=== PATIENT | female | born 1950 | race Caucasian/White ===

== ENCOUNTER 2017-09-08 07:07 | Inpatient (IN) | payer OTHER ==
[2017-08-10 15:20] VITALS: BMI 44.0
--- NOTE | 2017-08-10 15:43 | PAT Medication Instructions ---
Service Date Aug 10, 2017. Current Home Medication List Albuterol Hfa (Ventolin Hfa), 2 PUFFS INH Q6H PRN for PRN Aspirin (Aspirin Ec), 81 MG PO QPM Carboxymethylcellulose-Glyceri (Refresh Optive Ren-3 0.5-1-0.5 %), 1 DROP OP PRN Chlorthalidone (Hygroton), 25 MG PO QAM Cholecalciferol (Vitamin D3), 5,000 TAB PO QAM Clindamycin Hcl (Cleocin), 600 MG PO UD PRN for RN Dexlansoprazole (Dexilant), 60 MG PO QAM Duloxetine Hcl (Cymbalta), 60 MG PO QPM Ferrous Sulfate (Fe Tabs), 325 MG PO QAM Fish Oil (Pray-3), 1-2 TAB PO QAM Garlic (Garlique), 1,000 MG PO QPM Hydrocortisone 2.5% (Rectal) (Anusol-Hc 2.5%), 1 APPLN TOP BID PRN for PRN Latanoprost (Xalatan 0.005% Oph Myra), 1 DROPS OP HS Lisinopril (Zestril), 5 MG PO BID Loperamide Hcl (Imodium), 2 MG PO QID PRN for RN Magnesium Oxide (Mag-Ox), 400 MG PO BID Morphine Sulfate Ir (Morphine Sulfate Ir), 15 MG PO Q12H PRN for Pain Niacin (Niacin), 1,000 MG PO HS Ondansetron Hcl (Zofran), 4 MG PO Q8H PRN for N Oxycodone/Acetaminophen 10MG/325MG (Percocet 10MG/325MG), 1 TAB PO Q4H PRN for N Polyethylene Glycol 3350 (Miralax), 17 GM PO PRN Polyethylene Glycol-Propylene (Systane Ultra), 1 DROPS OP PRN Ranitidine (Zantac), 150 MG PO QPM Tizanidine (Zanaflex ), 4 MG PO Q8H PRN for PRN Topiramate (Topamax), 175 MG PO BID [Mirapex], 1.5 MG PO HS [Mirapex], 0.5 TAB PO NOON Medication Instructions For Your Scheduled Surgery - Hold the following medications 2 weeks prior to surgery: Fish Oil (Pray-3), 1-2 TAB PO QAM Garlic (Garlique), 1,000 MG PO QPM - Hold the following medications 24 hours prior to surgery: Lisinopril (Zestril), 5 MG PO BID [Mirapex], 1.5 MG PO HS [Mirapex], 0.5 TAB PO NOON Niacin (Niacin), 1,000 MG PO HS Hydrocortisone 2.5% (Rectal) (Anusol-Hc 2.5%), 1 APPLN TOP BID PRN for PRN - Hold the following medications the morning of surgery: Clindamycin Hcl (Cleocin), 600 MG PO UD PRN for RN Cholecalciferol (Vitamin D3), 5,000 TAB PO QAM Clindamycin Hcl (Cleocin), 600 MG PO UD PRN for RN Ferrous Sulfate (Fe Tabs), 325 MG PO QAM Loperamide Hcl (Imodium), 2 MG PO QID PRN for RN Magnesium Oxide (Mag-Ox), 400 MG PO BID Polyethylene Glycol 3350 (Miralax), 17 GM PO PRN Tizanidine (Zanaflex ), 4 MG PO Q8H PRN for PRN - Take the following medications the morning of surgery with a sip of water: Topiramate (Topamax), 175 MG PO BID Polyethylene Glycol-Propylene (Systane Ultra), 1 DROPS OP PRN (if needed) Oxycodone/Acetaminophen 10MG/325MG (Percocet 10MG/325MG), 1 TAB PO Q4H PRN for N (okay to take up to 4 hours prior to surgery if needed) Morphine Sulfate Ir (Morphine Sulfate Ir), 15 MG PO Q12H PRN for Pain (okay to take up to 4 hours prior to surgery if needed) Ondansetron Hcl (Zofran), 4 MG PO Q8H PRN for N (if needed) Dexlansoprazole (Dexilant), 60 MG PO QAM Carboxymethylcellulose-Glyceri (Refresh Optive Rne-3 0.5-1-0.5 %), 1 DROP OP PRN (if needed) Albuterol Hfa (Ventolin Hfa), 2 PUFFS INH Q6H PRN for PRN (if needed) - Take the following medications as scheduled the night before surgery: Topiramate (Topamax), 175 MG PO BID Tizanidine (Zanaflex ), 4 MG PO Q8H PRN for PRN (if needed) Ranitidine (Zantac), 150 MG PO QPM Polyethylene Glycol-Propylene (Systane Ultra), 1 DROPS OP PRN (if needed) Polyethylene Glycol 3350 (Miralax), 17 GM PO PRN (if needed) Oxycodone/Acetaminophen 10MG/325MG (Percocet 10MG/325MG), 1 TAB PO Q4H PRN for N (if needed) Morphine Sulfate Ir (Morphine Sulfate Ir), 15 MG PO Q12H PRN for Pain (if needed ) Ondansetron Hcl (Zofran), 4 MG PO Q8H PRN for N (if needed) Magnesium Oxide (Mag-Ox), 400 MG PO BID Loperamide Hcl (Imodium), 2 MG PO QID PRN for RN (if needed) Latanoprost (Xalatan 0.005% Oph Myra), 1 DROPS OP HS Duloxetine Hcl (Cymbalta), 60 MG PO QPM Clindamycin Hcl (Cleocin), 600 MG PO UD PRN for RN (if needed) Carboxymethylcellulose-Glyceri (Refresh Optive Ren-3 0.5-1-0.5 %), 1 DROP OP PRN (if needed) Aspirin (Aspirin Ec), 81 MG PO QPM Albuterol Hfa (Ventolin Hfa), 2 PUFFS INH Q6H PRN for PRN (if needed) If you have any questions please call us at [phone] or [phone] or [phone]
[2017-08-10 16:30] LABS: BASO % 0.7 %; BASO ABS # 0.04 K/uL (0-0.2); EOS % 5.9 %; EOS ABS # 0.33 K/uL (0-0.5); HEMATOCRIT 33.4 % (37-47); HEMOGLOBIN 11.2 g/dL (12.0-16.0); IG# 0.02 K/uL (0.00-0.02); LYMPH % 24.7 %; LYMPH ABS # 1.39 K/uL (1.2-3.4); MEAN CELL VOLUME 93.8 fL (80-100); MEAN CORPUSCULAR HEMOGLOBIN 31.5 pg (25-34); MEAN CORPUSCULAR HGB CONC 33.5 g/dl (32-36); MEAN PLATELET VOLUME 9.9 fL (7.4-10.4); MONO % 8.2 %; MONO ABS # 0.46 K/uL (0.11-0.59); NEUT % 60.1 %; NEUT ABS # 3.39 K/uL (1.4-6.5); PLATELET COUNT 217 K/uL (130-400); RED CELL DISTRIBUTION WIDTH CV 13.8 % (11.5-14.5); RED CELL DISTRIBUTION WIDTH SD 47.5 fL (36.4-46.3); WHITE BLOOD COUNT 5.63 K/uL (4.8-10.8)
[2017-08-10 16:44] LABS: PTT PATIENT 25.7 SECONDS (21.0-31.0)
--- NOTE | 2017-08-10 17:00 | DIAGNOSTIC IMAGING REPORT ---
CHEST 2 VIEWS ROUTINE CLINICAL HISTORY: 67 years-old Female presenting with PAT. TECHNIQUE: Portable upright AP view of the chest was obtained. COMPARISON: 11/12/2011. FINDINGS: Atherosclerosis of the aortic arch. Cardiac silhouette normal in size. Elevation of the right hemidiaphragm. Lungs and pleural spaces clear. Scoliotic curvature of the spine may in part be positional. Upper abdomen normal. IMPRESSION: 1. No acute cardiopulmonary disease. Electronically signed by: David Rivera M.D. 08/10/2017 4:59 PM Dictated Date/Time: 08/10/2017 4:58 PM
[2017-08-11 06:14] LABS: HEMOGLOBIN A1C 5.4 % (4.5-5.6)
--- NOTE | 2017-09-07 17:21 | HISTORY & PHYSICAL EXAMINATION ---
DATE OF ADMISSION: 09/08/2017 CHIEF COMPLAINT: Chronic right knee pain. HISTORY OF PRESENT ILLNESS: This is a 67-year-old female patient of Dr. Arroyo, complaining of chronic right knee pain, longstanding, now progressively getting worse. The patient has failed conservative treatment including intraarticular injections and anti-inflammatories. The patient has increased pain with weightbearing activities and her pain does interfere with her activities of daily living. PAST MEDICAL HISTORY: Hypertension, hypercholesterolemia, sleep apnea with the use of CPAP, history of a TIA, fibromyalgia, peripheral neuropathy, anemia, sickle cell disease, osteoarthritis, spine problems, neck problems, upper back problems, sciatica, scoliosis, acid reflux, hiatal hernia, obesity, dental issues, stage III kidney failure, and a history of breast cancer. SOCIAL HISTORY: Nonsmoker and nondrinker. FAMILY HISTORY: Noncontributory. REVIEW OF SYSTEMS: Chronic right knee pain. Otherwise, denies any shortness of breath, chest pain, nausea, vomiting or any other joint complaints. PAST SURGICAL HISTORY: , bilateral hypogastric artery ligation, polyp removal, D&C, hernia repair, uterine polyp removal, hysterectomy, left knee arthroscopy, removal of sebaceous cyst chest, left total knee replacement, right cataract, left cataract, and partial mastectomy. MEDICATIONS: 1. Zanaflex 4 mg 1 by mouth every 8 hours as needed for muscle spasm. 2. Percocet every 4 hours as needed. 3. Morphine 15 mg b.i.d. 4. Imodium 1 tablet 4 times daily as needed. 5. Zofran 4 mg as needed. 6. Topamax 100 mg 2 tablets b.i.d. 7. Cymbalta 60 mg daily. 8. Lisinopril 5 mg b.i.d. 9. Ferrous sulfate 325 mg with breakfast. 10. Xalatan 0.005% ophthalmic solution 1 drop in each eye daily. 11. [place] 3 fish oil daily. 12. Anusol 2.5% rectal cream b.i.d. 13. Ventolin HFA 108 mcg 2 puffs every 4-6 hours p.r.n. 14. Mag-Ox 400 mg b.i.d. 15. Niacin 500 mg 2 tablets at night. 16. Systane Ultra 0.4-0.3% ophthalmic solution 1 drop in both eyes daily. 17. Mirapex 1.5 mg 1-2 hours before bedtime. 18. Chlorthalidone 25 mg daily. 19. MiraLax 255 grams powder 17 grams by mouth as needed. 20. Aspirin 81 mg daily. 21. Vitamin D3 daily. 22. Zantac 150 mg daily as needed. 23. Dexilant 60 mg daily. 24. Refresh Optive 0.5-0.9% solution 1 drop into eye every 6 hours as needed for dry eyes. 25. Topiramate 50 mg 1-1/2 tablets twice daily. 26. Garlic 1000 mg daily. ALLERGIES: PENICILLIN, SULFA, CEPHALOSPORINS, REQUIP AND TRILEPTAL. PHYSICAL EXAMINATION: GENERAL: Well-developed and well-nourished 67-year-old female in no acute distress. She is alert and oriented x3 and pleasant. HEENT: Normocephalic and atraumatic. Extraocular motions are intact. Pupils are equal and reactive to light. HEART: Regular rate and rhythm. No murmurs are appreciated. LUNGS: Clear. ABDOMEN: Soft and nontender. Bowel sounds are present. EXTREMITIES: Right knee reveals obesity. She has a neutral alignment with 0-95 degrees of motion. She has crepitation with passive range of motion and mild effusion. She has 4/5 strength. NEUROLOGIC: Neurovascularly, she is intact in her right lower extremity. DIAGNOSES: Right knee end-stage osteoarthritis, hypertension, hypercholesterolemia, sleep apnea with the use of CPAP, carpal tunnel, fibromyalgia, peripheral neuropathy, anemia, sickle cell disease, osteoarthritis, spine problems, neck problems, back problems, sciatica, scoliosis with bulging disk, acid reflux, hiatal hernia, obesity, dental issues, stage III kidney disease, and a history of breast cancer. PLAN: The patient was advised of her diagnoses. Indications, risks, benefits, and postop course have all been reviewed. The patient wishes to proceed with a right total knee arthroplasty. Necessary consent forms, preoperative testing and clearances will be obtained. BECKY
[~2017-09-08] VITALS: Ht 149.9 cm; Wt 99.9 kg
[2017-09-08] VITALS (7 sets, daily range): BP systolic 105–124; BP diastolic 63–70; PULSE 65–80; TEMP 36.3–36.8; O2SAT 95–99; Ht 149.9 cm; Wt 99.9 kg
[~2017-09-08 07:07] MED LIST: ACETAMINOPHEN 500 MG TAB PO SCH; ASPI81TA28 PO; BUPIVACAINE 0.5 % 5 MG/1 ML PF 10ML VIAL ONE; CARB1SOL15 OP; CHOL20007 PO; CLIN300C2 PO; CLINDAMYCIN 600 MG/54 ML D5W 54 ML IV SCH; DEXAMETHASONE 4 MG TAB PO SCH; DEXL60CA4 PO; DULO60CA44 PO; FAMOTIDINE 20 MG TAB PO SCH; FENTANYL CITRATE INJ 50 MCG/1 ML 2 ML VIAL ONE; FERR-24 PO; GABAPENTIN 300 MG CAP PO SCH; GARL400T5 PO; HYDR2.5C37 TOP; HYG/25 PO; IMD/2 PO; LACTATED RINGER'S 1000ML 1,000 ML IV SCH; LACTATED RINGER'S 1000ML 500 ML IV SCH; LACTATED RINGER'S 1000ML IV SCH; LATA0.009 OP; LIDOCAINE HCL 2% 2 ML VIAL (20MG/ML) ONE; LISI-729 PO; MAGN400T6 PO; METOCLOPRAMIDE HCL 10 MG TAB PO SCH; MIDAZOLAM HCL 1 MG/ML 2ML VIAL ONE; MIRAPEX PO; MORP15TA PO; NIAC500T11 PO; OMEG10007 PO; ONDA4TAB46 PO; OXYC-106 PO; POLY1SOL6 OP; POLY335019 PO; PROPOFOL IV EMULSION 10 MG/ML 20 ML VIAL IV ONE; ROPIVACAINE 5MG/ML 30 ML 150 MG, BUPIVACAINE 0.5% MPF INJ 30 ML, EpINEphrine HCL INJ 0.... INFIL SCH; TOPI100T34 PO; VNTHFA/IN INH; ZNF4 PO; ZNTT/150 PO
[2017-09-08] MEDS ORDERED: EpHEDrine SULFATE INJ 50 MG/ML AMP IV PRN (07:45)
[2017-09-08] MEDS ORDERED: ATROPINE SULFATE 0.1 MG/ML 5ML SYR IV PRN (07:45)
[2017-09-08] MEDS ORDERED: FENTANYL CITRATE INJ 50 MCG/1 ML 2 ML VIAL IV PRN (07:45)
[2017-09-08] MEDS ORDERED: ONDANSETRON INJ 2 MG/ML 2 ML VIAL IV PRN ×2 (07:45→12:30)
[2017-09-08] MEDS ORDERED: POVIDONE-IODINE OP SOLN 30 ML BTL ONE (08:29)
[2017-09-08] MEDS ORDERED: BACITRACIN 50000 UNIT VIAL ONE (08:29)
[2017-09-08] MEDS ORDERED: ORTHO JOINT ANESTHETIC ONE (08:29)
--- NOTE | 2017-09-08 09:16 | History & Physical Bridge Note ---
H&P Re-Evaluation Bridge Note: I have examined the patient, reviewed the History & Physical and in the interval since the performance of the History & Physical I have noted the following changes of clinical significance: No changes noted
[2017-09-08] MEDS ORDERED: MIDAZOLAM HCL 1 MG/ML 2ML VIAL ONE (09:38)
[2017-09-08] MEDS ORDERED: PROPOFOL IV EMULSION 10 MG/ML 20 ML VIAL IV ONE (11:50)
--- NOTE | 2017-09-08 11:54 | [facility] Post Operative Brief Note ---
Immediate Operative Summary Operative Date Sep 08, 2017. Pre-Operative Diagnosis Right Knee End Stage Osteoarthritis,morbid obesity bmi 44.5, lymphedema Post-Operative Diagnosis same Procedure(s) Performed Right Total Knee Arthroplasty,superficial wound vac ,increased level difficulty morbid obesity Surgeon Dr. Abimael Arroyo Drapery Operator Surgeon(s) Carlos Mcknight PA-C Estimated Blood Loss 5cc Findings Consistent with Post-Op Diagnosis Specimens A. Right Knee Bone and Tissue Drains 2 hemovac Anesthesia Type MAC Spinal Regional Complication(s) none
[2017-09-08] MEDS ORDERED: MoRPHine SULFATE IR 15 MG TAB (IMMEDIATE RELEASE) PO PRN (12:30)
[2017-09-08] MEDS ORDERED: ARTIFICIAL TEARS OP SOLN OP PRN (12:30)
[2017-09-08] MEDS ORDERED: HYDROmorphone INJ 0.5 MG/0.5 ML SYR IV PRN (12:30)
[2017-09-08] MEDS ORDERED: ALUMINUM/MAGNESIUM/SIMETH (MAALOX MAX) 30 ML UDC PO PRN (12:30)
[2017-09-08] MEDS ORDERED: ALBUTEROL HFA 8 GM INHALER INH PRN (12:30)
[2017-09-08] MEDS ORDERED: LOPERAMIDE HCL 2 MG CAP PO PRN (12:30)
--- NOTE | 2017-09-08 12:40 | Anesthesiology Progress Note ---
Anesthesia Post Op Note Date & Time Sep 08, 2017 at 12:40 Vital Signs Pain Intensity: 0 Vital Signs Past 12 Hours Date Time Temp Pulse Resp B/P (MAP) Pulse Ox O2 Delivery O2 Flow Rate FiO2 09/08/17 12:30 74 18 101/51 97 Oxymask 10 09/08/17 12:21 37.1 80 18 99/48 99 Oxymask 10 Notes Mental Status: alert / awake / arousable, participated in evaluation Pt Amnestic to Procedure: Yes Nausea / Vomiting: adequately controlled Pain: adequately controlled Airway Patency, RR, SpO2: stable & adequate BP & HR: stable & adequate Hydration State: stable & adequate Neuraxial Anesthesia: was administered, sensory block is resolving Anesthetic Complications: no major complications apparent
--- NOTE | 2017-09-08 12:54 | DIAGNOSTIC IMAGING REPORT ---
R KNEE 1 OR 2 VIEWS ROUTINE CLINICAL HISTORY: Right knee degenerative joint disease. Arthroplasty. COMPARISON: None FINDINGS: Alignment of the total right knee arthroplasty is anatomic. There is no fracture or unexpected radiopaque foreign body. Drains and skin kerrie are present. IMPRESSION: Expected findings following total right knee arthroplasty. Electronically signed by: Sergio Sanchez M.D. 09/08/2017 12:52 PM Dictated Date/Time: 09/08/2017 12:52 PM
[2017-09-08] MEDS: D5W AND 1/2NSS + 20MEQ KCL 1,000 ML IV SCH ×2 (14:00→23:00)
[2017-09-08] MEDS: ACETAMINOPHEN 500 MG TAB PO SCH ×2 (14:05→21:58)
[2017-09-08] MEDS ORDERED: LISI10TA PO (15:20)
[2017-09-08] MEDS ORDERED: MORP1TAB11 PO (15:20)
--- NOTE | 2017-09-08 15:22 | Medical Consult ---
Consultation Date of Consultation: Sep 08, 2017. Attending Physician: Abimael Arroyo M.D. Reason for Consultation: Post-op medical mgmt History of Present Illness This is a 67yo F with a PMH of HTN, GAUTAM (on cpap), h/o TIA, depression, fibromyalgia, OA, GERD, CKD III and other problems listed below who is POD #0 s/ p R TKA by Dr. Arroyo. Patient with longstanding OA. Previously had L TKA performed and tolerated it well. Currently ambulates with a cane but is having increasing difficulty due to R knee pain. Is doing well post-operatively. Denies any pain, fever, chills, lightheadedness, headache, CP, SOB, abd pain, nausea, vomiting, diarrhea, constipation, LE swelling. Remote history of cancer of R breast. Has chronic back pain and OA, for which she is prescribed morphine ER, percocet and Zanaflex. Past Medical/Surgical History Medical Problems: (1) Chronic back pain Status: Chronic (2) CKD (chronic kidney disease), stage III Status: Chronic (3) Fibromyalgia Status: Chronic (4) GERD (gastroesophageal reflux disease) Status: Chronic (5) H/O malignant neoplasm of breast Status: Chronic (6) H/O recurrent transient ischemic attacks Status: Chronic (7) HLD (hyperlipidemia) Status: Chronic (8) HTN (hypertension) Status: Chronic (9) Obesity Status: Chronic (10) GAUTAM on CPAP Status: Chronic (11) Right knee DJD Status: Chronic (12) Sickle cell disease Status: Chronic Surgical Problems: (1) Status post total knee replacement, left Status: Chronic Family History Hypertension Kidney disease Social History Smoking Status: Never Smoker Alcohol Use: none Marital Status: Housing Status: lives with significant other Allergies Coded Allergies: Adhesives (Verified Allergy, Intermediate, RASH, 09/08/17) Penicillins (Verified Allergy, Intermediate, TEMP ELEV (DRUG FEVER),RASH HIVES, 09/08/17) Sulfa Drugs (Verified Allergy, Intermediate, RASH, 09/08/17) Cephalosporins (Verified Allergy, Unknown, KEFLEX ALLERGY, NO RXN PROVIDED WHEN HX TAKEN, 09/08/17) HMG-CoA-R Inhibitors (Verified Allergy, Unknown, "STATIN" ALLERGY-MUSCLE PAINS, 09/08/17) NSAIDs (Verified Allergy, Unknown, AVOID DUE TO KIDNEY FUNCTION, 09/08/17) Oxcarbazepine (Verified Allergy, Unknown, BURNING AND PAIN FEET, 08/10/17) Ropinirole (Verified Allergy, Unknown, RASH, 08/10/17) Home Medications Reported Home Medications Medications Dose Route/Sig Max Daily Dose Days Date Category Dose Instructions Morphine Sulfate Er (Morphine Sulfate) 15 Mg Tab 1 Tab PO BID PRN 30 09/08/17 Reported Prinivil (Lisinopril) 10 Mg Tab 10 Mg PO DAILY 09/08/17 Reported Garlique (Garlic) 400 Mg Tab 1,000 Mg PO QPM 08/10/17 Reported Refresh Optive Ren-3 0.5-1-0.5 % (Carboxymethylcellulose-Glyceri) 1 Myra Myra 1 Drop OP PRN 08/10/17 Reported Dexilant (Dexlansoprazole) 60 Mg Cap 60 Mg PO QAM 08/10/17 Reported Zantac (Ranitidine HCl) 150 Mg Tab 150 Mg PO QPM 08/10/17 Reported Vitamin D3 (Cholecalciferol) 2,000 Unit Tab 5,000 Tab PO QAM 90 08/10/17 Reported Cleocin (Clindamycin Hcl) 300 Mg Cap 600 Mg PO UD PRN 10 08/10/17 Reported PREMED FOR DENTAL Aspirin Ec (Aspirin) 81 Mg Tab 81 Mg PO QPM 08/10/17 Reported Miralax (Polyethylene Glycol 3350) 1 Pow Pow 17 Gm PO PRN 08/10/17 Reported [place] (Chlorthalidone) 25 Mg Tab 25 Mg PO QAM 08/10/17 Reported [Mirapex] 0.5 Tab PO NOON 08/10/17 Reported TAB = 1.5 MG [Mirapex] 1.5 Mg PO HS 08/10/17 Reported Systane Ultra (Polyethylene Glycol-Propylene) 1 Myra Myra 1 Drops OP PRN 08/10/17 Reported Mag-Ox (Magnesium Oxide) 400 Mg Tab 400 Mg PO BID 08/10/17 Reported Ventolin Hfa (Albuterol) 200 Puffs/62626 Mcg Aers 2 Puffs INH Q6H PRN 08/10/17 Reported Anusol-Hc 2.5% (Hydrocortisone 2.5% (Rectal)) 2.5 % Cre 1 Appln TOP BID PRN 7 08/10/17 Reported [place]-3 (Fish Oil) 1 Ea Cap 1-2 Tab PO QAM 08/10/17 Reported Xalatan 0.005% Oph Myra (Latanoprost) 0.005 % Myra 1 Drops OP HS 90 08/10/17 Reported Cymbalta (Duloxetine Hcl) 60 Mg Cap 60 Mg PO QPM 08/10/17 Reported Percocet 10MG/325MG (Oxycodone/Acetaminophen) Tab 1 Tab PO Q4H PRN 08/10/17 Reported Fe Tabs (Ferrous Sulfate) 325 Mg Tab 325 Mg PO QAM 11/12/11 Reported Topamax (Topiramate) 100 Mg Tab 175 Mg PO BID 11/12/11 Reported Niacin 500 Mg Tab 1,000 Mg PO HS 07/25/07 Reported Zanaflex (Tizanidine HCl) 4 Mg Tab 4 Mg PO Q8H PRN 07/25/07 Reported Current Inpatient Medications Current Inpatient Medications Medications (Trade) Dose Ordered Sig/Miladis Route Start Time Stop Time Status Last Admin Dose Admin Lactated Ringer's 1,000 ml @ 15 mls/hr Q24H IV 09/08/17 06:00 09/09/17 05:59 Lactated Ringer's 1,000 ml @ 60 mls/hr [id number] IV 09/08/17 06:00 09/08/17 22:39 09/08/17 08:13 60 MLS/HR Clindamycin Phosphate 54 ml @ 100 mls/hr PREOP IV 09/08/17 06:00 09/08/17 18:00 09/08/17 10:04 100 MLS/HR Acetaminophen (Tylenol Tab) 1,000 mg PREOP PO 09/08/17 06:00 09/08/17 18:00 09/08/17 08:08 1,000 MG Dexamethasone (Decadron Tab) 8 mg PREOP PO 09/08/17 06:00 09/08/17 18:00 09/08/17 08:10 8 MG Famotidine (Pepcid Tab) 20 mg PREOP PO 09/08/17 06:00 09/08/17 18:00 09/08/17 08:09 20 MG Gabapentin (Neurontin Cap) 300 mg PREOP PO 09/08/17 06:00 09/08/17 18:00 09/08/17 08:08 300 MG Metoclopramide HCl (Reglan Tab) 10 mg PREOP PO 09/08/17 06:00 09/08/17 18:00 09/08/17 08:09 10 MG Albuterol (Ventolin Hfa Inhaler) 2 puffs Q6H PRN INH 09/08/17 12:30 10/08/17 12:29 Chlorthalidone (Hygroton Tab) 25 mg QAM PO 09/09/17 09:00 10/09/17 08:59 Duloxetine HCl (Cymbalta Cap) 60 mg QPM PO 09/08/17 21:00 10/08/17 20:59 Latanoprost (Xalatan Oph Soln) 1 drops HS OP 09/08/17 21:00 10/08/17 20:59 Lisinopril (Zestril Tab) 5 mg BID PO 09/08/17 21:00 10/08/17 20:59 Loperamide HCl (Imodium Cap) 2 mg QID PRN PO 09/08/17 12:30 10/08/17 12:29 Magnesium Oxide (Mag-Ox Tab) 400 mg BID PO 09/08/17 21:00 10/08/17 20:59 Niacin (Niacin Tab) 1,000 mg HS PO 09/08/17 21:00 10/08/17 20:59 Ranitidine HCl (zANTac TAB) 150 mg QPM PO 09/08/17 21:00 10/08/17 20:59 Tizanidine HCl (Zanaflex Tab) 4 mg Q8H PRN PO 09/08/17 12:30 10/08/17 12:29 Topiramate (Topamax Tab) 175 mg BID PO 09/08/17 21:00 10/08/17 20:59 Artificial Tears (Artificial Tears) 1 drops DAILY PRN OP 09/08/17 12:30 10/08/17 12:29 Pantoprazole Sodium (Protonix Tab) 40 mg QAM PO 09/09/17 09:00 10/09/17 08:59 Oxycodone HCl (Roxicodone Immediate Rel Tab) `10-15MG for pain 10MG ... Q4HWA PRN PO 09/08/17 12:30 09/22/17 12:29 Potassium Chloride/Dextrose/ Sod Cl 1,000 ml @ 100 mls/hr Q10H IV 09/08/17 14:00 09/09/17 13:59 Clindamycin Phosphate 600 mg/ Dextrose 54 ml @ 100 mls/hr Q8H IV 09/08/17 18:00 09/09/17 02:33 Acetaminophen (Tylenol Tab) 1,000 mg Q8 PO 09/08/17 14:00 10/08/17 13:59 09/08/17 14:05 1,000 MG Magnesium Hydroxide (Milk Of Magnesia Susp) 30 ml Q6H PRN PO 09/08/17 12:30 10/08/17 12:29 Senna (Senokot Tab) 17.2 mg HS PO 09/08/17 21:00 10/08/17 20:59 Docusate Sodium (coLACE CAP) 100 mg BID PO 09/08/17 21:00 10/08/17 20:59 Al Hydrox/Mg Hydrox/Simethicone (Maalox Max Susp) 15 ml Q4H PRN PO 09/08/17 12:30 10/08/17 12:29 Multivitamins (Multivitamin Tab) 1 tab QAM PO 09/09/17 09:00 10/09/17 08:59 Ondansetron HCl (Zofran Inj) 4 mg Q6H PRN IV 09/08/17 12:30 10/08/17 12:29 Ferrous Gluconate (Ferrous Gluconate Tab) 324 mg TIDM PO 09/08/17 17:45 10/08/17 17:59 Aspirin (Ecotrin Tab) 81 mg BID PO 09/08/17 21:00 10/08/17 20:59 Hydromorphone HCl (Dilaudid Inj) 0.5 mg Q4HWA PRN IV 09/08/17 12:30 09/22/17 12:29 Review of Systems Ten systems reviewed and negative except as noted in the HPI. Physical Exam Date Time Temp Pulse Resp B/P (MAP) Pulse Ox O2 Delivery O2 Flow Rate FiO2 09/08/17 15:13 Nasal Cannula 2.0 09/08/17 14:05 80 16 124/70 (88) 97 Nasal Cannula 2.0 09/08/17 13:38 36.7 67 16 108/65 (79) 95 Nasal Cannula 2.0 1/24/18 13:05 36.7 76 16 108/63 (78) 95 Nasal Cannula 2.0 09/08/17 13:05 Nasal Cannula 2.0 09/08/17 13:05 Nasal Cannula 2.0 09/08/17 12:50 37 73 18 93/41 96 Nasal Cannula 2 09/08/17 12:40 37 72 18 103/45 97 Nasal Cannula 2 09/08/17 12:30 74 18 101/51 97 Oxymask 10 09/08/17 12:21 37.1 80 18 99/48 99 Oxymask 10 General Appearance: WD/WN, no apparent distress, + obese Head: normocephalic, atraumatic Eyes: normal inspection, PERRL, sclerae normal ENT: normal ENT inspection, hearing grossly normal, pharynx normal (moist mucous membranes) Neck: supple, thyroid normal, trachea midline Respiratory/Chest: chest non-tender, lungs clear, normal breath sounds, no respiratory distress, no accessory muscle use Cardiovascular: regular rate, rhythm, normal peripheral pulses Abdomen/GI: normal bowel sounds, non tender, soft, no organomegaly Back: normal inspection Extremities/Musculoskelatal: normal inspection, + pertinent finding (R knee dressing intact. Drain with sanguineous output) Neurologic/Psych: no motor/sensory deficits, alert, normal mood/affect, oriented x 3 Skin: normal color, warm/dry Assessment & Plan This is a 67yo F with a PMH of HTN, GAUTAM (on cpap), h/o TIA, depression, fibromyalgia, OA, GERD, CKD III and other problems listed below who is POD #0 s/ p R TKA by Dr. Arroyo. R knee OA s/p R TKA: -POD#0. Surgery performed by Dr. Arroyo. -Pt is doing well post-operatively -Per ortho for pain control, wound care, anticoagulation and activities -Monitor H&H, continue incentive spirometry, PT/OT when appropriate HTN: -Normotensive -Cont home dose lisinopril, chlorthalidone GAUTAM: -May use own cpap Fibromyalgia, OA, chronic back pain: -Cont home dose morphine ER, percocet and Zanaflex Idiopathic peripheral neuropathy: -Cont home dose topamax GERD: -Cont PPI Depression: -Cont cymbalta DVT Ppx: Per ortho PCP: Mike Dispo: Per ortho Patient seen in collaboration with Dr. Garcia. Please see addendum. Dr. Alonso to see the patient tomorrow and continue following. ATTENDING ADDENDUM : pt seen and examined , care co ordinated with Kia Gómez PA-C 67 yo F with multiple co morbidities as outlined above , s/p rt TKA today recovering well post op P/E: gen ; pleasant , no sign of distress HT: regular s1/s2 lungs: CTA Ext : s/p rt TKA , drain present , normal sensation on lower ext, normal pulse and capillary refill A/P : OA of knee /s/p R TKA -recovering well post op cont management as per Ortho HTN: BP lower side -due to post op status /anesthesia effect -H&H and BMP ordered for tomorrow to assess blood loss anemia /renal insufficiency due to post op vol loss -antihypertensives /diuretics can be resumed tomorrow if BP stable and labs at baseline Please refer to documentation by Kia Gómez PA-C or further discussion of other issues Thank you for allowing to participate in care of the patient , will cont to follow her during her Hospital course Herminia Garcia MD
[2017-09-08] MEDS: CLINDAMYCIN IV 600 MG in DEXTROSE 5% 50ML 50 ML IV SCH (17:42)
[2017-09-08] MEDS: FERROUS GLUCONATE 324 MG TAB PO SCH (17:42)
[2017-09-08] MEDS: RANITIDINE HCL 150 MG TAB PO SCH (20:36)
[2017-09-08] MEDS: DOCUSATE SODIUM 100 MG CAP PO SCH (20:36)
[2017-09-08] MEDS: LISINOPRIL 5 MG TAB PO SCH (20:36)
[2017-09-08] MEDS: LATANOPROST 0.005% OP SOLN 2.5 ML BTL OP SCH (20:36)
[2017-09-08] MEDS: NIACIN 500 MG TAB IMMEDIATE RELEASE PO SCH (20:37)
[2017-09-08] MEDS: ASPIRIN 81 MG ECTAB PO SCH (20:37)
[2017-09-08] MEDS: MAGNESIUM OXIDE 400 MG TAB PO SCH (20:37)
[2017-09-08] MEDS: SENNA 8.6 MG TAB PO SCH (20:37)
[2017-09-08] MEDS: TOPIRAMATE 50 MG TAB PO SCH (20:37)
[2017-09-08] MEDS: DULOXETINE HCL 60 MG CAP PO SCH (20:37)
--- NOTE | 2017-09-09 00:55 | OPERATIVE REPORT ---
DATE OF OPERATION: 09/08/2017 INDICATION FOR PROCEDURE: The patient is a 67-year-old female who presents with chronic progressive osteoarthritis of her right knee. She has had successful left knee replacement in the past, doing well with that. Her right knee has developed progressive osteoarthritis. She has [id number] in the medial compartment. She has subluxation of the femur medially on the tibia with severe endstage osteoarthritis of the knee. Her range of motion was very limited. He does have morbid obesity. She has failed all conservative management. She does have history of some lymphedema of leg as well. PREOPERATIVE DIAGNOSES: 1. End-stage osteoarthritis, right knee. 2. Morbid obesity, BMI of 44.5. 3. Lymphedema, right lower extremity. POSTOPERATIVE DIAGNOSIS: Same. PROCEDURE: Right total knee arthroplasty and application of a superficial wound VAC and increased difficulty due to BMI of 44.5. SURGEON: Abimael Arroyo MD. TUBE COREMAKER: PROSPER Keller. ANESTHESIA: Spinal adductor nerve block and Orthomix. OPERATIVE PROCEDURE: The patient was taken to the operating room, after spinal anesthetic was placed and adductor nerve block was placed by anesthesia. She was placed supine on the operating room table. Pneumatic tourniquet was placed about her obese right upper thigh. Leg exam demonstrates she had an obese leg and lymphedema in the leg, no evidence of any infection. She did have some generalized edema in the lower area of our incision around the pretibial area. The knee exam demonstrated that she had a flexion contracture of about 5 degrees and had flexion only to 85 degrees. Her right lower extremity was then prepped and draped with ChloraPrep in usual sterile fashion. Left leg was elevated, exsanguinated with Esmarch bandage. Pneumatic tourniquet was raised to 350 mmHg because of her obesity. Incision was made longitudinally along the right knee. Skin was incised sharply. Subcutaneous flaps were elevated. When we did cutting, some of the subcutaneous tissues did have some edema noted. The incision was made through the medial retinaculum and extended up in the mid third of the quadriceps tendon and extended down to the medial tibial tubercle. Intraarticular findings demonstrated she had tricompartmental DJD, [id number] in the medial compartment. She had only remnants of the ACL remaining. I used the [employer] 2.0, total knee arthroplasty system using [id number] MRI templating. She was templated for a 5 femur and 4 tibia. The knee was exposed by excising the scarred patellar fat pad. The knee was fairly balanced so we did have to do some releases around the medial tibia medially and posteromedially. The fat pad over the anterior femur for placement of the component just proximal to the articular surface was resected. The synovial bands were released. The cruciate ligament remnants were resected. The menisci were resected. We had to address the patella first because the knee was stiff for appropriate exposure the femur, so we did a subperiosteal peel lateral release around the patella, measured the patella width. The patella was reproduced using a freehand cut technique and a 32 mm patellar component. We used the domed component. The drill holes for the patella were made and the excess lateral facet was beveled off to prevent any impingement. We placed retractors to expose the femur. The custom femoral cutting block was placed and then it was pinned in position. Distal femoral cut was made. Then the 5-in-1 cutting block for the size 5 femur was placed. The anterior, posterior and chamfer cuts were made. Then the tibia was subluxed and the custom tibial cutting block was pinned in position and the proximal tibial cut was made. Then we used a laminar esthetics instructor to assess ligamentous balance. We did have to pie crust the MCL to get balanced extension and flexion gaps. Then the tibia exposed. We placed a 4 tibial trial on the tibia externally rotated in line with the tibial tubercle, pinned it in position. The punch for the stem was used. Then, the 5 femoral trial was inserted and centered and the notch cutting devices were used. A collet was placed and a 12 insert gave balanced ligaments through full range of motion and patella tracked centrally. The trials were removed. The Orthomix anesthetic cocktail was injected per protocol. The knee was copiously irrigated with pulsatile lavage antibiotic solution with bacitracin. Bony surfaces were dried appropriately. The final components were then cemented with Simplex G cement. Final components were the 5 Oxinium [employer] Journey 2.0 right femoral component and the 4 tibial baseplate. The 12 mm high flex posterior stabilized poly insert was placed and a 32 mm dome patella. All cement cured and Betadine soap was used per protocol. Then when the cement cured, the knee was copiously irrigated with pulsatile lavage and antibiotic solution and bacitracin. Two drains were brought out laterally. Then the quadriceps tendon and medial retinaculum were closed with interrupted [id number] #1 Vicryl sutures. The knee was taken through full range of motion and repair was secure. The range of motion was 0 through about 100 degrees and that was pretty much where her calf met her thigh and limited further flexion. The repair was secured through full range. Then the subcutaneous tissues were closed with interrupted 2-0 Vicryl sutures. Skin was closed with skin kerrie and Prevena superficial wound VAC was applied. The tourniquet was let down. The patient tolerated the procedure well. PROSPER Keller was my photography assistant. He functioned as photography assistant for the entire procedure. He assisted in patient positioning, prepping, draping, leg positioning, soft tissue retraction, instrument management and performed the fascial, subcutaneous and skin closure, application of wound VAC and will participate in the postoperative care of the patient. I attest to the content of the Intraoperative Record and any orders documented therein. Any exception s are noted below.
[2017-09-09] MEDS: CLINDAMYCIN IV 600 MG in DEXTROSE 5% 50ML 50 ML IV SCH (01:37)
[2017-09-09 02:55] VITALS: BP 127/68; PULSE 58; TEMP 36.7; O2SAT 99
[2017-09-09] MEDS: OXYCODONE HCL IR 5 MG TAB (IMMEDIATE RELEASE) PO PRN ×4 (04:46→20:36)
[2017-09-09] MEDS: ACETAMINOPHEN 500 MG TAB PO SCH ×3 (05:30→22:19)
--- NOTE | 2017-09-09 05:42 | Orthopedic Progress Note ---
Orthopedic Progress Note Date of Service Sep 09, 2017. Subjective Post OP Day: 1 Reports: feeling well, pain controlled w PO medications, Denies: complaints, chest pain, SOB, nausea / vomiting, light headedness, calf pain Additional Notes: AM labs pending. Objective calves soft nontender, N/V intact, capillary refill less than 2 sec., dressing C /D/I, A&O x3, toes mobile Date Time Temp Pulse Resp B/P (MAP) Pulse Ox O2 Delivery O2 Flow Rate FiO2 09/09/17 02:55 36.7 58 16 127/68 (87) 99 Room Air 09/08/17 23:30 36.8 65 18 118/66 (83) 99 Room Air 09/08/17 22:07 Room Air 09/08/17 20:20 67 121/67 (85) 09/08/17 16:05 36.3 67 18 105/63 (77) 99 Nasal Cannula 2.0 09/08/17 15:13 Nasal Cannula 2.0 09/08/17 15:05 36.4 74 18 114/64 (81) 99 Nasal Cannula 2.0 09/08/17 14:05 80 16 124/70 (88) 97 Nasal Cannula 2.0 09/08/17 13:38 36.7 67 16 108/65 (79) 95 Nasal Cannula 2.0 09/08/17 13:05 36.7 76 16 108/63 (78) 95 Nasal Cannula 2.0 09/08/17 13:05 Nasal Cannula 2.0 09/08/17 13:05 Nasal Cannula 2.0 09/08/17 12:50 37 73 18 93/41 96 Nasal Cannula 2 09/08/17 12:40 37 72 18 103/45 97 Nasal Cannula 2 09/08/17 12:30 74 18 101/51 97 Oxymask 10 09/08/17 12:21 37.1 80 18 99/48 99 Oxymask 10 Laboratory Results 24 Hours: Test 09/09/17 05:29 Assessment & Plan Assessment: POD #1, Right TKA Plan: PT/ OT DVT proph- [facility] per medicine. Inhouse Planning Pain Management: Ultram, Dilaudid, PO Tylenol, Oxy IR DVT Prophylaxis: TEDs, SCDs, ASA Discharge Planning [facility] Pain Management: PO Tylenol, Oxy IR DVT Prophylaxis: TEDs, ASA Therapy: Physical Therapy, Occupational Therapy
--- NOTE | 2017-09-09 05:44 | Discharge Instructions ---
Discharge Instructions Date of Service Sep 09, 2017. Admission Reason for Admission: Right Knee Degenerative Joint Disease Discharge Discharge Diagnosis / Problem: Right TKA Discharge Goals Goal(s): Improve function Activity Recommendations Activity Level: Assistance Required . Additional Information Patient informed of condition: Yes Advance Directives: Yes DNR: No Level of Care: Skilled Communicable Disease: No Prognosis: Stable Hamilton Catheter: No Instructions / Follow-Up Instructions / Follow-Up ACTIVITY RECOMMENDATIONS: SELF CARE INSTRUCTIONS AFTER TOTAL KNEE REPLACEMENT A. You may need to continue a physical therapy program after discharge from the hospital. There are several options available to you. Your doctor will assist you in selecting the best one for you. 1. An out-patient facility 2 to 3 times a week for therapy or home therapy. 2. Continue working on all exercises taught to you in the hospital. Your goals should be to increase bending of your knee to 90 degrees and beyond and to fully straighten your knee. B. You may progress at your own pace from walking with a walker or crutches to a cane; then to no assistive devices. C. Make walking a part of your daily routine. Be up as much as comfortable with rest periods throughout the day. Rest with leg elevation is very important. Use the ice wrap frequently for the first 3-4 weeks. D. There are no restrictions on activities. You may ride in a car, shop, participate in wood web weaving machine operator and all social activities. E. Wear the long elastic stockings (EMILIE hose) 20 hours a day for 2 weeks after surgery. They can be removed several times a day for laundering and for a bath. F. You may shower, no tub baths until cleared by your doctor. SPECIAL CARE INSTRUCTIONS: VERY IMPORTANT TO READ AND REVIEW A. There are a few signs you need to watch for after you are home. Call [facility] if you notice any of the followin. Increased severe knee pain. Some pain is expected especially when you exercise. 2. Increased swelling in your leg or knee; pain or swelling of the calf muscle in either lower leg. 3. Any fluid drainage from the incision. 4. Shortness of breath or chest pain. B. Please call [facility] at if you have any concerns or questions about your operation or recovery. The doctor or his nurse will return your call promptly. C. You must take antibiotics before dental work, bladder, bowel or other surgery. Your doctor will provide you with a permanent care to carry describing this precaution. IMPORTANT: * REMEMBER TO TAKE ASPIRIN, 81 MG, TWICE DAILY FOR 4 WEEKS UNLESS OTHERWISE DIRECTED. THIS IS YOUR BLOOD THINNER. * HIGH RISK PATIENTS MAY BE PRESCRIBED A STRONGER BLOOD THINNER. THIS WILL BE PROVIDED AT DISCHARGE. * CALL IF INCREASED PAIN, REDNESS, DRAINAGE OR FEVER GREATER THAT 101. * WEAR EMILIE HOSE 20 HOURS PER DAY FOR 2 WEEKS. * YOU MAY HAVE A LARGE BAND-AID LIKE DRESSING (SILVERON). THIS WILL REMAIN ON YOUR INCISION FOR 7 DAYS, THEN CAN BE REMOVED. IF INCISION IS LEAKING THROUGH DRESSING, CALL THE OFFICE . FOLLOW UP VISIT: If appointment is not already scheduled: Please call [facility] to make a follow-up appointment for 2 weeks after your surgery at . Current Hospital Diet Patient's current hospital diet: Regular Diet Discharge Diet Recommended Diet: Regular Diet Procedures Procedures Performed: Right Total Knee Arthroplasty,superficial wound vac ,increased level difficulty morbid obesity Pending Studies Studies pending at discharge: no Laboratory Results Hemoglobin A1c Test 08/10/17 16:07 Range/Units Estimated Average Glucose 108 mg/dl Hemoglobin A1c 5.4 4.5-5.6 % Medical Emergencies . Who to Call and When: Medical Emergencies: If at any time you feel your situation is an emergency, please call 911 immediately. . Non-Emergent Contact Non-Emergency issues call your: Primary Care Provider . . "Provider Documentation" section prepared by Jaison Frost. . Core Measure Problem Core Measures: VTE VTE Core Measures Date of VTE Diagnosis: Sep 09, 2017 Time of VTE Diagnosis: 05:43 Reason no anticoag overlap I/P: Treatment provided - N/A Reason no anticoag overlap @DC: Treatment provided - N/A [place] Drug Monitoring Program Search Results: patient reviewed within database, no issues identified
[2017-09-09 05:57] LABS: HEMATOCRIT 26.1 % (37-47); HEMOGLOBIN 8.6 g/dL (12.0-16.0); MEAN CELL VOLUME 93.9 fL (80-100); MEAN CORPUSCULAR HEMOGLOBIN 30.9 pg (25-34); MEAN PLATELET VOLUME 10.2 fL (7.4-10.4); PLATELET COUNT 160 K/uL (130-400); RED CELL DISTRIBUTION WIDTH CV 13.8 % (11.5-14.5); RED CELL DISTRIBUTION WIDTH SD 47.4 fL (36.4-46.3); WHITE BLOOD COUNT 7.62 K/uL (4.8-10.8)
[2017-09-09 06:37] LABS: CREATININE 1.52 mg/dl (0.60-1.20); POTASSIUM 3.4 mmol/L (3.5-5.1)
[2017-09-09 07:09] VITALS: BP 129/70; PULSE 64; TEMP 36.8; O2SAT 100
[2017-09-09] MEDS: MULTIVITAMIN TAB PO SCH (09:11)
[2017-09-09] MEDS: FERROUS GLUCONATE 324 MG TAB PO SCH ×3 (09:11→18:16)
[2017-09-09] MEDS: TOPIRAMATE 50 MG TAB PO SCH ×2 (09:12→20:38)
[2017-09-09] MEDS: MAGNESIUM OXIDE 400 MG TAB PO SCH ×2 (09:13→20:37)
[2017-09-09] MEDS: DOCUSATE SODIUM 100 MG CAP PO SCH ×2 (09:14→20:37)
[2017-09-09] MEDS: ASPIRIN 81 MG ECTAB PO SCH ×2 (09:14→20:37)
[2017-09-09] MEDS: LISINOPRIL 5 MG TAB PO SCH ×2 (09:14→20:39)
[2017-09-09] MEDS: PANTOprazole SOD 40 MG TAB PO SCH (09:15)
[2017-09-09] MEDS: CHLORTHALIDONE 25 MG TAB PO SCH (09:15)
[2017-09-09] MEDS: D5W AND 1/2NSS + 20MEQ KCL 1,000 ML IV SCH (09:16)
[2017-09-09 10:45] VITALS: BP 119/70; PULSE 69; O2SAT 99
--- NOTE | 2017-09-09 12:34 | Clinical Documentation Query ---
CLINICAL DOCUMENTATION QUERY A 67 yo female s/p total right knee arthroplasty and history of CKD stage 3. In your clinical opinion is this patient being managed for: ( ) Acute kidney failure ( ) Not Agree (x ) Other explanation of clinical findings (Please Explain)-This patient is Dr/ Edwin Alonso's. Please send request to him. Thank you ( ) Unable to determine (Please Define) ( ) Need to Discuss The medical record reflects the following clinical findings, treatment, and risk factors. Clinical Indicators: Creatinine 1.52 trending up from 1.0 on 08/26/2017 Treatment: IV hydration, serial PRPs Risk Factors: CKD, s/p surgical event Please clarify and document your clinical opinion in the progress notes and discharge summary. Terms such as "probable", "suspected", "likely", "questionable", "possible", or "still to be ruled out" are acceptable. IF IN AGREEMENT, YOU MUST DOCUMENT ABOVE DIAGNOSTIC STATEMENT IN DAILY PROGRESS NOTES AND DISCHARGE SUMMARY. This document is not part of the patient's record. Thank You, Loyda Holland RN [phone]
[2017-09-09] MEDS: MAGNESIUM HYDROXIDE SUSP 30 ML UDC PO PRN (13:24)
--- NOTE | 2017-09-09 13:45 | Anesthesiology Progress Note ---
Anesthesia Post Op Note Date & Time Sep 09, 2017 at 13:45 Vital Signs Vital Signs Past 12 Hours Date Time Temp Pulse Resp B/P (MAP) Pulse Ox O2 Delivery O2 Flow Rate FiO2 09/09/17 07:30 Room Air 09/09/17 07:09 36.8 64 18 129/70 (89) 100 Room Air 09/09/17 02:55 36.7 58 16 127/68 (87) 99 Room Air Notes Mental Status: alert / awake / arousable, participated in evaluation Pt Amnestic to Procedure: Yes Nausea / Vomiting: adequately controlled Pain: adequately controlled Airway Patency, RR, SpO2: stable & adequate BP & HR: stable & adequate Hydration State: stable & adequate Neuraxial Anesthesia: was administered, sensory block resolved Anesthetic Complications: no major complications apparent
[2017-09-09 14:25] VITALS: BP 120/70; PULSE 72; TEMP 36.5; O2SAT 98
[2017-09-09 15:00] VITALS: BP 120/70; PULSE 70; TEMP 36.6; O2SAT 98
--- NOTE | 2017-09-09 19:09 | Progress Note ---
Internal Med Progress Note Date of Service: Sep 09, 2017. Provider Documentation: SUBJECTIVE: Patient seen and examined at bedside. No acute complaints. OBJECTIVE: Exam: General- no acute distress Eyes-EOMI Neck- trachea midline Lungs- Lungs CTABL, no wheezing Heart- regular rate Abdomen- soft, nontender, + bowel sounds Extremities- wound vac of right knee, legs in SCDs Neuro- awake and alert, oatient able to wiggle toes bilaterally. No focal upper extremity deficits ASSESSMENT & PLAN: s/p Right Total Knee Arthroplasty with superficial wound vac Anemia Hgb 11.2 on 09/08/17 and Hgb 8.6 on 09/09/17 wound vac of right kneed with red serosanguineous fluid continue to trend CBC Electrolytes Serum potassium 3.4, mild hypokalemia, 40 meq potassium oral ordered HTN: -Normotensive , continue home dose lisinopril, chlorthalidone Obesity with GAUTAM: -May use own cpap Fibromyalgia, OA, chronic back pain: -Cont pain medications Idiopathic peripheral neuropathy: -Cont home dose topamax GERD: -Cont PPI Depression: -Cont cymbalta DVT Ppx: SCDs Vital Signs: Date Time Temp Pulse Resp B/P (MAP) Pulse Ox O2 Delivery O2 Flow Rate FiO2 09/09/17 15:00 36.6 70 18 120/70 (87) 98 Room Air 09/09/17 14:25 36.5 72 17 120/70 (87) 98 Room Air 09/09/17 10:45 69 99 09/09/17 07:30 Room Air 09/09/17 07:09 36.8 64 18 129/70 (89) 100 Room Air 09/09/17 02:55 36.7 58 16 127/68 (87) 99 Room Air 09/08/17 23:30 36.8 65 18 118/66 (83) 99 Room Air 09/08/17 22:07 Room Air 09/08/17 20:20 67 121/67 (85) Lab Results: Results Past 24 Hours Test 09/09/17 05:29 Range/Units White Blood Count 7.62 4.8-10.8 K/uL Red Blood Count 2.78 4.2-5.4 M/uL Hemoglobin 8.6 12.0-16.0 g/dL Hematocrit 26.1 37-47 % Mean Corpuscular Volume 93.9 80-100 fL Mean Corpuscular Hemoglobin 30.9 25-34 pg Mean Corpuscular Hemoglobin Concent 33.0 32-36 g/dl RDW Standard Deviation 47.4 36.4-46.3 fL RDW Coefficient of Variation 13.8 11.5-14.5 % Platelet Count 160 130-400 K/uL Mean Platelet Volume 10.2 7.4-10.4 fL Sodium Level 139 136-145 mmol/L Potassium Level 3.4 3.5-5.1 mmol/L Chloride Level 106 98-107 mmol/L Carbon Dioxide Level 27 21-32 mmol/L Anion Gap 6.0 3-11 mmol/L Blood Urea Nitrogen 36 7-18 mg/dl Creatinine 1.52 0.60-1.20 mg/dl Est Creatinine Clear Calc Drug Dose 37.4 ml/min Estimated GFR () 40.7 Estimated GFR (Non- 35.1 BUN/Creatinine Ratio 23.6 10-20 Random Glucose 119 70-99 mg/dl Calcium Level 8.0 8.5-10.1 mg/dl
[2017-09-09] MEDS ORDERED: POTASSIUM CHLORIDE 20 MEQ TABCR PO ONE (19:30)
[2017-09-09] MEDS: SENNA 8.6 MG TAB PO SCH (20:37)
[2017-09-09] MEDS: LATANOPROST 0.005% OP SOLN 2.5 ML BTL OP SCH (20:37)
[2017-09-09] MEDS: RANITIDINE HCL 150 MG TAB PO SCH (20:37)
[2017-09-09] MEDS: DULOXETINE HCL 60 MG CAP PO SCH (20:37)
[2017-09-09] MEDS: NIACIN 500 MG TAB IMMEDIATE RELEASE PO SCH (20:39)
[2017-09-09 23:29] VITALS: BP 131/76; PULSE 69; TEMP 36.4; O2SAT 96
[2017-09-10] MEDS: OXYCODONE HCL IR 5 MG TAB (IMMEDIATE RELEASE) PO PRN ×5 (00:48→19:31)
[2017-09-10] MEDS: ACETAMINOPHEN 500 MG TAB PO SCH ×3 (05:45→23:00)
--- NOTE | 2017-09-10 06:00 | Clinical Documentation Query ---
CLINICAL DOCUMENTATION QUERY A 67 yo female s/p total right knee arthroplasty and history of CKD stage 3. In your clinical opinion is this patient being managed for: ( ) Acute kidney failure ( x ) Not Agree ( ) Other explanation of clinical findings (Please Explain) ( ) Unable to determine (Please Define) ( ) Need to Discuss Acute kidney injury is resolving with hydration The medical record reflects the following clinical findings, treatment, and risk factors. Clinical Indicators: Creatinine 1.52 trending up from 1.0 on 08/26/2017 Treatment: IV hydration, serial PRPs Risk Factors: CKD, s/p surgical event Please clarify and document your clinical opinion in the progress notes and discharge summary. Terms such as "probable", "suspected", "likely", "questionable", "possible", or "still to be ruled out" are acceptable. IF IN AGREEMENT, YOU MUST DOCUMENT ABOVE DIAGNOSTIC STATEMENT IN DAILY PROGRESS NOTES AND DISCHARGE SUMMARY. This document is not part of the patient's record. Thank You, Loyda Holland RN [phone]
[2017-09-10 07:18] LABS: HEMOGLOBIN 8.7 g/dL (12.0-16.0); MEAN CELL VOLUME 94.2 fL (80-100); MEAN CORPUSCULAR HEMOGLOBIN 31.5 pg (25-34); MEAN CORPUSCULAR HGB CONC 33.5 g/dl (32-36); MEAN PLATELET VOLUME 9.4 fL (7.4-10.4); PLATELET COUNT 143 K/uL (130-400); RED CELL DISTRIBUTION WIDTH CV 14.3 % (11.5-14.5); RED CELL DISTRIBUTION WIDTH SD 48.7 fL (36.4-46.3); WHITE BLOOD COUNT 5.66 K/uL (4.8-10.8)
[2017-09-10] MEDS ORDERED: MoRPHine SULFATE CR 15 MG TAB (MS CONTIN) PO PRN (07:30)
[2017-09-10 07:42] VITALS: BP 124/64; PULSE 69; TEMP 36.7; O2SAT 95
[2017-09-10 07:45] LABS: CALCIUM 8.4 mg/dl (8.5-10.1); CREATININE 1.25 mg/dl (0.60-1.20); POTASSIUM 3.6 mmol/L (3.5-5.1)
--- NOTE | 2017-09-10 07:48 | Orthopedic Progress Note ---
Orthopedic Progress Note Date of Service Sep 10, 2017. Subjective Post OP Day: 2 Reports: feeling well, Denies: chest pain, SOB, nausea / vomiting, light headedness, calf pain Additional Notes: Having some pain in the knee but tolerating. States she has some mild numbness in the lateral aspect of the lower leg near the incision. No other complaints. Objective calves soft nontender Date Time Temp Pulse Resp B/P (MAP) Pulse Ox O2 Delivery O2 Flow Rate FiO2 09/10/17 07:42 36.7 69 17 124/64 (84) 95 Room Air 09/10/17 00:15 CPAP 09/09/17 23:29 36.4 69 18 131/76 (94) 96 CPAP 09/09/17 16:30 Room Air 09/09/17 15:00 36.6 70 18 120/70 (87) 98 Room Air 09/09/17 14:25 36.5 72 17 120/70 (87) 98 Room Air 09/09/17 10:45 69 99 Laboratory Results 24 Hours: Test 09/10/17 07:07 Hematocrit 26.0 % Hemoglobin 8.7 g/dL Assessment & Plan Assessment: POD #2, Right TKA Plan: PT/ OT DVT proph- [facility] As per medicine. Inhouse Planning Pain Management: Ultram, Dilaudid, Morphine, PO Tylenol, Oxy IR DVT Prophylaxis: TEDs, SCDs, ASA Discharge Planning Discharge Planning: custodial facility Pain Management: Morphine, PO Tylenol, Oxy IR DVT Prophylaxis: TEDs, ASA Therapy: Physical Therapy, Occupational Therapy
[2017-09-10] MEDS: FERROUS GLUCONATE 324 MG TAB PO SCH ×3 (08:24→18:13)
[2017-09-10] MEDS: MULTIVITAMIN TAB PO SCH (08:24)
[2017-09-10] MEDS: ASPIRIN 81 MG ECTAB PO SCH ×2 (08:24→20:57)
[2017-09-10] MEDS: DOCUSATE SODIUM 100 MG CAP PO SCH ×2 (08:24→20:57)
[2017-09-10] MEDS: TOPIRAMATE 50 MG TAB PO SCH ×2 (08:25→21:00)
[2017-09-10] MEDS: CHLORTHALIDONE 25 MG TAB PO SCH (08:26)
[2017-09-10] MEDS: MAGNESIUM OXIDE 400 MG TAB PO SCH ×2 (08:26→20:59)
[2017-09-10] MEDS: PANTOprazole SOD 40 MG TAB PO SCH (08:27)
[2017-09-10] MEDS: LISINOPRIL 10 MG TAB PO SCH (08:29)
--- NOTE | 2017-09-10 12:23 | Progress Note ---
Internal Med Progress Note Date of Service: Sep 10, 2017. Provider Documentation: SUBJECTIVE: Patient seen and examined at bedside. No acute complaints. OBJECTIVE: Exam: General- no acute distress Eyes-EOMI Neck- trachea midline Lungs- Lungs CTABL, no wheezing Heart- regular rate Abdomen- soft, nontender, + bowel sounds Extremities- wound vac of right knee, legs in SCDs Neuro- awake and alert, oatient able to wiggle toes bilaterally. No focal upper extremity deficits ASSESSMENT & PLAN: s/p Right Total Knee Arthroplasty with superficial wound vac Anemia: Hgb 11.2 on 09/08/17 and Hgb 8.6 on 09/09/17 and stable Hgb 8.7 on 09/10/17 Thrombocytopenia: Platelet 217 to 160 to 143 wound vac of right knee - numbers of Hgb and platelets may improve after sufficient wound healing, please monitor CBC Electrolytes Serum potassium increased from 3.4 to 3.6 after patient took 40 meq potassium oral for mild hypokalemia Renal: acute kidney injury resolving, continue to encourage oral hydration HTN: Normotensive , continue home dose lisinopril, chlorthalidone Obesity with GAUTAM: May use own cpap Fibromyalgia, OA, chronic back pain: continue pain medications Idiopathic peripheral neuropathy: continue home dose topamax GERD: continue PPI Depression: continue cymbalta DVT Ppx: SCDs Vital Signs: Date Time Temp Pulse Resp B/P (MAP) Pulse Ox O2 Delivery O2 Flow Rate FiO2 09/10/17 07:45 Room Air 09/10/17 07:42 36.7 69 17 124/64 (84) 95 Room Air 09/10/17 00:15 CPAP 09/09/17 23:29 36.4 69 18 131/76 (94) 96 CPAP 09/09/17 16:30 Room Air 09/09/17 15:00 36.6 70 18 120/70 (87) 98 Room Air 09/09/17 14:25 36.5 72 17 120/70 (87) 98 Room Air Lab Results: Results Past 24 Hours Test 09/10/17 07:07 Range/Units White Blood Count 5.66 4.8-10.8 K/uL Red Blood Count 2.76 4.2-5.4 M/uL Hemoglobin 8.7 12.0-16.0 g/dL Hematocrit 26.0 37-47 % Mean Corpuscular Volume 94.2 80-100 fL Mean Corpuscular Hemoglobin 31.5 25-34 pg Mean Corpuscular Hemoglobin Concent 33.5 32-36 g/dl RDW Standard Deviation 48.7 36.4-46.3 fL RDW Coefficient of Variation 14.3 11.5-14.5 % Platelet Count 143 130-400 K/uL Mean Platelet Volume 9.4 7.4-10.4 fL Sodium Level 142 136-145 mmol/L Potassium Level 3.6 3.5-5.1 mmol/L Chloride Level 111 98-107 mmol/L Carbon Dioxide Level 26 21-32 mmol/L Anion Gap 5.0 3-11 mmol/L Blood Urea Nitrogen 28 7-18 mg/dl Creatinine 1.25 0.60-1.20 mg/dl Est Creatinine Clear Calc Drug Dose 45.4 ml/min Estimated GFR () 51.5 Estimated GFR (Non- 44.5 BUN/Creatinine Ratio 22.7 10-20 Random Glucose 105 70-99 mg/dl Calcium Level 8.4 8.5-10.1 mg/dl
[2017-09-10 15:40] VITALS: BP 128/67; PULSE 74; TEMP 36.8; O2SAT 96
[2017-09-10] MEDS: RANITIDINE HCL 150 MG TAB PO SCH (20:56)
[2017-09-10] MEDS: SENNA 8.6 MG TAB PO SCH (20:56)
[2017-09-10] MEDS: LATANOPROST 0.005% OP SOLN 2.5 ML BTL OP SCH (20:56)
[2017-09-10] MEDS: DULOXETINE HCL 60 MG CAP PO SCH (20:57)
[2017-09-10 20:58] VITALS: BP 156/78; PULSE 71
[2017-09-10] MEDS: NIACIN 500 MG TAB IMMEDIATE RELEASE PO SCH (20:59)
[2017-09-10] MEDS: MAGNESIUM HYDROXIDE SUSP 30 ML UDC PO PRN (21:07)
[2017-09-10 23:18] VITALS: BP 157/70; PULSE 73; TEMP 36.8; O2SAT 96
[2017-09-11] MEDS: OXYCODONE HCL IR 5 MG TAB (IMMEDIATE RELEASE) PO PRN ×2 (02:32→11:02)
[2017-09-11] MEDS: ACETAMINOPHEN 500 MG TAB PO SCH ×2 (05:40→13:18)
[2017-09-11 07:57] VITALS: BP 131/72; PULSE 80; TEMP 36.8; O2SAT 97
[2017-09-11] MEDS: FERROUS GLUCONATE 324 MG TAB PO SCH ×2 (09:12→12:37)
[2017-09-11] MEDS: MULTIVITAMIN TAB PO SCH (09:13)
[2017-09-11] MEDS: ASPIRIN 81 MG ECTAB PO SCH (09:13)
[2017-09-11] MEDS: MAGNESIUM OXIDE 400 MG TAB PO SCH (09:13)
[2017-09-11] MEDS: DOCUSATE SODIUM 100 MG CAP PO SCH (09:13)
[2017-09-11] MEDS: PANTOprazole SOD 40 MG TAB PO SCH (09:13)
[2017-09-11 09:14] VITALS: BP 150/72; PULSE 89
[2017-09-11] MEDS: CHLORTHALIDONE 25 MG TAB PO SCH (09:15)
[2017-09-11] MEDS: LISINOPRIL 10 MG TAB PO SCH (09:16)
[2017-09-11] MEDS: TOPIRAMATE 50 MG TAB PO SCH (09:16)
--- NOTE | 2017-09-11 09:19 | Orthopedic Progress Note ---
Orthopedic Progress Note Date of Service Sep 11, 2017. Subjective Post OP Day: 3 Reports: feeling well, pain controlled w PO medications, Denies: chest pain, SOB , nausea / vomiting, light headedness Objective calves soft nontender (right LE swelling), N/V intact, capillary refill less than 2 sec., dressing C/D/I (prevena), A&O x3, toes mobile Date Time Temp Pulse Resp B/P (MAP) Pulse Ox O2 Delivery O2 Flow Rate FiO2 09/11/17 09:14 89 150/72 (98) 09/11/17 07:57 36.8 80 17 131/72 (91) 97 Room Air 09/11/17 07:15 Room Air 09/10/17 23:55 Room Air CPAP 09/10/17 23:18 36.8 73 18 157/70 (99) 96 Room Air 09/10/17 20:58 71 156/78 (104) 09/10/17 15:56 Room Air 09/10/17 15:40 36.8 74 18 128/67 (87) 96 Room Air Assessment & Plan Assessment: POD #3, Right TKA Plan: PT/ OT DVT proph- [facility] venous do[facility] negative due to right LE swelling As per medicine. Inhouse Planning Pain Management: Ultram, PO Tylenol, Oxy IR DVT Prophylaxis: TEDs, SCDs, ASA Discharge Planning Discharge Planning: [facility]-way facility Pain Management: PO Tylenol, Oxy IR DVT Prophylaxis: TEDs, ASA Therapy: Physical Therapy, Occupational Therapy
[2017-09-11] MEDS ORDERED: ONDA8TAB6 PO (09:25)
[2017-09-11] MEDS ORDERED: ASPI81TA28 PO (09:25)
[2017-09-11] MEDS ORDERED: ACET-24 PO (09:25)
[2017-09-11] MEDS ORDERED: RXC5 PO (09:26)
[2017-09-11] MEDS ORDERED: MORP1TAB11 PO (10:59)
--- NOTE | 2017-09-11 11:39 | DIAGNOSTIC IMAGING REPORT ---
RIGHT LOWER EXTREMITY VENOUS DOPPLER CLINICAL HISTORY: Right lower extremity swelling. COMPARISON STUDY: No previous studies for comparison. TECHNIQUE: Sonography of the deep venous system of the right lower extremity was performed. Compression and augmentation were evaluated. FINDINGS: The right common femoral, superficial femoral and popliteal veins were compressible. Augmentation was normal. Flow was shown within the deep calf vessels. IMPRESSION: No evidence of deep venous thrombus within the right lower extremity. Electronically signed by: Sergio Sanchez M.D. 09/11/2017 11:38 AM Dictated Date/Time: 09/11/2017 11:37 AM
[2017-09-11 11:45] VITALS: BP 150/72; PULSE 89; TEMP 36.8; O2SAT 97
--- NOTE | 2017-09-14 18:36 | DISCHARGE SUMMARY ---
DISCHARGE DIAGNOSIS: Degenerative joint disease, right knee. SECONDARY DIAGNOSES: Hypertension, hypercholesterolemia, sleep apnea with use of CPAP, history of transient ischemic attack, fibromyalgia, peripheral neuropathy, anemia, sickle cell disease, osteoarthritis of spine, history of degenerative spine problems, sciatica, scoliosis, gastroesophageal reflux disease, hiatal hernia, obesity, stage III kidney disease, and history of breast carcinoma. CONSULTS: Gordon Gómez PA-C/Herminia Garcia M.D. COMPLICATIONS: None. PROCEDURES: Right total knee arthroplasty performed by Dr. Arroyo on 09/08/2017. BRIEF HISTORY: As dictated in history and physical. HOSPITAL SUMMARY: The patient was admitted on the above date and had the above known surgery performed which she tolerated well. On first postoperative day, patient was feeling well and pain was controlled. Calves were soft, nontender, neurovascularly intact. Capillary refill was less than 2 seconds. Dressings clean, dry and intact. Toes were mobile. Vital signs were stable. She was afebrile. She was started on physical therapy protocol and continued on DVT prophylaxis and pain management. Hemoglobin was 8.6. By her second postoperative day, she was feeling well and was having some pain in the knee but tolerating it well. She states she has some mild numbness in the lateral aspect of her lower leg near the incision. She had no other complaints. Calves were soft and nontender and she was otherwise doing remaining stable. Vital signs are stable and she was afebrile. Repeat hemoglobin was 8.7 and remaining stable. Plans were for her to go to [facility] and needs a 3-day stay. She was continued on her PT protocol and by 09/11/2017 she was feeling well. Pain was controlled. Calves were soft and nontender. Dressings clean, dry and intact. Toes were mobile. She had some lower extremity swelling which an ultrasound was ordered and showed no DVT within the right lower extremity and was remaining medically stable and it was felt that she could be discharged to [facility] for further physical therapy and care. For further review, please see chart. LABORATORY AND X-RAY DATA: As per chart. DISCHARGE INSTRUCTIONS: The patient was transferred to [facility] on 09/11/2017. DIET: Regular. ACTIVITY: The patient to have PT and OT protocols. Follow TK instruction sheets and special care instructions. FOLLOWUP: Follow up with Dr. Arroyo in 2 weeks. The patient to call for appointment if one has not been made for you. DISCHARGE MEDICATIONS: Acetaminophen 1000 mg p.o. q. 8 hours, Zofran 8 mg p.o. q. 8 hours p.r.n. nausea, oxycodone 5 mg p.o. q. 4 hours p.r.n.; resume home meds as listed - aspirin 81 mg p.o. b.i.d. for 30 days, after 30 days, resume once daily dosing. Stop taking clindamycin and Percocet.
== END 2017-09-11 14:41 | DRG 470 ==
LOC: C.ACU 07:07 → C.3E 09:10 → ENRESERV 12:48
PROVIDERS: ADMIT Orthopaedic Surgery Sports Medicine; ATTEND Orthopaedic Surgery Sports Medicine
PROC: 0SRC0J9 Replacement of Right Knee Joint with Synthetic Substitute, Cemented, Open Approach (ICD-10-PCS; principal; 2017-09-08 09:15)
DX: M17.11 Unilateral primary osteoarthritis, right knee (principal); Z68.41 Body mass index [BMI] 40.0-44.9, adult; N17.9 Acute kidney failure, unspecified; I89.0 Lymphedema, not elsewhere classified; E87.6 Hypokalemia; D69.6 Thrombocytopenia, unspecified; I12.9 Hypertensive chronic kidney disease with stage 1 through stage 4 chronic kidney disease, or unspecified chronic kidney disease; N18.3 Chronic kidney disease, stage 3 (moderate); E78.00 Pure hypercholesterolemia, unspecified; G89.29 Other chronic pain; M54.9 Dorsalgia, unspecified; M79.7 Fibromyalgia; D57.1 Sickle-cell disease without crisis; G60.9 Hereditary and idiopathic neuropathy, unspecified; K21.9 Gastro-esophageal reflux disease without esophagitis; G47.33 Obstructive sleep apnea (adult) (pediatric); F32.9 Major depressive disorder, single episode, unspecified; E66.01 Morbid (severe) obesity due to excess calories; Z79.899 Other long term (current) drug therapy; Z79.891 Long term (current) use of opiate analgesic; Z79.82 Long term (current) use of aspirin; Z96.652 Presence of left artificial knee joint; Z85.3 Personal history of malignant neoplasm of breast; Z86.73 Personal history of transient ischemic attack (TIA), and cerebral infarction without residual deficits; Z82.49 Family history of ischemic heart disease and other diseases of the circulatory system; Z84.1 Family history of disorders of kidney and ureter

== ENCOUNTER 2019-07-07 05:43 | Inpatient (IN) ==
--- NOTE | 2019-06-16 16:02 | PAT Medication Instructions ---
Medication Instructions Date of Service June 16, 2019 Home Medications albuterol sulfate 2 puff INHALATION UD PRN aspirin [Aspir-81] 81 mg PO QPM chlorthalidone 25 mg PO QAM cholecalciferol (vitamin D3) [Vitamin D3] 5,000 unit PO DAILY clindamycin HCl 600 mg PO UD PRN dexlansoprazole [Dexilant] 60 mg PO QAM duloxetine 60 mg PO QDD famotidine [Pepcid] 20 mg PO QPM ferrous sulfate 325 mg PO QAM latanoprost 1 drp OPHTHALMIC (EYE) HS magnesium oxide 400 mg PO DAILY morphine 15 mg PO Q12H multivitamin [Multiple Vitamins] 1 tab PO DAILY omega-3 fatty acids-fish oil [Fish Oil Extra Strength] 1 cap PO QDD ondansetron HCl [Zofran] 8 mg PO UD PRN oxycodone-acetaminophen 1 tab PO Q8H PRN peg 400-propylene glycol (PF) [Systane (PF)] 1 drp OPHTHALMIC (EYE) UD PRN polyethylene glycol 3350 [Miralax] 17 g PO DAILY PRN pramipexole [Mirapex] 1.5 mg PO HS spironolactone 25 mg PO QAM timolol 1 drp OPHTHALMIC (EYE) DAILY tizanidine 4 mg PO Q6H PRN topiramate 100 mg PO QAM topiramate 150 mg PO HS Continue as directed clindamycin HCl 600 mg PO UD PRN (prior to dental procedures) ASK your prescriber and surgeon aspirin [Aspir-81] 81 mg PO QPM STOP taking 2 weeks before surgery (or as soon as possible if surgery is within 2 weeks) omega-3 fatty acids-fish oil [Fish Oil Extra Strength] 1 cap PO QDD STOP taking 24 hours before surgery pramipexole [Mirapex] 1.5 mg PO HS DO NOT take the morning of surgery chlorthalidone 25 mg PO QAM cholecalciferol (vitamin D3) [Vitamin D3] 5,000 unit PO DAILY ferrous sulfate 325 mg PO QAM magnesium oxide 400 mg PO DAILY multivitamin [Multiple Vitamins] 1 tab PO DAILY polyethylene glycol 3350 [Miralax] 17 g PO DAILY PRN spironolactone 25 mg PO QAM tizanidine 4 mg PO Q6H PRN Take morning of surgery With a small sip of water, OTHERWISE NOTHING TO EAT OR DRINK AFTER MIDNIGHT: albuterol sulfate 2 puff INHALATION UD PRN (use if needed; please bring with you to hospital day of surgery if possible) dexlansoprazole [Dexilant] 60 mg PO QAM morphine 15 mg PO Q12H (okay to take up to 4 hours prior to surgery if needed) ondansetron HCl [Zofran] 8 mg PO UD PRN (if needed) oxycodone-acetaminophen 1 tab PO Q8H PRN (okay to take up to 4 hours prior to surgery if needed) timolol 1 drp OPHTHALMIC (EYE) DAILY topiramate 100 mg PO QAM Take evening before surgery albuterol sulfate 2 puff INHALATION UD PRN (if needed) duloxetine 60 mg PO QDD famotidine [Pepcid] 20 mg PO QPM latanoprost 1 drp OPHTHALMIC (EYE) HS morphine 15 mg PO Q12H ondansetron HCl [Zofran] 8 mg PO UD PRN (if needed) oxycodone-acetaminophen 1 tab PO Q8H PRN (if needed) peg 400-propylene glycol (PF) [Systane (PF)] 1 drp OPHTHALMIC (EYE) UD PRN (if needed) polyethylene glycol 3350 [Miralax] 17 g PO DAILY PRN (if needed) tizanidine 4 mg PO Q6H PRN (if needed) topiramate 150 mg PO HS Other Notes If you have any questions please call us at [phone] or [phone] or [phone] or [phone]
--- NOTE | 2019-06-19 11:51 | Anesthesiology Consultation ---
Date of Service June 19, 2019 Assessment & Plan (1) Encounter for pre-operative examination: Chart Review Chart Review: Pending: Refer to Additional Notes / Consult section (pending preop testing (labs, EKG, CXR)) and Patient seen in Pre Admission Testing Teaching & Discussion Pre-Anesthesia Teaching/Discussion Notes: Instructed NPO after midnight before surgery,except medications with 15 cc of water. Medication instructions provid ed according to the PAT guidelines. History Surgery Operation Date: 07/07/19 08:15 Proposed Procedures p Right Foot Triple Arthrodesis, - Duke Carney DO s Right Ankle Percutaneous Tendon Achilles Lengthening, - Duke Carney DO s Right Non Union Medial Malleolus Fracture Open Reduction Internal Fixation - Duke Carney DO Height/Weight Height: 5 ft 4 in Weight: 99.4 kg Allergies Allergy/AdvReac Type Severity Reaction Status Date / Time Penicillins Allergy Severe elevated Verified 06/19/19 11:50 temperature, fever, hives (see comments) adhesive Allergy Unknown rash Verified 06/19/19 11:50 Cephalosporins Allergy Unknown rash Verified 06/19/19 11:50 hepatitis B virus vaccine Allergy Unknown "reacted Verified 06/19/19 11:[address]" lisinopril Allergy Unknown rash, hives Verified 06/19/19 11:50 oxcarbazepine Allergy Unknown burning, Verified 06/19/19 11:50 feet pain ropinirole Allergy Unknown RASH Verified 06/13/19 08:38 Sulfa (Sulfonamide Allergy Unknown RASH Verified 06/13/19 08:38 Antibiotics) NSAIDS (Non-Steroidal AdvReac Unknown avoids due Verified 06/19/19 11:50 Anti-Inflamma to kidney dysfunction Curanyt-Ktf-Gdg Reductase AdvReac Unknown joint Verified 06/19/19 11:50 Inhibitor pain, myalgias Medications Home Medications Medication Instructions Recorded Confirmed Last Taken albuterol sulfate 2 puff INHALATION UD PRN 06/13/19 06/13/19 Unknown aspirin [Aspir-81] 81 mg PO QPM 06/13/19 06/13/19 Unknown chlorthalidone 25 mg PO QAM 06/13/19 06/13/19 Unknown cholecalciferol (vitamin D3) 5,000 unit PO DAILY 06/13/19 06/13/19 Unknown [Vitamin D3] clindamycin HCl 600 mg PO UD PRN 06/13/19 06/13/19 Unknown dexlansoprazole [Dexilant] 60 mg PO QAM 06/13/19 06/13/19 Unknown duloxetine 60 mg PO QDD 06/13/19 06/13/19 Unknown famotidine [Pepcid] 20 mg PO QPM 06/13/19 06/13/19 Unknown ferrous sulfate 325 mg PO QAM 06/13/19 06/13/19 Unknown latanoprost 1 drp OPHTHALMIC (EYE) HS 06/13/19 06/13/19 Unknown magnesium oxide 400 mg PO DAILY 06/13/19 06/13/19 Unknown morphine 15 mg PO Q12H 06/13/19 06/13/19 Unknown multivitamin [Multiple Vitamins] 1 tab PO DAILY 06/13/19 06/13/19 Unknown omega-3 fatty acids-fish oil [Fish 1 cap PO QDD 06/13/19 06/13/19 Unknown Oil Extra Strength] ondansetron HCl [Zofran] 8 mg PO UD PRN 06/13/19 06/13/19 Unknown oxycodone-acetaminophen 1 tab PO Q8H PRN 06/13/19 06/13/19 Unknown peg 400-propylene glycol (PF) 1 drp OPHTHALMIC (EYE) UD PRN 06/13/19 06/13/19 Unknown [Systane (PF)] polyethylene glycol 3350 [Miralax] 17 g PO DAILY PRN 06/13/19 06/13/19 Unknown pramipexole [Mirapex] 1.5 mg PO HS 06/13/19 06/13/19 Unknown spironolactone 25 mg PO QAM 06/13/19 06/13/19 Unknown timolol 1 drp OPHTHALMIC (EYE) DAILY 06/13/19 06/13/19 Unknown tizanidine 4 mg PO Q6H PRN 06/13/19 06/13/19 Unknown topiramate 100 mg PO QAM 06/13/19 06/13/19 Unknown topiramate 150 mg PO HS 06/13/19 06/13/19 Unknown Past Medical History Medical History H/O recurrent transient ischemic attacks per records- patient denies CKD (chronic kidney disease), stage III Back pain Depression Fibromyalgia Glaucoma right eye Hiatal hernia High blood pressure High cholesterol History of DVT (deep vein thrombosis) ? remote hx per patient/no recent issues History of blood transfusion 1997 s/p childbirth History of breast cancer right (ductal) s/p right breast lumpectomy Neck problem neck "stiffness"- scheduled for injection 06/20 (Dr. Arndt) Osteoarthritis Scoliosis Sleep apnea CPAP Spinal stenosis Stress incontinence urinary Exercise / Class Metabolic Activity III < 4 Walking/Shop/Light housework (uses walker prn) Past Family History Family History Aunt History of colon cancer History of breast cancer Aunt History of breast cancer Aunt History of breast cancer Aunt History of breast cancer Aunt History of breast cancer Other History of prediabetes Past Surgical History Surgical History History of cardiac cath MANY YRS AGO= NO STENTS History of section History of colonoscopy History of endoscopy History of hernia surgery multiple (one with mesh) History of hysterectomy History of hysteroscopy History of lumpectomy RIGHT History of total left knee replacement History of total right knee replacement History of vascular surgery LEFT LEG "VENOUS ABLATION" History of vascular surgery hypogastric artery ligation (2/2 childbirth complications) Past Anesthesia History No Hx of Anesthesia Complications (except PONV) and No Family Hx of Anesthesia Complications (except mother (post-op nausea)) History of PONV No Hx of Motion Sickness and History of PONV Social History Smoking Status: Never smoker Do You Dip or Chew Tobacco: No Hx Alcohol Use: Yes Alcohol type: wine alcohol intake frequency: holidays/special occasions only Hx Substance Use: No Review of Systems Patient denies chest pain, shortness of breath, cough, wheezing, palpitations. Physical Exam Vital Signs VITALS BP 144/76 P 67 TEMP 98.2 SP02 96%RA RESP 16 PHYSICAL Full neck and c-spine range of motion. Full TMJ range of motion. TMD 3.5 finger breaths Mallampati Score 2 Dentition: missing sides/molars, cap on side Lungs: clear throughout to auscultation Cardiac: regular rate and rhythm, no murmurs noted Spine: normal Carotid arteries: negative bruit Extremities: no edema Testing Echocardiogram Date: 04/16/15 EF 60-65%. No RWMA. Sclerotic MV. Mild Mitral annular calcification. Mild MR.
--- NOTE | 2019-06-19 13:09 | XRay Report ---
XR chest Pre-admission PA/Lat CLINICAL HISTORY: Preoperative chest COMPARISON STUDY: 11/12/2011 FINDINGS: There is elevation/eventration of the anterior aspect of the right hemidiaphragm. The heart is normal in size. There is a thoracic scoliosis. There is a retrocardiac opacity consistent with a hiatal hernia. There is no failure. There is no lobar consolidation. There is scattered areas of subs egmental atelectatic change.[ IMPRESSION: 1. Hiatal hernia 2. Elevation/eventration right hemidiaphragm 2. No evidence of focal pulmonary consolidation Electronically signed by: Bhupendra Ellsworth M.D. 06/19/2019 1:08 PM
[2019-06-19 13:40] LABS: Basophils # (auto) 0.06 K/uL (0-0.2); Basophils % (auto) 1.2 %; Eosinophils % (auto) 5.8 %; Hematocrit (blood only) 34.9 % (37-47); Hemoglobin 11.6 g/dL (12.0-16.0); Immature Granulocytes # (auto) 0.02 K/uL (0.00-0.02); Immature Granulocytes % (auto) 0.4 %; Lymphocytes # (auto) 0.95 K/uL (1.2-3.4); Lymphocytes % (auto) 18.5 %; Mean Corpuscular Hemoglobin 30.9 pg (25-34); Mean Corpuscular Hgb Conc 33.2 g/dL (32-36); Mean Corpuscular Volume 93.1 fL (80-100); Mean Platelet Volume 10.5 fL (7.4-10.4); Monocytes # (auto) 0.47 K/uL (0.11-0.59); Monocytes % (auto) 9.1 %; Neutrophils # (auto) 3.34 K/uL (1.4-6.5); Platelet Count 212 K/uL (130-400); RDW Coefficient of Variation 13.7 % (11.5-14.5); RDW Standard Deviation 46.9 fL (36.4-46.3); Red Blood Count 3.75 M/uL (4.2-5.4); White Blood Count 5.14 K/uL (4.8-10.8)
[2019-06-19 13:53] LABS: Partial Thromboplastin Ratio 0.9; Partial Thromboplastin Time 25.4 Seconds (21.0-31.0); Prothrombin Time 10.3 Seconds (9.0-12.0)
[2019-06-19 14:04] LABS: BUN Creatinine Ratio 29.6 (10-20); Creatinine Clr Calc Pharmacy 49.5 ml/min; Est GFR (African American) 51.8; Est GFR (Non-African American) 44.7; Potassium 3.1 mmol/L (3.5-5.1)
[2019-06-19 14:21] LABS: Appearance Urine Clear (Clear); Bacteria Urine Automated Negative (Negative); Bilirubin Urine Negative (Negative); Blood Urine Trace (Negative); Cast Urine Automated 0 /lpf (0-5); Color Urine Yellow; Glucose Urine UA Negative (Negative); Ketones Urine Negative (Negative); Leukocyte Esterase Urine Negative (Negative); Nitrite Urine Negative (Negative); Protein Urine 2+ (Negative); Specific Gravity Urine 1.014 (1.000-1.030); Urobilinogen Urine Negative (Negative); WBC Urine Automated 0 /hpf (0-5)
--- NOTE | 2019-07-06 21:40 | History & Physical Report ---
Date of Service July 06, 2019 Assessment & Plan (1) Osteoarthritis of right hindfoot: Schedule a right triple arthrodesis, perc. BERTHA, ORIF right medial malleolus nonunion for 07.07.19. All potential risks, benefits, complications, alternatives, and rehab have been discussed with the patient and she wishes to proceed. Plan for d/c on ASA 81 mg daily vs. Lovenox x 6 wks for DVT prophylaxis. 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 She had been treated conservatively with bracing, steroid injections, activity modification. However, she had persistent edema and pain in the ankle. 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 She is being set up for surgical management. Allergies Allergy/AdvReac Type Severity Reaction Status Date / Time Penicillins Allergy Severe elevated Verified 06/19/19 11:50 temperature, fever, hives (see comments) adhesive Allergy Unknown rash Verified 06/19/19 11:50 Cephalosporins Allergy Unknown rash Verified 06/19/19 11:50 hepatitis B virus vaccine Allergy Unknown "reacted Verified 06/19/19 11:[address]" lisinopril Allergy Unknown rash, hives Verified 06/19/19 11:50 oxcarbazepine Allergy Unknown burning, Verified 06/19/19 11:50 feet pain ropinirole Allergy Unknown RASH Verified 06/13/19 08:38 Sulfa (Sulfonamide Allergy Unknown RASH Verified 06/13/19 08:38 Antibiotics) NSAIDS (Non-Steroidal AdvReac Unknown avoids due Verified 06/19/19 11:50 Anti-Inflamma to kidney dysfunction Kjlflrd-Jab-Doo Reductase AdvReac Unknown joint Verified 06/19/19 11:50 Inhibitor pain, myalgias Home Medications Home Medications Medication Instructions Recorded Confirmed Type albuterol sulfate 2 puff INHALATION UD PRN 06/13/19 06/13/19 History aspirin [Aspir-81] 81 mg PO QPM 06/13/19 06/13/19 History chlorthalidone 25 mg PO QAM 06/13/19 06/13/19 History cholecalciferol (vitamin D3) 5,000 unit PO DAILY 06/13/19 06/13/19 History [Vitamin D3] clindamycin HCl 600 mg PO UD PRN 06/13/19 06/13/19 History dexlansoprazole [Dexilant] 60 mg PO QAM 06/13/19 06/13/19 History duloxetine 60 mg PO QDD 06/13/19 06/13/19 History famotidine [Pepcid] 20 mg PO QPM 06/13/19 06/13/19 History ferrous sulfate 325 mg PO QAM 06/13/19 06/13/19 History latanoprost 1 drp OPHTHALMIC (EYE) HS 06/13/19 06/13/19 History magnesium oxide 400 mg PO DAILY 06/13/19 06/13/19 History morphine 15 mg PO Q12H 06/13/19 06/13/19 History multivitamin [Multiple Vitamins] 1 tab PO DAILY 06/13/19 06/13/19 History omega-3 fatty acids-fish oil [Fish 1 cap PO QDD 06/13/19 06/13/19 History Oil Extra Strength] ondansetron HCl [Zofran] 8 mg PO UD PRN 06/13/19 06/13/19 History oxycodone-acetaminophen 1 tab PO Q8H PRN 06/13/19 06/13/19 History peg 400-propylene glycol (PF) 1 drp OPHTHALMIC (EYE) UD PRN 06/13/19 06/13/19 History [Systane (PF)] polyethylene glycol 3350 [Miralax] 17 g PO DAILY PRN 06/13/19 06/13/19 History pramipexole [Mirapex] 1.5 mg PO HS 06/13/19 06/13/19 History spironolactone 25 mg PO QAM 06/13/19 06/13/19 History timolol 1 drp OPHTHALMIC (EYE) DAILY 06/13/19 06/13/19 History tizanidine 4 mg PO Q6H PRN 06/13/19 06/13/19 History topiramate 100 mg PO QAM 06/13/19 06/13/19 History topiramate 150 mg PO HS 06/13/19 06/13/19 History Past Med/Surg History Medical History H/O recurrent transient ischemic attacks per records- patient denies CKD (chronic kidney disease), stage III Back pain Depression Fibromyalgia Glaucoma right eye Hiatal hernia High blood pressure High cholesterol History of DVT (deep vein thrombosis) ? remote hx per patient/no recent issues History of blood transfusion 1997 s/p childbirth History of breast cancer right (ductal) s/p right breast lumpectomy Neck problem neck "stiffness"- scheduled for injection 06/20 (Dr. Arndt) Osteoarthritis Scoliosis Sleep apnea CPAP Spinal stenosis Stress incontinence urinary Surgical History History of cardiac cath MANY YRS AGO= NO STENTS History of section History of colonoscopy History of endoscopy History of hernia surgery multiple (one with mesh) History of hysterectomy History of hysteroscopy History of lumpectomy RIGHT History of total left knee replacement History of total right knee replacement History of vascular surgery LEFT LEG "VENOUS ABLATION" History of vascular surgery hypogastric artery ligation (2/2 childbirth complications) Family History Aunt History of colon cancer History of breast cancer Aunt History of breast cancer Aunt History of breast cancer Aunt History of breast cancer Aunt History of breast cancer Other History of prediabetes Social History Preferred Language: Lithuanian Communication Ability: Effective Educational Aid Required: No Beliefs That Will Affect Care: None Current Living Situation: Spouse Other Information That Helps Us Care for You: Yes (HAS HARD TIME MOVING AROUND,LIMITED MOBILITY - AREA OF AGING HELPING) Feels Safe at Home: Yes Smoking Status: Never smoker Do You Dip or Chew Tobacco: No ; Hx Alcohol Use: Yes Alcohol type: wine Hx Substance Use: No Physical Exam Constitutional: well developed; no acute distress ENMT: external ear and nose normal, oropharynx normal Neck: trachea midline, no thyromegaly Respiratory: normal respiratory effort, lungs clear to auscultation Cardiovascular: Rate/Rhythm: regular rate and regular rhythm Gastrointestinal (Abdomen): normal bowel sounds, soft, nontender, no hepatosplenomegaly Musculoskeletal: Gait: + limp (right) Right ankle/foot: Moderate edema of the RLE. No ecchymosis or erythema. Tender at the sinus tarsi and talonavicular joints. Tender at the medial malleolus. Crepitation with ROM of the ankle and hindfoot. Decreased ROM, particularly with dorsiflexion. Skin: no rashes, warm and dry Neurologic: normal touch/pain/proprioception Psychiatric: A+Ox3, euthymic affect Lymphatic: no cervical or axillary lymphadenopathy
[2019-07-07] MEDS ORDERED: LR 15ML/HR IV SCH (06:00)
[2019-07-07] MEDS ORDERED: ROPIVACAINE 0.5% 5 MG/ML 30 ML VIAL ONE (06:17)
[2019-07-07] MEDS ORDERED: EPINEPHrine INJ 1 MG/ML AMP ONE (06:17)
[2019-07-07] MEDS ORDERED: BUPIVACAINE 0.5 % 5 MG/1 ML PF 10ML VIAL ONE (06:17)
[2019-07-07 06:47] LABS: BUN Creatinine Ratio 25.8 (10-20); Calcium 9.7 mg/dl (8.5-10.1); Creatinine Clr Calc Pharmacy 42.5 ml/min; Est GFR (African American) 48.9; Est GFR (Non-African American) 42.2
[2019-07-07] MEDS ORDERED: fentaNYL citrate 100 MCG/2 ML VIAL IV PRN (07:03)
[2019-07-07] MEDS ORDERED: ONDANSETRON INJ 2 MG/ML 2 ML VIAL IV PRN ×2 (07:03→11:22)
[2019-07-07] MEDS ORDERED: HYDROmorphone INJ 1 MG/ML SYRINGE IV PRN (07:03)
[2019-07-07] MEDS ORDERED: ATROPINE SULFATE 0.1 MG/ML 10ML SYR IV PRN (07:03)
[2019-07-07] MEDS ORDERED: ePHEDrine sulfate 50 MG/ML AMP IV PRN (07:03)
[2019-07-07] MEDS ORDERED: fentaNYL citrate 100 MCG/2 ML VIAL ONE ×2 (07:07→08:10)
[2019-07-07] MEDS ORDERED: ONDANSETRON INJ 2 MG/ML 2 ML VIAL ONE ×2 (07:07→08:19)
[2019-07-07] MEDS ORDERED: PROPOFOL IV EMULSION 10 MG/ML 20 ML VIAL IV ONE ×2 (07:07→10:15)
[2019-07-07] MEDS ORDERED: DEXAMETHASONE SOD INJ 4 MG/ML VIAL ONE (07:07)
[2019-07-07] MEDS ORDERED: LIDOCAINE HCL 2% 2 ML VIAL/AMP(20MG/ML) INFIL ONE (07:07)
[2019-07-07] MEDS ORDERED: MIDAZOLAM HCL 1 MG/ML 2ML VIAL ONE ×2 (07:07→07:08)
[2019-07-07] MEDS ORDERED: BACITRACIN INJ 50,000 UNIT VIAL ONE (07:13)
[2019-07-07] MEDS ORDERED: CLINDAMYCIN 900 MG in DEXTROSE 5% 50 ML IV ONE (07:36)
--- NOTE | 2019-07-07 07:36 | History & Physical Bridge Note ---
Date of Service July 07, 2019 History & Physical Bridge Note I have examined the patient, reviewed the History & Physical and in the interval since the performance of the History & Physical I have noted the following changes of clinical significance: no changes noted
[2019-07-07] MEDS ORDERED: ePHEDrine sulfate 50 MG/ML SYR ONE (08:19)
[2019-07-07] MEDS ORDERED: PHENYLEPHRINE 100MCG/ML 5ML SYR ONE (08:19)
[2019-07-07] MEDS ORDERED: PHENYLEPHRINE HCL 10 MG/ML VIAL ONE (08:58)
[2019-07-07] MEDS ORDERED: HYDROmorphone INJ 2 MG/ML SYR/VIAL ONE (09:36)
[2019-07-07] MEDS ORDERED: LABETALOL HCL IV 5 MG/ML 20ML IV ONE (10:00)
--- NOTE | 2019-07-07 10:52 | Post Operative Brief Note ---
Immediate Post Op Note v1 Date of Surgery July 07, 2019 Pre & Post Diagnosis Operation Date: 07/07/19 07:15 Pre-Op Diagnosis: Posterior tibial tendon dysfunction grade 3 right, sinus Tarsi syndrome, Achilles tendon contracture, nonunion medial malleolus fracture, subfibular impingement right, osteoarthritis, Right Ankle and Foot Post-Op Diagnosis: Posterior tibial tendon dysfunction grade 3 right, sinus Tarsi syndrome, Achilles tendon contracture, nonunion medial malleolus fracture, subfibular impingement right, osteoarthritis, Right Ankle and Foot I identified the patient and participated in the time-out.: Yes Procedure Operation Date: 07/07/19 07:15 Actual Procedures p Right Foot Triple Arthrodesis with application allograft bone,(Right) - Duke Carney DO s Right Ankle Percutaneous Tendon Achilles Lengthening,(Right) - DO nava Plummer Right Non Union Medial Malleolus Fracture Open Reduction Internal Fixation(Right) - Duke Carney DO Surgeon Duke Carney DO Rebrander Immanuel Holliday PA-C Estimated Blood Loss 10 Findings Consistent with Post-Op Diagnosis Specimens None Drains Hemovac Drain Anesthesia Type General Regional Complications none Disposition Accompanied Patient To Recovery: No Disposition: Recovery Room Overlapping Procedure I was present for: the critical portions of procedure. I was immediately available: during the entire case.
--- NOTE | 2019-07-07 11:09 | Fluoroscopy Report ---
FL foot RT 3V CLINICAL HISTORY: 69 years-old Female presenting with RT FOOT. TECHNIQUE: 3 fluoroscopic image(s) recorded as part of an intraoperative procedure. COMPARISON: CT from 04/25/2019. FINDINGS/IMPRESSION: 3 cannulated screw fixation in the midfoot-hindfoot across the posterior subtalar, calcaneocuboid, an d talonavicular articulations. 2 additional cannulated screw fixation of the medial malleolus. Skin s taples in place. Soft tissue emphysema is postsurgical. No malalignment. Please see surgical report for further details. Fluoroscopy dosage (mGy): 0.89. Fluoroscopy time: 29.1 seconds. Number or time of high level fluoroscopy (HLF), digital spot, or digital subtraction images: 0. Electronically signed by: David Rivera M.D. 07/07/2019 11:07 AM
[2019-07-07] MEDS ORDERED: HYDROmorphone INJ 0.5 MG/0.5 ML SYR IV PRN (11:22)
[2019-07-07] MEDS ORDERED: METOCLOPRAMIDE HCL INJ 5 MG/ML 2 ML VIAL IV PRN (11:22)
[2019-07-07] MEDS ORDERED: MAGNESIUM HYDROXIDE SUSP 30 ML UDC PO PRN (11:22)
[2019-07-07] MEDS ORDERED: BISACODYL 10 MG SUPP PR PRN (11:22)
[2019-07-07] MEDS ORDERED: NALOXONE HCL 0.4 MG/1 ML VIAL/CARP IV PRN (11:22)
[2019-07-07] MEDS ORDERED: NO NSAIDS SCH (11:30)
--- NOTE | 2019-07-07 11:44 | Anesthesiology Progress Note ---
Date of Service July 07, 2019 Anesthesia Post Procedure Vital Signs Vital Signs: Temp Pulse Pulse Resp BP Pulse Ox 07/07/19 11:35 73 18 149/64 H 97 07/07/19 11:25 73 15 152/70 H 99 07/07/19 11:15 68 13 133/54 L 98 07/07/19 11:09 36.1 C L 69 19 124/55 L 98 07/07/19 06:31 36.9 C 72 20 193/77 H 98 Pain Intensity Right Foot: Pain Intensity: 4 Right Elbow: Pain Intensity: 4 Lower Back: Pain Intensity: 4 Transfer of Care Handoff Completed per policy Notes Mental Status: alert / awake / arousable and participated in evaluation Patient Amnestic to Procedure: Yes Nausea / Vomiting: adequately controlled Pain: adequately controlled Airway Patency, RR, SpO2: stable & adequate BP & HR: stable & adequate Hydration State: stable & adequate Anesthetic Complications: no major complications apparent and Pt Satisfied with anesthetic care
[2019-07-07] MEDS ORDERED: ONDANSETRON 8 MG TABLET PO PRN (12:27)
[2019-07-07] MEDS ORDERED: TIZANIDINE HCL 4 MG TABLET PO PRN (12:27)
[2019-07-07] MEDS ORDERED: POLYETHYLENE (MIRALAX) 17 GM PACK PO PRN (12:27)
[2019-07-07] MEDS ORDERED: ALBUTEROL HFA 8 GM INHALER INH PRN (12:27)
--- NOTE | 2019-07-07 12:27 | XRay Report ---
XR ankle RT min 3V routine CLINICAL HISTORY: 69 years-old Female presenting with post op right ankle. TECHNIQUE: Frontal, mortise, and lateral views of the right ankle were obtained. COMPARISON: Fluoroscopic images from earlier today. FINDINGS: Cannulated screw fixation of the posterior subtalar, talonavicular, and calcaneocuboid articulations. 2 cannula screw fixation of the medial malleolus. Diffuse soft tissue swelling. The ankle mortise is congruent. Suspected underlying osteopenia. Prominent enthesophyte at the origin of the plantar fasc ia. Advanced degenerative changes at the subtalar joints and at the talonavicular articulation. Overl jenni plaster splint mildly degrades evaluation of underlying osseous detail. IMPRESSION: Postsurgical changes of arthrodesis of the hindfoot and hindfoot-midfoot. Electronically signed by: David Rivera M.D. 07/07/2019 12:25 PM
--- NOTE | 2019-07-07 12:28 | XRay Report ---
XR foot RT min 3V routine CLINICAL HISTORY: post op right foot COMPARISON: None. DISCUSSION: Operative changes consistent with screw fixation of the medial malleolus as well as tarsa l bone region. Alignment appears to be grossly anatomic. Surgical drains are in position. Patient in casting material. There is no evidence for soft tissue sw elling. IMPRESSION: Anatomic alignment post ankle fusion type procedure. The above report was generated using voice recognition software. It may contain grammatical, syntax or spelling errors. Electronically signed by: Jaison Galdamez M.D. 07/07/2019 12:27 PM
[2019-07-07] MEDS ORDERED: POTASSIUM CHLORIDE 20 MEQ/15 ML UDC PO STA (12:46)
--- NOTE | 2019-07-07 12:49 | Consultation ---
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: (3) Osteoarthritis of right hindfoot: Actual Procedures: POD # 0 S/P Right Foot Triple Arthrodesis with application allograft bone,(Right) - Duke Carney, DO Right Ankle Percutaneous Tendon Achilles Lengthening,(Right) - Duke Carney, DO Right Non Union Medial Malleolus Fracture Open Reduction Internal Fixation(R ight) - Duke Carney, DO tolerated procedure well EBL 10ml pain/wound management per ortho activity and therapy as directed by ortho encourage incentive spirometry and wean off O2 as able bowel regimen per ortho monitor H/H (4) HTN (hypertension): Blood pressure 152/74 Hold chlorthalidone for now continue aldactone (5) Hypokalemia: K 3.0 this a.m. and now 3.3 will give 40meq KCL x 1 now repeat bmp in a.m. (6) GAUTAM on CPAP: CPAP at HS (7) CKD (chronic kidney disease), stage III: BUN/creatinine 33 and 1.29 Avoid nephrotoxic agents Follow BMP (8) GERD (gastroesophageal reflux disease): Continue Pepcid and dexilant asymptomatic (9) Chronic back pain: Continue morphine ER, oxycodone pt with chronic substance agreement (10) DVT prophylaxis: ASA BID per ortho SCD/TEDS Disposition: per primary Follow up: PCP Dr. Zheng upon discharge Pt was seen and examined in collaboration with Dr. Vogt, please see addendum Starting 07/08/19 pt will be followed by Dr. Hernandez Thank you for this consultation. We will follow the patient with you during their hospital stay. You can reach a member of the [facility] Hospitalist Team 08/03 via pager @ [phone]. 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 Carney Reason for Consultation: Postop medical management Attending Physician: Duke Carney DO History of Present Illness This is a 69-year-old female with significant past medical history of HTN, HLD, GAUTAM on CPAP, CKD stage III, chronic pain syndrome, fibromyalgia, peripheral neuropathy, history of right breast cancer, history of TIA, history of DVT, GERD who presents to [facility] for elective right foot/ankle surgery by Dr. Carney. Postoperatively patient is very drowsy, pleasant. Currently denies any pain. Denies any chest pain or shortness of breath, fever, chills, sweats, lightheadedness, dizziness, nausea, vomiting, abdominal pain. She has not had anything to eat or drink postoperatively yet. is at bedside and offers no acute concerns or complaints. Prior to procedure he denies any difficulty with bowel or bladder incontinence. She lives at home with her but requires assist device for ambulation. Allergies Allergy/AdvReac Type Severity Reaction Status Date / Time Penicillins Allergy Severe elevated Verified 07/07/19 06:19 temperature, fever, hives (see comments) hepatitis B virus vaccine Allergy Intermediate "reacted Verified 07/07/19 06:[address] oxcarbazepine Allergy Intermediate burning, Verified 07/07/19 06:19 feet pain adhesive Allergy Mild rash Verified 07/07/19 06:19 Cephalosporins Allergy Mild rash Verified 07/07/19 06:19 doxycycline Allergy Mild Rash Verified 07/07/19 11:55 lisinopril Allergy Mild rash, hives Verified 07/07/19 06:19 ropinirole Allergy Mild RASH Verified 07/07/19 06:19 Sulfa (Sulfonamide Allergy Mild RASH Verified 07/07/19 06:19 Antibiotics) Cjhmqqy-Rhb-Jta Reductase AdvReac Intermediate joint Verified 07/07/19 06:19 Inhibitor pain, myalgias NSAIDS (Non-Steroidal AdvReac Mild avoids due Verified 07/07/19 06:19 Anti-Inflamma to kidney dysfunction Home Medications Home Medications Medication Instructions Recorded Confirmed Type albuterol sulfate 2 puff INHALATION UD PRN 06/13/19 07/07/19 History aspirin [Aspir-81] 81 mg PO QPM 10/29/19 11/22/19 History chlorthalidone 25 mg PO QAM 06/13/19 07/07/19 History cholecalciferol (vitamin D3) 5,000 unit PO DAILY 06/13/19 07/07/19 History [Vitamin D3] clindamycin HCl 600 mg PO UD PRN 06/13/19 07/07/19 History dexlansoprazole [Dexilant] 60 mg PO QAM 06/13/19 07/07/19 History duloxetine 60 mg PO QPM 06/13/19 07/07/19 History famotidine [Pepcid] 20 mg PO QPM 06/13/19 07/07/19 History ferrous sulfate 325 mg PO QAM 06/13/19 07/07/19 History latanoprost 1 drp OPHTHALMIC (EYE) HS 06/13/19 07/07/19 History magnesium oxide 400 mg PO DAILY 06/13/19 07/07/19 History morphine 15 mg PO Q12H 06/13/19 07/07/19 History multivitamin [Multiple Vitamins] 1 tab PO DAILY 06/13/19 07/07/19 History omega-3 fatty acids-fish oil [Fish 1 cap PO QAM 06/13/19 07/07/19 History Oil Extra Strength] ondansetron HCl [Zofran] 8 mg PO UD PRN 06/13/19 07/07/19 History oxycodone-acetaminophen 1 tab PO Q8H PRN 06/13/19 07/07/19 History peg 400-propylene glycol (PF) 1 drp OPHTHALMIC (EYE) UD PRN 06/13/19 07/07/19 History [Systane (PF)] polyethylene glycol 3350 [Miralax] 17 g PO DAILY PRN 06/13/19 07/07/19 History pramipexole [Mirapex] 1.5 mg PO HS 06/13/19 07/07/19 History spironolactone 25 mg PO QAM 06/13/19 07/07/19 History timolol 1 drp OPHTHALMIC (EYE) DAILY 06/13/19 07/07/19 History tizanidine 4 mg PO Q6H PRN 06/13/19 07/07/19 History topiramate 100 mg PO QAM 06/13/19 07/07/19 History topiramate 150 mg PO HS 06/13/19 07/07/19 History Patient History Medical History Back pain CKD (chronic kidney disease), stage III Depression Fibromyalgia Glaucoma right eye H/O recurrent transient ischemic attacks per records- patient denies Hiatal hernia High blood pressure High cholesterol History of blood transfusion 1997 s/p childbirth History of breast cancer right (ductal) s/p right breast lumpectomy History of DVT (deep vein thrombosis) ? remote hx per patient/no recent issues Neck problem neck "stiffness"- scheduled for injection 06/20 (Dr. Arndt) Osteoarthritis Scoliosis Sleep apnea CPAP Spinal stenosis Stress incontinence urinary Surgical History History of cardiac cath MANY YRS AGO= NO STENTS History of section History of colonoscopy History of endoscopy History of hernia surgery multiple (one with mesh) History of hysterectomy History of hysteroscopy History of lumpectomy RIGHT History of total left knee replacement History of total right knee replacement History of vascular surgery LEFT LEG "VENOUS ABLATION" History of vascular surgery hypogastric artery ligation (2/2 childbirth complications) Family History Aunt History of colon cancer History of breast cancer Aunt History of breast cancer Aunt History of breast cancer Aunt History of breast cancer Aunt History of breast cancer Other History of prediabetes Social History Preferred Language: Palestinian Communication Ability: Effective 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 Beliefs That Will Affect Care: None marital status: Current Living Situation: Spouse Other Information That Helps Us Care for You: Yes (HAS HARD TIME MOVING AROUND,LIMITED MOBILITY - AREA OF AGING HELPING) Feels Safe at Home: Yes Smoking Status: Never smoker Do You Dip or Chew Tobacco: No ; Hx Alcohol Use: Yes Alcohol type: wine Hx Substance Use: No Review of Systems Review of Systems: All systems reviewed & are unremarkable except as noted in HPI & below Physical Exam Physical Exam: Constitutional: WD/WN, female, drowsy, appears older than stated age, vitals as above, NAD, sitting up in bed, pleasant, conversing easily but falls back asleep Head: Normocephalic, Atraumatic Eyes: PERRL, conjunctivae normal, anicteric sclerae ENMT: external ear and nose normal, oropharynx normal Neck: trachea midline, no thyromegaly normal visual inspection Respiratory: normal respiratory effort, lungs clear to auscultation, no wheeze, rales, rhonchi. Normal insp/exp effort, no accessory muscle use O2 via NC Cardiovascular: RRR, no murmur, b/l lower ext edema trace Vessels: no JVD or carotid bruit Chest: normal inspection of chest Abdomen: obese abdomen, normal bowel sounds, soft, nontender, no hepatosplenomegaly Musculoskeletal: no cyanosis or clubbing, RLE dressing/cast CDI, NVI distally, extremities motor strength 5/5 b/l upper ext and LLE. RLE not tested Skin: no rashes, warm and dry normal turgor Neurologic: PERRL, EOMI, accommodation nl, no face palsy, no dysarthria CN's II-XI intact bilaterally and moves all extremities Psychiatric: A+Ox3, euthymic affect Lymphatic: no cervical or axillary lymphadenopathy : deferred Results & Data Vital Signs (Past 12 Hours) Vital Signs Temp Pulse Pulse Resp BP Pulse Ox 07/07/19 12:44 36.6 C 67 16 152/74 H 98 07/07/19 12:15 36.8 C 71 14 165/76 H 98 07/07/19 12:10 72 16 157/68 H 97 07/07/19 11:55 73 20 150/72 H 96 07/07/19 11:45 36.6 C 75 18 148/69 H 98 07/07/19 11:35 73 18 149/64 H 97 07/07/19 11:25 73 15 152/70 H 99 07/07/19 11:15 68 13 133/54 L 98 07/07/19 11:09 36.1 C L 69 19 124/55 L 98 07/07/19 06:31 36.9 C 72 20 193/77 H 98 Laboratory Results [facility] 07/07/19 07/07/19 06:17 11:51 Sodium 140 Potassium 3.0 L 3.3 L Chloride 106 Carbon Dioxide 27 BUN 33 H Creatinine 1.29 H Glucose 109 H Calcium 9.7 Diagnostic Findings Pre operative CXR: IMPRESSION: 1. Hiatal hernia 2. Elevation/eventration right hemidiaphragm 2. No evidence of focal pulmonary consolidation Ankle Xray: IMPRESSION: Postsurgical changes of arthrodesis of the hindfoot and hindfoot-midfoot. Foot Xray: FINDINGS/IMPRESSION: 3 cannulated screw fixation in the midfoot-hindfoot across the posterior subtalar, calcaneocuboid, and talonavicular articulations. 2 additional cannulated screw fixation of the medial malleolus. Skin kerrie in place. Soft tissue emphysema is postsurgical. No malalignment. Medications Administered Discontinued Medications Bacitracin (Bacitracin) Confirm Administered Dose 50,000 units .ROUTE .STK-MED ONE Stop: 07/07/19 07:14 Last Admin: 07/07/19 10:47 Dose: 50,000 units Documented by: [id number] Lactated Ringer's (Lr) 1,000 mls @ 15 mls/hr IV .Q24H LALIT Stop: 07/08/19 05:59 Last Infusion: 07/07/19 11:08 Dose: 0 mls/hr Documented by: [id number] Admin: 07/07/19 06:56 Dose: 15 mls/hr Documented by: [id number] Clindamycin Phosphate 900 mg/ (Dextrose) 56 mls @ 112 mls/hr IV ONE ONE; Protocol Stop: 07/07/19 08:05 Last Admin: 07/07/19 07:54 Dose: 112 mls/hr Documented by: [id number] ECG Rate (beats per minute): 70 Rhythm: normal sinus
[2019-07-07] MEDS: SODIUM CHLORIDE 0.9% 1000ML 1,000 ML IV SCH (13:35)
[2019-07-07] MEDS ORDERED: ARTIFICIAL TEARS OP PRN (13:47)
[2019-07-07] MEDS: MoRPHine SULFATE CR 15 MG TABCR PO SCH (14:11)
[2019-07-07] MEDS: ACETAMINOPHEN 500 MG TAB PO SCH ×2 (14:12→22:23)
--- NOTE | 2019-07-07 14:50 | Operative Report ---
DATE OF OPERATION: 07/07/2019 PREOPERATIVE DIAGNOSES: 1. Right foot posterior tibial tendon dysfunction grade 3. 2. Achilles tendon contracture. 3. Subfibular impingement. 4. Nonunion of medial malleolus. 5. Right foot pain. POSTOPERATIVE DIAGNOSES: 1. Right foot posterior tibial tendon dysfunction grade 3. 2. Achilles tendon contracture. 3. Subfibular impingement. 4. Nonunion of medial malleolus. 5. Right foot pain. PROCEDURES: 1. Right foot triple arthrodesis. 2. Open reduction and internal fixation of medial malleolar fracture. 3. Percutaneous tendo Achilles lengthening. 4. Application of allograft. SURGEON: Duke Carney DO. SEWER PIPE OFFBEARER: Immanuel Holliday PA-C who was present for patient positioning, sterile prep and drape, management of retractors and instruments. He was present through the critical portions of the case including wound closure, application of sterile dressing and transport of the patient to recovery. ANESTHESIA: General, regional. SPECIMENS: None. DRAINS: Hemovac x1. COMPLICATIONS: None. BLOOD LOSS: 10 mL. PERTINENT HISTORY: This is a 69-year-old female who had had progressive chronic and worsening right foot pain and deformity for the last 2-3 years. She had attempted and failed conservative management including shoewear modification, activity modification, use of a brace, use of an assistive device, anti-inflammatories, rest, physician-directed home exercises and physical therapy. Radiographs and MRI demonstrate severe posterior tibial tendon dysfunction grade 3 with subfibular impingement, degenerative arthritis of the talonavicular, subtalar and calcaneocuboid joints and a nonunion medial malleolus fracture. The patient was then scheduled for surgery as indicated. All potential risks, benefits, complications, alternatives, rehab potential for incomplete relief of symptoms, need for further surgery, DVT, PE, , persistent pain, swelling, scarring, weakness, neurovascular injury, wound complications, hardware failure, nonunion, malunion were discussed with the patient. The patient decided to proceed with the procedure as indicated. DESCRIPTION OF PROCEDURE: The patient was taken to the Operating Suite, placed supine on the Operating Room table, after consent and identification of the proper operative site, the patient was anesthetized. LMA was placed. Tourniquet was placed high on the left lower extremity. Right lower extremity was then sterilely prepped and draped in the usual fashion. Exsanguinated with an Esmarch bandage and tourniquet inflated to 350 mmHg. Next, the foot was held in dorsiflexion and a three-part percutaneous incision was made with an 11-blade scalpel to lengthen the Achilles tendon using standard technique. Next, the stab incisions were then closed using interrupted skin kerrie. Next, the 15-blade scalpel was used to make an incision from the distal aspect of the fibula to the base of the fourth metatarsal. The incision was deepened through subcutaneous tissue and meticulous hemostasis was obtained with electrocautery. Subcutaneous nerves were identified, retracted and protected. The extensor digitorum brevis was identified and was sharply elevated from the anterior process of the calcaneus revealing the sinus tarsi. Next, the sinus tarsi was debrided carefully with a rongeur and 15-blade scalpel. A cervical [employer] speech language pathologist was placed in the sinus tarsi opening the subtalar joint. Subtalar joint was then prepared with the use of a curette and rongeur to resect the articular surfaces down to subchondral bleeding bone. Irrigation was performed with sterile normal saline and then 2-mm drill bit was used to further prepare the joint surface with multiple drill holes in both surfaces of the subtalar joint and a small osteotome and mallet were used to fish scale the joint surfaces to increase surface area and bleeding. Next, the calcaneocuboid joint was then entered with the 15-blade scalpel, debrided of soft tissue and then a [employer] speech language pathologist was placed in the joint opening it for preparation with a curette and rongeur to remove any articular surface down to subchondral bleeding bone. Next, the 2-mm drill bit was used to further prepare the joint with multiple drill holes into the joint and then a small osteotome and mallet were used to fish scale the joint. Next, the 15-blade was used to make an incision from the distal aspect of the tibia to the base of the naviculocuneiform joint. The incision was deepened through subcutaneous tissue. Meticulous hemostasis obtained with electrocautery. A Weitlaner retractor was placed in the wound. The greater saphenous vein was identified, retracted and protected. The capsule of the talonavicular joint was then entered sharply with a 15-blade scalpel and elevated both superior and inferiorly. A small Cherise was placed on the neck of the talus and further soft tissue elevation was performed with the 15-blade scalpel until the talonavicular joint was clearly visualized. The articular surface was then debrided with curette and rongeur and a cervical [employer] speech language pathologist was placed in the joint. Next, it was irrigated with sterile normal saline and a 2-mm drill bit was used to make multiple holes in the joint surfaces and fish scaling was performed with a small osteotome and mallet. Next, the medial and lateral incisions were irrigated with sterile normal saline and the joint surfaces were then aligned appropriately based on alignment of the lower extremity and the kneecap. Subtalar joint was aligned and then a 7.3-mm cannulated guidepin was driven from the superior aspect of the talus across the subtalar joint into the calcaneus under fluoroscopic control. Next, an appropriate length 7.3-mm short-thread screw was placed under fluoroscopic control and countersunk slightly. Next, the guidepin was removed. Next, a 2.25 mm guidepin was used to stabilize the talonavicular joint in appropriate alignment and then the calcaneocuboid joint was then stabilized with appropriate alignment under fluoroscopic control. Next, appropriate length of 7.3 mm short-thread cannulated screw was placed across the talonavicular and calcaneocuboid joints respectively under fluoroscopic control. All guidepins were removed. Wounds were irrigated with sterile normal saline and bone graft was then packed in and around the subtalar, talonavicular and calcaneocuboid joints which was comprised of 15 cc of cancellous bone chips. Next to 4.0 mm cannulated screws were placed into the medial malleolus under live fluoroscopic assistance compressing and stabilizing the medial malleolar fracture in anatomic position and alignment. A 10-[place] single lumen Hemovac drain was then placed in the lateral aspect of the wound exiting dorsolaterally and the extensor digitorum brevis then closed back to its origin with interrupted 2-0 Vicryl sutures. The talonavicular joint capsule was closed using 2-0 Vicryl sutures. The dermis was closed using buried interrupted 3-0 Vicryl sutures medially and laterally and then skin incisions were closed using 4-0 Nylon sutures. A sterile compressive dressing and bulky Jony-Portillo plaster splint was applied, overwrapped with an Niko wrap. The tourniquet was released. DISPOSITION: Patient awakened and taken to Recovery in stable condition. I attest to the content of the Intraoperative Record and any orders documented therein. Any exceptions are noted below. MTDD
[2019-07-07] MEDS ORDERED: INFLUENZA ADMINISTRATION CHARGE ONE (15:30)
[2019-07-07] MEDS ORDERED: INFLUENZA VACCINE HIGH DOSE 65+ 0.5 ML SYR IM ONE (15:30)
[2019-07-07] MEDS: CLINDAMYCIN 900 MG in DEXTROSE 5% 50 ML IV SCH (16:08)
[2019-07-07] MEDS: OXYCODONE HCL IR 5 MG TAB (IMMEDIATE RELEASE) PO PRN (18:39)
[2019-07-07] MEDS: ASPIRIN 81 MG ECTAB PO SCH (22:22)
[2019-07-07] MEDS: DULOXETINE HCL 60 MG CAP PO SCH (22:22)
[2019-07-07] MEDS: TOPIRAMATE 50 MG TAB PO SCH (22:22)
[2019-07-07] MEDS: FAMOTIDINE 20 MG TAB PO SCH (22:22)
[2019-07-07] MEDS: PRAMIPEXOLE DIHYDROCHLO 0.5 MG TAB PO SCH (22:22)
[2019-07-07] MEDS: DOCUSATE SODIUM 100 MG CAP PO SCH (22:23)
[2019-07-07] MEDS: SENNA 8.6 MG TAB PO SCH (22:23)
[2019-07-07] MEDS: LATANOPROST 0.005% OP SOLN 2.5 ML BTL OPB SCH (22:27)
[2019-07-08] MEDS: CLINDAMYCIN 900 MG in DEXTROSE 5% 50 ML IV SCH (00:07)
[2019-07-08] MEDS: SODIUM CHLORIDE 0.9% 1000ML 1,000 ML IV SCH (00:15)
[2019-07-08] MEDS: MoRPHine SULFATE CR 15 MG TABCR PO SCH ×2 (00:28→13:48)
[2019-07-08] MEDS: OXYCODONE HCL IR 5 MG TAB (IMMEDIATE RELEASE) PO PRN ×4 (01:44→23:46)
[2019-07-08] MEDS: ACETAMINOPHEN 500 MG TAB PO SCH ×3 (05:46→22:18)
[2019-07-08 06:16] LABS: Hematocrit (blood only) 30.8 % (37-47); Hemoglobin 10.3 g/dL (12.0-16.0); Mean Corpuscular Hemoglobin 31.3 pg (25-34); Mean Corpuscular Hgb Conc 33.4 g/dL (32-36); Mean Corpuscular Volume 93.6 fL (80-100); Mean Platelet Volume 10.1 fL (7.4-10.4); Platelet Count 186 K/uL (130-400); RDW Coefficient of Variation 14.1 % (11.5-14.5); RDW Standard Deviation 48.4 fL (36.4-46.3); Red Blood Count 3.29 M/uL (4.2-5.4); White Blood Count 8.79 K/uL (4.8-10.8)
[2019-07-08 06:47] LABS: BUN Creatinine Ratio 20.1 (10-20); Calcium 8.3 mg/dl (8.5-10.1); Creatinine Clr Calc Pharmacy 40.6 ml/min; Est GFR (African American) 46.3; Potassium 3.1 mmol/L (3.5-5.1)
[2019-07-08] MEDS ORDERED: MULTIVITAMIN TAB PO SCH (09:00)
[2019-07-08] MEDS: FERROUS SULFATE 325 MG TAB PO SCH (09:08)
[2019-07-08] MEDS: ASPIRIN 81 MG ECTAB PO SCH ×2 (09:08→22:17)
[2019-07-08] MEDS: SPIRONOLACTONE 25 MG TAB PO SCH (09:08)
[2019-07-08] MEDS: DOCUSATE SODIUM 100 MG CAP PO SCH ×2 (09:08→22:17)
[2019-07-08] MEDS: TOPIRAMATE 100 MG TAB PO SCH (09:09)
[2019-07-08] MEDS: MULTIVITAMIN TAB PO SCH (09:09)
[2019-07-08] MEDS: PANTOprazole 40 MG TAB PO SCH (09:09)
[2019-07-08] MEDS: MAGNESIUM OXIDE 400 MG TAB PO SCH (09:09)
[2019-07-08] MEDS: OMEGA-3 (PURIFIED FISH OIL) 1 GM CAP PO SCH (09:10)
[2019-07-08] MEDS: TIMOLOL MALEATE 0.5% OP SOLN 5 ML BTL OPR SCH (09:11)
--- NOTE | 2019-07-08 10:28 | Orthopedic Progress Note ---
Date of Service July 08, 2019 Assessment & Plan (1) Osteoarthritis of right hindfoot: POD#1 s/p Right Foot Triple Arthrodesis DVT prophylaxis : JOANs/Ger brooks NWB right LE DC planning for [facility] when approved. Subjective patient resting comfortably in bed today. Some mild pain. No CP, SOB or dizziness. Pain well controlled Physical Exam Physical Exam: Toes mobile, NVI. Calves soft, non tender. Splint/ Dressing in place. Drain intact Results & Data Vital Signs (Past 12 Hours) Vital Signs Temp Pulse Resp BP Pulse Ox 07/08/19 08:16 36.8 C 70 18 138/77 97 07/08/19 03:41 36.8 C 69 16 146/71 H 95 07/07/19 23:25 36.6 C 68 16 121/68 100
[2019-07-08] MEDS ORDERED: HYDROmorphone INJ 0.5 MG/0.5 ML SYR IV STA (11:08)
[2019-07-08] MEDS: POTASSIUM CHLORIDE 20 MEQ TABCR PO SCH ×2 (12:53→17:52)
[2019-07-08] MEDS: CHOLECALCIFEROL 1,000 UNITS TAB PO SCH (12:53)
--- NOTE | 2019-07-08 14:41 | Anesthesiology Progress Note ---
Date of Service July 08, 2019 Anesthesia Post Procedure Vital Signs Vital Signs: Temp Pulse Resp BP Pulse Ox 07/08/19 12:03 36.7 C 71 18 136/75 96 07/08/19 08:16 36.8 C 70 18 138/77 97 07/08/19 03:41 36.8 C 69 16 146/71 H 95 07/07/19 23:25 36.6 C 68 16 121/68 100 07/07/19 20:38 18 100 07/07/19 19:23 36.7 C 69 16 129/70 100 07/07/19 15:13 36.4 C L 67 16 132/76 97 Pain Intensity Right Foot: Pain Intensity: 5 Right Elbow: Pain Intensity: 7 Lower Back: Pain Intensity: 4 Notes Mental Status: alert / awake / arousable Patient Amnestic to Procedure: Yes Nausea / Vomiting: adequately controlled Pain: adequately controlled Airway Patency, RR, SpO2: stable & adequate BP & HR: stable & adequate Hydration State: stable & adequate Anesthetic Complications: no major complications apparent and Pt Satisfied with anesthetic care
--- NOTE | 2019-07-08 18:32 | Hospitalist Progress Note ---
Date of Service July 08, 2019 Assessment & Plan (1) Postoperative state: Status post right foot triple arthrodesis with application of allograft bone, right ankle percutaneous tendon Achilles lengthening, right nonunion medial malleolus fracture open reduction internal fixation all by Dr. Carney. Continue pain and wound management per orthopedics. Continue nonweightbearing on the right per orthopedic direction. Encourage incentive spirometry every hour while awake. Bowel regimen per Ortho. Continue aggressive pain control which was not effective overnight. Plan for rehab at discharge. (2) HTN (hypertension): Consider restarting chlorthalidone in a.m. Continue Aldactone. Monitor potassium closely. (3) Hypokalemia: Possibly secondary to diuretics and chlorthalidone has been held for now. Replace and repeat in a.m. (4) GAUTAM on CPAP: CPAP at (5) CKD (chronic kidney disease), stage III: Chronic/stable. Avoid nephrotoxic agents and renally dose meds as appropriate. (6) GERD (gastroesophageal reflux disease): Continue Pepcid and dexlansoprazole per home regimen. (7) Chronic back pain: Continue morphine ER, oxycodone (8) DVT prophylaxis: ASA BID, SCD/TEDS Full Code Dispo-per primary team, likely to rehab for several weeks. Thank you for this consultation. We will follow the patient with you during their hospital stay. You can reach a member of the [facility]ist Team 08/03 via pager @ [phone]. Mari Hernandez, DO [facility] Subjective Status post ankle surgery with significant pain postoperatively. She is on chronic long-acting morphine and expresses that she does not want to ask for additional narcotics as she does not want to appear to be narcotic seeking. However in this situation we discussed this is appropriate and that her tolerance level is different. She reports having some relief with Dilaudid the previous night but has had a difficult night and minimal sleep secondary to pain. Additional Dilaudid given now. Otherwise denies nausea, tolerating p.o. Unable to weight-bear at this point per surgical recommendations. No other issues. Review of Systems Review of Systems: All systems reviewed & are unremarkable except as noted in HPI & below Physical Exam Physical Exam: CONSTITUTIONAL: WNWD, vitals as above, appears in slight distress 2/2 pain. EYES: normal conjunctivae, no scleral icterus ENT: MMM RESPIRATORY: clear to auscultation bilaterally, no crackles, rales or wheezes, normal respiratory effort CARDIOVASCULAR: regular rate and rhythm, S1 and 2 heard without murmurs, gallops or rubs, no peripheral edema GASTROINTESTINAL: soft, nontender, nondistended MUSCULOSKELETAL: Moves all extremities with ease aside from right lower extremity secondary to heavy cast and postop state SKIN: warm and dry, surgical incision not evaluated under cast. NEUROLOGIC: CN 2-12 grossly intact, no sensory deficit, normal cognition, no gross focal deficits. Bilateral lower extremities NVI PSYCHIATRIC: alert cooperative and oriented to person, place and time. Results & Data Vital Signs (Past 12 Hours) Vital Signs Temp Pulse Resp BP Pulse Ox 07/08/19 15:25 36.7 C 70 17 132/75 95 07/08/19 12:03 36.7 C 71 18 136/75 96 07/08/19 08:16 36.8 C 70 18 138/77 97 Laboratory Results Short CBC 07/08/19 Range/Units 05:56 WBC 8.79 (4.8-10.8) K/uL Hgb 10.3 L (12.0-16.0) g/dL Hct 30.8 L (37-47) % Plt Count 186 (130-400) K/uL BMP 07/08/19 05:56 Sodium 140 Potassium 3.1 L Chloride 108 H Carbon Dioxide 27 BUN 27 H Creatinine 1.35 H Glucose 103 H Calcium 8.3 L Medications Administered Current Inpatient Medications Acetaminophen (Tylenol) 1,000 mg PO Q8 [facility] Stop: 08/06/19 13:59 Last Admin: 07/08/19 13:48 Dose: 1,000 mg Documented by: Albuterol (Ventolin Hfa) 2 puffs INH Q6H PRN PRN Reason: Cough Stop: 08/06/19 12:26 Artificial Tears (Artificial Tears) 1 drops OP PRN PRN PRN Reason: DRY EYES Stop: 08/06/19 13:46 Aspirin (Ecotrin Ectab) 81 mg PO BID [facility] Stop: 08/06/19 20:59 Last Admin: 07/08/19 09:08 Dose: 81 mg Documented by: Bisacodyl (Dulcolax) 10 mg [place] DAILY PRN PRN Reason: Constipation Stop: 08/06/19 11:21 Chlorthalidone (Hygroton) 25 mg PO QAM [facility] Stop: 08/07/19 08:59 Diphenhydramine HCl (Benadryl Capsule) 25 mg PO Q8H PRN PRN Reason: Itching Stop: 08/06/19 11:21 Docusate Sodium (Colace) 100 mg PO BID [facility] Stop: 08/06/19 20:59 Last Admin: 07/08/19 09:08 Dose: 100 mg Documented by: Duloxetine HCl (Cymbalta) 60 mg PO QPM [facility] Stop: 08/06/19 20:59 Last Admin: 07/07/19 22:22 Dose: 60 mg Documented by: Famotidine (Pepcid) 20 mg PO QPM [facility] Stop: 08/06/19 20:59 Last Admin: 07/07/19 22:22 Dose: 20 mg Documented by: Ferrous Sulfate (Feosol) 325 mg PO QAM [facility] Stop: 08/07/19 08:59 Last Admin: 07/08/19 09:08 Dose: 325 mg Documented by: Fish Oil ([place]-3 (Purified Fish Oil)) 1 gm PO QAM [facility] Stop: 08/07/19 08:59 Last Admin: 07/08/19 09:10 Dose: 1 gm Documented by: Hydromorphone HCl (Dilaudid) 0.5 mg IV Q2H PRN PRN Reason: Pain Stop: 07/21/19 11:21 Last Admin: 07/07/19 20:20 Dose: 0.5 mg Documented by: Latanoprost (Xalatan Oph) 1 drops OPB HS [facility] Stop: 08/06/19 20:59 Last Admin: 07/07/19 22:27 Dose: 1 drops Documented by: Magnesium Hydroxide (Milk Of Magnesia) 30 ml PO Q6H PRN PRN Reason: Constipation Stop: 08/06/19 11:21 Magnesium Oxide (Mag-Ox) 400 mg PO DAILY [facility] Stop: 08/07/19 08:59 Last Admin: 07/08/19 09:09 Dose: 400 mg Documented by: Metoclopramide HCl (Reglan) 10 mg IV Q6H PRN PRN Reason: Nausea And Vomiting Stop: 08/06/19 11:21 Miscellaneous Medication (No Nsaids) 1 ea N/A UD [facility] Stop: 08/06/19 11:29 Morphine Sulfate (Ms Contin) 15 mg PO Q12H [facility] Stop: 07/21/19 13:44 Last Admin: 07/08/19 13:48 Dose: 15 mg Documented by: Multivitamins (Multivitamin Tab) 1 tab PO [facility] Stop: 08/07/19 08:59 Last Admin: 07/08/19 09:09 Dose: 1 tab Documented by: Naloxone HCl (Narcan) 0.1 mg IV Q5M PRN PRN Reason: Oversedation/Resp Depression Stop: 08/06/19 11:21 Ondansetron HCl (Zofran) 4 mg IV Q6H PRN PRN Reason: Nausea And Vomiting Stop: 08/06/19 11:21 Oxycodone HCl (Roxicodone Immediate Rel) 10 - 15 mg PO Q4H PRN PRN Reason: Pain Stop: 07/21/19 11:21 Last Admin: 07/08/19 13:47 Dose: 15 mg Documented by: Pantoprazole Sodium (Protonix) 40 mg PO [facility] Stop: 08/07/19 08:59 Last Admin: 07/08/19 09:09 Dose: 40 mg Documented by: Polyethylene Glycol (Miralax Powder Packet) 17 gm PO DAILY PRN PRN Reason: Constipation Stop: 08/06/19 12:26 Pramipexole Dihydrochloride (Mirapex) 1.5 mg PO [facility] Stop: 08/06/19 20:59 Last Admin: 07/07/19 22:22 Dose: 1.5 mg Documented by: Sennosides (Senokot) 17.2 mg PO [facility] Stop: 08/06/19 20:59 Last Admin: 07/07/19 22:23 Dose: 17.2 mg Documented by: Sp[facility]olactone (Aldactone) [facility] [place]: 08/07/19 08:59 Last Admin: 07/08/19 09:08 Dose: 25 mg Documented by: Timolol Maleate (Timoptic 0.5% Oph) 1 drops OPR DAILY [facility] Stop: 08/07/19 08:59 Last Admin: 07/08/19 09:11 Dose: 1 drops Documented by: Tizanidine HCl (Zanaflex) 4 mg PO Q6H PRN PRN Reason: MUSCLE SPASMS Stop: 08/06/19 12:26 Last Admin: 07/08/19 17:52 Dose: 4 mg Documented by: Topiramate (Topamax) 150 mg PO HS [facility] Stop: 08/06/19 20:59 Last Admin: 07/07/19 22:22 Dose: 150 mg Documented by: Topiramate (Topamax) 100 mg PO QAM [facility] Stop: 08/07/19 08:59 Last Admin: 07/08/19 09:09 Dose: 100 mg Documented by: Vitamin D (Vitamin D3) 5,000 units PO DAILY [facility] Stop: 08/07/19 08:59 Last Admin: 07/08/19 12:53 Dose: 5,000 units Documented by:
[2019-07-08] MEDS: SENNA 8.6 MG TAB PO SCH (22:13)
[2019-07-08] MEDS: FAMOTIDINE 20 MG TAB PO SCH (22:13)
[2019-07-08] MEDS: DULOXETINE HCL 60 MG CAP PO SCH (22:13)
[2019-07-08] MEDS: PRAMIPEXOLE DIHYDROCHLO 0.5 MG TAB PO SCH (22:17)
[2019-07-08] MEDS: LATANOPROST 0.005% OP SOLN 2.5 ML BTL OPB SCH (22:18)
[2019-07-08] MEDS: TOPIRAMATE 50 MG TAB PO SCH (22:18)
[2019-07-09] MEDS: MoRPHine SULFATE CR 15 MG TABCR PO SCH ×2 (01:12→13:00)
[2019-07-09] MEDS: ACETAMINOPHEN 500 MG TAB PO SCH ×3 (05:48→22:10)
[2019-07-09] MEDS: TIMOLOL MALEATE 0.5% OP SOLN 5 ML BTL OPR SCH (08:40)
[2019-07-09] MEDS: OMEGA-3 (PURIFIED FISH OIL) 1 GM CAP PO SCH (08:40)
[2019-07-09] MEDS: TOPIRAMATE 100 MG TAB PO SCH (08:40)
[2019-07-09] MEDS: SPIRONOLACTONE 25 MG TAB PO SCH (08:40)
[2019-07-09] MEDS: ASPIRIN 81 MG ECTAB PO SCH ×2 (08:41→20:59)
[2019-07-09] MEDS: DOCUSATE SODIUM 100 MG CAP PO SCH ×2 (08:41→20:59)
[2019-07-09] MEDS: FERROUS SULFATE 325 MG TAB PO SCH (08:41)
[2019-07-09] MEDS: PANTOprazole 40 MG TAB PO SCH (08:41)
[2019-07-09] MEDS: MULTIVITAMIN TAB PO SCH (08:42)
[2019-07-09] MEDS: CHOLECALCIFEROL 1,000 UNITS TAB PO SCH (08:42)
[2019-07-09] MEDS: MAGNESIUM OXIDE 400 MG TAB PO SCH (08:42)
[2019-07-09] MEDS: OXYCODONE HCL IR 5 MG TAB (IMMEDIATE RELEASE) PO PRN ×3 (08:44→20:53)
[2019-07-09 09:20] LABS: Hematocrit (blood only) 31.5 % (37-47); Hemoglobin 10.4 g/dL (12.0-16.0); Mean Corpuscular Volume 93.8 fL (80-100); Mean Platelet Volume 9.8 fL (7.4-10.4); Platelet Count 183 K/uL (130-400); RDW Coefficient of Variation 14.3 % (11.5-14.5); RDW Standard Deviation 48.8 fL (36.4-46.3); Red Blood Count 3.36 M/uL (4.2-5.4); White Blood Count 7.12 K/uL (4.8-10.8)
[2019-07-09 09:49] LABS: BUN Creatinine Ratio 20.9 (10-20); Calcium 8.8 mg/dl (8.5-10.1); Creatinine Clr Calc Pharmacy 42.5 ml/min; Est GFR (African American) 48.9; Est GFR (Non-African American) 42.2; Potassium 3.5 mmol/L (3.5-5.1)
--- NOTE | 2019-07-09 10:01 | Orthopedic Progress Note ---
Date of Service July 09, 2019 Assessment & Plan (1) Osteoarthritis of right hindfoot: POD#2 s/p Right Foot Triple Arthrodesis DVT prophylaxis : SCDs/Ger brooks, ASA NWB right LE DC planning for [facility] when approved, hopefully on wednesday. Subjective Patient sitting in chair. Looks better overall and she states " i feel much better and more like myself" Pain better controlled last night. Denies CP, dizziness. She does have some slight SOB but this is normal for her Physical Exam Physical Exam: Toes mobile, NVI. Splint in place. No calf pain Results & Data Vital Signs (Past 12 Hours) Vital Signs Temp Pulse Resp BP Pulse Ox 07/09/19 08:04 36.9 C 74 18 156/76 H 95 07/08/19 23:11 36.9 C 68 16 137/72 100
[2019-07-09] MEDS: CHLORTHALIDONE 25 MG TAB PO SCH (11:33)
--- NOTE | 2019-07-09 15:18 | Hospitalist Progress Note ---
Date of Service July 09, 2019 Assessment & Plan (1) Postoperative state: Status post right foot triple arthrodesis with application of allograft bone, right ankle percutaneous tendon Achilles lengthening, right nonunion medial malleolus fracture open reduction internal fixation all by Dr. Carney. Continue pain and wound management per orthopedics. Continue nonweightbearing on the right per orthopedic direction. Encourage incentive spirometry every hour while awake. Bowel regimen per Ortho. Pain control efforts more successful overnightl. Plan for rehab at discharge. (2) HTN (hypertension): Chlorthalidone restarted. Continue Aldactone. Monitor potassium closely. (3) Hypokalemia: Possibly secondary to diuretics and chlorthalidone has been held for now. Repleted potassium on today's check. Repeat in am. (4) GAUTAM on CPAP: CPAP at HS (5) CKD (chronic kidney disease), stage III: Chronic/stable. Avoid nephrotoxic agents and renally dose meds as appropriate. (6) GERD (gastroesophageal reflux disease): Continue Pepcid and dexlansoprazole per home regimen. (7) Chronic back pain: Continue morphine ER, oxycodone (8) DVT prophylaxis: ASA BID, SCD/TEDS Full Code Dispo-per primary team, likely to rehab for several weeks. Thank you for this consultation. We will follow the patient with you during their hospital stay. You can reach a member of the [facility] Hospitalist Team 08/03 via pager @ [phone]. Mari Hernandez, DO [facility] Hospitalist Subjective Pain is much improved today and she is controlled. She was able to get sleep and feels better. Tolerating p.o. is at bedside. Review of systems is otherwise negative today. Review of Systems Review of Systems: All systems reviewed & are unremarkable except as noted in HPI & below Physical Exam Physical Exam: CONSTITUTIONAL: WNWD, vitals as above, no acute distress EYES: normal conjunctivae, no scleral icterus ENT: MMM RESPIRATORY: clear to auscultation bilaterally, no crackles, rales or wheezes, normal respiratory effort CARDIOVASCULAR: regular rate and rhythm, S1 and 2 heard without murmurs, gallops or rubs, no peripheral edema GASTROINTESTINAL: soft, nontender, nondistended MUSCULOSKELETAL: Moves all extremities with ease aside from right lower extremity secondary to heavy cast and postop state, no drain in place SKIN: warm and dry, surgical incision not evaluated under cast. NEUROLOGIC: CN 2-12 grossly intact, no sensory deficit, normal cognition, no gross focal deficits. Bilateral lower extremities NVI PSYCHIATRIC: alert cooperative and oriented to person, place and time. Results & Data Vital Signs (Past 12 Hours) Vital Signs Temp Pulse Resp BP Pulse Ox 07/09/19 08:04 36.9 C 74 18 156/76 H 95 Laboratory Results Short CBC 07/09/19 Range/Units 09:00 WBC 7.12 (4.8-10.8) K/uL Hgb 10.4 L (12.0-16.0) g/dL Hct 31.5 L (37-47) % Plt Count 183 (130-400) K/uL BMP 07/09/19 09:00 Sodium 140 Potassium 3.5 Chloride 109 H Carbon Dioxide 26 BUN 27 H Creatinine 1.29 H Glucose 146 H Calcium 8.8 Medications Administered Current Inpatient Medications Acetaminophen (Tylenol) 1,000 mg PO Q8 [facility] Stop: 08/06/19 13:59 Last Admin: 07/09/19 13:00 Dose: 1,000 mg Documented by: Albuterol (Ventolin Hfa) 2 puffs INH Q6H PRN PRN Reason: Cough Stop: 08/06/19 12:26 Artificial Tears (Artificial Tears) 1 drops OP PRN PRN PRN Reason: DRY EYES Stop: 08/06/19 13:46 Aspirin (Ecotrin Ectab) 81 mg PO BID [facility] Stop: 08/06/19 20:59 Last Admin: 07/09/19 08:41 Dose: 81 mg Documented by: Bisacodyl (Dulcolax) 10 mg [place] DAILY PRN PRN Reason: Constipation Stop: 08/06/19 11:21 Chlorthalidone (Hygroton) 25 mg PO QAM [facility] Stop: 08/07/19 08:59 Last Admin: 07/09/19 11:33 Dose: 25 mg Documented by: Diphenhydramine HCl (Benadryl Capsule) 25 mg PO Q8H PRN PRN Reason: Itching Stop: 08/06/19 11:21 Docusate Sodium (Colace) 100 mg PO BID [facility] Stop: 08/06/19 20:59 Last Admin: 07/09/19 08:41 Dose: 100 mg Documented by: Duloxetine HCl (Cymbalta) 60 mg PO QPM [facility] Stop: 08/06/19 20:59 Last Admin: 07/08/19 22:13 Dose: 60 mg Documented by: Famotidine (Pepcid) 20 mg PO QPM [facility] Stop: 08/06/19 20:59 Last Admin: 07/08/19 22:13 Dose: 20 mg Documented by: Ferrous Sulfate (Feosol) 325 mg PO QAM [facility] Stop: 08/07/19 08:59 Last Admin: 07/09/19 08:41 Dose: 325 mg Documented by: Fish Oil ([place]-3 (Purified Fish Oil)) 1 gm PO QAM [facility] Stop: 08/07/19 08:59 Last Admin: 07/09/19 08:40 Dose: 1 gm Documented by: Hydromorphone HCl (Dilaudid) 0.5 mg IV Q2H PRN PRN Reason: Pain Stop: 07/21/19 11:21 Last Admin: 07/07/19 20:20 Dose: 0.5 mg Documented by: Latanoprost (Xalatan Oph) 1 drops OPB HS [facility] Stop: 08/06/19 20:59 Last Admin: 07/08/19 22:18 Dose: 1 drops Documented by: Magnesium Hydroxide (Milk Of Magnesia) 30 ml PO Q6H PRN PRN Reason: Constipation Stop: 08/06/19 11:21 Magnesium Oxide (Mag-Ox) 400 mg PO DAILY [facility] Stop: 08/07/19 08:59 Last Admin: 07/09/19 08:42 Dose: 400 mg Documented by: Metoclopramide HCl (Reglan) 10 mg IV Q6H PRN PRN Reason: Nausea And Vomiting Stop: 08/06/19 11:21 Miscellaneous Medication (No Nsaids) 1 ea N/A UD [facility] Stop: 08/06/19 11:29 Morphine Sulfate (Ms Contin) 15 mg PO Q12H [facility] Stop: 07/21/19 13:44 Last Admin: 07/09/19 13:00 Dose: 15 mg Documented by: Multivitamins (Multivitamin Tab) 1 tab PO QAM [facility] Stop: 08/07/19 08:59 Last Admin: 07/09/19 08:42 Dose: 1 tab Documented by: Naloxone HCl (Narcan) 0.1 mg IV Q5M PRN PRN Reason: Oversedation/Resp Depression Stop: 08/06/19 11:21 Ondansetron HCl (Zofran) 4 mg IV Q6H PRN PRN Reason: Nausea And Vomiting Stop: 08/06/19 11:21 Oxycodone HCl (Roxicodone Immediate Rel) 10 - 15 mg PO Q4H PRN PRN Reason: Pain Stop: 07/21/19 11:21 Last Admin: 07/09/19 08:44 Dose: 15 mg Documented by: Pantoprazole [facility] ([facility]) [facility] Stop: 08/07/19 08:59 Last Admin: 07/09/19 08:41 Dose: 40 mg Documented by: Polyethylene Glycol (Miralax Powder Packet) 17 gm PO DAILY PRN PRN Reason: Constipation Stop: 08/06/19 12:26 Last Admin: 07/09/19 13:00 Dose: 17 gm Documented by: Pramipexole Dihydrochloride (Mirapex) 1.5 mg PO [facility] Stop: 08/06/19 20:59 Last Admin: 07/08/19 22:17 Dose: 1.5 mg Documented by: Sennosides (Senokot) 17.2 mg PO [facility] Stop: 08/06/19 20:59 Last Admin: 07/08/19 22:13 Dose: 17.2 mg Documented by: Spironolactone (Aldactone) [facility] [place] Stop: 08/07/19 08:59 Last Admin: 07/09/19 08:40 Dose: 25 mg Documented by: Timolol Maleate (Timoptic 0.5% Oph) 1 drops OPR DAILY [facility] Stop: 08/07/19 08:59 Last Admin: 07/09/19 08:40 Dose: 1 drops Documented by: Tizanidine HCl (Zanaflex) 4 mg PO Q6H PRN PRN Reason: MUSCLE SPASMS Stop: 08/06/19 12:26 Last Admin: 07/08/19 17:52 Dose: 4 mg Documented by: Topiramate (Topamax) 150 mg PO [facility] Stop: 08/06/19 20:59 Last Admin: 07/08/19 22:18 Dose: 150 mg Documented by: Topiramate (Topamax) [facility] [place] Stop: 08/07/19 08:59 Last Admin: 07/09/19 08:40 Dose: 100 mg Documented by: Vitamin D (Vitamin D3) 5,000 units PO DAILY [facility] Stop: 08/07/19 08:59 Last Admin: 07/09/19 08:42 Dose: 5,000 units Documented by:
[2019-07-09] MEDS: DULOXETINE HCL 60 MG CAP PO SCH (20:55)
[2019-07-09] MEDS: FAMOTIDINE 20 MG TAB PO SCH (20:56)
[2019-07-09] MEDS: PRAMIPEXOLE DIHYDROCHLO 0.5 MG TAB PO SCH (20:57)
[2019-07-09] MEDS: SENNA 8.6 MG TAB PO SCH (20:58)
[2019-07-09] MEDS: TOPIRAMATE 50 MG TAB PO SCH (21:00)
[2019-07-09] MEDS: LATANOPROST 0.005% OP SOLN 2.5 ML BTL OPB SCH (21:01)
[2019-07-10] MEDS: MoRPHine SULFATE CR 15 MG TABCR PO SCH ×2 (01:46→13:36)
[2019-07-10] MEDS: ACETAMINOPHEN 500 MG TAB PO SCH ×2 (05:45→13:36)
[2019-07-10 06:18] LABS: BUN Creatinine Ratio 21.2 (10-20); Calcium 8.8 mg/dl (8.5-10.1); Creatinine Clr Calc Pharmacy 42.8 ml/min; Est GFR (African American) 49.4; Est GFR (Non-African American) 42.6; Potassium 3.5 mmol/L (3.5-5.1)
[2019-07-10 07:37] VITALS: TEMP 98.1; O2SAT 96
[2019-07-10] MEDS: SPIRONOLACTONE 25 MG TAB PO SCH (08:25)
[2019-07-10] MEDS: CHOLECALCIFEROL 1,000 UNITS TAB PO SCH (08:25)
[2019-07-10] MEDS: CHLORTHALIDONE 25 MG TAB PO SCH (08:25)
[2019-07-10] MEDS: MAGNESIUM OXIDE 400 MG TAB PO SCH (08:25)
[2019-07-10] MEDS: MULTIVITAMIN TAB PO SCH (08:26)
[2019-07-10] MEDS: PANTOprazole 40 MG TAB PO SCH (08:26)
[2019-07-10] MEDS: DOCUSATE SODIUM 100 MG CAP PO SCH (08:26)
[2019-07-10] MEDS: ASPIRIN 81 MG ECTAB PO SCH (08:26)
[2019-07-10] MEDS: TOPIRAMATE 100 MG TAB PO SCH (08:26)
[2019-07-10] MEDS: FERROUS SULFATE 325 MG TAB PO SCH (08:26)
[2019-07-10] MEDS: OMEGA-3 (PURIFIED FISH OIL) 1 GM CAP PO SCH (08:27)
[2019-07-10] MEDS: TIMOLOL MALEATE 0.5% OP SOLN 5 ML BTL OPR SCH (08:27)
--- NOTE | 2019-07-10 14:26 | Hospitalist Progress Note ---
Date of Service July 10, 2019 Assessment & Plan (1) Postoperative state: Status post right foot triple arthrodesis with application of allograft bone, right ankle percutaneous tendon Achilles lengthening, right nonunion medial malleolus fracture open reduction internal fixation all by Dr. Carney. Continue pain and wound management per orthopedics. Continue nonweightbearing on the right per orthopedic direction. Encourage incentive spirometry every hour while awake. Bowel regimen per Ortho. Pain is well managed. Plan for rehab at discharge. (2) HTN (hypertension): Chlorthalidone restarted. Continue Aldactone. Potassium within normal limits on labwork this am. (3) Hypokalemia: resolved. (4) GAUTAM on CPAP: CPAP at HS (5) CKD (chronic kidney disease), stage III: Chronic/stable. Avoid nephrotoxic agents and renally dose meds as appropriate. (6) GERD (gastroesophageal reflux disease): Continue Pepcid and dexlansoprazole per home regimen. (7) Chronic back pain: Continue morphine ER, oxycodone (8) DVT prophylaxis: ASA BID, SCD/TEDS Full Code Dispo-per primary team, likely to rehab for several weeks. Thank you for this consultation. We will follow the patient with you during their hospital stay. You [facility] a [facility] via pager @ [phone]. Mari Hernandez DO [facility] Subjective Patient feeling well today. Pain is controlled. Tolerating p.o. Review of systems otherwise negative. Review of Systems Review of Systems: All systems reviewed & are unremarkable except as noted in HPI & below Physical Exam Physical Exam: CONSTITUTIONAL: WNWD, vitals as above, no acute distress EYES: normal conjunctivae, no scleral icterus ENT: MMM RESPIRATORY: clear to auscultation bilaterally, no crackles, rales or wheezes, normal respiratory effort CARDIOVASCULAR: regular rate and rhythm, S1 and 2 heard without murmurs, gallops or rubs, no peripheral edema GASTROINTESTINAL: soft, nontender, nondistended MUSCULOSKELETAL: Moves all extremities with ease aside from right lower extremity secondary to heavy cast and postop state, no drain in place SKIN: warm and dry, surgical incision not evaluated under cast. NEUROLOGIC: CN 2-12 grossly intact, no sensory deficit, normal cognition, no gross focal deficits. Bilateral lower extremities NVI PSYCHIATRIC: alert cooperative and oriented to person, place and time. Results & Data Vital Signs (Past 12 Hours) Vital Signs Temp Pulse Pulse Resp BP Pulse Ox 07/10/19 11:41 36.7 C 69 20 129/70 96 07/10/19 07:34 36.7 C 69 21 147/83 H 96 07/10/19 05:57 36.5 C 65 16 136/79 99 Laboratory Results BMP 07/10/19 05:32 Sodium 140 Potassium 3.5 Chloride 108 H Carbon Dioxide 28 BUN 27 H Creatinine 1.28 H Glucose 104 H Calcium 8.8 Medications Administered Current Inpatient Medications Acetaminophen (Tylenol) 1,000 mg PO Q8 [facility] Stop: 08/06/19 13:59 Last Admin: 07/10/19 13:36 Dose: 1,000 mg Documented by: Albuterol (Ventolin Hfa) 2 puffs INH Q6H PRN PRN Reason: Cough Stop: 08/06/19 12:26 Artificial Tears (Artificial Tears) 1 drops OP PRN PRN PRN Reason: DRY EYES Stop: 08/06/19 13:46 Aspirin (Ecotrin Ectab) 81 mg PO BID [facility] Stop: 08/06/19 20:59 Last Admin: 07/10/19 08:26 Dose: 81 mg Documented by: Bisacodyl (Dulcolax) 10 mg [place] DAILY PRN PRN Reason: Constipation Stop: 08/06/19 11:21 Chlorthalidone (Hygroton) 25 mg PO QAM [facility] Stop: 08/07/19 08:59 Last Admin: 07/10/19 08:25 Dose: 25 mg Documented by: Diphenhydramine HCl (Benadryl Capsule) 25 mg PO Q8H PRN PRN Reason: Itching Stop: 08/06/19 11:21 Docusate Sodium (Colace) 100 mg PO BID [facility] Stop: 08/06/19 20:59 Last Admin: 07/10/19 08:26 Dose: 100 mg Documented by: Duloxetine HCl (Cymbalta) 60 mg PO QPM [facility] Stop: 08/06/19 20:59 Last Admin: 07/09/19 20:55 Dose: 60 mg Documented by: Famotidine (Pepcid) 20 mg PO QPM [facility] Stop: 08/06/19 20:59 Last Admin: 07/09/19 20:56 Dose: 20 mg Documented by: Ferrous Sulfate (Feosol) 325 mg PO QAM [facility] Stop: 08/07/19 08:59 Last Admin: 07/10/19 08:26 Dose: 325 mg Documented by: Fish Oil ([place]-3 (Purified Fish Oil)) 1 gm PO QAM [facility] Stop: 08/07/19 08:59 Last Admin: 07/10/19 08:27 Dose: 1 gm Documented by: Hydromorphone HCl (Dilaudid) 0.5 mg IV Q2H PRN PRN Reason: Pain Stop: 07/21/19 11:21 Last Admin: 07/07/19 20:20 Dose: 0.5 mg Documented by: Latanoprost (Xalatan Oph) 1 drops OPB [facility] Stop: 08/06/19 20:59 Last Admin: 07/09/19 21:01 Dose: 1 drops Documented by: Magnesium Hydroxide (Milk Of Magnesia) 30 ml PO Q6H PRN PRN Reason: Constipation Stop: 08/06/19 11:21 Last Admin: 07/10/19 13:36 Dose: 30 ml Documented by: Magnesium Oxide (Mag-Ox) 400 mg PO DAILY [facility] Stop: 08/07/19 08:59 Last Admin: 07/10/19 08:25 Dose: 400 mg Documented by: Metoclopramide HCl (Reglan) 10 mg IV Q6H PRN PRN Reason: Nausea And Vomiting Stop: 08/06/19 11:21 Miscellaneous Medication (No Nsaids) 1 ea N/A UD [facility] Stop: 08/06/19 11:29 Morphine Sulfate (Ms Contin) 15 mg PO Q12H [facility] Stop: 07/21/19 13:44 Last Admin: 07/10/19 13:36 Dose: 15 mg Documented by: Multivitamins (Multivitamin Tab) [facility] Stop: 08/07/19 08:59 Last Admin: 07/10/19 08:26 Dose: 1 tab Documented by: Naloxone HCl (Narcan) 0.1 mg IV Q5M PRN PRN Reason: Oversedation/Resp Depression Stop: 08/06/19 11:21 Ondansetron HCl (Zofran) 4 mg IV Q6H PRN PRN Reason: Nausea And Vomiting Stop: 08/06/19 11:21 Oxycodone HCl (Roxicodone Immediate Rel) 10 - 15 mg PO Q4H PRN PRN Reason: Pain Stop: 07/21/19 11:21 Last Admin: 07/09/19 20:53 Dose: 10 mg Documented by: Pantoprazole Sodium (Protonix) 40 mg PO QAM [facility] Stop: 08/07/19 08:59 Last Admin: 07/10/19 08:26 Dose: 40 mg Documented by: Polyethylene Glycol (Miralax Powder Packet) 17 gm PO DAILY PRN PRN Reason: Constipation Stop: 08/06/19 12:26 Last Admin: 07/09/19 13:00 Dose: 17 gm Documented by: Pramipexole Dihydrochloride (Mirapex) 1.5 mg PO [facility] Stop: 08/06/19 20:59 Last Admin: 07/09/19 20:57 Dose: 1.5 mg Documented by: Sennosides (Senokot) 17.2 mg PO [facility] Stop: 08/06/19 20:59 Last Admin: 07/09/19 20:58 Dose: 17.2 mg Documented by: Spironolactone (Aldactone) 25 mg PO QAM [facility] Stop: 08/07/19 08:59 Last Admin: 07/10/19 08:25 Dose: 25 mg Documented by: Timolol Maleate (Timoptic 0.5% Oph) 1 drops OPR DAILY [facility] Stop: 08/07/19 08:59 Last Admin: 07/10/19 08:27 Dose: 1 drops Documented by: Tizanidine HCl (Zanaflex) 4 mg PO Q6H PRN PRN Reason: MUSCLE SPASMS Stop: 08/06/19 12:26 Last Admin: 07/08/19 17:52 Dose: 4 mg Documented by: Topiramate (Topamax) 150 mg PO HS [facility] Stop: 08/06/19 20:59 Last Admin: 07/09/19 21:00 Dose: 150 mg Documented by: Topiramate (Topamax) 100 mg PO QAM [facility] Stop: 08/07/19 08:59 Last Admin: 07/10/19 08:26 Dose: 100 mg Documented by: Vitamin D (Vitamin D3) 5,000 units PO DAILY [facility] Stop: 08/07/19 08:59 Last Admin: 11/25/19 08:25 Dose: 5,000 units Documented by:
--- NOTE | 2019-07-10 15:33 | Orthopedic Progress Note ---
Date of Service July 10, 2019 Assessment & Plan (1) Postoperative state: plan is to dc to [place] today, f/u with dr boyle as scheduled Subjective Pt comfortable, ambulating, but non wt bearing Physical Exam Musculoskeletal: RLE Nvi, splint in place, swelling present but appopriate Results & Data Vital Signs (Past 12 Hours) Vital Signs Temp Pulse Pulse Resp BP Pulse Ox 07/10/19 11:41 36.7 C 69 20 129/70 96 07/10/19 07:34 36.7 C 69 21 147/83 H 96 07/10/19 05:57 36.5 C 65 16 136/79 99
[2019-07-10 15:37] VITALS: BP 146/70; PULSE 73
--- NOTE | 2019-07-14 22:56 | Discharge Summary ---
Date of Service July 14, 2019 Admission HPI Per Admitting Provider This is a patient with severe hindfoot and ankle pain for greater than 1 year. She had been treated conservatively with bracing, steroid injections, activity modification. However, she had persistent edema and pain in the ankle. 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 She is being set up for surgical management. Principal Diagnosis right hindfoot osteoarthritis Discharge Exam Constitutional well developed; no acute distress ENMT external ear and nose normal, oropharynx normal Neck trachea midline, no thyromegaly Respiratory normal respiratory effort, lungs clear to auscultation Cardiovascular Rate/Rhythm: regular rate and regular rhythm Gastrointestinal (Abdomen) normal bowel sounds, soft, nontender, no hepatosplenomegaly Musculoskeletal Ankle: + surgical incision (right ankle: splint C/D/I); no deformity, no skin erythema and no ecchymosis Skin no rashes, warm and dry Neurologic normal touch/pain/proprioception Psychiatric A+Ox3, euthymic affect Lymphatic no cervical or axillary lymphadenopathy Discharge Data Allergies Allergy/AdvReac Type Severity Reaction Status Date / Time Penicillins Allergy Severe elevated Verified 07/07/19 06:19 temperature, fever, hives (see comments) hepatitis B virus vaccine Allergy Intermediate "reacted Verified 07/07/19 06:[address]" oxcarbazepine Allergy Intermediate burning, Verified 07/07/19 06:19 feet pain adhesive Allergy Mild rash Verified 07/07/19 06:19 Cephalosporins Allergy Mild rash Verified 07/07/19 06:19 doxycycline Allergy Mild Rash Verified 07/07/19 11:55 lisinopril Allergy Mild rash, hives Verified 07/07/19 06:19 ropinirole Allergy Mild RASH Verified 07/07/19 06:19 Sulfa (Sulfonamide Allergy Mild RASH Verified 07/07/19 06:19 Antibiotics) Slygovg-[id number]-Prc Reductase AdvReac Intermediate joint Verified 07/07/19 06:19 Inhibitor pain, myalgias NSAIDS (Non-Steroidal AdvReac Mild avoids due Verified 07/07/19 06:19 Anti-Inflamma to kidney dysfunction Consultations 07/07/19 11:22 Consult Case Management - Discharge Planning Routine 07/07/19 11:27 Consult Hospitalist Routine Procedures Performed Operation Date: 07/07/19 07:15 Actual Procedures p Right Foot Triple Arthrodesis,(Right) - [facility] DO s Right Ankle Percutaneous Tendon Achilles Lengthening,(Right) - [facility] DO s Right Non Union Medial Malleolus Fracture Open Reduction Internal Fixation(Right) - [facility] Park DO Ordered Studies 07/07/19 07:02 US - OR guided needle placemen Routine 07/07/19 13:05 FL fluoroscopy <1hr Routine FL foot RT 3V Routine Hospital Course (1) Postoperative state: plan is to dc to [facility] today, f/u with dr park as scheduled (2) Osteoarthritis of right hindfoot: The patient was admitted on the noted date and had the noted procedure. Throughout her admission, she worked with PT for nonweightbearing on the RLE and pain control was a main goal. On POD #3, she was accepted to [facility] and was discharged later that day. POD #3 s/p right triple arthrodesis, perc. BERTHA, ORIF medial malleolus nonunion. Patient was d/c'd to [facility] on POD #3. Total Time Total Time Spent Total Time Spent (In Minutes): 75 Total Time Includes: Examination of the Patient, Discharge Planning and M edication Reconciliation Discharge Plan Discharge Items Patient Disposition: Transfer [facility] Reason For Visit: Osteoarthritis, Right Ankle and Foot, Achilles Con Discharge Diagnosis: right hindfoot osteoarthritis Activity: Per Instructions section Weightbearing: Right non-weightbearing Non-emergency contact: Surgeon Call non-emergency contact if: your pain is not controlled, your pain is worsening, your temperature is above 101.5, your wound has increased redness and your wound has increased drainage Follow-up/Referrals: Edel Zheng MD [Primary Care Provider] - Diet: Regular Addtl Attending Provider Instructions: ACTIVITY RECOMMENDATIONS: Limitations: No weight bearing to affected limb at all times. SPECIAL CARE INSTRUCTIONS: * Take Aspirin 81 mg every 12 hours for blood clot prophylaxis. * Some drainage onto the dressing is normal and is no cause for alarm. * Some swelling is natural especially after walking. * When resting, keep your foot elevated above the level of your heart. * Call [facility] [place] if you notice: -Increased drainage -Fever over 101 degrees F -Severe constant pain BANDAGE: * Leave bandage/cast in place unless otherwise directed. * Keep bandage/cast dry at all times. FOLLOW UP VISIT WITH DR. PARK If appointment is not already scheduled: Please call [facility] [place] after you get home today to schedule a follow-up appointment for [address] Park at . Pending Studies at Discharge: No Skilled Items Patient informed of condition?: Yes DNR: No Discharge Level of Care: Skilled Communicable Disease: No Discharge Prognosis: Stable Lines: None Urinary Catheter: No Medications and DC Order Prescriptions: New aspirin [Ecotrin Low Strength] 81 mg Tablet,Delayed Release (Dr/Ec) 81 mg PO BID 30 Days Qty: 60 RF: 0 acetaminophen [Tylenol Extra Strength] 500 mg Tablet 1,000 mg PO Q8 14 Days Qty: 84 RF: 0 oxycodone 5 mg Tablet 10 - 15 mg PO Q4H PRN (Reason: pain) Qty: 30 RF: 0 Narcan 4 mg/actuation spray,non-aerosol 1 sprays INTNAS ONCE Qty: 2 RF: 0 morphine 15 mg Tablet Extended Release 15 mg PO Q12H Qty: 10 RF: 0 Continued multivitamin [Multiple Vitamins] Tablet 1 tab PO DAILY RF: 0 latanoprost 0.005 % Drops 1 drp OPHTHALMIC (EYE) HS RF: 0 clindamycin HCl 300 mg Capsule 600 mg PO UD PRN (Reason: PRE DENTAL) RF: 0 polyethylene glycol 3350 [Miralax] 17 gram Powder In Packet 17 g PO DAILY PRN (Reason: Constipation) RF: 0 ondansetron HCl [Zofran] 8 mg Tablet 8 mg PO UD PRN (Reason: Nausea) RF: 0 chlorthalidone 25 mg Tablet 25 mg PO QAM RF: 0 spironolactone 25 mg Tablet 25 mg PO QAM RF: 0 famotidine [Pepcid] 20 mg Tablet 20 mg PO QPM RF: 0 timolol 0.5 % Drops 1 drp OPHTHALMIC (EYE) DAILY RF: 0 ferrous sulfate 325 mg (65 mg iron) Tablet 325 mg PO QAM RF: 0 albuterol sulfate 90 mcg/actuation Hfa Aerosol Inhaler 2 puff INHALATION UD PRN (Reason: Cough) RF: 0 morphine 15 mg Tablet 15 mg PO Q12H RF: 0 topiramate 100 mg Tablet 100 mg PO QAM RF: 0 pramipexole [Mirapex] 1.5 mg Tablet 1.5 mg PO HS RF: 0 topiramate 50 mg Tablet 150 mg PO HS RF: 0 duloxetine 60 mg Capsule,Delayed Release(Dr/Ec) 60 mg PO QPM RF: 0 Systane (PF) 0.4-0.3 % Dropperette 1 drp OPHTHALMIC (EYE) UD PRN (Reason: Dry Eyes) RF: 0 tizanidine 4 mg Capsule 4 mg PO Q6H PRN (Reason: MUSCLE SPASMS) RF: 0 Dexilant 60 mg Capsule,Biphase Delayed Releas 60 mg PO QAM RF: 0 cholecalciferol (vitamin D3) [Vitamin D3] 5,000 unit Tablet 5,000 unit PO DAILY RF: 0 magnesium oxide 400 mg magnesium Tablet 400 mg PO DAILY RF: 0 Discontinued aspirin [Aspir-81] 81 mg Tablet,Delayed Release (Dr/Ec) 81 mg PO QPM RF: 0 oxycodone-acetaminophen 10-325 mg Tablet 1 tab PO Q8H PRN (Reason: Pain) RF: 0 Fish Oil Extra Strength 435-880 mg Capsule 1 cap PO QAM RF: 0 Discharge Orders: Discharge Order (Routine); Ordered 07/10/19 Ordered By: Carlos Mcknight Admission Data Admit Date/Time: 07/07/19 11:22 Attending Provider: [facility] Park Admit Provider: [facility] Primary Care Provider: Edel Zheng Other Providers: Ronnie Gillespie ; Glenn Dorsey ; Pia Vogt ; Ivory Monsivais ; May Hernandez ; Bethanie Ortiz ; Kia Gómez ; Marvin Ruvalcaba ; Van Dolan ; Ja Jang ; Conchita Nieto ; Herminia Garcia ; Mari Hernandez ; Bethel Sandhu ; Edwin Alonso ; Becky Dias ; Igor Casas ; Debby Cooper ; Edwin Cleary ; Tomasa Valentino ; Ming Gonzales ; Nel Morel I. ; Lucho Rice ; Fernando Shaw Other Interventions: Discharge Summary Assessment (RN) Last Done: 07/10/19 15:39 DC Date/Time DO NOT enter until pt leaves facility: 07/10/19 17:37
== END 2019-07-10 17:37 | DRG 494 ==
LOC: ASU 05:43 → 3E 11:22

== ENCOUNTER 2021-08-15 06:09 | Inpatient (IN) ==
--- NOTE | 2021-08-01 08:32 | PAT Medication Instructions ---
Medication Instructions Date of Service August 01, 2021 Home Medications albuterol sulfate 90 mcg/actuation aerosol inhaler 2 puff INHALATION UD PRN chlorthalidone 25 mg tablet 37.5 mg PO QAM cholecalciferol (vitamin D3) 125 mcg (5,000 unit) tablet (Vitamin D3) 5,000 unit PO QAM clindamycin HCl 300 mg capsule 600 mg PO UD PRN dexlansoprazole 60 mg capsule,biphase delayed release (Dexilant) 60 mg PO QAM duloxetine 60 mg capsule,delayed release 60 mg PO QPM famotidine 20 mg tablet (Pepcid) 20 mg PO QPM ferrous sulfate 325 mg (65 mg iron) tablet 325 mg PO QAM latanoprost 0.005 % eye drops 1 drp OPHTHALMIC (EYE) HS magnesium oxide 400 mg PO QAM multivitamin (Multiple Vitamins) 1 tab PO QAM ondansetron HCl 8 mg tablet (Zofran) 8 mg PO UD PRN peg 400-propylene glycol (PF) 0.4 %-0.3 % eye drops in a dropperette (Systane (PF)) 1 drp OPHTHALMIC (EYE) UD PRN polyethylene glycol 3350 17 gram oral powder packet (Miralax) 17 g PO DAILY PRN pramipexole 1.5 mg tablet (Mirapex) 1.5 mg PO HS spironolactone 25 mg tablet 25 mg PO BID timolol 0.5 % eye drops 1 drp OPR BID tizanidine 4 mg capsule 4 mg PO Q6H PRN topiramate 100 mg tablet 100 mg PO BID allopurinol 100 mg tablet 100 mg PO QAM aspirin 81 mg tablet 81 mg PO QPM fish oil-fat acid comb8-herb [id number] 1,200 mg (400 [id number]) cap 2 cap PO BID losartan 100 mg tablet (Cozaar) 100 mg PO QAM oxycodone-acetaminophen 5 mg-325 mg tablet (Percocet) 1 tab PO QID PRN pramipexole 0.5 mg tablet (Mirapex) 0.5 mg PO HS rivaroxaban 20 mg tablet (Xarelto) 20 mg PO QDB Continue as directed clindamycin HCl 300 mg capsule 600 mg PO UD PRN ondansetron HCl 8 mg tablet (Zofran) 8 mg PO UD PRN ASK your prescriber and surgeon aspirin 81 mg tablet 81 mg PO QPM rivaroxaban 20 mg tablet (Xarelto) 20 mg PO QDB STOP taking 2 weeks before surgery fish oil-fat acid comb8-herb [id number] 1,200 mg (400 [id number]) cap 2 cap PO BID STOP taking 24 hours before surgery pramipexole 1.5 mg tablet (Mirapex) 1.5 mg PO HS pramipexole 0.5 mg tablet (Mirapex) 0.5 mg PO HS DO NOT take the morning of surgery chlorthalidone 25 mg tablet 37.5 mg PO QAM cholecalciferol (vitamin D3) 125 mcg (5,000 unit) tablet (Vitamin D3) 5,000 unit PO QAM ferrous sulfate 325 mg (65 mg iron) tablet 325 mg PO QAM magnesium oxide 400 mg PO QAM multivitamin (Multiple Vitamins) 1 tab PO QAM polyethylene glycol 3350 17 gram oral powder packet (Miralax) 17 g PO DAILY PRN spironolactone 25 mg tablet 25 mg PO BID tizanidine 4 mg capsule 4 mg PO Q6H PRN losartan 100 mg tablet (Cozaar) 100 mg PO QAM Take morning of surgery With a small sip of water, OTHERWISE NOTHING TO EAT OR DRINK AFTER MIDNIGHT: albuterol sulfate 90 mcg/actuation aerosol inhaler 2 puff INHALATION UD PRN(use if needed; please bring with you to hospital day of surgery if possible). dexlansoprazole 60 mg capsule,biphase delayed release (Dexilant) 60 mg PO QAM peg 400-propylene glycol (PF) 0.4 %-0.3 % eye drops in a dropperette (Systane (PF)) 1 drp OPHTHALMIC (EYE) UD PRN(if needed) timolol 0.5 % eye drops 1 drp OPR BID topiramate 100 mg tablet 100 mg PO BID allopurinol 100 mg tablet 100 mg PO QAM oxycodone-acetaminophen 5 mg-325 mg tablet (Percocet) 1 tab PO QID PRN(okay to take up to 4 hours prior to surgery if needed). Take evening before surgery albuterol sulfate 90 mcg/actuation aerosol inhaler 2 puff INHALATION UD PRN(if needed) duloxetine 60 mg capsule,delayed release 60 mg PO QPM famotidine 20 mg tablet (Pepcid) 20 mg PO QPM latanoprost 0.005 % eye drops 1 drp OPHTHALMIC (EYE) HS peg 400-propylene glycol (PF) 0.4 %-0.3 % eye drops in a dropperette (Systane (PF)) 1 drp OPHTHALMIC (EYE) UD PRN(if needed) spironolactone 25 mg tablet 25 mg PO BID timolol 0.5 % eye drops 1 drp OPR BID tizanidine 4 mg capsule 4 mg PO Q6H PRN(if needed) topiramate 100 mg tablet 100 mg PO BID oxycodone-acetaminophen 5 mg-325 mg tablet (Percocet) 1 tab PO QID PRN(if needed) Other Notes If you have any questions please call us at [phone] or [phone] or [phone] or [phone]
--- NOTE | 2021-08-05 12:33 | Anesthesiology Consultation ---
Date of Service August 05, 2021 Assessment & Plan (1) Encounter for pre-operative examination: - awaiting EKG. - surgeon ordered medical clearance, 08/12/2021 with PCP. - cardiology clearance. Case discussed with Dr. Rodriguez who advised given dyspnea on exertion cardiology clearance in addition to upcoming medical clearance. Message left requesting return call at patient preferred phone number. Tahira at surgeon's office made aware. - limb restriction: Right upper extremity. - chlorhexidine allergy: Wipes not provided at PAT visit. - COVID screening: Per assessment on 08/05/2021: Travel screen negative, no kn own COVID-19 positive contacts. Patient vaccinated. Surgeon arranging preop COVID testing, scheduled 09/13/2021. Awaiting results. Chart Review Chart Review: Pending: Refer to Additional Notes / Consult section and Patient seen in Pre Admission Testing Teaching & Discussion Pre-Anesthesia Teaching/Discussion Notes: Instructed NPO after midnight before surgery, except medications with 15 cc of water. Medication instructions provided according to the PAT guidelines. History Surgery Operation Date: 08/15/21 09:50 Proposed Procedures p C6-C7 Anterior Cervical Discectomy Fusion, C5 Corpectomy, Spinal Cord Monitoring - Todd Ladd, Height/Weight Height: 4 ft 11 in Weight: 104 kg Allergies Allergy/AdvReac Type Severity Reaction Status Date / Time Penicillins Allergy Severe elevated Verified 07/31/21 12:02 temperature, fever, hives (see comments) chlorhexidine Allergy Intermediate skin Verified 07/31/21 12:36 irritation/rash hepatitis B virus vaccine Allergy Intermediate "reacted Verified 07/31/21 12:[address]" oxcarbazepine Allergy Intermediate burning, Verified 07/31/21 12:02 feet pain adhesive Allergy Mild rash Verified 07/31/21 12:02 Cephalosporins Allergy Mild rash Verified 07/31/21 12:02 doxycycline Allergy Mild Rash Verified 07/31/21 12:02 lisinopril Allergy Mild rash, hives Verified 07/31/21 12:02 ropinirole Allergy Mild RASH Verified 07/31/21 12:02 Sulfa (Sulfonamide Allergy Mild RASH Verified 07/31/21 12:02 Antibiotics) vancomycin Allergy Mild Rash Verified 07/31/21 12:02 Rruaiqi-QFQ-TaO Reductase AdvReac Intermediate joint Verified 07/31/21 12:02 Inhibitor pain, [[id number] Reductase myalgias Inhibitor] NSAIDS (Non-Steroidal AdvReac Mild avoids due Verified 07/31/21 12:02 Anti-Inflamma to kidney dysfunction Medications Home Medications Medication Instructions Recorded Confirmed Last Taken albuterol sulfate 90 mcg/actuation 2 puff INHALATION UD PRN 06/13/19 07/31/21 Unknown aerosol inhaler chlorthalidone 25 mg tablet 37.5 mg PO QAM 06/13/19 07/31/21 07/06/19 08:00 cholecalciferol (vitamin D3) 125 5,000 unit PO QAM 06/13/19 07/31/21 07/06/19 08:00 mcg (5,000 unit) tablet (Vitamin D3) clindamycin HCl 300 mg capsule 600 mg PO UD PRN 06/13/19 07/31/21 Unknown dexlansoprazole 60 mg 60 mg PO QAM 06/13/19 07/31/21 07/07/19 04:00 capsule,biphase delayed release (Dexilant) duloxetine 60 mg capsule,delayed 60 mg PO QPM 06/13/19 07/31/21 07/05/19 18:00 release famotidine 20 mg tablet (Pepcid) 20 mg PO QPM 06/13/19 07/31/21 07/06/19 18:00 ferrous sulfate 325 mg (65 mg 325 mg PO QAM 06/13/19 07/31/21 07/06/19 08:00 iron) tablet latanoprost 0.005 % eye drops 1 drp OPHTHALMIC (EYE) HS 06/13/19 07/31/21 07/06/19 20:00 magnesium oxide 400 mg PO QAM 06/13/19 07/31/21 07/05/19 08:00 multivitamin (Multiple Vitamins) 1 tab PO QAM 06/13/19 07/31/21 07/06/19 08:00 ondansetron HCl 8 mg tablet 8 mg PO UD PRN 06/13/19 07/31/21 Unknown (Zofran) peg 400-propylene glycol (PF) 0.4 1 drp OPHTHALMIC (EYE) UD PRN 06/13/19 07/31/21 Unknown %-0.3 % eye drops in a dropperette (Systane (PF)) polyethylene glycol 3350 17 gram 17 g PO DAILY PRN 06/13/19 07/31/21 Unknown oral powder packet (Miralax) pramipexole 1.5 mg tablet (Mirapex) 1.5 mg PO HS 06/13/19 07/31/21 07/05/19 21:00 spironolactone 25 mg tablet 25 mg PO BID 06/13/19 07/31/21 07/06/19 08:00 timolol 0.5 % eye drops 1 drp OPR BID 06/13/19 07/31/21 07/06/19 08:00 tizanidine 4 mg capsule 4 mg PO Q6H PRN 06/13/19 07/31/21 Unknown topiramate 100 mg tablet 100 mg PO BID 06/13/19 07/31/21 07/06/19 08:00 allopurinol 100 mg tablet 100 mg PO QAM 07/31/21 07/31/21 Unknown aspirin 81 mg tablet 81 mg PO QPM 07/31/21 07/31/21 Unknown fish oil-fat acid comb8-herb 2 cap PO BID 07/31/21 07/31/21 Unknown [id number] 1,200 mg (400 [id number]) cap losartan 100 mg tablet (Cozaar) 100 mg PO QAM 07/31/21 07/31/21 Unknown oxycodone-acetaminophen 5 mg-325 1 tab PO QID PRN 07/31/21 07/31/21 Unknown mg tablet (Percocet) pramipexole 0.5 mg tablet (Mirapex) 0.5 mg PO HS 07/31/21 07/31/21 Unknown rivaroxaban 20 mg tablet (Xarelto) 20 mg PO QDB 07/31/21 07/31/21 Unknown Past Medical History Medical History (Updated 08/06/21 @ 09:19 by Christine Kothari PA-C) Back pain CKD (chronic kidney disease), stage III Depression Fibromyalgia GERD (gastroesophageal reflux disease) stable per pt Glaucoma right eye H/O recurrent transient ischemic attacks per records- patient unsure Hiatal hernia High cholesterol History of blood transfusion 1997 s/p childbirth History of breast cancer right (ductal) s/p right breast lumpectomy *RUE limb restriction* History of cellulitis Treated at [facility] bilateral lower legs, 03/2020. treated with abx, has since resolved. History of DVT (deep vein thrombosis) hx multiple DVT 10+ years. developed a DVT in the left leg 2019 s/p right ankle surgery. currently taking Xarelto, follows with PCP Hypertension controlled, stable per pt Nausea and vomiting after administration of anesthetic agent On anticoagulant therapy Osteoarthritis Scoliosis Sleep apnea CPAP -- currently recalled but using without a filter currently Spinal stenosis Stress incontinence urinary Patient denies h/o stroke, seizures, heart attack, heart failure, or DM. Exercise / Class Metabolic Activity III < 4 Walking/Shop/Light housework (SOB with exertion, ongoing x 2019, pt feels related to deconditioning with worsened orthopedic conditions-gradually worsened with further reduction in activity per pt; denies CP) Past Family History Family History Aunt History of colon cancer History of breast cancer Aunt History of breast cancer Aunt History of breast cancer Aunt History of breast cancer Aunt History of breast cancer Other History of prediabetes Past Surgical History Surgical History History of ankle surgery right triple arthrodesis 07/07/2019: LMA#4, 1 attempt atraumatic. no issues per anesthesia postop progress note. History of cardiac cath MANY YRS AGO= NO STENTS History of section History of colonoscopy History of endoscopy History of hernia surgery multiple (one with mesh) History of hysterectomy History of hysteroscopy History of lumpectomy RIGHT History of total left knee replacement History of total right knee replacement 09/08/2017: SAB at L4-L5, 1 attempt + PNB. No issues per anesthesia postop progress note. History of vascular surgery LEFT LEG "VENOUS ABLATION" History of vascular surgery hypogastric artery ligation (2/2 childbirth complications) S/P epidural steroid injection Past Anesthesia History No Family Hx of Anesthesia Complications History of PONV No Hx of Motion Sickness and History of PONV Social History Smoking Status: Never smoker Do You Dip or Chew Tobacco: No Hx Alcohol Use: Yes Alcohol type: wine alcohol intake frequency: holidays/special occasions only Hx Substance Use: No substance use type: does not use Review of Systems Cough associated with occasional wheezing, sneezing, rhinorrhea x 2 days. Pt advised to f/u with PCP. Patient denies chest pain, shortness of breath, fever, chills, or palpitations. Physical Exam Vital Signs Vitals BP 166/78 P 68 TEMP 98.2 SP02 100% on RA RESP 17 Physical Limited cervical extension range of motion without pain Full TMJ range of motion TMD 3.5 finger breaths Mallampati Score 3 Dentition: intact, several missing upper side teeth; denies loose, chipped teeth, caps/crowns, implants or bridges Lungs: normal respiratory effort. Clear throughout to auscultation, no adventitious breath sounds Cardiac: regular rate and rhythm, systolic 1/6 murmur, no gallops or rubs Carotid arteries: negative bruit bilat Extremities: distal lower extremity edema (compression wraps on in clinic) chronic per pt without change or worsening, nontender Lab Results Anesthesia Preop Results Results Anesthesia Widget: WBC 6.30 K/uL (4.8-10.8) 08/05/21 Hgb 10.4 g/dL (12.0-16.0) L 08/05/21 Hct 31.4 % (37-47) L 08/05/21 Plt 283 K/uL (130-400) 08/05/21 Na 144 mmol/L (136-145) 08/05/21 K 3.7 mmol/L (3.5-5.1) 08/05/21 Cl 112 mmol/L (98-107) H 08/05/21 CO2 26 mmol/L (21-32) 08/05/21 BUN 43 mg/dl (7-18) H 08/05/21 Creat 1.42 mg/dl (0.6-1.2) H 08/05/21 Glucose Level 97 mg/dl (70-99) 08/05/21 PT 13.7 Seconds (9.0-12.0) H 08/05/21 PTT 42.9 Seconds (21.0-31.0) H 08/05/21 INR 1.4 (0.9-1.1) H 08/05/21 Urine Color Yellow 08/05/21 Urine Appearance Clear (Clear) 08/05/21 Urine pH 6.5 (4.5-7.5) 08/05/21 Urine Specific [place] 1.011 (1.000-1.030) 08/05/21 Urine Protein 3+ (Negative) H 08/05/21 Urine Glucose (UA) Negative (Negative) 08/05/21 Urine Ketones Negative (Negative) 08/05/21 Urine Blood 1+ (Negative) H 08/05/21 Urine Nitrite Negative (Negative) 08/05/21 Urine Bilirubin Negative (Negative) 08/05/21 Urine Urobilinogen Negative (Negative) 08/05/21 Urine Leukocyte Esterase Negative (Negative) 08/05/21 Urine WBC (Auto) 1-5 /hpf (0-5) 08/05/21 Urine RBC (Auto) 5-10 /hpf (0-4) H 08/05/21 Urine Hyaline Casts (Auto) 1-5 /lpf (0-5) 08/05/21 Urine Epithelial Cells (Auto) 10-20 /lpf (0-5) H 08/05/21 Urine Bacteria (Auto) Negative (Negative) 08/05/21 Blood Type A Positive 08/05/21 Antibody Screen NEGATIVE 08/05/21 Lab Comments: Optimization note sent to PCP and pre-op testing to be sent for review and continuity of care. Testing Chest X-Ray Date: 08/05/21 FINDINGS: Frontal and lateral radiographs of the chest demonstrate the cardiomediastinal silhouette to be within normal limits. There is again asymmetric elevation of the right hemidiaphragm anteriorly and evidence for a hiatal hernia in retrocardiac space. The lungs are clear of alveolar opacities. There is no evidence for effusion bilaterally. There is no evidence for vascular congestion. There is no acute osseous pathology. IMPRESSION: No acute cardiopulmonary disease. Hiatal hernia and asymmetric elevation and eventration of the right hemidiaphragm anteriorly are again seen. Echocardiogram Date: 10/16/19 EF 65% left ventricular cavity size is normal mild cLVH normal left ventricular wall motion grade I diastolic dysfunction no significant valvular dysfunction
[~2021-08-15 06:09] MED LIST changes: -ASPI81TA28 PO; -BUPIVACAINE 0.5 % 5 MG/1 ML PF 10ML VIAL ONE; -CARB1SOL15 OP; -CHOL20007 PO; -CLIN300C2 PO; +CLINDAMYCIN 600 MG/54 ML BAG IV SCH; -CLINDAMYCIN 600 MG/54 ML D5W 54 ML IV SCH; +CeleBREX 200 MG CAP PO SCH; -DEXAMETHASONE 4 MG TAB PO SCH; -DEXL60CA4 PO; -DULO60CA44 PO; -FAMOTIDINE 20 MG TAB PO SCH; -FENTANYL CITRATE INJ 50 MCG/1 ML 2 ML VIAL ONE; -FERR-24 PO; -GARL400T5 PO; -HYDR2.5C37 TOP; -HYG/25 PO; -IMD/2 PO; -LACTATED RINGER'S 1000ML 1,000 ML IV SCH; -LACTATED RINGER'S 1000ML 500 ML IV SCH; -LACTATED RINGER'S 1000ML IV SCH; -LATA0.009 OP; -LIDOCAINE HCL 2% 2 ML VIAL (20MG/ML) ONE; -LISI-729 PO; +LR 15ML/HR IV SCH; -MAGN400T6 PO; -METOCLOPRAMIDE HCL 10 MG TAB PO SCH; -MIDAZOLAM HCL 1 MG/ML 2ML VIAL ONE; -MIRAPEX PO; -MORP15TA PO; -NIAC500T11 PO; -OMEG10007 PO; -ONDA4TAB46 PO; -OXYC-106 PO; -POLY1SOL6 OP; -POLY335019 PO; -PROPOFOL IV EMULSION 10 MG/ML 20 ML VIAL IV ONE; -ROPIVACAINE 5MG/ML 30 ML 150 MG, BUPIVACAINE 0.5% MPF INJ 30 ML, EpINEphrine HCL INJ 0.... INFIL SCH; -TOPI100T34 PO; -VNTHFA/IN INH; -ZNF4 PO; -ZNTT/150 PO
[2021-08-15] MEDS ORDERED: PROPOFOL IV EMULSION 10 MG/ML 100 ML VIAL IV ONE (06:59)
[2021-08-15] MEDS ORDERED: ceFAZolin 330 MG/ML 1 GM VIAL ONE (07:13)
[2021-08-15] MEDS ORDERED: DEXAMETHASONE SOD INJ 4 MG/ML VIAL ONE ×2 (07:14→15:08)
[2021-08-15] MEDS ORDERED: PROPOFOL IV EMULSION 10 MG/ML 20 ML VIAL IV ONE (07:14)
[2021-08-15] MEDS ORDERED: LIDOCAINE 2% 2 ML VIAL/AMP(20MG/ML) INFIL ONE (07:14)
[2021-08-15] MEDS ORDERED: ONDANSETRON INJ 2 MG/ML 2 ML VIAL ONE ×2 (07:14→09:13)
[2021-08-15] MEDS ORDERED: MIDAZOLAM HCL 1 MG/ML 2ML VIAL ONE (07:14)
[2021-08-15] MEDS ORDERED: GLYCOPYRROLATE 0.2 MG/ML VIAL ONE ×2 (07:14→09:13)
[2021-08-15] MEDS ORDERED: fentaNYL citrate 100 MCG/2 ML VIAL ONE ×2 (07:14→09:17)
[2021-08-15] MEDS ORDERED: NEOSTIGMINE METHYLSULFATE 1 MG/ML 10ML VIAL ONE (07:14)
[2021-08-15] MEDS ORDERED: ePHEDrine sulfate 50 MG/ML AMP IV PRN (07:16)
[2021-08-15] MEDS ORDERED: HYDROmorphone INJ 1 MG/ML SYRINGE IV PRN ×2 (07:16→14:43)
[2021-08-15] MEDS ORDERED: ATROPINE SULFATE 0.1 MG/ML 10ML SYR IV PRN (07:16)
[2021-08-15] MEDS ORDERED: ONDANSETRON INJ 2 MG/ML 2 ML VIAL IV PRN ×2 (07:16→14:43)
--- NOTE | 2021-08-15 07:30 | History & Physical Bridge Note ---
Date of Service August 15, 2021 History & Physical Bridge Note I have examined the patient, reviewed the History & Physical and in the interval since the performance of the History & Physical I have noted the following changes of clinical significance: no changes noted
--- NOTE | 2021-08-15 07:31 | History & Physical Report ---
Date of Service August 15, 2021 Assessment & Plan (1) Myelopathy concurrent with and due to spinal stenosis of cervical region: Plan: C6-C7 anterior cervical discectomy and fusion, C5 corpectomy History of Present Illness Chief Complaint: Neck and bilateral arm pain Primary Care Provider: Edel Zheng MD This is a 71-year-old female who presents with chronic persistent neck and arm symptoms after failing course of nonoperative care she is here for surgical invention. Allergies Allergy/AdvReac Type Severity Reaction Status Date / Time Penicillins Allergy Severe elevated Verified 08/15/21 06:38 temperature, fever, hives (see comments) chlorhexidine Allergy Intermediate skin Verified 08/15/21 06:38 irritation/rash hepatitis B virus vaccine Allergy Intermediate "reacted Verified 08/15/21 06:[address]" oxcarbazepine Allergy Intermediate burning, Verified 08/15/21 06:38 feet pain adhesive Allergy Mild rash Verified 08/15/21 06:38 Cephalosporins Allergy Mild rash Verified 08/15/21 06:38 doxycycline Allergy Mild Rash Verified 08/15/21 06:38 lisinopril Allergy Mild rash, hives Verified 08/15/21 06:38 ropinirole Allergy Mild RASH Verified 08/15/21 06:38 Sulfa (Sulfonamide Allergy Mild RASH Verified 08/15/21 06:38 Antibiotics) vancomycin Allergy Mild Rash Verified 08/15/21 06:38 Ygzptkj-BKE-PyI Reductase AdvReac Intermediate joint Verified 08/15/21 06:38 Inhibitor pain, [Pmwpbvu-Lqj-Ysd Reductase myalgias Inhibitor] NSAIDS (Non-Steroidal AdvReac Mild avoids due Verified 08/15/21 06:38 Anti-Inflamma to kidney dysfunction Home Medications Medication Instructions Recorded Confirmed Type albuterol sulfate 90 mcg/actuation 2 puff INHALATION UD PRN 06/13/19 08/15/21 History aerosol inhaler chlorthalidone 25 mg tablet 37.5 mg PO QAM 06/13/19 08/15/21 History cholecalciferol (vitamin D3) 125 5,000 unit PO QAM 06/13/19 08/15/21 History mcg (5,000 unit) tablet (Vitamin D3) clindamycin HCl 300 mg capsule 600 mg PO UD PRN 06/13/19 08/15/21 History dexlansoprazole 60 mg 60 mg PO QAM 06/13/19 08/15/21 History capsule,biphase delayed release (Dexilant) duloxetine 60 mg capsule,delayed 60 mg PO QPM 06/13/19 08/15/21 History release famotidine 20 mg tablet (Pepcid) 20 mg PO QPM 06/13/19 08/15/21 History ferrous sulfate 325 mg (65 mg 325 mg PO QAM 06/13/19 08/15/21 History iron) tablet latanoprost 0.005 % eye drops 1 drp OPHTHALMIC (EYE) HS 06/13/19 08/15/21 History magnesium oxide 400 mg PO QAM 06/13/19 08/15/21 History multivitamin (Multiple Vitamins) 1 tab PO QAM 06/13/19 08/15/21 History ondansetron HCl 8 mg tablet 8 mg PO UD PRN 06/13/19 08/15/21 History (Zofran) peg 400-propylene glycol (PF) 0.4 1 drp OPHTHALMIC (EYE) UD PRN 06/13/19 08/15/21 History %-0.3 % eye drops in a dropperette (Systane (PF)) polyethylene glycol 3350 17 gram 17 g PO DAILY PRN 06/13/19 08/15/21 History oral powder packet (Miralax) pramipexole 1.5 mg tablet (Mirapex) 1.5 mg PO HS 06/13/19 08/15/21 History spironolactone 25 mg tablet 25 mg PO BID 06/13/19 08/15/21 History timolol 0.5 % eye drops 1 drp OPR BID 06/13/19 08/15/21 History tizanidine 4 mg capsule 4 mg PO Q6H PRN 06/13/19 08/15/21 History topiramate 100 mg tablet 100 mg PO BID 06/13/19 08/15/21 History allopurinol 100 mg tablet 100 mg PO QAM 07/31/21 08/15/21 History aspirin 81 mg tablet 81 mg PO QPM 07/31/21 08/15/21 History fish oil-fat acid comb8-herb 2 cap PO BID 07/31/21 08/15/21 History [id number] 1,200 mg ([id number]) cap losartan 100 mg tablet (Cozaar) 100 mg PO QAM 07/31/21 08/15/21 History oxycodone-acetaminophen 5 mg-325 1 tab PO QID PRN 07/31/21 08/15/21 History mg tablet (Percocet) pramipexole 0.5 mg tablet (Mirapex) 0.5 mg PO HS 07/31/21 08/15/21 History rivaroxaban 20 mg tablet (Xarelto) 20 mg PO QDB 07/31/21 08/15/21 History Past Med/Surg History Medical History (Updated 08/15/21 @ 07:31 by Todd Ladd DO) Back pain CKD (chronic kidney disease), stage III Depression Fibromyalgia GERD (gastroesophageal reflux disease) stable per pt Glaucoma right eye H/O recurrent transient ischemic attacks per records- patient unsure Hiatal hernia High cholesterol History of blood transfusion 1997 s/p childbirth History of breast cancer right (ductal) s/p right breast lumpectomy *RUE limb restriction* History of cellulitis Treated at [facility] bilateral lower legs, 03/2020. treated with abx, has since resolved. History of DVT (deep vein thrombosis) hx multiple DVT 10+ years. developed a DVT in the left leg 2019 s/p right ankle surgery. currently taking Xarelto, follows with PCP Hypertension controlled, stable per pt Nausea and vomiting after administration of anesthetic agent On anticoagulant therapy Osteoarthritis Scoliosis Sleep apnea CPAP -- currently recalled but using without a filter currently Spinal stenosis Stress incontinence urinary Surgical History History of ankle surgery right triple arthrodesis 07/07/2019: LMA#4, 1 attempt atraumatic. no issues per anesthesia postop progress note. History of cardiac cath MANY YRS AGO= NO STENTS History of section History of colonoscopy History of endoscopy History of hernia surgery multiple (one with mesh) History of hysterectomy History of hysteroscopy History of lumpectomy RIGHT History of total left knee replacement History of total right knee replacement 09/08/2017: SAB at L4-L5, 1 attempt + PNB. No issues per anesthesia postop progress note. History of vascular surgery LEFT LEG "VENOUS ABLATION" History of vascular surgery hypogastric artery ligation (2/2 childbirth complications) S/P epidural steroid injection Family History Aunt History of colon cancer History of breast cancer Aunt History of breast cancer Aunt History of breast cancer Aunt History of breast cancer Aunt History of breast cancer Other History of prediabetes Social History Smoking Status: Never smoker Second Hand Exposure: No; Do You Dip or Chew Tobacco: No; Tobacco Cessation Education Requested by Patient: No Hx Alcohol Use: Yes Alcohol type: wine Hx Substance Use: No Preferred Language: Greenlandic Communication Ability: Effective Dispute Resolution Analyst Required: No Beliefs That Will Affect Care: None marital status: Current Living Situation: Spouse Other Information That Helps Us Care for You: No Feels Safe at Home: Yes Safety Concerns: Feels Safe At This Time Assistive Devices: Cane, CPAP, Glasses and Walker Physical Exam Physical Exam: Patient is alert and oriented Heart regular rhythm Lungs clear Results & Data ([facility]) Vital Signs (Past 12 Hours) Vital Signs Temp Pulse Resp BP Pulse Ox 08/15/21 06:39 36.6 C 78 20 176/77 H 97
[2021-08-15] MEDS ORDERED: FLOSEAL HEMOSTATIC MATRIX 10ML TOP ONE (08:48)
[2021-08-15] MEDS ORDERED: SUCCINYLCHOLINE CHLORIDE 20 MG/ML 10 ML VIAL IV ONE (09:13)
[2021-08-15] MEDS ORDERED: PHENYLEPHRINE 100MCG/ML 5ML SYR ONE (09:13)
[2021-08-15] MEDS ORDERED: ePHEDrine sulfate 50 MG/ML SYR ONE (09:13)
[2021-08-15] MEDS ORDERED: ROCURONIUM BROMIDE 10 MG/ML 5 ML VIAL IV ONE (09:13)
[2021-08-15] MEDS ORDERED: LARYING-O-JET KIT (LTA) ONE (09:13)
--- NOTE | 2021-08-15 09:47 | Operative Report ---
Post Operative Report Pre & Post Diagnosis Operation Date: 08/15/21 07:15 Pre-Op Diagnosis: Cervical spinal stenosis with myeloradiculopathy Post-Op Diagnosis: Same I identified the patient and participated in the time-out.: Yes Procedure Operation Date: 08/15/21 07:15 Actual Procedures #1 anterior cervical corpectomy bilateral foraminotomies C5. #2 anterior cervical discectomy with bilateral foraminotomies C6-C7. #3 anterior cervical arthrodesis C4-C6 and C6-C7. #4 placement of a 23 mm peek cage C4-C6 and 7 mm cage at C6-C7. #5 placement of locally harvested morselized autograft combined with I factor and interbody cages. #6 placement of 5 complete screws from C4- C7. Surgeon Todd Ladd, DO Language Arts Teacher Haider Rodriguez Estimated Blood Loss 45 Findings See Below Patient is 4 feet 11 inches tall weighing 104 kg with a BMI in excess of 46. The patient's body habitus did contribute to significant technical difficulty and at least 50% increased operative time. Specimens None Indications this is a 71-year-old female who presents with bulge diagnosis after failing course of nonoperative care she is here for surgical invention. Description of Procedure Patient was met with identified informed consent obtained. Patient was then taken to the operative suite underwent ablation placed in spine position adjustable head Joya head R. All bony prominences well-padded eyes inspected to ensure no external proximal spine. This point the anterior cervical spine was prepped and draped in a sterile fashion. The assistance of fluoroscopy identified the C5-C6 disc base and a transverse incision was placed on the right anterior aspect of the cervical spinal lines region. Blunt dissection with the assistance of bipolar electrocautery was performed down to and exposing the anterior cervical spine from C4-C7. Self-retaining retractors in place. Then form a complete discectomy of C4-C5 out to the uncovertebral joints bilaterally followed by C6-C7. [place] distraction pins were then placed in C4 and C6 to distract across the C5 vertebral body. Complete corpectomy was then performed including removal of all posterior annular fibers longitudinal ligament bilateral foraminotomies performed. The endplates were then burred to subcortical being bone and a 23 mm peek cage filled locally harvested morselized autograft and I factor tapped in position. Distracting apparatus was removed and I proceeded to C6-C7. Again complete discectomy was performed to the uncovertebral joint laterally. [place] distractor pins again utilized. Removed all ports disc material posterior fibers bilateral foraminotomies performed. Endplates burred to subcortically bone and a 7 mm peek cage filled with I factor and locally harvested morselized autograft tapped in position. Distracting apparatus was removed and 5 complete screws applied with the assistance of fluoroscopy. Incision was then copiously irrigated explored to ensure no demonstrate surrounding structures or remaining bleeding. 10 round YUAN drain inserted. Incision was then closed with 2 Vicryl in a fashion of 4 Monocryl for final skin closure. Steri-Strip sterile dressings placed. Patient waken taken back in stable condition. Please note spinal cord monitoring was utilized at the procedure and no changes noted. Mickie garza was present at the entire surgery involved the patient positioning complex portions of the surgery and vascular closure. I attest to the content of the Intraoperative Record and any orders documented therein. Any exceptions are noted below.
[2021-08-15] MEDS: fentaNYL citrate 100 MCG/2 ML VIAL IV PRN ×4 (10:22→11:40)
[2021-08-15] MEDS ORDERED: LABETALOL HCL IV 5 MG/ML 20ML IV STA (11:02)
--- NOTE | 2021-08-15 11:06 | Fluoroscopy Report ---
FL cervical 2-3V CLINICAL HISTORY: ACDF C6-7 C5 CORPECTOMY COMPARISON STUDY: None. FLUOROSCOPY TIME: 11 seconds. FLUOROSCOPIC IMAGES: 3 FINDINGS: Fluoroscopy was provided during C5 corpectomy and C4-C7 anterior plate and screw fusion wit h multilevel discectomy. Hardware is intact. Surgical drain is in place. Endotracheal tube is partial ly imaged. IMPRESSION: Fluoroscopy provided during C5 corpectomy and C4-C7 anterior discectomy and fusion. ACT 112: Negative or not required by law. Electronically signed by: Sergio Sanchez M.D. 08/15/2021 11:05 AM
--- NOTE | 2021-08-15 11:49 | Anesthesiology Progress Note ---
Date of Service August 15, 2021 Anesthesia Post Procedure Vital Signs Vital Signs: Temp Pulse Pulse Resp BP BP Pulse Ox 08/15/21 11:30 65 17 138/67 97 08/15/21 11:20 36.0 C L 64 22 152/74 H 96 08/15/21 11:10 58 L 17 128/60 96 08/15/21 11:00 68 18 176/83 H 97 08/15/21 10:50 76 20 183/82 H 98 08/15/21 10:40 70 16 166/74 H 96 08/15/21 10:30 67 18 158/72 H 96 08/15/21 10:20 68 16 169/80 H 99 08/15/21 10:10 67 17 167/91 H 98 08/15/21 10:02 36.0 C L 77 16 160/80 H 98 08/15/21 06:39 36.6 C 78 20 176/77 H 97 Pain Intensity Right Posterior Neck: Pain Intensity: 2 Transfer of Care Handoff Completed per policy Notes Mental Status: alert / awake / arousable and participated in evaluation Patient Amnestic to Procedure: Yes Nausea / Vomiting: adequately controlled Pain: adequately controlled Airway Patency, RR, SpO2: stable & adequate BP & HR: stable & adequate Hydration State: stable & adequate Anesthetic Complications: no major complications apparent and Pt Satisfied with anesthetic care
[2021-08-15] MEDS ORDERED: dexAMETHasone 8 MG in SYRINGE 0 ML IV PRN (14:43)
[2021-08-15] MEDS ORDERED: FAMOTIDINE 20 MG TAB PO PRN (14:43)
[2021-08-15] MEDS ORDERED: DO NOT ADMINISTER PNEUMOCOCCAL VACCINE PRN (14:43)
[2021-08-15] MEDS ORDERED: MAGNESIUM HYDROXIDE SUSP 30 ML UDC PO PRN (14:43)
[2021-08-15] MEDS ORDERED: LORazepam 0.5 MG TAB PO PRN (14:43)
[2021-08-15] MEDS ORDERED: hydrOXYzine HCl 25 MG TAB PO PRN (14:43)
[2021-08-15] MEDS ORDERED: SOD PHOSPHATE/SOD BIPHOSPHATE ENEMA 132 ML BTL PR PRN (14:43)
[2021-08-15] MEDS ORDERED: tiZANidine HCL 4 MG TABLET PO PRN (14:43)
[2021-08-15] MEDS ORDERED: METOCLOPRAMIDE HCL INJ 5 MG/ML 2 ML VIAL IV PRN (14:43)
[2021-08-15] MEDS ORDERED: HYDROmorphone INJ 0.5 MG/0.5 ML SYR IV PRN (14:43)
[2021-08-15] MEDS ORDERED: ACETAMINOPHEN 1,000 MG/100 ML VIAL IV PRN (14:43)
[2021-08-15] MEDS ORDERED: RACEPINEPHRINE 2.25% NEBU SOLN 0.5 ML VIAL INH PRN (14:43)
[2021-08-15] MEDS ORDERED: ACETAMINOPHEN 500 MG TAB PO PRN (14:43)
[2021-08-15] MEDS ORDERED: traMADol HCL 50 MG TABLET PO PRN (14:43)
[2021-08-15] MEDS ORDERED: NALOXONE HCL 0.4 MG/1 ML VIAL/CARP IV PRN (14:43)
[2021-08-15] MEDS ORDERED: ONDANSETRON 4 MG OD TAB PO PRN (14:43)
[2021-08-15] MEDS ORDERED: ALUMINUM/MAGNESIUM SUSP 30 ML UDC PO PRN (14:43)
[2021-08-15] MEDS ORDERED: LORazepam 0.5 MG/1 ML VIAL IV PRN (14:43)
[2021-08-15] MEDS ORDERED: DO NOT ADMINISTER FLU VACCINE PRN (14:43)
[2021-08-15] MEDS ORDERED: bisacodyL 10 MG SUPP PR PRN (14:43)
[2021-08-15] MEDS ORDERED: diphenhydrAMINE Capsule 25 MG CAP PO PRN (14:43)
[2021-08-15] MEDS ORDERED: PROMETHAZINE HCL 12.5 MG in SODIUM CHLORIDE 0.9% 50 ML IV PRN (14:43)
[2021-08-15] MEDS ORDERED: ALBUTEROL HFA 8 GM INHALER INH PRN (14:43)
[2021-08-15] MEDS: SODIUM CHLORIDE 0.9% 1000ML 1,000 ML IV SCH ×2 (14:53→22:00)
[2021-08-15] MEDS: dexAMETHasone 6 MG in SYRINGE 0 ML IV SCH ×2 (16:06→23:08)
[2021-08-15] MEDS: CLINDAMYCIN 600 MG in DEXTROSE 5% 50 ML IV SCH ×2 (16:50→23:07)
--- NOTE | 2021-08-15 18:36 | Consultation ---
Date of Consultation August 15, 2021 Assessment & Plan (1) S/P spinal surgery: Post op day# 0 S/P ACDF by Dr Ladd EBL#45ml -pain management per ortho -wound management per ortho -PT/OT as appropriate -DVT prophylaxis per ortho -monitor H&H for acute blood loss anemia; pre-op Hgb: 10.4 (2) HTN (hypertension): -Continue losartan -Hold chlorthalidone and spironolactone and reassess tomorrow (3) CKD (chronic kidney disease), stage III: Pre-op Cr: 1.42 -Monitor renal functions, avoid nephrotoxic agents when possible (4) Recurrent deep vein thrombosis (DVT): History recurrent lower extremity DVT apparently now on chronic Xarelto -Xarelto currently on hold secondary to spinal surgery (5) GAUTAM on CPAP: -uses CPAP at bedtime -will hold for tonight, until can further clarify with Dr Ladd if ok with CPAP s/p ADCF (6) Depression: -Continue duloxetine (7) GERD (gastroesophageal reflux disease): -Continue PPI, H2 wm DVT Prophylaxis -SCDs per ortho Follows with Dr Edel Zheng for routine care Pt was seen and care coordinated with Dr Rice. See addendum Thank you for this consultation. We will follow the patient with you during their hospital stay. You can reach a member of the [facility] Hospitalist Team 08/03 via [facility] Supervising Physician Co-Signing Physician Notes Pt seen and examined by me, care coordinated w/Dayanna Dias PA-C, pls refer to her note above for further detail. Pt is 71 yo F with HTN, HLD, CKD III, GAUTAM, recurrent DVT now on chronic Xarelto, h/o breast CA s/p surgery, depression seen in medical consultation s/p ACDF today by Dr. Ladd. Pt is currently sitting up in bed in NAD, c-collar placed. She is little drowsy but able to answer questions appropriately.Reports mild numbness in R hand, seems to be improving. Denies chest pain, shortness of breath , nausea. Lungs are CTAB. Heart sounds regular. Abdomen soft, nontender, nondistended. Pt moves extremities. Mild purple discoloration of tips of fingers of R hand c/w Raynauds. Otherwise skin is warm, w/o rashes, well perfused. Cont. current regimen, hold diuretics as above. Cont. cpap. Monitor hemodynamic status and H&H. MD Dwayne History of Present Illness Requesting Physician: Dr Ladd Reason for Consultation: Post op medical management Attending Physician: Todd Ladd, DO History of Present Illness Patient is 71-year-old female with PMH HTN, HLD, CKD III, GAUTAM, recurrent DVT now on chronic Xarelto, h/o breast CA s/p surgery, depression seen in medical consultation status post ACDF today by Dr. Ladd. Postop patient reports still feels a little drowsy. Reports pain is controlled currently. Prior to surgery she was having right hand and finger paresthesias which she reports are still present. Has been sipping on water and tolerating without any dysphagia. Denies chest pain, shortness of breath currently. Patient does report chronic shortness of breath with exertion. She had preop stress test which was negative for inducible ischemia. Denies fever/chills, diaphoresis, N/V/D/C, [place], dizziness, palpitations, cough, sore throat, rhinorrhea, abdominal pain, extremity weakness, extremity edema, rashes, urinary symptoms. Allergies Allergy/AdvReac Type Severity Reaction Status Date / Time Penicillins Allergy Severe elevated Verified 08/15/21 06:38 temperature, fever, hives (see comments) chlorhexidine Allergy Intermediate skin Verified 08/15/21 06:38 irritation/rash hepatitis B virus vaccine Allergy Intermediate "reacted Verified 08/15/21 06:[address] oxcarbazepine Allergy Intermediate burning, Verified 08/15/21 06:38 feet pain adhesive Allergy Mild rash Verified 08/15/21 06:38 Cephalosporins Allergy Mild rash Verified 08/15/21 06:38 doxycycline Allergy Mild Rash Verified 08/15/21 06:38 lisinopril Allergy Mild rash, hives Verified 08/15/21 06:38 ropinirole Allergy Mild RASH Verified 08/15/21 06:38 Sulfa (Sulfonamide Allergy Mild RASH Verified 08/15/21 06:38 Antibiotics) vancomycin Allergy Mild Rash Verified 08/15/21 06:38 Htnarpk-GTL-AbO Reductase AdvReac Intermediate joint Verified 08/15/21 06:38 Inhibitor pain, [Obgkpzz-Asx-Mns Reductase myalgias Inhibitor] NSAIDS (Non-Steroidal AdvReac Mild avoids due Verified 08/15/21 06:38 Anti-Inflamma to kidney dysfunction Home Medications Medication Instructions Recorded Confirmed Type albuterol sulfate 90 mcg/actuation 2 puff INHALATION UD PRN 06/13/19 08/15/21 History aerosol inhaler chlorthalidone 25 mg tablet 37.5 mg PO QAM 06/13/19 08/15/21 History cholecalciferol (vitamin D3) 125 5,000 unit PO QAM 06/13/19 08/15/21 History mcg (5,000 unit) tablet (Vitamin D3) clindamycin HCl 300 mg capsule 600 mg PO UD PRN 06/13/19 08/15/21 History dexlansoprazole 60 mg 60 mg PO QAM 06/13/19 08/15/21 History capsule,biphase delayed release (Dexilant) duloxetine 60 mg capsule,delayed 60 mg PO QPM 06/13/19 08/15/21 History release famotidine 20 mg tablet (Pepcid) 20 mg PO QPM 06/13/19 08/15/21 History ferrous sulfate 325 mg (65 mg 325 mg PO QAM 06/13/19 08/15/21 History iron) tablet latanoprost 0.005 % eye drops 1 drp OPHTHALMIC (EYE) HS 06/13/19 08/15/21 History magnesium oxide 400 mg PO QAM 06/13/19 08/15/21 History multivitamin (Multiple Vitamins) 1 tab PO QAM 06/13/19 08/15/21 History ondansetron HCl 8 mg tablet 8 mg PO UD PRN 06/13/19 08/15/21 History (Zofran) peg 400-propylene glycol (PF) 0.4 1 drp OPHTHALMIC (EYE) UD PRN 06/13/19 08/15/21 History %-0.3 % eye drops in a dropperette (Systane (PF)) polyethylene glycol 3350 17 gram 17 g PO DAILY PRN 06/13/19 08/15/21 History oral powder packet (Miralax) pramipexole 1.5 mg tablet (Mirapex) 1.5 mg PO HS 06/13/19 08/15/21 History spironolactone 25 mg tablet 25 mg PO BID 06/13/19 08/15/21 History timolol 0.5 % eye drops 1 drp OPR BID 06/13/19 08/15/21 History tizanidine 4 mg capsule 4 mg PO Q6H PRN 06/13/19 08/15/21 History topiramate 100 mg tablet 100 mg PO BID 06/13/19 08/15/21 History allopurinol 100 mg tablet 100 mg PO QAM 07/31/21 08/15/21 History aspirin 81 mg tablet 81 mg PO QPM 07/31/21 08/15/21 History fish oil-fat acid comb8-herb 2 cap PO BID 07/31/21 08/15/21 History [id number] 1,200 mg (400 [id number]) cap losartan 100 mg tablet (Cozaar) 100 mg PO QAM 07/31/21 08/15/21 History oxycodone-acetaminophen 5 mg-325 1 tab PO QID PRN 07/31/21 08/15/21 History mg tablet (Percocet) pramipexole 0.5 mg tablet (Mirapex) 0.5 mg PO HS 07/31/21 08/15/21 History rivaroxaban 20 mg tablet (Xarelto) 20 mg PO QDB 07/31/21 08/15/21 History oxycodone 5 mg tablet 5 mg PO Q6H PRN #20 tab 08/15/21 Rx tramadol 50 mg tablet 50 mg PO Q6H PRN #20 tab 08/15/21 Rx Patient History Medical History (Updated 08/15/21 @ 18:57 by Becky Dias PA-C) Back pain CKD (chronic kidney disease), stage III Depression Fibromyalgia GERD (gastroesophageal reflux disease) stable per pt Glaucoma right eye H/O recurrent transient ischemic attacks per records- patient unsure Hiatal hernia High cholesterol History of blood transfusion 1997 s/p childbirth History of breast cancer right (ductal) s/p right breast lumpectomy *RUE limb restriction* History of cellulitis [facility] bilateral lower legs, 03/2020. treated with abx, has since resolved. History of DVT (deep vein thrombosis) hx multiple DVT 10+ years. developed a DVT in the left leg 2019 s/p right ankle surgery. currently naheed Lou, follows with PCP Hypertension controlled, stable per pt Nausea and vomiting after administration of anesthetic agent On anticoagulant therapy Osteoarthritis Scoliosis Sleep apnea CPAP -- currently recalled but using without a filter currently Spinal stenosis Stress incontinence urinary Surgical History (Updated 08/15/21 @ 18:49 by Becky Dias PA-C) History of ankle surgery right triple arthrodesis 07/07/2019: LMA#4, 1 attempt atraumatic. no issues per anesthesia postop progress note. History of cardiac cath MANY YRS AGO= NO STENTS History of section History of colonoscopy History of endoscopy History of hernia surgery multiple (one with mesh) History of hysterectomy History of hysteroscopy History of lumpectomy RIGHT History of total left knee replacement History of total right knee replacement 09/08/2017: SAB at L4-L5, 1 attempt + PNB. No issues per anesthesia postop progress note. History of vascular surgery LEFT LEG "VENOUS ABLATION" History of vascular surgery hypogastric artery ligation (2/2 childbirth complications) S/P epidural steroid injection Family History Aunt History of colon cancer History of breast cancer Aunt History of breast cancer Aunt History of breast cancer Aunt History of breast cancer Aunt History of breast cancer Other History of prediabetes Social History Smoking Status: Never smoker Second Hand Exposure: No; Do You Dip or Chew Tobacco: No; Tobacco Cessation Education Requested by Patient: No Hx Alcohol Use: Yes Alcohol type: wine Hx Substance Use: No Preferred Language: Portuguese Communication Ability: Effective Counter Supply Worker 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: No Beliefs That Will Affect Care: None marital status: Current Living Situation: Spouse Other Information That Helps Us Care for You: No Feels Safe at Home: Yes Safety Concerns: Feels Safe At This Time Assistive Devices: Glasses and Walker Review of Systems Review of Systems: All systems reviewed & are unremarkable except as noted in HPI & below Physical Exam Physical Exam: General: no distress, obese Head: normocephalic, atraumatic Eyes: conjunctiva non-injected, anicteric ENT: normal inspection external ears, nose, mucous membranes moist Neck: +hard C-collar in place, anterior neck with dressing in place is dry, +YUAN drain with scant amount serosanguineous drainage, trachea midline Lungs: clear, no respiratory distress, no wheezing/rhonchi/rales CV: RRR, no pretibial edema Abd: normal BS, soft, non-tender Ext: no cyanosis, no calf tenderness; bilateral objective c developer strength equal and intact bilaterally, pedal pushes and pulls intact bilaterally, distal pulses intact, sensation to light touch intact bilaterally upper and lower extremities Neuro: A&O x 3, no focal deficits noted, normal affect Skin: warm, dry Results & Data ([facility]) Vital Signs (Past 12 Hours) Vital Signs Temp Pulse Pulse Resp BP BP Pulse Ox 08/15/21 16:42 37.0 C 74 16 186/80 H 96 08/15/21 16:00 75 14 120/69 96 08/15/21 15:00 70 18 159/73 H 95 08/15/21 14:50 36.7 C 74 18 139/70 96 08/15/21 13:50 80 20 113/65 95 08/15/21 13:40 36.4 C L 67 18 120/69 95 08/15/21 13:10 78 18 138/62 97 08/15/21 12:40 72 18 136/82 96 08/15/21 12:10 65 18 140/64 97 08/15/21 11:55 64 14 137/67 97 08/15/21 11:40 60 13 143/69 H 97 08/15/21 11:30 65 17 138/67 97 08/15/21 11:20 36.0 C L 64 22 152/74 H 96 08/15/21 11:10 58 L 17 128/60 96 08/15/21 11:00 68 18 176/83 H 97 08/15/21 10:50 76 20 183/82 H 98 08/15/21 10:40 70 16 166/74 H 96 08/15/21 10:30 67 18 158/72 H 96 08/15/21 10:20 68 16 169/80 H 99 08/15/21 10:10 67 17 167/91 H 98 08/15/21 10:02 36.0 C L 77 16 160/80 H 98 08/15/21 06:39 36.6 C 78 20 176/77 H 97
[2021-08-15] MEDS ORDERED: PRAMIPEXOLE DIHYDROCHLO 0.5 MG TAB PO SCH (21:00)
[2021-08-15] MEDS: PRAMIPEXOLE DIHYDROCHLO 0.5 MG TAB PO SCH (21:07)
[2021-08-15] MEDS: ASPIRIN 81 MG ECTAB PO SCH (21:07)
[2021-08-15] MEDS: DULoxetine HCL 60 MG CAP PO SCH (21:07)
[2021-08-15] MEDS: TOPIRAMATE 100 MG TAB PO SCH (21:07)
[2021-08-15] MEDS: DOCUSATE SODIUM/SENNA 50/8.6MG TAB PO SCH (21:08)
[2021-08-15] MEDS: FAMOTIDINE 20 MG TAB PO SCH (21:08)
[2021-08-15] MEDS: LATANOPROST 0.005% OP SOLN 2.5 ML BTL OP SCH (21:09)
[2021-08-15] MEDS: TIMOLOL MALEATE 0.5% OP SOLN 5 ML BTL OP SCH (21:09)
[2021-08-15] MEDS: SPIRONOLACTONE 25 MG TAB PO SCH (21:09)
[2021-08-16] MEDS: POLYETHYLENE (MIRALAX) 17 GM PACK PO SCH ×4 (05:18→23:24)
[2021-08-16] MEDS: oxyCODONE HCL IR 5 MG TAB (IMMEDIATE RELEASE) PO PRN (06:33)
[2021-08-16 07:15] LABS: Hematocrit (blood only) 27.1 % (37-47); Hemoglobin 9.1 g/dL (12.0-16.0); Mean Corpuscular Hemoglobin 32.2 pg (25-34); Mean Corpuscular Hgb Conc 33.6 g/dL (32-36); Mean Corpuscular Volume 95.8 fL (80-100); Mean Platelet Volume 10.6 fL (7.4-10.4); Platelet Count 232 K/uL (130-400); RDW Coefficient of Variation 13.9 % (11.5-14.5); RDW Standard Deviation 48.7 fL (36.4-46.3); Red Blood Count 2.83 M/uL (4.2-5.4); White Blood Count 7.44 K/uL (4.8-10.8)
[2021-08-16 07:56] LABS: BUN Creatinine Ratio 23.2 (10-20); Calcium 8.4 mg/dl (8.5-10.1); Creatinine Clr Calc Pharmacy 37.7 ml/min; Est GFR (African American) 41.5 ml/min; Est GFR (Non-African American) 35.8 ml/min; Potassium 3.7 mmol/L (3.5-5.1)
[2021-08-16] MEDS: FERROUS SULFATE 325 MG TAB PO SCH (08:38)
[2021-08-16] MEDS: LOSARTAN POTASSIUM 50 MG TAB PO SCH (08:38)
[2021-08-16] MEDS: MULTIVITAMIN TAB PO SCH (08:38)
[2021-08-16] MEDS: CHOLECALCIFEROL 5,000 UNITS 125 MCG TAB PO SCH (08:38)
[2021-08-16] MEDS: MAGNESIUM OXIDE 400 MG TAB PO SCH (08:38)
[2021-08-16] MEDS: TOPIRAMATE 100 MG TAB PO SCH ×2 (08:39→21:12)
[2021-08-16] MEDS: PANTOprazole 40 MG TAB PO SCH (08:39)
[2021-08-16] MEDS: allopurinoL 100 MG TAB PO SCH (08:39)
[2021-08-16] MEDS: TIMOLOL MALEATE 0.5% OP SOLN 5 ML BTL OP SCH ×2 (08:40→21:12)
[2021-08-16] MEDS: dexAMETHasone 6 MG in SYRINGE 0 ML IV SCH (08:40)
[2021-08-16] MEDS ORDERED: CHLORTHALIDONE 25 MG TAB PO SCH (09:00)
--- NOTE | 2021-08-16 09:50 | Hospitalist Progress Note ---
Date of Service August 16, 2021 Assessment & Plan (1) S/P spinal surgery: Plan: Post op day# 1 S/P ACDF by Dr Ladd -pain management per ortho -wound management per ortho -PT/OT as appropriate -DVT prophylaxis per ortho -monitor H&H for acute blood loss anemia; pre-op Hgb: 10.4 Acute on chronic anemia, acute blood loss post-op, expected Current Hgb 9.1 - no need for blood transfusion - monitor H&H (2) HTN (hypertension): Plan: -Continue losartan -Hold chlorthalidone and spironolactone and reassess tomorrow (3) CKD (chronic kidney disease), stage III: Plan: Pre-op Cr: 1.42 -Monitor renal functions, avoid nephrotoxic agents when possible - Cr unchanged post-op (4) Recurrent deep vein thrombosis (DVT): Plan: History of recurrent lower extremity DVT apparently now on chronic Xarelto -Xarelto currently on hold secondary to spinal surgery (5) GAUTAM on CPAP: Plan: - CPAP at bedtime (6) Depression: Plan: -Continue duloxetine (7) GERD (gastroesophageal reflux disease): Plan: -Continue PPI, H2 wm DVT Prophylaxis -SCDs per ortho Follows with Dr Edel Zheng for routine care Thank you for this consultation. We will follow the patient with you during their hospital stay. You can reach a member of the [facility] Hospitalist Team 08/03 via [facility] Admission and Anticipated Discharge Date Admission Date: August 15, 2021 Subjective Pt seen in follow up of ACDF yesterday w/ Dr. Ladd Currently pt is siting up in chair in NAD, having breakfast c- collar currently removed Pt says she had uneventful night, overall feeling well Denies any fever, chills, chest pain, shortness of breath, abd. 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 and 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 bilaterally, pedal pushes and pulls intact bilaterally, distal pulses intact, sensation to light touch intact bilaterally upper and lower extremities Neuro: A&O x 3, speech fluent, no facial asymmetry, moves extremities Skin: warm, dry Results & Data Results & Data ([facility]) Vital Signs (Past 12 Hours) Vital Signs Temp Pulse Resp BP Pulse Ox 08/16/21 08:35 36.7 C 85 18 137/72 96 08/16/21 07:33 77 18 94 08/16/21 06:26 36.6 C 74 16 150/74 H 96 08/16/21 04:45 36.4 C L 70 16 148/78 H 96 08/16/21 03:07 74 16 96 08/16/21 02:45 36.6 C 71 18 154/79 H 96 08/16/21 00:05 71 20 96 08/15/21 22:45 36.6 C 74 18 136/75 95 Laboratory Results 08/16/21 08/16/21 Range/Units 05:58 05:58 WBC 7.44 (4.8-10.8) K/uL RBC 2.83 L (4.2-5.4) M/uL Hgb 9.1 L (12.0-16.0) g/dL Hct 27.1 L (37-47) % MCV 95.8 (80-100) fL MCH 32.2 (25-34) pg MCHC 33.6 (32-36) g/dL RDW Std Deviation 48.7 H (36.4-46.3) fL RDW Coeff of Ramsey 13.9 (11.5-14.5) % Plt Count 232 (130-400) K/uL MPV 10.6 H (7.4-10.4) fL Sodium 143 (136-145) mmol/L Potassium 3.7 (3.5-5.1) mmol/L Chloride 113 H (98-107) mmol/L Carbon Dioxide 23 (21-32) mmol/L Anion Gap 7.0 (3-11) BUN 34 H (7-18) mg/dl Creatinine 1.46 H (0.6-1.2) mg/dl Est Cr Clr Drug Dosing 37.7 ml/min Est GFR ( Amer) 41.5 ml/min Est GFR (Non-Af Amer) 35.8 ml/min BUN/Creatinine Ratio 23.2 H (10-20) Glucose 133 H (70-99) mg/dl Calcium 8.4 L (8.5-10.1) mg/dl Medications Administered Current Inpatient Medications Acetaminophen (Acetaminophen 500 Mg Tab) 1,000 mg PO Q8H PRN PRN Reason: MILD Pain Scale 1,2,3 & Pre PT Stop: 09/14/21 14:42 Al Hydrox/Mg Hydrox/Simethicone (Aluminum/Magnesium Susp 30 Ml Udc) 30 ml PO Q6H PRN PRN Reason: Dyspepsia Stop: 09/14/21 14:42 Albuterol (Albuterol Hfa 8 Gm Inhaler) 2 puffs INH Q6H PRN PRN Reason: Cough Stop: 09/14/21 14:42 [facility] ([facility] 100 Mg [facility]) [facility] [place]: 09/15/21 08:59 Last Admin: 08/16/21 08:39 Dose: 100 mg Documented by: Aspirin (Aspirin 81 Mg Ectab) 81 mg PO QPM [facility] Stop: 09/14/21 20:59 Last Admin: 08/15/21 21:07 Dose: 81 mg Documented by: Bisacodyl (Bisacodyl 10 Mg Supp) 10 mg PA DAILY PRN PRN Reason: Constipation Stop: 09/14/21 14:42 Chlorthalidone (Chlorthalidone 25 Mg Tab) [facility] [place]: 09/15/21 08:59 Diphenhydramine HCl (Diphenhydramine Capsule 25 Mg Cap) 25 mg PO Q6H PRN PRN Reason: Allergic Rhinitis/Insomnia Stop: 09/14/21 14:42 Duloxetine HCl (Duloxetine Hcl 60 Mg Cap) 60 mg PO QPM [facility] Stop: 09/14/21 20:59 Last Admin: 08/15/21 21:07 Dose: 60 mg Documented by: Epinephrine (Racepinephrine 2.25% Nebu Soln 0.5 Ml Vial) 0.5 ml INH NOW PRN PRN Reason: If stridor present Famotidine (Famotidine 20 Mg Tab) 20 mg PO QPM [facility] Stop: 09/14/21 20:59 Last Admin: 08/15/21 21:08 Dose: 20 mg Documented by: Famotidine (Famotidine 20 Mg Tab) 20 mg PO Q12H PRN PRN Reason: Dyspepsia Stop: 09/14/21 14:42 Ferrous Sulfate (Ferrous Sulfate 325 Mg Tab) 325 mg PO QAM [facility] Stop: 09/15/21 08:59 Last Admin: 08/16/21 08:38 Dose: 325 mg Documented by: Hydromorphone HCl (Hydromorphone Inj 0.5 Mg/0.5 Ml Syr) 0.5 mg IV Q3H PRN PRN Reason: MOD pain (scale 4-6) & Pre PT Stop: 08/29/21 14:42 Hydromorphone HCl (Hydromorphone Inj 1 Mg/Ml Syringe) 1 mg IV Q3H PRN PRN Reason: severe pain (scale 7-10) Stop: 08/29/21 14:42 Hydroxyzine HCl (Hydroxyzine Hcl 25 Mg Tab) 25 mg PO Q8H PRN PRN Reason: Anxiety Stop: 09/14/21 14:42 Dexamethasone 8 mg/ Syringe 2 mls @ 1 mls/min IV NOW PRN PRN Reason: If stridor present Promethazine HCl 12.5 mg/ (Sodium Chloride) 50.5 mls @ 202 mls/hr IV Q6H PRN PRN Reason: Nausea &/or Vomiting Stop: 09/14/21 14:42 Acetaminophen (Ofirmev) 1,000 mg in 100 mls @ 400 mls/hr IV Q8H PRN PRN Reason: Pain Rating 1-3 & Pre PT Stop: 08/18/21 14:42 Lorazepam (Ativan) 0.5 mg in 1 mls @ 1 mls/min IV Q8H PRN PRN Reason: Sedation/Anxiety Stop: 09/14/21 14:42 Influenza Virus Vaccine Quadrival (Do Not Administer Flu Vaccine) 1 ea N/A PRN PRN PRN Reason: Notification Stop: 09/14/21 14:42 Latanoprost (Latanoprost 0.005% Op Soln 2.5 Ml Btl) 1 drops OP HS [facility] Stop: 09/14/21 20:59 Last Admin: 08/15/21 21:09 Dose: 1 drops Documented by: Lorazepam (Lorazepam 0.5 Mg Tab) 0.5 mg PO Q8H PRN PRN Reason: Sedation/Anxiety Stop: 09/14/21 14:42 Losartan Potassium (Losartan Potassium 50 Mg Tab) 100 mg PO [facility] Stop: 09/15/21 08:59 Last Admin: 08/16/21 08:38 Dose: 100 mg Documented by: Magnesium Hydroxide (Magnesium Hydroxide Susp 30 Ml Udc) 30 ml PO Q24H PRN PRN Reason: Constipation Stop: 09/14/21 14:42 Magnesium Oxide (Magnesium Oxide 400 Mg Tab) 400 mg PO [facility] Stop: 09/15/21 08:59 Last Admin: 08/16/21 08:38 Dose: 400 mg Documented by: Metoclopramide HCl (Metoclopramide Hcl Inj 5 Mg/Ml 2 Ml Vial) 10 mg IV Q6H PRN PRN Reason: Nausea &/or Vomiting Stop: 09/14/21 14:42 Multivitamins (Multivitamin Tab) 1 tab PO [facility] Stop: 09/15/21 08:59 Last Admin: 08/16/21 08:38 Dose: 1 tab Documented by: Naloxone HCl (Naloxone Hcl 0.4 Mg/1 Ml Vial/Carp) 0.1 mg IV Q5M PRN PRN Reason: Oversedation/Resp depression Stop: 09/14/21 14:42 Ondansetron HCl (Ondansetron Inj 2 Mg/Ml 2 Ml Vial) 4 mg IV Q6H PRN PRN Reason: Nausea &/or Vomiting Stop: 09/14/21 14:42 Ondansetron HCl (Ondansetron 4 Mg Od Tab) 4 mg PO Q6H PRN PRN Reason: Nausea Stop: 09/14/21 14:42 Oxycodone HCl (Oxycodone Hcl Ir 5 Mg Tab (Immediate Release)) 5 - 10 mg PO Q4H PRN PRN Reason: Pain & Pre PT Stop: 08/29/21 14:42 Last Admin: 08/16/21 06:33 Dose: 10 mg Documented by: Pantoprazole Sodium (Pantoprazole 40 Mg Tab) 40 mg PO [facility]; Protocol Stop: 09/15/21 08:59 Last Admin: 08/16/21 08:39 Dose: 40 mg Documented by: Pneumococcal Polyvalent Vaccine (Do Not Administer Pneumococcal Vaccine) 1 ea N/A PRN PRN PRN Reason: Notification Stop: 09/14/21 14:42 Polyethylene Glycol (Polyethylene (Miralax) 17 Gm Pack) 17 gm PO Q6 [facility] Stop: 09/15/21 05:59 Last Admin: 08/16/21 05:18 Dose: 17 gm Documented by: Pramipexole Dihydrochloride (Pramipexole Dihydrochlo 0.5 Mg Tab) 2 mg PO HS [facility] Stop: 09/14/21 20:59 Last Admin: 08/15/21 21:07 Dose: 2 mg Documented by: Senna/Docusate Sodium (Docusate Sodium/Senna 50/8.6mg Tab) 2 tab PO HS [facility] Stop: 09/14/21 20:59 Last Admin: 08/15/21 21:08 Dose: 2 tab Documented by: Sodium Biphosphate/Sodium Phosphate (Sod Phosphate/Sod Biphosphate Enema 132 Ml Btl) 132 ml PA ONE PRN PRN Reason: Constipation Stop: 09/14/21 14:42 Spironolactone (Spironolactone 25 Mg Tab) 25 mg PO BID [facility] Stop: 09/14/21 20:59 Last Admin: 08/15/21 21:09 Dose: 25 mg Documented by: Timolol Maleate (Timolol Maleate 0.5% Op Soln 5 Ml Btl) 1 drops OP BID [facility] Stop: 09/14/21 20:59 Last Admin: 08/16/21 08:40 Dose: 1 drops Documented by: Tizanidine HCl (Tizanidine Hcl 4 Mg Tablet) 4 mg PO Q6H PRN PRN Reason: MUSCLE SPASMS Stop: 09/14/21 14:42 Topiramate (Topiramate 100 Mg Tab) 100 mg PO BID [facility] Stop: 09/14/21 20:59 Last Admin: 08/16/21 08:39 Dose: 100 mg Documented by: Tramadol HCl (Tramadol Hcl 50 Mg Tablet) 50 - 100 mg PO Q4H PRN PRN Reason: Moderate-Severe pain & Pre PT Stop: 09/14/21 14:42 Vitamin D (Cholecalciferol 5,000 Units 125 Mcg Tab) 5,000 units PO QAM [facility] Stop: 09/15/21 08:59 Last Admin: 08/16/21 08:38 Dose: 5,000 units Documented by:
[2021-08-16] MEDS: PRAMIPEXOLE DIHYDROCHLO 0.5 MG TAB PO SCH (21:11)
[2021-08-16] MEDS: DULoxetine HCL 60 MG CAP PO SCH (21:11)
[2021-08-16] MEDS: ASPIRIN 81 MG ECTAB PO SCH (21:12)
[2021-08-16] MEDS: DOCUSATE SODIUM/SENNA 50/8.6MG TAB PO SCH (21:13)
[2021-08-16] MEDS: LATANOPROST 0.005% OP SOLN 2.5 ML BTL OP SCH (21:13)
[2021-08-16] MEDS: FAMOTIDINE 20 MG TAB PO SCH (21:13)
--- NOTE | 2021-08-17 04:57 | Hospitalist Progress Note ---
Date of Service August 17, 2021 Assessment & Plan (1) S/P spinal surgery: Plan: Post op day# 2 S/P ACDF by Dr Ladd -pain management per ortho -wound management per ortho -PT/OT as appropriate -DVT prophylaxis per ortho -monitor H&H for acute blood loss anemia; pre-op Hgb: 10.4 Acute on chronic anemia, acute blood loss post-op, expected Current Hgb 8.9 (essentially unchanged from yesterday 9.1) - no need for blood transfusion - monitor H&H (2) HTN (hypertension): Plan: -Continue losartan -Held chlorthalidone and spironolactone initially - now BP elevated, ok to resume (3) CKD (chronic kidney disease), stage III: Plan: Pre-op Cr: 1.42 -Monitor renal functions, avoid nephrotoxic agents when possible - Cr now 1.5 (essentially unchanged much) (4) Recurrent deep vein thrombosis (DVT): Plan: History of recurrent lower extremity DVT apparently now on chronic Xarelto -Xarelto currently on hold secondary to spinal surgery - resume xarelto per orthopedics (5) GAUTAM on CPAP: Plan: - CPAP at bedtime (6) Depression: Plan: -Continue duloxetine (7) GERD (gastroesophageal reflux disease): Plan: -Continue PPI, H2 wm DVT Prophylaxis -SCDs per ortho Follows with Dr Edel Zheng for routine care Thank you for this consultation. We will follow the patient with you during their hospital stay. You can reach a [facility] via [facility] Admission and Anticipated Discharge Date Admission Date: August 15, 2021 Subjective Pt seen in follow up of ACDF w/ Dr. Ladd, 2 days ago BP elevated overnight, plan to resume home diuretics Currently pt is sitting up in bed in NAD c- collar placed Pt says she had uneventful night, and states that she slept well overall feeling well, eating well Denies any fever, chills, chest pain, shortness of breath, abd. 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 and 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 bilaterally, pedal pushes and pulls intact bilaterally, distal pulses intact, sensation to light touch intact bilaterally upper and lower extremities Neuro: A&O x 3, speech fluent, no facial asymmetry, moves extremities Skin: warm, dry Results & Data Results & Data ([facility]) Vital Signs (Past 12 Hours) Vital Signs Temp Pulse Pulse Resp BP Pulse Ox 08/17/21 02:57 37 C 76 18 160/80 H 95 08/17/21 01:40 70 16 08/16/21 23:05 65 18 08/16/21 22:41 74 14 08/16/21 22:30 36.6 C 73 18 147/77 H 96 08/16/21 20:05 64 20 08/16/21 19:54 36.9 C 80 16 155/76 H 95 08/16/21 18:16 36.7 C 78 18 146/75 H 96 Laboratory Results 08/17/21 08/17/21 Range/Units 05:34 05:34 WBC 7.34 (4.8-10.8) K/uL RBC 2.80 L (4.2-5.4) M/uL Hgb 8.9 L (12.0-16.0) g/dL Hct 26.9 L (37-47) % MCV 96.1 (80-100) fL MCH 31.8 (25-34) pg MCHC 33.1 (32-36) g/dL RDW Std Deviation 49.2 H (36.4-46.3) fL RDW Coeff of Ramsey 14.0 (11.5-14.5) % Plt Count 209 (130-400) K/uL MPV 10.0 (7.4-10.4) fL Sodium 142 (136-145) mmol/L Potassium 3.4 L (3.5-5.1) mmol/L Chloride 112 H (98-107) mmol/L Carbon Dioxide 25 (21-32) mmol/L Anion Gap 5.0 (3-11) BUN 40 H (7-18) mg/dl Creatinine 1.54 H (0.6-1.2) mg/dl Est Cr Clr Drug Dosing 35.7 ml/min Est GFR ( Amer) 38.9 ml/min Est GFR (Non-Af Amer) 33.6 ml/min BUN/Creatinine Ratio 25.6 H (10-20) Glucose 103 H (70-99) mg/dl Calcium 8.5 (8.5-10.1) mg/dl Medications Administered Current Inpatient Medications Acetaminophen (Acetaminophen 500 Mg Tab) 1,000 mg PO Q8H PRN PRN Reason: MILD Pain Scale 1,2,3 & Pre PT Stop: 09/14/21 14:42 Al Hydrox/Mg Hydrox/Simethicone (Aluminum/Magnesium Susp 30 Ml Udc) 30 ml PO Q6H PRN PRN Reason: Dyspepsia Stop: 09/14/21 14:42 Albuterol (Albuterol Hfa 8 Gm Inhaler) 2 puffs INH Q6H PRN PRN Reason: Cough Stop: 09/14/21 14:42 Allopurinol (Allopurinol 100 Mg Tab) 100 mg PO QAM [facility] Stop: 09/15/21 08:59 Last Admin: 08/16/21 08:39 Dose: 100 mg Documented by: Aspirin (Aspirin 81 Mg Ectab) 81 mg PO QPM [facility] Stop: 09/14/21 20:59 Last Admin: 08/16/21 21:12 Dose: 81 mg Documented by: Bisacodyl (Bisacodyl 10 Mg Supp) 10 mg [place] DAILY PRN PRN Reason: Constipation Stop: 09/14/21 14:42 Chlorthalidone (Chlorthalidone 25 Mg Tab) 37.5 mg PO QAM [facility] Stop: 09/15/21 08:59 Diphenhydramine HCl (Diphenhydramine Capsule 25 Mg Cap) 25 mg PO Q6H PRN PRN Reason: Allergic Rhinitis/Insomnia Stop: 09/14/21 14:42 Duloxetine HCl (Duloxetine Hcl 60 Mg Cap) 60 mg PO QPM [facility] Stop: 09/14/21 20:59 Last Admin: 08/16/21 21:11 Dose: 60 mg Documented by: Epinephrine (Racepinephrine 2.25% Nebu Soln 0.5 Ml Vial) 0.5 ml INH NOW PRN PRN Reason: If stridor present Famotidine (Famotidine 20 Mg Tab) 20 mg PO QPM [facility] Stop: 09/14/21 20:59 Last Admin: 08/16/21 21:13 Dose: 20 mg Documented by: Famotidine (Famotidine 20 Mg Tab) 20 mg PO Q12H PRN PRN Reason: Dyspepsia Stop: 09/14/21 14:42 Ferrous Sulfate (Ferrous Sulfate 325 Mg Tab) 325 mg PO QAM [facility] Stop: 09/15/21 08:59 Last Admin: 08/16/21 08:38 Dose: 325 mg Documented by: Hydromorphone HCl (Hydromorphone Inj 0.5 Mg/0.5 Ml Syr) 0.5 mg IV Q3H PRN PRN Reason: MOD pain (scale 4-6) & Pre PT Stop: 08/29/21 14:42 Hydromorphone HCl (Hydromorphone Inj 1 Mg/Ml Syringe) 1 mg IV Q3H PRN PRN Reason: severe pain (scale 7-10) Stop: 08/29/21 14:42 Hydroxyzine HCl (Hydroxyzine Hcl 25 Mg Tab) 25 mg PO Q8H PRN PRN Reason: Anxiety Stop: 09/14/21 14:42 Dexamethasone 8 mg/ Syringe 2 mls @ 1 mls/min IV NOW PRN PRN Reason: If stridor present Promethazine HCl 12.5 mg/ (Sodium Chloride) 50.5 mls @ 202 mls/hr IV Q6H PRN PRN Reason: Nausea &/or Vomiting Stop: 09/14/21 14:42 Acetaminophen (Ofirmev) 1,000 mg in 100 mls @ 400 mls/hr IV Q8H PRN PRN Reason: Pain Rating 1-3 & Pre PT Stop: 08/18/21 14:42 Lorazepam (Ativan) 0.5 mg in 1 mls @ 1 mls/min IV Q8H PRN PRN Reason: Sedation/Anxiety Stop: 09/14/21 14:42 Influenza Virus Vaccine Quadrival (Do Not Administer Flu Vaccine) 1 ea N/A PRN PRN PRN Reason: Notification Stop: 09/14/21 14:42 Latanoprost (Latanoprost 0.005% Op Soln 2.5 Ml Btl) 1 drops OP HS [facility] Stop: 09/14/21 20:59 Last Admin: 08/16/21 21:13 Dose: 1 drops Documented by: Lorazepam (Lorazepam 0.5 Mg Tab) 0.5 mg PO Q8H PRN PRN Reason: Sedation/Anxiety Stop: 09/14/21 14:42 Losartan Potassium (Losartan Potassium 50 Mg Tab) 100 mg PO [facility] Stop: 09/15/21 08:59 Last Admin: 08/16/21 08:38 Dose: 100 mg Documented by: Magnesium Hydroxide (Magnesium Hydroxide Susp 30 Ml Udc) 30 ml PO Q24H PRN PRN Reason: Constipation Stop: 09/14/21 14:42 Magnesium Oxide (Magnesium Oxide 400 Mg Tab) 400 mg PO [facility] Stop: 09/15/21 08:59 Last Admin: 08/16/21 08:38 Dose: 400 mg Documented by: Metoclopramide HCl (Metoclopramide Hcl Inj 5 Mg/Ml 2 Ml Vial) 10 mg IV Q6H PRN PRN Reason: Nausea &/or Vomiting Stop: 09/14/21 14:42 Multivitamins (Multivitamin Tab) 1 tab PO [facility] Stop: 09/15/21 08:59 Last Admin: 08/16/21 08:38 Dose: 1 tab Documented by: Naloxone HCl (Naloxone Hcl 0.4 Mg/1 Ml Vial/Carp) 0.1 mg IV Q5M PRN PRN Reason: Oversedation/Resp depression Stop: 09/14/21 14:42 Ondansetron HCl (Ondansetron Inj 2 Mg/Ml 2 Ml Vial) 4 mg IV Q6H PRN PRN Reason: Nausea &/or Vomiting Stop: 09/14/21 14:42 Ondansetron HCl (Ondansetron 4 Mg Od Tab) 4 mg PO Q6H PRN PRN Reason: Nausea Stop: 09/14/21 14:42 Oxycodone HCl (Oxycodone Hcl Ir 5 Mg Tab (Immediate Release)) 5 - 10 mg PO Q4H PRN PRN Reason: Pain & Pre PT Stop: 08/29/21 14:42 Last Admin: 08/16/21 06:33 Dose: 10 mg Documented by: Pantoprazole Sodium (Pantoprazole 40 Mg Tab) 40 mg PO [facility]; Protocol Stop: 09/15/21 08:59 Last Admin: 08/16/21 08:39 Dose: 40 mg Documented by: Pneumococcal Polyvalent Vaccine (Do Not Administer Pneumococcal Vaccine) 1 ea N/A PRN PRN PRN Reason: Notification Stop: 09/14/21 14:42 Polyethylene Glycol (Polyethylene (Miralax) 17 Gm Pack) 17 gm PO Q6 [facility] Stop: 09/15/21 05:59 Last Admin: 08/16/21 23:24 Dose: 17 gm Documented by: Pramipexole Dihydrochloride (Pramipexole Dihydrochlo 0.5 Mg Tab) 2 mg PO [facility] Stop: 09/14/21 20:59 Last Admin: 08/16/21 21:11 Dose: 2 mg Documented by: Senna/Docusate Sodium (Docusate Sodium/Senna 50/8.6mg Tab) 2 tab PO [facility] Stop: 09/14/21 20:59 Last Admin: 08/16/21 21:13 Dose: 2 tab Documented by: Sodium Biphosphate/Sodium Phosphate (Sod Phosphate/Sod Biphosphate Enema 132 Ml Btl) 132 ml [place] ONE PRN PRN Reason: Constipation Stop: 09/14/21 14:42 Spironolactone (Spironolactone 25 Mg Tab) 25 mg PO BID [facility] Stop: 09/14/21 20:59 Last Admin: 08/15/21 21:09 Dose: 25 mg Documented by: Timolol Maleate (Timolol Maleate 0.5% Op Soln 5 Ml Btl) 1 drops OP BID [facility] Stop: 09/14/21 20:59 Last Admin: 08/16/21 21:12 Dose: 1 drops Documented by: Tizanidine HCl (Tizanidine Hcl 4 Mg Tablet) 4 mg PO Q6H PRN PRN Reason: MUSCLE SPASMS Stop: 09/14/21 14:42 Topiramate (Topiramate 100 Mg Tab) 100 mg PO BID [facility] Stop: 09/14/21 20:59 Last Admin: 08/16/21 21:12 Dose: 100 mg Documented by: Tramadol HCl (Tramadol Hcl 50 Mg Tablet) 50 - 100 mg PO Q4H PRN PRN Reason: Moderate-Severe pain & Pre PT Stop: 09/14/21 14:42 Vitamin D (Cholecalciferol 5,000 Units 125 Mcg Tab) 5,000 units PO QAM [facility] Stop: 09/15/21 08:59 Last Admin: 08/16/21 08:38 Dose: 5,000 units Documented by:
[2021-08-17 05:49] LABS: Hematocrit (blood only) 26.9 % (37-47); Hemoglobin 8.9 g/dL (12.0-16.0); Mean Corpuscular Hemoglobin 31.8 pg (25-34); Mean Corpuscular Hgb Conc 33.1 g/dL (32-36); Mean Corpuscular Volume 96.1 fL (80-100); Platelet Count 209 K/uL (130-400); RDW Standard Deviation 49.2 fL (36.4-46.3); White Blood Count 7.34 K/uL (4.8-10.8)
[2021-08-17] MEDS: POLYETHYLENE (MIRALAX) 17 GM PACK PO SCH ×2 (06:13→12:05)
[2021-08-17 06:22] LABS: BUN Creatinine Ratio 25.6 (10-20); Calcium 8.5 mg/dl (8.5-10.1); Creatinine Clr Calc Pharmacy 35.7 ml/min; Est GFR (African American) 38.9 ml/min; Est GFR (Non-African American) 33.6 ml/min; Potassium 3.4 mmol/L (3.5-5.1)
[2021-08-17] MEDS: oxyCODONE HCL IR 5 MG TAB (IMMEDIATE RELEASE) PO PRN (07:22)
[2021-08-17] MEDS: LOSARTAN POTASSIUM 50 MG TAB PO SCH (08:21)
[2021-08-17] MEDS: TOPIRAMATE 100 MG TAB PO SCH (08:21)
[2021-08-17] MEDS: TIMOLOL MALEATE 0.5% OP SOLN 5 ML BTL OP SCH (08:21)
[2021-08-17] MEDS: allopurinoL 100 MG TAB PO SCH (08:21)
[2021-08-17] MEDS: PANTOprazole 40 MG TAB PO SCH (08:22)
[2021-08-17] MEDS: MULTIVITAMIN TAB PO SCH (08:22)
[2021-08-17] MEDS: FERROUS SULFATE 325 MG TAB PO SCH (08:22)
[2021-08-17] MEDS: MAGNESIUM OXIDE 400 MG TAB PO SCH (08:22)
[2021-08-17] MEDS: CHOLECALCIFEROL 5,000 UNITS 125 MCG TAB PO SCH (08:22)
[2021-08-17] MEDS: SPIRONOLACTONE 25 MG TAB PO SCH (08:23)
[2021-08-17] MEDS ORDERED: POTASSIUM CHLORIDE CRTAB 20 MEQ TABCR PO STA (08:42)
--- NOTE | 2021-08-17 10:33 | Discharge Summary ---
Date of Service August 17, 2021 Admission HPI Per Admitting Provider This is a 71-year-old female who presents with chronic persistent neck and arm symptoms after failing course of nonoperative care she is here for surgical invention. Principal Diagnosis Cervical spinal stenosis with myeloradiculopathy Discharge Data Allergies Allergy/AdvReac Type Severity Reaction Status Date / Time Penicillins Allergy Severe elevated Verified 08/15/21 06:38 temperature, fever, hives (see comments) chlorhexidine Allergy Intermediate skin Verified 08/15/21 06:38 irritation/rash hepatitis B virus vaccine Allergy Intermediate "reacted Verified 08/15/21 06:[address] oxcarbazepine Allergy Intermediate burning, Verified 08/15/21 06:38 feet pain adhesive Allergy Mild rash Verified 08/15/21 06:38 Cephalosporins Allergy Mild rash Verified 08/15/21 06:38 doxycycline Allergy Mild Rash Verified 08/15/21 06:38 lisinopril Allergy Mild rash, hives Verified 08/15/21 06:38 ropinirole Allergy Mild RASH Verified 08/15/21 06:38 Sulfa (Sulfonamide Allergy Mild RASH Verified 08/15/21 06:38 Antibiotics) vancomycin Allergy Mild Rash Verified 08/15/21 06:38 Omjqtav-OXH-VrO Reductase AdvReac Intermediate joint Verified 08/15/21 06:38 Inhibitor pain, [Kxfqsrc-Jkk-Ysy Reductase myalgias Inhibitor] NSAIDS (Non-Steroidal AdvReac Mild avoids due Verified 08/15/21 06:38 Anti-Inflamma to kidney dysfunction Consultations 08/15/21 14:43 Consult Hospitalist Routine Procedures Performed Operation Date: 08/15/21 07:15 Actual Procedures p C6-C7 Anterior Cervical Discectomy Fusion, C5 Corpectomy, Spinal Cord Monitoring - Todd Ladd DO Ordered Studies 08/15/21 07:15 FL cervical 2-3V Routine Hospital Course (1) Myelopathy concurrent with and due to spinal stenosis of cervical region: Patient underwent anterior cervical decompression fusion tolerated so was taken to orthopedic floor postoperative. Postop day 1 she was swallowing well no hoarseness. Arm symptoms improved. Progressed to postop day #2. Excellent strength testing. YUAN drain decreasing appropriately. Subsequent discharge home. Discharge orders and instructions from the chart for further review. Total Time Total Time Spent Total Time Spent (In Minutes): 20 minutes Discharge Plan Discharge Items Patient Disposition: Home - Self-Care Reason For Visit: Spinal Stenosis, Cervical Region Discharge Diagnosis: Cervical spinal stenosis with myeloradiculopathy Activity: As commented below Non-emergency contact: Primary Care Provider Call non-emergency contact if: you have any medication questions Follow-up/Referrals: Edel Zheng MD [Primary Care Provider] - Diet: Regular Addtl Attending Provider Instructions: ACTIVITY RECOMMENDATIONS: SELF CARE INSTRUCTIONS AFTER CERVICAL FUSIONS 1. No smoking. Smoking drastically decreases the chance of a solid fusion. 2. No bending, lifting more than 5 pounds, or twisting (roll like a log when turning in bed). 3. You may shower 3 days after surgery. Thoroughly dry wound. Do not soak in the tub. 4. Cervical collar: Must be worn at all times including sleeping. You may remove the brace only to bath, eat and if you are sitting in a recliner. 5. Please walk as much as you can for exercise. Gradually increase the distance that you walk as your endurance increases. SPECIAL CARE INSTRUCTIONS: VERY IMPORTANT TO READ AND REVIEW A. Do not take any anti-inflammatory medications (i.e. Indocin, Advil, Aspirin, Naprosyn, Aleve, Motrin, etc.) as these may inhibit the chance of a solid fusion. Tylenol is okay to take. B. Your surgical incision has been closed with a cosmetic suture under the skin that will dissolve in about 6 weeks. In 14 days, you can use a pair of clean scissors and cut the suture that is left outside of the skin at the ends of your incision. C. Complications are uncommon, but please contact us if you have any signs or symptoms of: 1. wound infection (fever higher than 102.5 degrees F, redness, separation of wound, drainage, or increasing pain from the incision) 2. blood clots in legs (pain, swelling, redness and warmth in legs) 3. urinary tract infection (fever higher than 102.5 degrees, burning upon urination or increased frequency of urination) 4. nerve problems (inability to walk on your toes or heels, numbness, loss of bowel or bladder control) 5. any other symptoms that concern you. D. Please call the office at if you have any concerns or questions about your operation or recovery. MANAGING PAIN AFTER SPINAL SURGERY 1. Narcotic medication is intended for short-term use and will be provided for surgical pain. Surgical pain usually lasts for a period of 4-6 weeks. Narcotic medication includes Percocet, Vicodin, Darvocet, Tylenol #3 or Lortab. 2. Longer-term pain is more appropriately treated with non-narcotic medication such as Tylenol ES. 3. Muscle spasm is not appropriately treated with narcotics. Muscle relaxers such as Soma, Flexeril or Skelaxin can be used along with Tylenol ES. 4. Remember that we all live with some "aches and pains". This is not unusual or uncommon after an injury or as we get older. 5. We will provide appropriate medication within the normal guidelines of their prescribed use. We will also be very cautious and aware of potential abuse and extended duration of patients' medication needs. 6. Please allow 2-3 days to process refills. Prescriptions will not be mailed but must be picked up at the office. FOLLOW UP VISIT: Keep your scheduled follow-up appointment. Any questions, please call the office at . Pending Studies at Discharge: No Stand-Alone Forms: My [facility] [place], Smoking Cessation Medications and DC Order Prescriptions: New oxycodone 5 mg tablet 5 mg PO Q6H PRN (Reason: pain, severe) Qty: 20 RF: 0 tramadol 50 mg tablet 50 mg PO Q6H PRN (Reason: pain, moderate) Qty: 20 RF: 0 Continued multivitamin [Multiple Vitamins] Tablet 1 tab PO QAM RF: 0 latanoprost 0.005 % Drops 1 drp OPHTHALMIC (EYE) HS RF: 0 clindamycin HCl 300 mg Capsule 600 mg PO UD PRN (Reason: PRE DENTAL) RF: 0 polyethylene glycol 3350 [Miralax] 17 gram Powder In Packet 17 g PO DAILY PRN (Reason: Constipation) RF: 0 ondansetron HCl [Zofran] 8 mg Tablet 8 mg PO UD PRN (Reason: Nausea) RF: 0 chlorthalidone 25 mg Tablet 37.5 mg PO QAM RF: 0 spironolactone 25 mg Tablet 25 mg PO BID RF: 0 famotidine [Pepcid] 20 mg Tablet 20 mg PO QPM RF: 0 timolol 0.5 % Drops 1 drp OPR BID RF: 0 ferrous sulfate 325 mg (65 mg iron) Tablet 325 mg PO QAM RF: 0 albuterol sulfate 90 mcg/actuation Hfa Aerosol Inhaler 2 puff INHALATION UD PRN (Reason: Cough) RF: 0 topiramate 100 mg Tablet 100 mg PO BID RF: 0 pramipexole [Mirapex] 1.5 mg Tablet 1.5 mg PO HS RF: 0 duloxetine 60 mg Capsule,Delayed Release(Dr/Ec) 60 mg PO QPM RF: 0 Systane (PF) 0.4-0.3 % Dropperette 1 drp OPHTHALMIC (EYE) UD PRN (Reason: Dry Eyes) RF: 0 tizanidine 4 mg Capsule 4 mg PO Q6H PRN (Reason: MUSCLE SPASMS) RF: 0 Dexilant 60 mg Capsule,Biphase Delayed Releas 60 mg PO QAM RF: 0 cholecalciferol (vitamin D3) [Vitamin D3] 5,000 unit Tablet 5,000 unit PO QAM RF: 0 magnesium oxide 400 mg magnesium Tablet 400 mg PO QAM RF: 0 allopurinol 100 mg Tablet 100 mg PO QAM RF: 0 pramipexole [Mirapex] 0.5 mg Tablet 0.5 mg PO HS RF: 0 oxycodone-acetaminophen [Percocet] 5-325 mg Tablet 1 tab PO QID PRN (Reason: Severe Pain (Scale Score 7-10)) RF: 0 losartan [Cozaar] 100 mg Tablet 100 mg PO QAM RF: 0 Xarelto 20 mg Tablet 20 mg PO QDB RF: 0 fish oil-fat acid [id number] 1,200 mg (400 [id number]) Capsule 2 cap PO BID RF: 0 aspirin 81 mg Tablet 81 mg PO QPM RF: 0 Discharge Orders: Discharge Order (Routine); Ordered 08/17/21 Ordered By: Todd Ladd Admission Data Admit Date/Time: 08/15/21 09:52 Attending Provider: Todd Ladd Admit Provider: Todd Ladd Primary Care Provider: Edel Zheng Other Providers: Lucho Rice
== END 2021-08-17 14:13 | disposition home or self-care (01) | DRG 472 ==
LOC: ASU 06:09 → PACUINP 09:52 → 3E 18:12
DX: Z20.822 Contact with and (suspected) exposure to COVID-19; Z01.812 Encounter for preprocedural laboratory examination; M79.7 Fibromyalgia; Z79.82 Long term (current) use of aspirin; Z88.6 Allergy status to analgesic agent; G47.33 Obstructive sleep apnea (adult) (pediatric); G99.2 Myelopathy in diseases classified elsewhere; Z88.8 Allergy status to other drugs, medicaments and biological substances; E66.9 Obesity, unspecified; Z88.1 Allergy status to other antibiotic agents; D62 Acute posthemorrhagic anemia; H40.9 Unspecified glaucoma; M54.12 Radiculopathy, cervical region; M48.02 Spinal stenosis, cervical region; Z68.42 Body mass index [BMI] 45.0-49.9, adult; K21.9 Gastro-esophageal reflux disease without esophagitis; Z91.048 Other nonmedicinal substance allergy status; Z85.3 Personal history of malignant neoplasm of breast; N18.30 Chronic kidney disease, stage 3 unspecified; F32.A Depression, unspecified; Z79.01 Long term (current) use of anticoagulants; Z86.718 Personal history of other venous thrombosis and embolism; Z79.899 Other long term (current) drug therapy; Z88.7 Allergy status to serum and vaccine; Z88.0 Allergy status to penicillin; I12.9 Hypertensive chronic kidney disease with stage 1 through stage 4 chronic kidney disease, or unspecified chronic kidney disease; Z88.2 Allergy status to sulfonamides

== ENCOUNTER 2024-06-21 09:25 | Inpatient (IN) ==
--- NOTE | 2024-05-23 14:44 | PAT Medication Instructions ---
Medication Instructions Date of Service May 23, 2024 Home Medications chlorthalidone 25 mg tablet 25 mg PO QAM cholecalciferol (vitamin D3) 125 mcg (5,000 unit) tablet (Vitamin D3) 5,000 unit PO QAM clindamycin HCl 300 mg capsule 600 mg PO UD PRN PRE DENTAL duloxetine 60 mg capsule,delayed release 60 mg PO QAM ferrous sulfate 325 mg (65 mg iron) tablet 325 mg PO BID latanoprost 0.005 % eye drops 1 drp ophthalmic (eye) HS magnesium oxide 800 mg PO QAM PRN supplement peg 400-propylene glycol (PF) 0.4 %-0.3 % eye drops in a dropperette (Systane (PF)) 1 drp ophthalmic (eye) UD PRN Dry Eyes polyethylene glycol 3350 17 gram oral powder packet (Miralax) 17 g PO DAILY PRN Constipation pramipexole 1.5 mg tablet (Mirapex) 0.5 mg PO QPM spironolactone 25 mg tablet 25 mg PO BID timolol 0.5 % eye drops 1 drp ophthalmic (eye) BID topiramate 100 mg tablet 50 - 100 mg PO BID allopurinol 100 mg tablet 100 mg PO QAM aspirin 81 mg tablet 81 mg PO QPM fish oil-fat acid comb8-herb [id number] 1,200 mg (400 [id number]) cap 1 cap PO QAM losartan 100 mg tablet (Cozaar) 100 mg PO QAM oxycodone-acetaminophen 5 mg-325 mg tablet (Percocet) 1 tab PO BID PRN Severe Pain (Scale Score 7-10) rivaroxaban 20 mg tablet (Xarelto) 20 mg PO QDB brimonidine 0.2 % eye drops 1 drp OPR QAM famotidine 40 mg tablet 40 mg PO BID acetaminophen 325 mg tablet 650 mg PO QID PRN pain/fever baclofen 5 mg tablet 5 mg PO HS gepcluhrxemgs-ameypztdrghsn-jskuksl 10 mg-650 mg-400 mg/20 mL oral liq 20 ml PO Q4H PRN cough/congestion torsemide 10 mg tablet 10 mg PO QAM MEDICATION INSTRUCTIONS: Continue as directed brimonidine 0.2 % eye drops 1 drp OPR QAM timolol 0.5 % eye drops 1 drp ophthalmic (eye) BID latanoprost 0.005 % eye drops 1 drp ophthalmic (eye) HS clindamycin HCl 300 mg capsule 600 mg PO UD PRN PRE DENTAL peg 400-propylene glycol (PF) 0.4 %-0.3 % eye drops in a dropperette (Systane (PF)) 1 drp ophthalmic (eye) UD PRN Dry Eyes ASK your prescriber and surgeon aspirin 81 mg tablet 81 mg PO QPM rivaroxaban 20 mg tablet (Xarelto) 20 mg PO QDB STOP taking 2 weeks before surgery fish oil-fat acid comb8-herb [id number] 1,200 mg (400 [id number]) cap 1 cap PO QAM DO NOT take the morning of surgery torsemide 10 mg tablet 10 mg PO QAM losartan 100 mg tablet (Cozaar) 100 mg PO QAM magnesium oxide 800 mg PO QAM PRN supplement chlorthalidone 25 mg tablet 25 mg PO QAM cholecalciferol (vitamin D3) 125 mcg (5,000 unit) tablet (Vitamin D3) 5,000 unit PO QAM spironolactone 25 mg tablet 25 mg PO BID ferrous sulfate 325 mg (65 mg iron) tablet 325 mg PO BID polyethylene glycol 3350 17 gram oral powder packet (Miralax) 17 g PO DAILY PRN Constipation vxwgbjitiorci-esiduehsbcyly-vgucdka 10 mg-650 mg-400 mg/20 mL oral liq 20 ml PO Q4H PRN cough/congestion Take morning of surgery With a small sip of water, OTHERWISE NOTHING TO EAT OR DRINK AFTER MIDNIGHT: oxycodone-acetaminophen 5 mg-325 mg tablet (Percocet) 1 tab PO BID PRN Severe Pain (Scale Score 7-10) famotidine 40 mg tablet 40 mg PO BID acetaminophen 325 mg tablet 650 mg PO QID PRN pain/fever allopurinol 100 mg tablet 100 mg PO QAM duloxetine 60 mg capsule,delayed release 60 mg PO QAM topiramate 100 mg tablet 50 - 100 mg PO BID Take evening before surgery oxycodone-acetaminophen 5 mg-325 mg tablet (Percocet) 1 tab PO BID PRN Severe Pain (Scale Score 7-10) famotidine 40 mg tablet 40 mg PO BID acetaminophen 325 mg tablet 650 mg PO QID PRN pain/fever spironolactone 25 mg tablet 25 mg PO BID ferrous sulfate 325 mg (65 mg iron) tablet 325 mg PO BID baclofen 5 mg tablet 5 mg PO HS pramipexole 1.5 mg tablet (Mirapex) 0.5 mg PO QPM topiramate 100 mg tablet 50 - 100 mg PO BID wecgspxyaxtow-orxvgjnwezaqm-wqwuirb 10 mg-650 mg-400 mg/20 mL oral liq 20 ml PO Q4H PRN cough/congestion Other Notes If you have any questions please call us at [phone] or [phone] or [phone] or [phone]
--- NOTE | 2024-05-31 15:44 | Anesthesiology Consultation ---
Date of Service May 31, 2024 Assessment & Plan (1) Encounter for pre-operative examination: - medical clearance patient made aware this would be needed at PAT visit. Optimization form to be faxed to [facility]. - chlorhexidine allergy: Wipes not provided at PAT visit. - Outpatient joint assessment: Patient is currently scheduled for inpatient pathway. If re-evaluated and patient/surgeon requests outpatient pathway, patient is not advised candidate for outpatient joint program from anesthesia standpoint. Chart Review Chart Review: Pending: Refer to Additional Notes / Consult section and Patient seen in Pre Admission Testing Teaching & Discussion Pre-Anesthesia Teaching/Discussion Notes: Instructed NPO after midnight before surgery, except medications with 15 cc of water. Medication instructions provided according to the PAT guidelines. History Surgery Operation Date: 06/21/24 11:15 Proposed Procedures p Right Shoulder Reverse Total Shoulder Arthroplasty - Abimael Arroyo MD Height/Weight Height: 4 ft 11 in Weight: 76.566 kg Allergies Allergy/AdvReac Type Severity Reaction Status Date / Time Penicillins Allergy Severe Elevated Verified 05/23/24 15:44 temperature, fever, hives (see comments) chlorhexidine Allergy Intermediate Skin Verified 05/23/24 15:44 irritation/rash hepatitis B virus vaccine Allergy Intermediate Reacted Verified 05/23/24 15:[address]" oxcarbazepine Allergy Intermediate Burning, Verified 05/23/24 15:44 feet pain tramadol Allergy Intermediate Leg Verified 05/23/24 15:44 swelling adhesive Allergy Mild Rash Verified 05/23/24 15:44 Cephalosporins Allergy Mild Rash Verified 05/23/24 15:44 doxycycline Allergy Mild Rash Verified 05/23/24 14:00 lisinopril Allergy Mild Rash, hives Verified 05/23/24 15:44 ropinirole Allergy Mild Rash Verified 05/23/24 15:44 Sulfa (Sulfonamide Allergy Mild Rash Verified 05/23/24 15:44 Antibiotics) vancomycin Allergy Mild Rash Verified 05/23/24 14:00 choline fenofibrate Allergy Unknown Unknown Verified 05/23/24 14:00 hydrochlorothiazide Allergy Unknown Unknown Verified 05/23/24 14:00 iodine Allergy Unknown Unknown Verified 05/23/24 14:00 simvastatin [From Zocor] Allergy Unknown Unknown Verified 05/23/24 14:00 Xhscicm-EVL-YiC Reductase AdvReac Intermediate Joint Verified 05/23/24 15:44 Inhibitor pain, [Tuzfhzw-Nfs-Tad Reductase myalgias Inhibitor] NSAIDS (Non-Steroidal AdvReac Mild Avoids due Verified 05/23/24 15:44 Anti-Inflamma to kidney dysfunction Medications Home Medications Medication Instructions Recorded Confirmed Last Taken chlorthalidone 25 mg tablet 25 mg PO QAM 06/13/19 05/23/24 08/14/21 08:00 cholecalciferol (vitamin D3) 125 5,000 unit PO QAM 06/13/19 05/23/24 08/14/21 10:00 mcg (5,000 unit) tablet (Vitamin D3) clindamycin HCl 300 mg capsule 600 mg PO UD PRN PRE DENTAL 06/13/19 05/23/24 Unknown duloxetine 60 mg capsule,delayed 60 mg PO QAM 06/13/19 05/23/24 08/14/21 20:00 release ferrous sulfate 325 mg (65 mg 325 mg PO BID 06/13/19 05/23/24 08/13/21 08:00 iron) tablet latanoprost 0.005 % eye drops 1 drp ophthalmic (eye) HS 06/13/19 05/23/24 1 02:00 magnesium oxide 800 mg PO QAM PRN supplement 06/13/19 05/23/24 08/14/21 08:00 peg 400-propylene glycol (PF) 0.4 1 drp ophthalmic (eye) UD PRN Dry 06/13/19 05/23/24 Unknown %-0.3 % eye drops in a dropperette Eyes (Systane (PF)) polyethylene glycol 3350 17 gram 17 g PO DAILY PRN Constipation 06/13/19 05/23/24 Unknown oral powder packet (Miralax) pramipexole 1.5 mg tablet (Mirapex) 0.5 mg PO QPM 06/13/19 05/23/24 08/14/21 02:00 spironolactone 25 mg tablet 25 mg PO BID 06/13/19 05/23/24 08/14/21 08:00 timolol 0.5 % eye drops 1 drp ophthalmic (eye) BID 06/13/19 05/23/24 08/15/21 04:15 topiramate 100 mg tablet 50 - 100 mg PO BID 06/13/19 05/23/2421 04:15 allopurinol 100 mg tablet 100 mg PO QAM 07/31/21 05/23/24 08/15/21 04:15 aspirin 81 mg tablet 81 mg PO QPM 07/31/21 05/23/24 08/13/21 19:00 fish oil-fat acid comb8-herb 1 cap PO QAM 07/31/21 05/23/24 1 Week Ago [id number] 1,200 mg (400 ~08/08/21 [id number]) cap losartan 100 mg tablet (Cozaar) 100 mg PO QAM 07/31/21 05/23/24 08/14/21 08:00 oxycodone-acetaminophen 5 mg-325 1 tab PO BID PRN Severe Pain 07/31/21 05/23/24 08/15/21 03:00 mg tablet (Percocet) (Scale Score 7-10) rivaroxaban 20 mg tablet (Xarelto) 20 mg PO QDB 07/31/21 05/23/24 08/12/21 10:00 brimonidine 0.2 % eye drops 1 drp OPR QAM 06/07/23 05/23/24 Unknown famotidine 40 mg tablet 40 mg PO BID 06/07/23 05/23/24 Unknown acetaminophen 325 mg tablet 650 mg PO QID PRN pain/fever 05/23/24 05/23/24 Unknown baclofen 5 mg tablet 5 mg PO HS 05/23/24 05/23/24 Unknown rfpyfyzhbvpbl-uiagcppenkfal-wudpdyl 20 ml PO Q4H PRN cough/congestion 05/23/24 05/23/24 Unknown 10 mg-650 mg-400 mg/20 mL oral liq torsemide 10 mg tablet 10 mg PO QAM 05/23/24 05/23/24 Unknown Past Medical History Medical History (Updated 05/31/24 @ 16:08 by Christine Kothari PA-C) Chronic back pain Depression Fibromyalgia GERD (gastroesophageal reflux disease) Stable per patient Glaucoma Right eye Glomerulonephritis H/O recurrent transient ischemic attacks Per records dating back to 2018 Hiatal hernia High cholesterol History of anesthesia complications awareness during previous surgeries History of blood transfusion (~1997) s/p childbirth History of breast cancer Right (ductal) s/p right breast lumpectomy *RUE limb restriction* History of COVID-19 (~2021) mild symptoms, resolved History of DVT (deep vein thrombosis) (~2018) Hx multiple DVT DVT LLE s/p right ankle surgery Taking Xarelto HLD (hyperlipidemia) Hypertension controlled, stable per pt Myelopathy concurrent with and due to spinal stenosis of cervical region group home resident [facility] Obesity Osteoarthritis Restless legs syndrome Scoliosis Sleep apnea CPAP Spinal stenosis Stage III chronic kidney disease Stress incontinence Urinary Patient denies h/o seizures, heart attack, heart failure, or DM. Exercise / Class Metabolic Activity III < 4 Walking/Shop/Light housework (ambulates with rolling walker, shortness of breath with usual activities for several years-denies change or worsening- denies chest discomfort) Past Family History Family History Aunt History of colon cancer History of breast cancer Aunt History of breast cancer Aunt History of breast cancer Aunt History of breast cancer Aunt History of breast cancer Other History of prediabetes Past Surgical History Surgical History History of ankle surgery Right triple arthrodesis 07/07/2019: LMA#4, 1 attempt atraumatic History of cardiac cath "Many years ago"- no stents History of carpal tunnel surgery of right wrist History of cervical discectomy C6-7 ACDF, C5 corpectomy (08/15/2021): Elective glidescope use with MILS due to limited ROM, ETT 7 at [facility] History of section History of colonoscopy History of endoscopy History of hernia surgery Multiple (one with mesh) History of hysterectomy History of hysteroscopy History of lumpectomy Right History of total bilateral knee replacement History of vascular surgery Left leg "venous ablation" History of vascular surgery Hypogastric artery ligation (2/2 childbirth complications) Nausea and vomiting after administration of anesthetic agent S/P epidural steroid injection S/P spinal surgery Past Anesthesia History No Family Hx of Anesthesia Complications and Other (history of awareness with procedures) History of PONV No Hx of Motion Sickness and History of PONV (denies needing scop patch) Social History Smoking Status: Never smoker Do You Dip or Chew Tobacco: No Hx Alcohol Use: Yes Alcohol type: wine alcohol intake frequency: holidays/special occasions only Hx Substance Use: No Review of Systems Patient denies chest pain, shortness of breath, dyspnea on exertion, fever, chills, cough, wheezing, or palpitations. Physical Exam Vital Signs Vitals BP 146/93 on left arm P 68 TEMP 97.9 SP02 97% on RA RESP 18 Physical Patient resting comfortably in chair in no acute distress, alert and oriented, responding appropriately throughout visit Full cervical extension range of motion without pain TMD 3.5 finger breadths Mallampati Score 2 Dentition: several missing and chipped teeth, denies loose teeth, caps/crowns, implants or bridges Lungs: normal respiratory effort. Good air movement, clear throughout to auscultation, no adventitious breath sounds Cardiac: regular rate and rhythm, no murmurs noted Carotid arteries: negative bruit bilat Lab Results Anesthesia Preop Results Results Anesthesia Widget: WBC 6.64 K/ul (4.8-10.8) 05/31/24 Hgb 9.5 g/dl (12.0-16.0) L 05/31/24 Hct 29.2 % (37.0-47.0) L 05/31/24 Plt 240 K/uL (130-400) 05/31/24 PT 11.9 Seconds (9.0-12.0) 05/31/24 PTT 33 Seconds (21-31) H 05/31/24 INR 1.1 (0.9-1.1) 05/31/24 Urine Appearance Clear (Clear) 05/31/24 Urine pH 6.0 (4.5-7.5) 05/31/24 Urine Specific [place] 1.014 (1.000-1.030) 05/31/24 Urine Protein 3+ (Negative) H 05/31/24 Urine Glucose (UA) Negative (Negative) 05/31/24 Urine Ketones Negative (Negative) 05/31/24 Urine Blood 1+ (Negative) H 05/31/24 Urine Nitrite Negative (Negative) 05/31/24 Urine Bilirubin Negative (Negative) 05/31/24 Urine Urobilinogen Negative (Negative) 05/31/24 Urine Leukocyte Esterase Trace (Negative) H 05/31/24 Urine WBC (Auto) 6-10 /hpf (0-5) H 05/31/24 Urine RBC (Auto) 6-10 /hpf (0-2) H 05/31/24 Urine Hyaline Casts (Auto) 0-2 /lpf (0-2) 05/31/24 Urine Epithelial Cells (Auto) 0-2 /hpf (0-2) 05/31/24 Urine Bacteria (Auto) None Seen (None Seen) 05/31/24 Blood Type A Positive 05/31/24 Antibody Screen NEGATIVE 05/31/24 Testing Laboratory Results 05/23/24 SODIUM: 141 POTASSIUM: 3.9 CHLORIDE: 104 CO2: 25 BUN: 52 CREATININE: 2 GLUCOSE: 109 Electrocardiogram Date: 05/31/24 NSR, rate 72 bpm Chest X-Ray Date: 05/31/24 1. No acute cardiopulmonary findings. 2. No significant change in appearance of the chest. Elevation of the right hemidiaphragm and a large hiatal hernia. Linear densities within the lungs consistent with atelectasis. 3. Subluxation/anterior dislocation of the right humeral head with respect to the glenoid, partially imaged on this exam. Echocardiogram Date: 08/06/21 EF 62% Normal LV wall motion Mild cLVH Mild aortic valve regurgitation Mild mitral regurgitation Mild tricuspid regurgitation Grade I diastolic dysfunction Stress Test Date: 08/13/21 EF > 70% Negative for ischemia MHR 64%
--- NOTE | 2024-06-19 19:51 | History & Physical Report ---
Date of Service June 19, 2024 Assessment & Plan (1) Rotator cuff tear arthropathy of right shoulder: Plan: Chronic right shoulder pain anterior instability chronic rotator cuff tear rotator cuff arthropathy. Patient also was complicated by chronic anemia recently improved with Procrit. She also has chronic kidney disease. Plan is to proceed with reverse total shoulder arthroplasty. Will need medical consult to actively manage chronic health issues perioperatively. (2) Shoulder instability: Laterality: right Qualified Code(s): M25.311 - Other instability, right shoulder (3) Rotator cuff tear, right: Rotator cuff tear extent: complete Rotator cuff tear trauma status: nontraumatic Qualified Code(s): M75.121 - Complete rotator cuff tear or rupture of right shoulder, not specified as traumatic History of Present Illness Chief Complaint: Chronic right shoulder pain weakness. Primary Care Provider: Edel Zheng MD 74-year-old female with chronic ongoing right shoulder pain failed conservative management. She has been trying to proceed with reverse shoulder replacement and had this canceled previously due to health issues. Currently her health issues are recently stabilized and her chronic anemia has improved with Procrit and is felt to be optimized for surgery at this time. Patient denies headaches, sweats, fevers, chills, double vision, blurred vision, cough, sore throat, dysphagia, chest pain, sob, wheezing, n/v/d/c, fatigue. ROS positive for history of chronic anemia, hand numbness, depression, sleep apnea uses CPAP. Allergies Allergy/AdvReac Type Severity Reaction Status Date / Time Penicillins Allergy Severe Elevated Verified 05/23/24 15:44 temperature, fever, hives (see comments) chlorhexidine Allergy Intermediate Skin Verified 05/23/24 15:44 irritation/rash hepatitis B virus vaccine Allergy Intermediate Reacted Verified 05/23/24 15:[address]" oxcarbazepine Allergy Intermediate Burning, Verified 05/23/24 15:44 feet pain tramadol Allergy Intermediate Leg Verified 05/23/24 15:44 swelling adhesive Allergy Mild Rash Verified 05/23/24 15:44 Cephalosporins Allergy Mild Rash Verified 05/23/24 15:44 doxycycline Allergy Mild Rash Verified 05/23/24 14:00 lisinopril Allergy Mild Rash, hives Verified 05/23/24 15:44 ropinirole Allergy Mild Rash Verified 05/23/24 15:44 Sulfa (Sulfonamide Allergy Mild Rash Verified 05/23/24 15:44 Antibiotics) vancomycin Allergy Mild Rash Verified 05/23/24 14:00 choline fenofibrate Allergy Unknown Unknown Verified 05/23/24 14:00 hydrochlorothiazide Allergy Unknown Unknown Verified 05/23/24 14:00 iodine Allergy Unknown Unknown Verified 05/23/24 14:00 simvastatin [From Zocor] Allergy Unknown Unknown Verified 05/23/24 14:00 Igxzavs-EMN-QmB Reductase AdvReac Intermediate Joint Verified 05/23/24 15:44 Inhibitor pain, [Mxsacno-Uia-Cmh Reductase myalgias Inhibitor] NSAIDS (Non-Steroidal AdvReac Mild Avoids due Verified 05/23/24 15:44 Anti-Inflamma to kidney dysfunction Home Medications Medication Instructions Recorded Confirmed Type chlorthalidone 25 mg tablet 25 mg PO QAM 06/13/19 05/23/24 History cholecalciferol (vitamin D3) 125 5,000 unit PO QAM 06/13/19 05/23/24 History mcg (5,000 unit) tablet (Vitamin D3) clindamycin HCl 300 mg capsule 600 mg PO UD PRN PRE DENTAL 06/13/19 05/23/24 History duloxetine 60 mg capsule,delayed 60 mg PO QAM 06/13/19 05/23/24 History release ferrous sulfate 325 mg (65 mg 325 mg PO BID 06/13/19 05/23/24 History iron) tablet latanoprost 0.005 % eye drops 1 drp ophthalmic (eye) HS 06/13/19 05/23/24 History magnesium oxide 800 mg PO QAM PRN supplement 06/13/19 05/23/24 History peg 400-propylene glycol (PF) 0.4 1 drp ophthalmic (eye) UD PRN Dry 06/13/19 05/23/24 History %-0.3 % eye drops in a dropperette Eyes (Systane (PF)) polyethylene glycol 3350 17 gram 17 g PO DAILY PRN Constipation 06/13/19 05/23/24 History oral powder packet (Miralax) pramipexole 1.5 mg tablet (Mirapex) 0.5 mg PO QPM 06/13/19 05/23/24 History spironolactone 25 mg tablet 25 mg PO BID 06/13/19 05/23/24 History timolol 0.5 % eye drops 1 drp ophthalmic (eye) BID 06/13/19 05/23/24 History topiramate 100 mg tablet 50 - 100 mg PO BID 06/13/19 05/23/24 History allopurinol 100 mg tablet 100 mg PO QAM 07/31/21 05/23/24 History aspirin 81 mg tablet 81 mg PO QPM 07/31/21 05/23/24 History fish oil-fat acid comb8-herb 1 cap PO QAM 07/31/21 05/23/24 History bucy193 1,200 mg (400 [id number]) cap losartan 100 mg tablet (Cozaar) 100 mg PO QAM 07/31/21 05/23/24 History oxycodone-acetaminophen 5 mg-325 1 tab PO BID PRN Severe Pain 07/31/21 05/23/24 History mg tablet (Percocet) (Scale Score 7-10) rivaroxaban 20 mg tablet (Xarelto) 20 mg PO QDB 07/31/21 05/23/24 History brimonidine 0.2 % eye drops 1 drp OPR QAM 06/07/23 05/23/24 History famotidine 40 mg tablet 40 mg PO BID 06/07/23 05/23/24 History acetaminophen 325 mg tablet 650 mg PO QID PRN pain/fever 05/23/24 05/23/24 History baclofen 5 mg tablet 5 mg PO HS 05/23/24 05/23/24 History xigtvdkslmmyh-mbvzraymabcpa-fqzbeie 20 ml PO Q4H PRN cough/congestion 05/23/24 05/23/24 History 10 mg-650 mg-400 mg/20 mL oral liq torsemide 10 mg tablet 10 mg PO QAM 05/23/24 05/23/24 History Past Med/Surg History Problem List (Updated 06/19/24 @ 19:48 by Abimael Arroyo MD) Rotator cuff tear, right Shoulder instability Rotator cuff tear arthropathy of right shoulder Myelopathy concurrent with and due to spinal stenosis of cervical region Hypokalemia 07/07/19 Achilles tendon contracture, right Encounter for pre-operative examination Depression Chronic back pain Right knee DJD H/O malignant neoplasm of breast GERD (gastroesophageal reflux disease) Fibromyalgia H/O recurrent transient ischemic attacks HLD (hyperlipidemia) HTN (hypertension) Medical History History of anesthesia complications awareness during previous surgeries Stage III chronic kidney disease Chronic back pain snf resident [place] [facility] Restless legs syndrome Myelopathy concurrent with and due to spinal stenosis of cervical region HLD (hyperlipidemia) H/O recurrent transient ischemic attacks Per records dating back to 2018 Depression Obesity History of COVID-19 (~2021) mild symptoms, resolved Glomerulonephritis GERD (gastroesophageal reflux disease) Stable per patient Hypertension controlled, stable per pt History of DVT (deep vein thrombosis) (~2018) Hx multiple DVT DVT LLE s/p right ankle surgery Taking Xarelto History of blood transfusion (~1997) s/p childbirth History of breast cancer Right (ductal) s/p right breast lumpectomy *RUE limb restriction* Stress incontinence Urinary Hiatal hernia Fibromyalgia Spinal stenosis Scoliosis Osteoarthritis Glaucoma Right eye Sleep apnea CPAP High cholesterol Surgical History S/P spinal surgery History of total bilateral knee replacement Nausea and vomiting after administration of anesthetic agent History of cervical discectomy C6-7 ACDF, C5 corpectomy (08/15/2021): Elective glidescope use with MILS due to limited ROM, ETT 7 at [facility] History of carpal tunnel surgery of right wrist S/P epidural steroid injection History of ankle surgery Right triple arthrodesis 07/07/2019: LMA#4, 1 attempt atraumatic History of vascular surgery Hypogastric artery ligation (2/2 childbirth complications) History of endoscopy History of colonoscopy History of hernia surgery Multiple (one with mesh) History of vascular surgery Left leg "venous ablation" History of hysteroscopy History of hysterectomy History of section History of lumpectomy Right History of cardiac cath "Many years ago"- no stents Family History Aunt History of colon cancer History of breast cancer Aunt History of breast cancer Aunt History of breast cancer Aunt History of breast cancer Aunt History of breast cancer Other History of prediabetes Social History Smoking Status: Never smoker Do You Dip or Chew Tobacco: No; Hx Alcohol Use: Yes Alcohol type: wine Hx Substance Use: No Preferred Language: Unknown Communication Ability: Effective Communication Ability Comment: unk Director Ambulatory Required: No Beliefs That Will Affect Care: None marital status: Current Living Situation: Personal Care Facility Current Living Situation Comment: [facility] [place] Feels Safe at Home: Yes Assistive Devices: CPAP Review of Systems All systems reviewed & are unremarkable except as noted in HPI & below Physical Exam Constitutional: WD/WN, vitals as above Respiratory: normal respiratory effort; no respiratory distress Cardiovascular: Rate/Rhythm: regular rate and regular rhythm Musculoskeletal: Right shoulder with abnormal rhythm crepitation with range of motion, anterior- inferior acromial tenderness, positive belly press test positive Gardner and Neer impingement signs, active painful range of motion, active flexion 40 degrees active abduction and 40 degrees with 90 degrees of passive flexion and abduction. External rotation strength 3+ to 4-/5, internal rotation strength 2+/5, shoulder abduction strength 3+/5. Distal neurological exam otherwise intact. Skin: no rashes, warm and dry Neurologic: normal touch/pain/proprioception Psychiatric: A+Ox3, euthymic affect Results & Data Diagnostic Findings For the x-rays right shoulder demonstrate patient has anterior subluxation humerus on the glenoid and on the scapular Y view of the shoulder appears to be subluxed or possibly dislocated. She has widened acromiohumeral interval. Some bone loss of the anterior glenoid is identified.
[~2024-06-21 09:25] MED LIST changes: -ACETAMINOPHEN 500 MG TAB PO SCH; +ATROPINE SULFATE 0.1 MG/ML 10ML SYR IV PRN; +BUPIVACAINE 0.5 % 5 MG/1 ML PF 10ML VIAL ONE; -CLINDAMYCIN 600 MG/54 ML BAG IV SCH; -CeleBREX 200 MG CAP PO SCH; -GABAPENTIN 300 MG CAP PO SCH; +HYDROmorphone INJ 1 MG/ML SYRINGE IV PRN; -LR 15ML/HR IV SCH; +MIDAZOLAM HCL 1 MG/ML 2ML VIAL ONE; +ONDANSETRON INJ 2 MG/ML 2 ML VIAL IV PRN; +ONDANSETRON INJ 2 MG/ML 2 ML VIAL ONE; +PROPOFOL IV EMULSION 10 MG/ML 20 ML VIAL IV ONE; +ROCURONIUM BROMIDE 10 MG/ML 5 ML VIAL IV ONE; +SUGAMMADEX SODIUM 200 MG/2 ML VIAL IV ONE; +ePHEDrine sulfate 50 MG/ML AMP IV PRN; +fentaNYL citrate PF 100 MCG/2 ML VIAL IV PRN; +fentaNYL citrate PF 100 MCG/2 ML VIAL ONE
[2024-06-21] MEDS: LR 15ML/HR IV SCH (10:00)
[2024-06-21] MEDS: LR 60ML/HR IV SCH (10:02)
[2024-06-21] MEDS: dexAMETHasone**PF** 10 MG/ML VIAL IV SCH (10:33)
[2024-06-21] MEDS: METOCLOPRAMIDE HCL 10 MG TABLET PO SCH (10:33)
[2024-06-21] MEDS: ACETAMINOPHEN 500 MG TAB PO SCH ×2 (10:33→21:33)
[2024-06-21] MEDS: FAMOTIDINE 20 MG TAB PO SCH (10:33)
[2024-06-21] MEDS: GABAPENTIN 300 MG CAP PO SCH (10:33)
[2024-06-21] MEDS: TRANEXAMIC ACID 1,000 MG **IV Pre-op IV SCH (10:59)
--- NOTE | 2024-06-21 11:14 | History & Physical Bridge Note ---
Date of Service June 21, 2024 History & Physical Bridge Note I have examined the patient, reviewed the History & Physical and in the interval since the performance of the History & Physical I have noted the following changes of clinical significance: no changes noted
[2024-06-21] MEDS: CLINDAMYCIN/D5W 900 MG/50 ML BAG IV SCH (11:55)
[2024-06-21] MEDS ORDERED: PHENYLEPHRINE 100MCG/ML 10ML SYR IV ONE ×2 (12:05→12:34)
[2024-06-21] MEDS ORDERED: ePHEDrine sulfate 50 MG/5 ML SYR ONE (12:34)
[2024-06-21] MEDS ORDERED: PROMETHAZINE HCL INJ 25 MG/ML 1 ML VIAL ONE (12:42)
[2024-06-21] MEDS ORDERED: ROCURONIUM BROMIDE 10 MG/ML 5 ML VIAL IV ONE (13:15)
[2024-06-21] MEDS: TRANEXAMIC ACID 1,000 MG **IV Intra-op IV SCH (13:58)
[2024-06-21] MEDS ORDERED: PHENYLEPHRINE HCL 10 MG/ML VIAL ONE (14:00)
--- NOTE | 2024-06-21 14:35 | Operative Report ---
Post Operative Report Pre & Post Diagnosis Operation Date: 06/21/24 11:15 Pre-Op Diagnosis: Rotator cuff tear arthropathy of right shoulder; Shoulder instability chronic anterior subluxation/dislocation; rotator cuff tear, right shoulder Post-Op Diagnosis: Rotator cuff tear arthropathy of right shoulder; Shoulder instability chronic anterior subluxation/dislocation; rotator cuff tear, massive chronic subacromial bursitis and proximal biceps rupture. Right shoulder I identified the patient and participated in the time-out.: Yes Procedure Operation Date: 06/21/24 11:15 Actual Procedures p Right Reverse Total Shoulder Arthroplasty(Right), excision massive subacromial bursal soft tissue mass,- Abimael Arroyo MD Surgeon Abimael Arroyo MD Rn Orthopaedics Immanuel CHENG Estimated Blood Loss 125 Findings Consistent with Post-Op Diagnosis Specimens Humeral head cut Drains 2 Hemovac Anesthesia Type General Regional Complications none Disposition Disposition: Recovery Room Indications 74 a female with chronic right shoulder pain related to rotator cuff arthropathy and shoulder instability. Patient has a chronic anterior subluxation dislocation of the shoulder with bone loss of the anterior glenoid nrkw-yh-wtrd glenohumeral joint and chronic subscapularis supraspinatus tendon rotator cuff tear and ruptured biceps tendon. Description of Procedure The patient was taken to the operating room and anesthetized under regional block and general anesthetic. The patient was positioned on the operating table in a 30 beach chair position with a towel roll under the medial border of the right scapula. The arm was draped free to be able to manipulate the shoulder as needed. The right upper extremity was prepped and draped in usual sterile fashion. Exam demonstrated large subdeltoid fluid collection with the anterior dislocated shoulder. Limited range of motion consistent with anterior dislocated shoulder.. An anterior deltopectoral approach was performed. A longitudinal incision was made in the deltopectoral interval. The skin was incised sharply. Subcutaneous flaps were elevated off the fascia. The cephalic vein was dissected out and retracted lateral with the deltoid. The clavipectoral fascia which was substantially scarred was divided at the lateral margin of the conjoined tendon and the plane between the capsular tissue and conjoined tendon was identified and developed. Dissection was extended up to the CA ligament. There was a massive very thickened subdeltoid bursal collection with scarred bursa surrounding chronically inflamed bursal tissue with chronic inflamed bursal tissue with signs of prior hemorrhage within it. The subscapularis tendon was torn and retracted medially and the supraspinatus tendon was torn and retracted medially. The infraspinatus was intact but had tendinopathy. Humeral head was down to [id number]. Biceps tendon had a remnant in the bicipital groove but proximally it was torn. The upper centimeter of the pectoralis was released for inferior exposure. The massive bursal collection was dissected carefully from the deltoid tissue using Metzenbaum scissors. After was freed up off of the deltoid it was resected completely and removed. The rotator cuff was debrided and the area of the infraspinatus and remnants of the supraspinatus. The biceps tendon remnant to prevent any further retraction. Was tenodesed to the pectoralis tendon with #2 FiberWire. The proximal small remnant of the biceps was resected. The remnants of the and capsule subscapularis tendon were taken down off the lesser tuberosity using a subperiosteal dissection. subperiosteal dissection was performed along the neck of the humerus as the arm is gradually actually rotated exposing the humeral head. The inferior capsule was fully released along the neck. A Fukuda retractor was placed into the joint retracting the humeral head posterior. Glenoid findings demonstrated inverted pear type glenoid with 50% of the glenoid being eroded away anteriorly approximately and was angled and tapered off from bone on bone wear.. The labrum remnants were resected. an a nterior-inferior and posterior inferior capsular release were performed with electrocautery and a Parham elevator on bone and also utilizing a Parham with subperiosteal release along the glenoid. Attention was then taken to the humeral preparation. The cutting guide was placed into the humeral head. It was positioned at 20 of retroversion. Oscillating saw was used to resect the humeral head giving the cut above the level of the posterior rotator cuff insertion site. The humerus was then prepared for the stem. I used the ascend flex stem from [employer]. The sizing broaches were used followed by trial broaches up to a size 4B long which had the appropriate fit and fill. The appropriate sized cut protector was placed. The humerus was then retracted posterior to the glenoid. The glenoid was sized for a 25 mm 35 degree half wedge based on blueprint preoperative templating. We had a custom guide prepared.. The guide for the baseplate was positioned and the central pin was placed in appropriate position. The this was followed by the reamer for the 35 degree angle wedge. This was reamed anteriorly. Reamer for the 25 flat baseplate was used. Excellent fit was obtained to trial. The reamer for the central boss was used. The depth gauge was used to measure for the central screw. The the tap was used. The Tornier 25 mm half wedge 35 degree angled wedge there was excellent fixation. Which was faced anteriorly with a 34 mm central screw baseplate was screwed into position. There was excellent fixation. The base plate was transfixed with a compression screw in the ante rior wedge to augment area initially followed by the posterior locking screw and superior and inferior locking screws subsequently. The fan reamer was used for the 39 millimeter glenoid sphere. After irrigation the 39 mm standard glenoid sphere was impacted onto the baseplate and the screw was tightened. Attention was taken back to the humerus. The cut protector was removed and the +0 high offset humeral tray trial was assembled to the trial stem rotated appropriately to get bony coverage and then screwed in position. A trial reduction was performed. A +6/39 trial insert was too tight so we had to take out the trial recut the neck cut 3 more millimeters and rebroach and reinsert the trial. This was reduced with satisfactory suction reduction and it demonstrated good stability and no shuck. The trials were removed. The canal was irrigated with pulsatile saline solution. The final component was assembled. The final component was 4B long send flex stem assemble 2+0 high offset tray with a +6/39 mm reversed polyethylene insert. This was then impacted into the humerus with a tight press-fit. It was reduced to the glenoid sphere. Stability was verified. Range of motion was 120 degrees forward flexion 80 degrees abduction 80 degrees external rotation 80 degrees internal rotation without any instability. The pectoralis was repaired with #2 FiberWire [id number] sutures reinforcing the biceps tendon tenodesis. The wound was copiously irrigated. 2 Hemovac drains were placed. The deltopectoral interval was closed with [id number]-[id number] #1 Vicryl sutures. The subcutaneous tissues were closed with 2-0 Vicryl sutures. The skin was closed with surgical kerrie. Silverlon sterile dressing was applied and a shoulder immobilizer. Immanuel CHENG my physician as sistant assisted in the procedure to the entire procedure including patient positioning arm positioning prepping and draping soft tissue retraction instrument management suture management and performed the subcutaneous and skin closure and will participate in the postoperative care of the patient. I attest to the content of the Intraoperative Record and any orders documented therein. Any exceptions are noted below.
--- NOTE | 2024-06-21 14:53 | Anesthesiology Progress Note ---
Date of Service June 21, 2024 Anesthesia Post Procedure Vital Signs Vital Signs: Temp Pulse Pulse Resp BP Pulse Ox O2 Del Method 06/21/24 14:40 64 20 118/55 L 98 Oxymask 06/21/24 14:29 36.3 C L 71 20 117/62 95 Oxymask 06/21/24 10:08 36.9 C 66 20 191/75 H 95 Room Air O2 Flow Rate 06/21/24 14:40 3 06/21/24 14:29 6 06/21/24 10:08 Pain Intensity Right Shoulder: Pain Intensity: 8 Right Hip: Pain Intensity: 8 Transfer of Care Handoff Completed per policy Notes Mental Status: alert / awake / arousable Patient Amnestic to Procedure: Yes Nausea / Vomiting: adequately controlled Pain: adequately controlled Airway Patency, RR, SpO2: stable & adequate BP & HR: stable & adequate Hydration State: stable & adequate Neuraxial Anesthesia: was administered and sensory block is resolving Anesthetic Complications: no major complications apparent and Pt Satisfied with anesthetic care Notes: No pain in shoulder, slight discomfort in axilla block in full effect
[2024-06-21] MEDS ORDERED: ACETAMINOPHEN PO PRN (15:34)
[2024-06-21] MEDS ORDERED: NALOXONE HCL 0.4 MG/1 ML VIAL/CARP IV PRN (15:34)
[2024-06-21] MEDS ORDERED: bisacodyL 10 MG SUPP PR PRN (15:34)
[2024-06-21] MEDS ORDERED: ARTIFICIAL TEARS OP PRN (15:34)
[2024-06-21] MEDS ORDERED: PHENYLEPHRINE PO PRN (15:34)
[2024-06-21] MEDS ORDERED: KETOROLAC TROMETHAMINE 15 MG/ML VIAL IV PRN (15:34)
[2024-06-21] MEDS ORDERED: HYDROmorphone INJ 0.5 MG/0.5 ML SYR IV PRN (15:34)
[2024-06-21] MEDS ORDERED: MAGNESIUM HYDROXIDE SUSP 30 ML UDC PO PRN (15:34)
[2024-06-21] MEDS ORDERED: METOCLOPRAMIDE HCL INJ 5 MG/ML 2 ML VIAL IV PRN (15:34)
[2024-06-21] MEDS ORDERED: ALUMINUM/MAGNESIUM SUSP 30 ML UDC PO PRN (15:34)
[2024-06-21] MEDS ORDERED: GUAIFENESIN PO PRN (15:34)
[2024-06-21] MEDS ORDERED: ONDANSETRON INJ 2 MG/ML 2 ML VIAL IV PRN (15:34)
[2024-06-21] MEDS: SPIRONOLACTONE 25 MG TAB PO SCH (16:57)
--- OUTSIDE RECORDS SUMMARY | 2024-06-21 17:20 | External Medical Summary ---
Author Name Unknown Address Unknown Organization [id number]:[facility] [place] [facility] [address] [place] [address] Laboratory Report Ordering Provider Test Date Status KELSEY KRISHNAN 06/16/2024 11:31:17 Final Observation Date Value Abnormality Reference (Units ) Status WBC, Total 06/16/2024 11:31:17 7.67 4.00-10.80 (K/uL) Final RBC 06/16/2024 11:31:17 2.85 3.85-5.15 (M/uL) Final Hemoglobin 06/16/2024 11:31:17 9.6 Below low normal 12.0-15.3 (g/dL) Final HCT 06/16/2024 11:31:17 29.3 Below low normal 36.0-45.2 (%) Final MCV 06/16/2024 11:31:17 102.8 81.5-97.5 (fL) Final MCH 06/16/2024 11:31:17 33.7 27.0-34.0 (pg) Final MCHC 06/16/2024 11:31:17 32.8 32.0-36.0 (g/dL) Final RDW 06/16/2024 11:31:17 14.9 11.5-15.5 (%) Final Platelets 06/16/2024 11:31:17 297 140-400 (K/uL) Final MPV 06/16/2024 11:31:17 10.8 6.6-11.1 (fL) Final Nucleated erythrocytes/100 leukocytes [Ratio] in Blood by Automated count 06/16/2024 11:31:17 0 <=0 (/100 WBCs) Final Performing Location [facility] [place] [address] [place] [address]
--- OUTSIDE RECORDS SUMMARY | 2024-06-21 17:20 | External Medical Summary ---
Author Name Unknown Address Unknown Organization [id number]:[facility] [place] [address] [place], [place] [address] Laboratory Report Ordering Provider Test Date Status KELSEY KRISHNAN 06/16/2024 11:31:17 Final Observation Date Value Abnormality Reference (Units ) Status SYNC LEUKOCYTES IN BLOOD BY AUTOMATED COUNT 06/16/2024 11:31:17 7.67 4.00-10.80 (K/uL) Final Segs 06/16/2024 11:31:17 70.0 40.0-75.0 (%) Final Lymphs % 06/16/2024 11:31:17 14.5 Below low normal 18.0-42.0 (%) Final Monos 06/16/2024 11:31:17 7.2 1.0-11.0 (%) Final Eosinophils 06/16/2024 11:31:17 6.1 Above high normal 0.0-6.0 (%) Final Basos 06/16/2024 11:31:17 1.4 0.0-2.0 (%) Final Immature Granulocyte, Percent 06/16/2024 11:31:17 0.8 0.0-2.0 (%) Final Absolute Segs 06/16/2024 11:31:17 5.37 1.80-7.70 (K/uL) Final Lymphs, absolute 06/16/2024 11:31:17 1.11 1.00-4.80 (K/ul) Final Monos, Abs 06/16/2024 11:31:17 0.55 0.00-1.10 (K/uL) Final Eos, Abs 06/16/2024 11:31:17 0.47 0.00-0.70 (K/uL) Final Basos, Abs 06/16/2024 11:31:17 0.11 0.00-0.20 (K/uL) Final Immature Granulocytes, Number 06/16/2024 11:31:17 0.06 0.00-0.20 (K/uL) Final [place]forming Location [facility] [place] [address] [place], [place] [address]
--- OUTSIDE RECORDS SUMMARY | 2024-06-21 17:20 | External Medical Summary | Summary of Care ---
Author Name Unknown Organization [facility] Address [address] [place] [address] Phone [phone] Care Team Providers Care Regulatory Compliance Officer Name Role Phone Eboni Hensley DO Primary Care Provi lara Reason for Visit * Reason Comments Outpatient Testing Encounter Details Date Type Department Care Team (Late st Contact Info) Description 06/16/2024 11:30 AM EDT Laboratory Laboratory, [place] [address] [phone] [place] [address] [place] [id number] Anemia Allergies Active Allergy Reactions Criticality Noted Date Comments Choline Fenofibrate 06/04/2011 Doxycycline Rash 08/26/2018 Hydrochlorothiazide 11/06/2021 Lisinopril Hives Medium 10/04/2017 Nsaids Other (Please comment) High 10/11/2014 Adversely affected her kidneys Cephalosporins Rash 10/20/2004 Penicillins High 05/23/2012 Other reaction(s): Anaphylaxisis (moderate to severe) Povidone Iodine 11/06/2021 Ropinirole 12/29/2006 Ropinirole Hcl Rash Medium 12/29/2006 Statins Muscle pain 10/20/2004 Sulfa Antibiotics 10/20/2004 Patient is to take any antibiotic with caution Adhesive Tape Rash 03/06/2014 Pt states she get tape "MEDINA" very quickly with any adhesive. Trileptal Neuro complications (Please comment) 10/13/2010 Burning & pain in feet Vancomycin Rash 03/26/2020 NOT RED MAN SYNDROME. Patient got diffuse macular papular rash on back and abdomen. Simvastatin Muscle pain 10/20/2004 documented as of this encounter (statuses as of 06/16/2024) Medications Medication Sig Dispensed Refills Start Date End Date Status SYSTANE ULTRA 0.4-0.3 % OP SOLN Instill into eye as needed for Dry eyes. Active CLINDAMYCIN HCL 300 MG PO CAPS two capsules 1 hour prior to dentist Active Misc. Devices (FOLDING WALKER/ADULT) MISCIndications:Leg weakness, bilateral,Neuropathy, peripheral,Generalize d osteoarthrosis, involving multiple sites Use as directed. Diagnosis: 356.9, 729.89, etc 1 Each 0 02/25/2015 Active [employer]-3 Fatty Acids (FISH OIL TRIPLE STRENGTH) 1400 MG CAPS Take by mouth once. 07/25/2015 Active Cholecalciferol (VITAMIN D-3) 5000 units Tablet Take 1 Tablet by mouth in the morning. Active Polyethylene Glycol 3350 17 GM/SCOOP Oral Powder Take 17 g by mouth as needed for Constipation. Active latanoprost (XALATAN) 0.005 % ophthalmic solution Instill 1 Drop into both eyes at bedtime. 2.5 mL 09/28/2017 Active Aspirin 81 MG Tablet Take 1 Tablet by mouth in the morning. Takes at bedtime. 12/14/2017 Active Pramipexole Dihydrochloride 1.5 MG TABS Take 1 Tablet by mouth at bedtime. 06/15/2019 Active Spironolactone 25 MG Oral Tablet Take 1 Tablet by mouth in the morning and 1 Tablet before bedtime. Active DULoxetine HCl 60 MG Oral Capsule Delayed Release Particles (Cymbalta)Indications :Spinal stenosis, lumbar region, without neurogenic claudication TAKE ONE (1) CAPSULE BY MOUTH EVERY DAY. DO NOT CUT, CRUSH, OR CHEW 30 Cap 1 06/01/2021 Active Topiramate 100 MG Oral Tablet Take 50mg during the day and 100mg at night 180 Tablet 3 02/25/2022 Active Brimonidine Tartrate 0.2 % Ophthalmic Solution (Alphagan) Instill 1 Drop into eye in the morning. Right eye . 11/19/2021 Active Topiramate 50 MG Oral Tablet (topAMAX) 04/09/2022 Active Ondansetron 8 MG Oral Tablet Disintegrating (Zofran) 1 Tablet. Active Torsemide 10 MG Oral Tablet (Demadex) Take 1 Tablet by mouth in the morning. 07/31/2022 Active CPAP every night at bedtime. Active Famotidine 40 MG Oral Tablet (Pepcid) Take 1 Tablet by mouth in the morning. 30 Tablet 11 10/16/2022 Active Chlorthalidone 25 MG Oral Tablet (Hygroton) 1 Tablet in the morning. 11/25/2022 Active Magnesium Oxide (Antacid) 400 MG Oral Tablet Take by mouth. 11/25/2022 Active Timolol Maleate 0.5 % Ophthalmic Solution (Timoptic) Instill 1 Drop into both eyes in the morning and 1 Drop before bedtime. 10 mL 11/25/2022 Active tiZANidine HCl 2 MG Oral Tablet (Zanaflex) 11/25/2022 Active Losartan Potassium 100 MG Oral Tablet (Cozaar) Take 1 Tablet by mouth in the morning. 90 Tablet 3 01/08/2023 Active Xarelto 20 MG Oral Tablet (Rivaroxaban) TAKE ONE (1) TABLET BY MOUTH EVERY DAY 90 Tablet 02/11/2023 Active Allopurinol 100 MG Oral Tablet (Zyloprim) TAKE 1 TABLET BY MOUTH DAILY 90 Tablet 1 06/25/2023 Active Iron (Ferrous Sulfate) 325 (65 Fe) MG Oral TabletIndications:Ane beltran, unspecified type Take 1 Tablet by mouth in the morning and 1 Tablet before bedtime. 180 Tablet 1 06/26/2023 Active oxyCODONE-Acetaminoph en 5-325 MG Oral Tablet (Percocet)Indications :MEDICATION USE AGREEMENT,Generalized osteoarthrosis, involving multiple sites,Cervical stenosis of spinal canal Take 1 Tablet by mouth 2 times a day as needed for Pain, Severe. 60 Tablet 07/07/2023 Active Mucinex Fast-Max DM Max 20-400 MG/20ML Oral Liquid Take 20 mL by mouth every 4 hours as needed for Congestion or Other (Congestion). 08/04/2023 Active Acetaminophen 325 MG Oral Tablet (Tylenol) Take 2 Tablets by mouth every 4 hours as needed for Fever >38C(100.5F). 09/29/2023 Active Acetaminophen 325 MG Oral Tablet (Tylenol) Take 2 Tablets by mouth every 6 hours as needed for Pain, Mild. 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 Chronic kidney disease, stage 3b 01/28/2021 Overview: Per CKD protocol Benign hypertension with stage 3b chronic kidney disease 12/24/2020 Overview: Per CKD protocol Polyneuropathy in diseases classified elsewhere 04/23/2020 Calculus of gallbladder with out cholecystitis without obstruction 03/01/2020 History of recurrent deep vein thrombosis (DVT) 10/27/2019 Overview: Both post operative 2011 and 2019 Hiatal hernia 06/20/2019 Mild episode of recurrent major depressive disor lara 02/23/2019 Gastroesophageal reflux disease without esophagi tis 09/13/2017 Status post total right knee replacement 018 Fibromyalgia 09/13/2017 History of cancer of right breast 09/02/2017 Ventral incisional hernia 12/02/2015 MEDICATION USE AGREEMENT 04/29/2015 Overview: Dr Mckeon GAUTAM on CPAP 10/22/2014 Spinal stenosis, lumbar margarita on, without neurogenic claudication 03/06/2014 Osteopenia 03/06/2014 Generalized osteoarthrosis, involving multiple s ites 03/06/2014 Chronic pain syndrome 03/06/2014 Restless legs syndrome 03/06/2014 Neuropathy, peripheral 03/06/2014 Glaucoma 03/06/2014 Mixed hyperlipidemia documented as of this encounter (statuses as of 06/16/2024) Resolved Problems Problem Noted Date Diagnosed Date Resolved Date Food insecurity 12/21/2022 07/01/2023 Overview: Per [facility] Protocol Food insecurity 11/24/2021 08/27/2022 Overview: Per [facility] Protocol Benign hypertension with chr onic kidney disease, stage III 01/02/2021 09/29/2023 Skin ulcer of left lower leg , limited to breakdown of skin 03/22/2020 04/01/2020 Acute respiratory failure with hypoxia 10/14/2019 10/27/2019 Benign hypertension with chr onic kidney disease, stage III 06/14/2019 12/26/2020 Overview: Per CKD protocol Morbid obesity with BMI of 40.0-44.9, adult 11/29/2018 09/29/2023 Body mass index (BMI) of 40. 0 to 44.9 in adult 07/25/2018 12/28/2018 Overview: Per Obesity protocol #1 - - Body mass index (BMI) of 45. 0 to 49.9 in adult 05/23/2018 07/29/2018 Overview: Per Obesity protocol #1 - Food insecurity 03/29/2018 04/01/2021 Overview: Per [facility] Protocol Body mass index (BMI) of 40. 0 to 44.9 in adult 01/04/2018 05/30/2018 Overview: Per Obesity protocol #1 Primary osteoarthritis of right knee 09/13/2017 10/27/2019 residential resident 09/13/20172017 Body mass index (BMI) of 45. 0 to 49.9 in adult 05/17/2017 01/06/2018 Overview: Per Obesity protocol #1 Family history of malignant melanoma 07/25/2015 09/13/2017 Overview: brother Myalgia and myositis, unspecified 03/06/2014 09/13/2017 Depression 03/06/2014 08/26/2018 Hyperlipidemia 03/06/2014 09/13/2017 Obesity 03/06/2014 05/20/2017 Overview: Per Obesity protocol #1 Chronic renal disease, stage 3, moderately decreased glomerular filtration rate between 30-59 mL/min/1.73 square meter 03/06/2014 9 Sleep apnea 03/06/2014 06/05/2016 Benign neoplasm of skin 10/13/201008/17 Family history of melanoma 10/13/2010 0 09/13/2017 Major depressive disorder Overview: ICD-10 update of inactive term documented as of this encounter (statuses as of 06/16/2024) Immunizations Name Administration Dates Next Due COVID-19 mRNA, LNP-s, No Pre serve, 2-Dose Series (Pfizer) 07/15/2021,06/14/2021,03/14/2021,02/12,11/23/2020,11/02/2020 PPD 07/16/2023 Pneumococcal Conjugate Vacc, 13 Valent (Prevnar) 04/29/2015 Pneumococcal Polysaccharide PPV23 (Pneumovax) 09/04/2016 Season Influenza, Quad, PF, Adjuvanted, 65+ Yrs, IM (FLUAD) 06/06/2020 Seasonal Influenza Vac., MDV , IM, 0.5 mL (Fluzone) 04/29/2015,06/08/2014,06/19/2013,06/10,06/15/2011,06/10/2010,07/24/2009 ,06/13/2008 Seasonal Influenza, PF, 6 M & above, IM , (FluLaval or Fluzone) 07/07/2019,06/15/2017 Seasonal Influenza, Quadriva lent Hd (Fluzone Hd) 06/09/2023,05/20/2022,06/04/2021 Seasonal Influenza, Quadriva lent, No Preserve, IM 07/16/2016 Seasonal Influenza, Trivalen t, Adjuvanted, 65+ YRS, PF, (Fluad) 08/02/2018 TD, Preservative Free 08/22/2021 TDAP, Age 7 and older, IM (Adacel) 03/20/2011 Varicella Zoster Vaccine (Adult) 10/10/2014 documented as of this encounter Social History Tobacco Use Types Packs/Day Years Used Date Smoking Tobacco: Never Smokeless Tobacco: Never Alcohol Use Standard Drinks/Week Comments Not Currently 0 (1 standard drink = 0.6 oz pure alcohol) Rare- wine on special occasions PHQ-2 Answer Date Recorded PHQ Adult Total Score 2 06/09/2023 Hunger Vital Sign Answer Date Recorded Within the past 12 months, y ou worried that your food would run out before you got the money to buy more. Never true 06/09/20 23 Within the past 12 months, t he food you bought just didn't last and you didn't have money to get more. Never true 06/09/2023 Childcare Answer Date Recorded Do you feel overwhelmed with taking care of a child, family member or friend? No 06/09/2023 Does your family need help f inding childcare? (Household - for ages 0-17 years) Not on file 06/09/2023 Clothing Answer Date Recorded Have you been unable to get clothing when it was really needed? No 06/09/2023 Is your family able to get c lothes or diapers when needed? (Household - for ages 0-17 years) Not on file 06/09/2023 Personal Safety Answer Date Recorded Do you feel unsafe or have concerns for your saf ety? No 06/09/2023 Do you have concerns for you r family's safety? (Household - for ages 0-17 years) Not on file 06/09/2023 Utilities Answer Date Recorded Do you have trouble paying y our heating, water, or electric bill? (Adult - for ages 18 years and over) Not on file 06/09/2024 Is your family able to pay t he heat, water, or electric bill? (Household - for ages 0-17 years) Not on file 06/09/2024 Does your family have access to good internet? (Household - for ages 0-17 years) Not on file 06/09/2024 Employment Status Answer Date Recorded Are you unemployed or without regular income? No 06/09/2023 Does the household have a re gular source of income? (Household - for ages 0-17 years) Not on file 06/09/2023 Social Connections Answer Date Recorded How often do you feel lonely or isolated from those around you? (Adult - for ages 18 years and over) Not on file 06/09/2024 Financial Resource Strain Answer Date R ecorded Do you have any trouble payi ng for your medications, or do you think you might in the future? No 06/09/2023 Does your family have troubl e paying for medicine? (Household - for ages 0-17 years) Not on file 06/09/2023 Transportation Needs Answer Date Record ed READ ONLY Do you have troubl e getting a ride to medical visits or work? Never True 06/09/2023 Does your family have a hard time getting a ride to doctors visits? (Household - for ages 0-17 years) Not on file 06/09/2023 Has lack of transportation k ept you from medical appointments, meetings, work, or from getting things needed for daily living? Check all that apply. (Adult - for ages 18 years and over) Not on file 06/09/2023 Do you (or your family) have trouble finding or paying for a ride (transportation)? (Household - for ages 0-17 years) Not on file 06/09/2023 Housing Stability Answer Date Recorded Do you currently live in a s helter or have no steady place to sleep at night? No 06/09/2023 READ ONLY Do you think you a re at risk of becoming homeless? No 06/09/2023 Does your family worry about paying for your home or becoming homeless? (Household - for ages 0-17 years) Not on file 1 Are you homeless or worried that you might be in the future? (Adult - for ages 18 years and over) Not on file Are you (or your family) kandice eless or worried that you might be in the future? (Household - for ages 0-17 years) Not on file Food Insecurity Answer Date Recorded Do you need food for this week? No 06/09/2023 Are you able to get enough f ood for your family? (Household - for ages 0-17 years) Not on file 06/09/2023 Does your family need food t his week? (Household - for ages 0-17 years) Not on file 06/09/2023 Do you always have enough fo od for your family? (Household - for ages 0-17 years) Not on file 06/09/2023 Sex and Gender Information Value Date Recorded Sex Assigned at Female 10/27/2019 1:33 PM EDT Gender Identity Female 10/27/2019 1:33 PM EDT Sexual Orientation Straight 10/27/2019 1: 33 PM EDT Job Start Date Occupation Industry Not on file Not on file Not on file documented as of this encounter Functional Status Functional Status Response Date of Assess ment Are you deaf or do you have serious difficulty hearing? No 10/15/2019 Are you blind or do you have serious difficulty seeing, even when wearing glasses? No 10/15/2019 Do you have serious difficul ty walking or climbing stairs? (5 years old or older) No-uses rollator walker. Recently in rehab 10/15/2019 Do you have difficulty dress ing or bathing? (5 years old or older) No 10/15/2019 Because of a physical, menta l, or emotional condition, do you have difficulty doing errands alone such as visiting a doctor s office or shopping? (15 years old or older) Yes 10/15/2019 Cognitive Status Response Date of Assessm ent Because of a physical, menta l, or emotional condition, do you have serious difficulty concentrating, remembering, or making decisions? (5 years old or older) No 10/15/2019 documented as of this encounter Plan of Treatment Upcoming Encounters Date Type Department Care Team (Late st Contact Info) Description 08/18/2024 1:00 PM EST Office Visit Dermatology [facility] [address] [place] [address] Nick Willis MD [address] [place] [id number] Pending Results Name Type Priority Associated Diagnoses Date /Time CBC WITH WBC DIFFERENTIAL Lab Routine Anemia 06/16/2024 11:31 AM EDT CBC Lab Routine Anemia 06/16/2024 11:31 AM EDT DIFFERENTIAL, AUTOMATED Lab Routine Anemia 06/16/2024 11:31 AM EDT Health Maintenance Due Date Last Done Comments Cologuard 1995 Fecal Occult Blood Test 1995 Sigmoidoscopy 1995 Zoster Vaccines (2 of 3) 12/05/2014 10/10/2014 COVID-19 Vaccine ( season) 2024 07/15/2021, 06/14/2021, 03/14/2021, Additional history exists Influenza Vaccine (FLU shot) (#1) 2024 06/09/2023, 05/20/2022, 06/04/2021, Additional history exists Depression Monitoring 06/09/2024 06/09/2023 Albumin/Creatinine Ratio 08/12/2024 023, 04/01/2023, 10/05/2022, Additional history exists GFR 11/21/2024 05/23/2024, 04/17, 04/13/2024, Additional history exists CKD PHOS USE SMARTSET 94255 11/22/202404/2024, 10/12/2023, 04/01/2023, Additional history exists Mammogram 01/30/2025 01/31/2024, 04/2023, 01/22/2023, Additional history exists DXA Scan 03/21/2025 03/21/2018, 01/2018, 03/09/2014 CKD HGB USE SMARTSET 68366 05/23/202505/23, 05/11/2024, 05/11/2024, Additional history exists Colonoscopy 07/08/2025 07/08/2015, 06/24/2010 Colorectal Cancer Screening 07/08/2025 Lipid Panel 11/19/2027 11/18/2022, 10/15, 08/12/2021, Additional history exists DTap/Tdap Vaccines (3 - Td or Tdap) 08/22/2031 08/22/2021, 03/20/2011 Pneumococcal Vaccine: 65+ Years Completed 09/04/2016, 04/29/2015 HPV (Gardasil) Vaccine Aged Out No lo nger eligible based on patient's age to complete this topic Hepatitis B Vaccine Aged Out No longe r eligible based on patient's age to complete this topic MENINGOCOCCAL (MENACTRA/MENVEO) Aged Out No longer eligible based on patient's age to complete this topic documented as of this encounter Medical Devices Implanted Type Area Asset Protection Associate Device Identifier Shelf Expiration Date Model / Serial / Lot Composix L/P Mesh With Ps Echo Ps Positioning System Implanted:Qty: 1 on 12/02/2015 by Todd King MD at OR [facility] N/A: Abdomen 07/13/2017 [id number] / / [id number] Description:[employer] documented as of this encounter Visit Diagnoses Diagnosis Anemia Anemia, unspecified documented in this encounter Advance Directives * Full Code (Latest Code Status on File) Date Activated Date Inactivated Comments 03/24/2020 6:23 PM 03/29/2020 8:01 PM This order re flects the patients wishes and were consensually agreed upon. * Full Code Date Activated Date Inactivated Comments 10/14/2019 11:26 PM 10/18/2019 8:43 PM This order r eflects the patients wishes and were consensually agreed upon. Question Answer Comments Discussion of Advance Directives occurred with: Not Discussed * Full Code Date Activated Date Inactivated Comments 12/02/2015 4:14 PM 12/04/2015 10:18 PM This order reflects the patients wishes and were consensually agreed upon. Question Answer Comments Discussion of Advance Directives occurred with: Not Discussed Does the patient have a Living Will? No Does the patient have Health Care Power of Attor bambi? No Care Teams Regulatory Compliance Officer Relationship Specialty Start Date End Date Eboni Hensley DO [address] [place] [address] [place] [phone] PCP - General Family Medicine 02/18/24 documented as of this encounter
--- NOTE | 2024-06-21 17:30 | Consultation ---
Date of Consultation June 21, 2024 Assessment & Plan (1) Status post reverse total arthroplasty of right shoulder: (2) HTN (hypertension): (3) HLD (hyperlipidemia): (4) Stage III chronic kidney disease: (5) History of DVT (deep vein thrombosis): (6) Sleep apnea: Plan This is a 74-year-old female who has a significant past medical history of HTN, HLD, GAUTAM on CPAP, GERD, CKD stage IIIb, history of fibrillary glomerulonephritis, osteoarthritis, fibromyalgia, chronic pain syndrome, peripheral neuropathy, glaucoma, history of right breast cancer, depression, history of DVT who presents for elective right reverse total shoulder by Dr. Arroyo. Status post right reverse total shoulder arthroplasty secondary to rotator cuff tear arthropathy and shoulder instability, POD #0 pain/wound management per orthopedics avoid NSAIDs for pain control secondary to CKD stage III monitor hemoglobin (baseline 8.9) and creatinine (baseline 1.8-2.0) postoperatively Pt reports increased resp rate post operatively, mild SOB, 94% on RA, obtain CXR post op, encouraged pt to use ISP HTN: chronic, stable, hold antihypertensives post operatively until reevaluated on postop day 1, holding losartan, chlorthalidone, Aldactone and torsemide HLD: chronic, stable, continue statin GAUTAM: chronic, continue cpap CKD stage 3b/hx of fibrillay GN: baseline cr 2.0, monitor renal fxn, avoid nephrotoxic agents, holding diuretics, follows Nephro Dr. Whiting in [place], [place] Chronic anemia: baseline hb ~ 9.0 - monitor post op, recent anemia panel as Op revealed iron 165, TIBC 263, TSAT 63, ferritin 3414 Chronic pain syn/Fibromyalgia: continue meds Glaucoma: continue eye gtts Hx of R breast Ca: r sided restriction Hx of TIA: continue asa, intolerant to statins Hx of DVT/DVT ppx: Xarelto FULL CODE PCP: Eboni Mckeon DO Dispo: per primary I spent a total of 55 minutes reviewing notes, outpatient records, labs, medication, coordinating, documenting and providing care for this patient excluding time spent in the performance of separately billed services. Thank you for this consultation. We will follow the patient with you during their hospital stay. You can reach a member of the [facility] Hospitalist Team 08/03 via hospitalist role on tiger text. Pt was seen and examined in collaboration with Dr. Sandhu, please see addendum Supervising Physician Co-Signing Physician Notes Patient is a 74-year-old female with multiple comorbidities who underwent right reversal shoulder arthroplasty was consulted for postop medical management. Patient is doing well postoperatively. Denies any chest pain, dizziness, nausea vomiting, abdominal pain. She reports intermittent shortness of breath but currently asymptomatic during my encounter. Please review HPI for complete details. I personally reviewed the record. Agree with assessment and plan as above. Monitor for postop anemia. Continue bowel regimen to prevent constipation. Chest x-ray currently pending. Continue CPAP at night. DVT prophylaxis as per primary team. Monitor blood pressure closely and adjust medications as able. I personally interviewed and examined at bedside. Patient's care is coordinated with Debby Phillips PA-C. I have reviewed the advanced practitioner's documentation, and I agree with plan of care. Please refer to the documentation above for details of patient's presentation and for discussion of other issues. I spent a total [id number] coordinating, documenting, and providing care for this patient excluding time spent in the performance of separately billed services. History of Present Illness Requesting Physician: Dr. Arroyo Reason for Consultation: Post op medical management Attending Physician: Abimael Arroyo MD History of Present Illness This is a 74-year-old female who has a significant past medical history of HTN, HLD, GAUTAM on CPAP, GERD, CKD stage IIIb, history of fibrillary glomerulonephritis, osteoarthritis, fibromyalgia, chronic pain syndrome, peripheral neuropathy, glaucoma, history of right breast cancer, depression, history of DVT who presents for elective right reverse total shoulder by Dr. Arroyo. She tolerated the procedure well. Her is at bedside. Hx was revealed with outpt records and from pt and . She denies f/c/s, chest pain, n/v/d, abd pain. She tolerated her diet tonight. Prior to surgery she was not having any issues moving her bowels. She does feel like she is breathing faster then usual. She c/o some mild sob but denies CP. She describes it as, "taking more breaths then usual." She is coughing up some clear sputum since surgery. Allergies Allergy/AdvReac Type Severity Reaction Status Date / Time Penicillins Allergy Severe Elevated Verified 06/21/24 09:58 temperature, fever, hives (see comments) chlorhexidine Allergy Intermediate Skin Verified 06/21/24 09:58 irritation/rash hepatitis B virus vaccine Allergy Intermediate Reacted Verified 06/21/24 09:[address]" hydrochlorothiazide Allergy Intermediate Joint Pain Verified 06/21/24 09:58 iodine Allergy Intermediate itchy Verified 06/21/24 09:58 oxcarbazepine Allergy Intermediate Burning, Verified 06/21/24 09:58 feet pain simvastatin [From Zocor] Allergy Intermediate Joint Pain Verified 06/21/24 09:58 tramadol Allergy Intermediate Leg Verified 06/21/24 09:58 swelling adhesive Allergy Mild Rash Verified 06/21/24 09:58 Cephalosporins Allergy Mild Rash Verified 06/21/24 09:58 doxycycline Allergy Mild Rash Verified 06/21/24 09:58 lisinopril Allergy Mild Rash, hives Verified 06/21/24 09:58 ropinirole Allergy Mild Rash Verified 06/21/24 09:58 Sulfa (Sulfonamide Allergy Mild Rash Verified 06/21/24 09:58 Antibiotics) vancomycin Allergy Mild Rash Verified 06/21/24 09:58 choline fenofibrate Allergy Unknown Unknown Verified 06/21/24 09:58 methyl salicylate AdvReac Intermediate itchiness Verified 06/21/24 10:48 [From [employer]] Onlrxsv-IZZ-GqG Reductase AdvReac Intermediate Joint Verified 06/21/24 09:58 Inhibitor pain, [Seefxdt-Kcf-Ysz Reductase myalgias Inhibitor] NSAIDS (Non-Steroidal AdvReac Mild Avoids due Verified 06/21/24 09:58 Anti-Inflamma to kidney dysfunction menthol [From [employer]] AdvReac Verified 06/21/24 10:47 Home Medications Medication Instructions Recorded Confirmed Type chlorthalidone 25 mg tablet 25 mg PO QAM 06/13/19 06/21/24 History cholecalciferol (vitamin D3) 125 5,000 unit PO QAM 06/13/19 06/21/24 History mcg (5,000 unit) tablet (Vitamin D3) clindamycin HCl 300 mg capsule 600 mg PO UD PRN PRE DENTAL 06/13/19 06/21/24 History duloxetine 60 mg capsule,delayed 60 mg PO QAM 06/13/19 06/21/24 History release ferrous sulfate 325 mg (65 mg 325 mg PO BID 06/13/19 06/21/24 History iron) tablet latanoprost 0.005 % eye drops 1 drp ophthalmic (eye) HS 06/13/19 06/21/24 History magnesium oxide 800 mg PO QAM PRN supplement 06/13/19 06/21/24 History peg 400-propylene glycol (PF) 0.4 1 drp ophthalmic (eye) UD PRN Dry 06/13/19 06/21/24 History %-0.3 % eye drops in a dropperette Eyes (Systane (PF)) polyethylene glycol 3350 17 gram 17 g PO DAILY PRN Constipation 06/13/19 06/21/24 History oral powder packet (Miralax) pramipexole 1.5 mg tablet (Mirapex) 0.5 mg PO QPM 06/13/19 06/21/24 History spironolactone 25 mg tablet 25 mg PO BID 06/13/19 06/21/24 History timolol 0.5 % eye drops 1 drp ophthalmic (eye) BID 06/13/19 06/21/24 History topiramate 100 mg tablet 50 - 100 mg PO BID 06/13/19 06/21/24 History allopurinol 100 mg tablet 100 mg PO QAM 07/31/21 06/21/24 History aspirin 81 mg tablet 81 mg PO QPM 07/31/21 06/21/24 History fish oil-fat acid comb8-herb 1 cap PO QAM 07/31/21 06/21/24 History [id number] 1,200 mg (400 [id number]) cap losartan 100 mg tablet (Cozaar) 100 mg PO QAM 07/31/21 06/21/24 History oxycodone-acetaminophen 5 mg-325 1 tab PO BID PRN Severe Pain 07/31/21 06/21/24 History mg tablet (Percocet) (Scale Score 7-10) rivaroxaban 20 mg tablet (Xarelto) 20 mg PO QDB 07/31/21 06/21/24 History brimonidine 0.2 % eye drops 1 drp OPR QAM 06/07/23 06/21/24 History famotidine 40 mg tablet 40 mg PO BID 06/07/23 06/21/24 History acetaminophen 325 mg tablet 650 mg PO QID PRN pain/fever 05/23/24 06/21/24 History baclofen 5 mg tablet 5 mg PO HS 05/23/24 06/21/24 History gvsikfhltvcdb-phkfjceszolnw-zaliuvr 20 ml PO Q4H PRN cough/congestion 05/23/24 06/21/24 History 10 mg-650 mg-400 mg/20 mL oral liq torsemide 10 mg tablet 10 mg PO QAM 05/23/24 06/21/24 History Patient History Medical History History of anesthesia complications awareness during previous surgeries Stage III chronic kidney disease Chronic back pain halfway resident [facility] Restless legs syndrome Myelopathy concurrent with and due to spinal stenosis of cervical region HLD (hyperlipidemia) H/O recurrent transient ischemic attacks Per records dating back to 2017 Depression Obesity History of COVID-19 (~2021) mild symptoms, resolved Glomerulonephritis GERD (gastroesophageal reflux disease) Stable per patient Hypertension controlled, stable per pt History of DVT (deep vein thrombosis) (~2018) Hx multiple DVT DVT LLE s/p right ankle surgery Taking Xarelto History of blood transfusion (~1997) s/p childbirth History of breast cancer Right (ductal) s/p right breast lumpectomy *RUE limb restriction* Stress incontinence Urinary Hiatal hernia Fibromyalgia Spinal stenosis Scoliosis Osteoarthritis Glaucoma Right eye Sleep apnea CPAP High cholesterol Surgical History S/P spinal surgery History of total bilateral knee replacement Nausea and vomiting after administration of anesthetic agent History of cervical discectomy C6-7 ACDF, C5 corpectomy (08/15/2021): Elective glidescope use with MILS due to limited ROM, ETT 7 at [facility] History of carpal tunnel surgery of right wrist S/P epidural steroid injection History of ankle surgery Right triple arthrodesis 07/07/2019: LMA#4, 1 attempt atraumatic History of vascular surgery Hypogastric artery ligation (2/2 childbirth complications) History of endoscopy History of colonoscopy History of hernia surgery Multiple (one with mesh) History of vascular surgery Left leg "venous ablation" History of hysteroscopy History of hysterectomy History of section History of lumpectomy Right History of cardiac cath "Many years ago"- no stents Family History Aunt History of colon cancer History of breast cancer Aunt History of breast cancer Aunt History of breast cancer Aunt History of breast cancer Aunt History of breast cancer Other History of prediabetes Social History Smoking Status: Never smoker Do You Dip or Chew Tobacco: No; Hx Alcohol Use: Yes Alcohol type: wine Hx Substance Use: No Preferred Language: Unknown Communication Ability: Effective Communication Ability Comment: unk Community Placement Worker Required: No Beliefs That Will Affect Care: None marital status: Current Living Situation: Personal Care Facility Current Living Situation Comment: [place] [facility] Other Information That Helps Us Care for You: No Feels Safe at Home: Yes Assistive Devices: CPAP Assistive Devices Comment: unk Review of Systems Review of Systems: All systems reviewed & are unremarkable except as noted in HPI & below Physical Exam Physical Exam: constitutional: WD/WN, vitals as above, NAD, sitting up in bed, pleasant, conversing easily Head: Normocephalic, Atraumatic Eyes: PERRL, conjunctivae normal, anicteric sclerae ENMT: external ear and nose normal, oropharynx normal Neck: trachea midline, no thyromegaly normal visual inspection Respiratory: normal respiratory effort, lungs clear to auscultation, no wheeze, rales, rhonchi. Normal insp/exp effort, no accessory muscle use Cardiovascular: RRR, no murmur, no edema Vessels: no JVD or carotid bruit Chest: normal inspection of chest Abdomen: normal bowel sounds, soft, nontender, no hepatosplenomegaly Musculoskeletal: no cyanosis or clubbing, extremities motor strength 5/5, right shoulder surgical site in dressing, sling Skin: no rashes, warm and dry normal turgor Neurologic: PERRL, EOMI, accommodation nl, no face palsy, no dysarthria CN's II-XI intact bilaterally and moves all extremities Psychiatric: A+Ox3, euthymic affect Lymphatic: no cervical or axillary lymphadenopathy : deferred Results & Data Vital Signs (Past 12 Hours) Vital Signs Temp Pulse Pulse Resp BP Pulse Ox O2 Del Method 06/21/24 16:35 36.6 C 76 18 122/69 96 Nasal Cannula 06/21/24 16:05 36.8 C 75 16 121/71 95 Nasal Cannula 06/21/24 15:36 37.2 C 72 18 109/61 94 Nasal Cannula 06/21/24 15:15 74 22 105/50 L 96 Nasal Cannula 06/21/24 14:59 36.6 C 60 20 120/60 98 Nasal Cannula 06/21/24 14:50 66 20 112/64 95 Nasal Cannula 06/21/24 14:40 64 20 118/55 L 98 Oxymask 06/21/24 14:29 36.3 C L 71 20 117/62 95 Oxymask 06/21/24 13:40 Nasal Cannula 06/21/24 10:08 36.9 C 66 20 191/75 H 95 Room Air O2 Flow Rate 06/21/24 16:35 06/21/24 16:05 2 06/21/24 15:36 2 06/21/24 15:15 2 06/21/24 14:59 2 06/21/24 14:50 2 06/21/24 14:40 3 06/21/24 14:29 6 06/21/24 13:40 2 06/21/24 10:08 Laboratory Results preoperative lab work done on 05/31 reviewed, hemoglobin 9.5, hematocrit 29.2, UA unremarkable Diagnostic Findings Pre operative CXR: IMPRESSION: 1. No acute cardiopulmonary findings. 2. No significant change in appearance of the chest. Elevation of the right hemidiaphragm and a large hiatal hernia. Linear densities within the lungs consistent with atelectasis. 3. Subluxation/anterior dislocation of the right humeral head with respect to the glenoid, partially imaged on this exam. Medications Administered Current Inpatient Medications Acetaminophen (Acetaminophen 500 Mg Tab) 1,000 mg PO Q8 [facility] Stop: 07/21/24 21:59 Al Hydrox/Mg Hydrox/Simethicone (Aluminum/Magnesium Susp 30 Ml Udc) 15 ml PO Q4H PRN PRN Reason: Heartburn Stop: 07/21/24 15:33 Allopurinol (Allopurinol 100 Mg Tab) 100 mg PO QAM [facility] Stop: 07/22/24 08:59 Artificial Tears (Artificial Tears) 1 drops OP QID PRN PRN Reason: Dry Eyes Stop: 07/21/24 15:33 Baclofen (Baclofen 10 Mg Tab) 5 mg PO HS [facility] Stop: 07/21/24 20:59 Bisacodyl (Bisacodyl 10 Mg Supp) 10 mg VA DAILY PRN PRN Reason: Constipation Stop: 07/21/24 15:33 Brimonidine Tartrate (Brimonidine Tartrate 0.2% 5ml) 1 drops OPR QAM [facility] Stop: 07/22/24 08:59 Chlorthalidone (Chlorthalidone 25 Mg Tab) 25 mg PO QAM [facility] Stop: 07/22/24 08:59 Diphenhydramine HCl (Diphenhydramine Capsule 25 Mg Cap) 25 mg PO Q8H PRN PRN Reason: Itching Stop: 07/21/24 15:33 Docusate Sodium (Docusate Sodium 100 Mg Cap) 100 mg PO BID [facility] Stop: 07/21/24 20:59 Duloxetine HCl (Duloxetine Hcl 60 Mg Cap) 60 mg PO QAM [facility] Stop: 07/22/24 08:59 Famotidine (Famotidine 40 Mg Tablet) 40 mg PO BID [facility] Stop: 07/21/24 20:59 Ferrous Sulfate (Ferrous Sulfate 325 Mg Tab) 325 mg PO BID [facility] Stop: 07/21/24 20:59 Fish Oil ([place]-3 (Purified Fish Oil) 1 Gm Cap) 1 cap PO QAM [facility] Stop: 07/22/24 08:59 Hydromorphone HCl (Hydromorphone Inj 0.5 Mg/0.5 Ml Syr) 0.5 mg IV Q4H PRN PRN Reason: Pain or Pre PT Stop: 07/05/24 15:33 Clindamycin Phosphate (Cleocin/D5w) 600 mg in 50 mls @ 100 mls/hr IV Q8H [facility] Stop: 06/22/24 04:29 Dexamethasone 10 mg/ Syringe 2.5 mls @ 1 mls/min IV TODAY@08 [facility] Stop: 06/22/24 08:03 Tranexamic Acid (Tranexamic Acid / 0.7% Nacl) 1,000 mg in 100 mls @ 600 mls/hr IV Q6H [facility] Stop: 06/21/24 20:39 Ketorolac Tromethamine (Ketorolac Tromethamine 15 Mg/Ml Vial) 15 mg IV Q6H PRN PRN Reason: Breakthrough Pain Latanoprost (Latanoprost 0.005% Op Soln 2.5 Ml Btl) 1 drops OP HS [facility] Stop: 07/21/24 20:59 Losartan Potassium (Losartan Potassium 50 Mg Tab) 100 mg PO QAM [facility] Stop: 07/22/24 08:59 Magnesium Hydroxide (Magnesium Hydroxide Susp 30 Ml Udc) 30 ml PO Q6H PRN PRN Reason: Constipation Stop: 07/21/24 15:33 Magnesium Oxide (Magnesium Oxide 400 Mg Tab) 800 mg PO QAM [facility] Stop: 07/22/24 08:59 Metoclopramide HCl (Metoclopramide Hcl Inj 5 Mg/Ml 2 Ml Vial) 10 mg IV Q6H PRN PRN Reason: Nausea And Vomiting Stop: 07/21/24 15:33 Multivitamins (Multivitamin Tab) 1 [facility] [place] Stop: 07/22/24 08:59 Naloxone HCl (Naloxone Hcl 0.4 Mg/1 Ml Vial/Carp) 0.1 mg IV Q5M PRN PRN Reason: Oversedation/Resp Depression Stop: 07/21/24 15:33 Ondansetron HCl (Ondansetron Inj 2 Mg/Ml 2 Ml Vial) 4 mg IV Q6H PRN PRN Reason: Nausea And Vomiting Stop: 07/21/24 15:33 Oxycodone HCl (Oxycodone Hcl Ir 5 Mg Tab (Immediate Release)) 5 - 10 mg PO Q4H PRN PRN Reason: Pain or Pre PT Stop: 07/05/24 15:33 Polyethylene Glycol (Polyethylene (Miralax) 17 Gm Pack) 17 gm PO DAILY PRN PRN Reason: Constipation Stop: 07/21/24 15:33 Pramipexole Dihydrochloride (Pramipexole Dihydrochlo 0.5 Mg Tab) 0.5 mg PO QPM [facility] Stop: 07/21/24 20:59 Rivaroxaban (Rivaroxaban 20 Mg Tab) 20 mg PO DAILY [facility] Stop: 07/22/24 08:59 Sennosides (Senna 8.6 Mg Tab) 17.2 mg PO HS [facility] Stop: 07/21/24 20:59 Spironolactone (Spironolactone 25 Mg Tab) 25 mg PO BID17 [facility] Stop: 07/21/24 16:59 Last Admin: 06/21/24 16:57 Dose: 25 mg Timolol Maleate (Timolol Maleate 0.5% Op Soln 5 Ml Btl) 1 drops OP BID [facility] Stop: 07/21/24 20:59 Topiramate (Topiramate 100 Mg Tab) 100 mg PO HS [facility] Stop: 07/21/24 20:59 Topiramate (Topiramate 25 Mg Tab) 50 mg PO QAM [facility] Stop: 07/22/24 08:59 Torsemide (Torsemide 10 Mg Tab) 10 mg PO QAM [facility] Stop: 07/22/24 08:59 Vitamin D (Cholecalciferol 125 Mcg (5,000 Units) Tab) 125 mcg PO QAM [facility] Stop: 07/22/24 08:59
--- NOTE | 2024-06-21 19:14 | Anesthesiology Progress Note ---
Date of Service June 21, 2024 Anesthesia Post Procedure Vital Signs Vital Signs: Temp Pulse Pulse Resp BP Pulse Ox O2 Del Method 06/21/24 18:46 36.6 C 76 18 121/67 96 Nasal Cannula 06/21/24 17:39 36.6 C 85 18 116/66 98 Room Air 06/21/24 16:35 36.6 C 76 18 122/69 96 Nasal Cannula 06/21/24 16:05 36.8 C 75 16 121/71 95 Nasal Cannula 06/21/24 15:36 37.2 C 72 18 109/61 94 Nasal Cannula 06/21/24 15:15 74 22 105/50 L 96 Nasal Cannula 06/21/24 14:59 36.6 C 60 20 120/60 98 Nasal Cannula 06/21/24 14:50 66 20 112/64 95 Nasal Cannula 06/21/24 14:40 64 20 118/55 L 98 Oxymask 06/21/24 14:29 36.3 C L 71 20 117/62 95 Oxymask 06/21/24 13:40 Nasal Cannula 06/21/24 10:08 36.9 C 66 20 191/75 H 95 Room Air O2 Flow Rate 06/21/24 18:46 06/21/24 17:39 06/21/24 16:35 06/21/24 16:05 2 06/21/24 15:36 2 06/21/24 15:15 2 06/21/24 14:59 2 06/21/24 14:50 2 06/21/24 14:40 3 06/21/24 14:29 6 06/21/24 13:40 2 06/21/24 10:08 Pain Intensity Right Shoulder: Pain Intensity: 8 Right Hip: Pain Intensity: 8 Right Axilla: Pain Intensity: 3 Transfer of Care Handoff Completed per policy Notes Mental Status: alert / awake / arousable and participated in evaluation Patient Amnestic to Procedure: Yes Nausea / Vomiting: adequately controlled Pain: adequately controlled Airway Patency, RR, SpO2: stable & adequate BP & HR: stable & adequate Hydration State: stable & adequate Anesthetic Complications: no major complications apparent and Pt Satisfied with anesthetic care
[2024-06-21] MEDS: CLINDAMYCIN/D5W 600 MG/50 ML BAG IV SCH (19:54)
[2024-06-21] MEDS ORDERED: FUROSEMIDE INJ 20 MG/2 ML VIAL IV ONE (20:31)
--- NOTE | 2024-06-21 21:06 | XRay Report ---
Clinical History: Shortness of breath Technique: A frontal view of the chest was obtained Comparison is made to the prior examination dated 05/31/2024 Findings: There is elevation of the right hemidiaphragm. There is right lung base atelectasis. There is suspected mild pulmonary edema. The heart size is at the upper limit of normal. No pleural effusion or pneumothorax is seen. There is a suspected large hiatal hernia There is a new right shoulder arthroplasty with adjacent surgical skin kerrie. There is an unchanged cervical fusion Impression: 1. Mild pulmonary edema 2. Elevation of the right hemidiaphragm and right lung base atelectasis Electronically signed by Mike Reardon 06-21-2024 6:31 PM
[2024-06-21] MEDS: TRANEXAMIC ACID / 0.7% NACL 1,000 MG/100 ML BAG IV SCH (21:21)
[2024-06-21] MEDS: TIMOLOL MALEATE 0.5% OP SOLN 5 ML BTL OP SCH (21:32)
[2024-06-21] MEDS: SENNA 8.6 MG TAB PO SCH (21:33)
[2024-06-21] MEDS: LATANOPROST 0.005% OP SOLN 2.5 ML BTL OP SCH (21:33)
[2024-06-21] MEDS: DOCUSATE SODIUM 100 MG CAP PO SCH (21:33)
[2024-06-21] MEDS: PRAMIPEXOLE DIHYDROCHLO 0.5 MG TAB PO SCH (21:34)
[2024-06-21] MEDS: FAMOTIDINE 40 MG TABLET PO SCH (21:34)
[2024-06-21] MEDS: FERROUS SULFATE 325 MG TAB PO SCH (21:34)
[2024-06-21] MEDS: BACLOFEN 10 MG TAB PO SCH (21:34)
[2024-06-21] MEDS: FUROSEMIDE INJ 20 MG/2 ML VIAL IV ONE (21:35)
[2024-06-21] MEDS: TOPIRAMATE 100 MG TAB PO SCH (21:35)
[2024-06-21] MEDS: ALBUT/IPRATROP 3MG/0.5MG NEB 3 ML VIAL NEB STA (21:42)
[2024-06-21] MEDS: oxyCODONE HCL IR 5 MG TAB (IMMEDIATE RELEASE) PO PRN (23:51)
[2024-06-22 06:04] LABS: Basophils # (auto) 0.07 K/uL (0.00-0.20); Basophils % (auto) 0.6 %; Eosinophils # (auto) 0.03 K/uL (0.00-0.50); Eosinophils % (auto) 0.2 %; Hematocrit (blood only) 22.5 % (37.0-47.0); Hemoglobin 7.2 g/dl (12.0-16.0); Immature Granulocytes % (auto) 0.8 %; Lymphocytes # (auto) 1.25 K/uL (1.20-3.40); Lymphocytes % (auto) 10.4 %; Mean Corpuscular Hemoglobin 31.4 pg (25.0-34.0); Mean Corpuscular Volume 98.3 fL (80.0-100.0); Mean Platelet Volume 10.2 fL (9.4-12.4); Monocytes # (auto) 1.26 K/uL (0.11-0.59); Monocytes % (auto) 10.4 %; Neutrophils # (auto) 9.35 K/uL (1.40-6.50); Neutrophils % (auto) 77.6 %; Nucleated RBC # (auto) 0.05 K/uL (0.00-0.12); Nucleated RBC % (auto) 0.4 %; Platelet Count 237 K/uL (130-400); RDW Coefficient of Variation 15.4 % (11.5-14.5); RDW Standard Deviation 54.7 fL (36.4-46.3); Red Blood Count 2.29 M/uL (4.20-5.40); White Blood Count 12.06 K/ul (4.8-10.8)
[2024-06-22 06:20] LABS: BUN Creatinine Ratio 20.9 (10-20); Calcium 8.7 mg/dl (8.6-10.3); Creatinine Clr Calc Pharmacy 19.5 ml/min; Polychromasia 1+
--- NOTE | 2024-06-22 07:47 | Orthopedic Progress Note ---
Date of Service June 22, 2024 Assessment & Plan (1) Rotator cuff tear arthropathy of right shoulder: Plan: Chronic right shoulder pain anterior instability chronic rotator cuff tear rotator cuff arthropathy. Patient also was complicated by chronic anemia rec ently improved with Procrit. She also has chronic kidney disease. Plan is to proceed with reverse total shoulder arthroplasty. Will need medical consult to actively manage chronic health issues perioperatively. Postoperative day 1 status post reverse shoulder replacement. Patient does have chronic anemia however may need blood transfusion. She has had Procrit previously. Have medical team evaluate patient and decide on transfusing blood today. She also has renal insufficiency which is chronic but BUN/creatinine both higher than prior labs that I have reviewed. Patient needs continued hospital stay and medical management. (2) Shoulder instability: (3) Rotator cuff tear, right: Admission and Anticipated Discharge Date Admission Date: June 21, 2024 Subjective Patient feeling okay. She says she feels better than last night. No chest pain shortness of breath. The strap around her belly was bothering her and she could not wear it. Review of Systems Review of Systems: Patient in no distress. Physical Exam Musculoskeletal: Patient can move her hand. Circulation intact. Dressing dry and intact. No active bleeding from the drain just clear fluid now. Results & Data Vital Signs (Past 12 Hours) Vital Signs Temp Pulse Pulse Resp BP Pulse Ox O2 Del Method 06/22/24 07:15 36.8 C 73 18 124/77 97 Nasal Cannula 06/22/24 03:17 36.5 C 69 18 113/53 L 98 CPAP 06/21/24 23:07 36.5 C 71 18 112/67 97 Nasal Cannula 06/21/24 21:42 83 18 94 Nasal Cannula 06/21/24 21:00 Nasal Cannula O2 Flow Rate 06/22/24 07:15 2 06/22/24 03:17 06/21/24 23:07 2 06/21/24 21:42 2 06/21/24 21:00 2 Laboratory Results Hemoglobin 7.2, BUN 50 and creatinine 2.39. (2) Shoulder instability Laterality: right Qualified Code(s): M25.311 - Other instability, right shoulder (3) Rotator cuff tear, right Rotator cuff tear extent: complete Rotator cuff tear trauma status: nontraumatic Qualified Code(s): M75.121 - Complete rotator cuff tear or rupture of right shoulder, not specified as traumatic
[2024-06-22] MEDS ORDERED: SODIUM CHLORIDE 0.9% 50 ML IV PRN (08:33)
[2024-06-22] MEDS ORDERED: SODIUM CHLORIDE 0.9% 100 ML IV PRN (08:33)
[2024-06-22] MEDS: BRIMONIDINE TARTRATE 0.2% 5ML OPR SCH (08:40)
[2024-06-22] MEDS: dexAMETHasone 10 MG in SYRINGE 0 ML IV SCH (08:40)
[2024-06-22] MEDS: CHOLECALCIFEROL 125 MCG (5,000 UNITS) TAB PO SCH (08:41)
[2024-06-22] MEDS: MULTIVITAMIN TAB PO SCH (08:41)
[2024-06-22] MEDS: DULoxetine HCL 60 MG CAP PO SCH (08:41)
[2024-06-22] MEDS: OMEGA-3 (PURIFIED FISH OIL) 1 GM CAP PO SCH (08:41)
[2024-06-22] MEDS: MAGNESIUM OXIDE 400 MG TAB PO SCH (08:41)
[2024-06-22] MEDS: LOSARTAN POTASSIUM 50 MG TAB PO SCH (08:41)
[2024-06-22] MEDS: RIVAROXABAN 20 MG TAB PO SCH (08:41)
[2024-06-22] MEDS: allopurinoL 100 MG TAB PO SCH (08:41)
[2024-06-22] MEDS: TOPIRAMATE 25 MG TAB PO SCH (08:42)
[2024-06-22] MEDS: CHLORTHALIDONE 25 MG TAB PO SCH (08:42)
[2024-06-22] MEDS: TORSEMIDE 10 MG TAB PO SCH (08:42)
[2024-06-22] MEDS: ACETAMINOPHEN 325 MG TAB PO ONE (08:53)
[2024-06-22] MEDS: POLYETHYLENE (MIRALAX) 17 GM PACK PO PRN (08:54)
--- NOTE | 2024-06-22 09:11 | Hospitalist Progress Note ---
Date of Service June 22, 2024 Assessment & Plan (1) Rotator cuff tear arthropathy of right shoulder: (2) Status post reverse total arthroplasty of right shoulder: (3) Acute on chronic anemia: (4) Znrzm-yv-jzrehrd kidney injury: Plan Adriana Pringle is a 74y/o F with PMHx significant for Hyperlipidemia, HTN, GAUTAM on CPAP, hiatal hernia, CKD stage III, fibrillary glomerulonephritis, GERD, osteopenia/osteoarthritis, restless leg syndrome, fibromyalgia, chronic pain syndrome, peripheral neuropathy, glaucoma, history of right breast cancer s/p lumpectomy and history of recurrent DVT [on Xarelto] who underwent elective right reverse total shoulder arthroplasty on 06/21/[address] Arroyo. Our service was consulted on this patient for routine postoperative medical management. Rotator Cuff Tear Arthropathy of Right Shoulder S/P Elective Surgery: POD #1 s/p right reverse total shoulder arthroplasty with Dr. Abimael Arroyo on 06/21/2024. Per ortho for pain control, wound care, anticoagulation and activities. Continue incentive spirometry, PT/OT when appropriate as per ortho team. Acute on Chronic Anemia: Hgb downtrended to 7.2 today. Baseline Hgb ~8-10 per chart review. Likely dilutional component contributory as well as intraoperative blood loss. Upgraded level of care to med/surg + telemetry. 1 unit of PRBCs ordered to be transfused. Blood consent was obtained from the patient. Risks and benefits were explained. All questions were answered, and the patient was offered the opportunity to discuss with attending physician and declined. Repeat CBC ~1hr following the transfusion. Continue iron supplementation. Recent o/p iron panel done last month revealed iron 167, TIBC 263, TSAT 63 and ferritin 3414. Check B12 and folate levels in AM. CHRISTIANO on CKD Stage III History of Fibrillary Glomerulonephritis: Patient noted to have an CHRISTIANO with Cr of 2.39 today. Baseline Cr ~2.0 per chart review. Suspect attributed to relative hypotension/acute on chronic anemia/urinary retention. Currently producing urine however her total output is minimal. She has only urinated once since receiving IV Lasix yesterday for postoperative pulmonary edema. Bladder scan pending, Hamilton catheter to be placed for suspected urinary retention and will ultimately allow for closer monitor of her I&Os. UA/urine electrolytes/urine creatinine pending. Avoid nephrotoxic medications when able. Monitor renal function closely with daily AM labs and renally dose medications when able. Patient follows w/ Dr. Saadia Garcia at [facility] in [facility] [place]. Continue to hold home diuretics - torsemide/spironolactone/chlorthalidone. SOB, Postoperative Pulmonary Edema: Patient reportedly had developed some SOB and increased respiratory rate yesterday evening without becoming hypoxic. CXR yesterday revealed mild pulmonary edema. She is now s/p 20mg of IV Lasix. She was still complaining of some SOB this morning. Repeat CXR this morning revealed unchanged interstitial pulmonary edema with small bilateral pleural effusions. RVP pending. She is currently on 2L via nasal cannula and saturating well. Encouraged patient to use her incentive spirometer. Holding off on any additional diuresis for now given concern for urinary retention. HTN: Continue to hold home antihypertensives and diuretics given relative hypotension and CHRISTIANO. Monitor BP closely. History of Recurrent DVT: Home Xarelto restarted this morning per primary orthopedic service. Other Chronic Medical Conditions: HLD/history of TIA, chronic pain syndrome/fibromyalgia, glaucoma --> Can continue home medications for these specific conditions. Continue CPAP for GAUTAM. DVT Prophylaxis: On Xarelto as per above, continue. Code Status: FULL CODE PCP: Eboni Mckeon DO [[facility]] Disposition: Upgraded level of care from med/surg to med/surg + telemetry. Patient needs continued hospital stay for close monitoring/medical management, Dr. Arroyo updated via TT. We will continue to follow the patient with you during their hospital stay. You can reach a member of the [facility] Hospitalist Team 08/03 via [email or web address]. Patient seen in collaboration with Dr. Girgsby. Please see addendum. I spent a total of 60 minutes coordinating, documenting, and providing care for this patient excluding time spent in the performance of separately billed services. This included personally reviewing all current laboratories and imaging studies, medical reconciliation, outpatient chart review and discussion with specialists. This chart was completed in part utilizing Speech Voice Recognition Software. Grammatical errors, random word insertions, pronoun errors, and incomplete sentences are an occasional consequence of this system due to software limitations, ambient noise, and hardware issues. Any formal questions or c oncerns about the content, text, or information contained within the body of this dictation should be directly addressed to the provider for clarification. Admission and Anticipated Discharge Date Admission Date: June 21, 2024 Supervising Physician Co-Signing Physician Notes Patient seen and examined independently. She reports that her shortness of breath has improved compared to yesterday; denies any shortness of breath at the present time. Patient noted to have urinary retention for which Hamilton catheter was placed Patient to receive another unit of packed RBC followed by IV Lasix Rest per primary I have reviewed the advanced practitioner's documentation, and I agree with, and take responsibility for the plan of care I spent a total of 20 minutes coordinating, documenting, and providing care for this patient excluding time spent in the performance of separately billed services. All of the aforementioned completed while collaborating with the assigned advanced practitioner for a full treatment plan Subjective Patient with some mild ongoing SOB this morning. No increased oxygen requirement, she is sating well on 2L via NC. She denies any chest pain with the SOB. Reports that she received a dose of IV Lasix last night. She has only urinated once since receiving the Lasix. No bowel movement yet. She ate breakfast this morning without any issue. She reports mild to moderate right shoulder pain at this time. She has a minimal cough this morning; reports she had a productive cough of white-colored sputum yesterday afternoon. No sinus congestion or drainage. Review of Systems Review of Systems: At least ten systems reviewed and negative, except as noted in the subjective section. Physical Exam Physical Exam: General: Vitals as above, NAD, sitting up in bed, pleasant, conversing appropriately, on 2L via NC. A+Ox3, euthymic affect. HEENT: Normocephalic, atraumatic. Conjunctivae normal, anicteric sclerae. External ear and nose normal, oropharynx normal. Respiratory: Normal respiratory effort, lungs clear to auscultation, no wheeze/rales/rhonchi. No accessory muscle use. Cardiovascular: Regular rate, rhythm, no murmur, normal peripheral pulses, trace BLE edema/TEDs in place. Vessels: No JVD. Abdomen/GI: Normal bowel sounds, soft, nontender, no hepatosplenomegaly. Extremities/Musculoskeletal: No cyanosis or clubbing, R shoulder bandaged, surgical drain intact, R arm in a sling. Neurologic: No focal deficits, CN's II-XI not formally tested but appear grossly intact bilaterally. Skin: No rashes, somewhat pale but not diaphoretic, warm/dry. Results & Data Results & Data Vital Signs (Past 12 Hours) Vital Signs Temp Pulse Pulse Resp BP Pulse Ox O2 Del Method 06/22/24 07:15 36.8 C 73 18 124/77 97 Nasal Cannula 06/22/24 03:17 36.5 C 69 18 113/53 L 98 CPAP 06/21/24 23:07 36.5 C 71 18 112/67 97 Nasal Cannula 06/21/24 21:42 83 18 94 Nasal Cannula O2 Flow Rate 06/22/24 07:15 2 06/22/24 03:17 06/21/24 23:07 2 06/21/24 21:42 2 Laboratory Results Short CBC 06/22/24 Range/Units 05:40 WBC 12.06 H (4.8-10.8) K/ul Hgb 7.2 L (12.0-16.0) g/dl Hct 22.5 L (37.0-47.0) % Plt Count 237 (130-400) K/uL BMP 06/22/24 05:40 Sodium 142 Potassium 4.0 Chloride 110 H Carbon Dioxide 24 BUN 50 H Creatinine 2.39 H Glucose 103 H Calcium 8.7 (4) Msesf-ed-qyjghrj kidney injury Acute renal failure type: unspecified Chronic kidney disease stage: stage 3 (moderate) Chronic kidney disease stage 3 subtype: unspecified whether 3a or 3b Qualified Code(s): N17.9 - Acute kidney failure, unspecified; N18.30 - Chronic kidney disease, stage 3 unspecified
--- NOTE | 2024-06-22 09:38 | XRay Report ---
XR chest 1V portable HISTORY: 74 years-old Female SOB acute shortness of breath COMPARISON: 06/21/2024 TECHNIQUE: AP view chest FINDINGS: Cardiac silhouette is enlarged. Pulmonary vascular congestion with interstitial coarsening redemonstr ated. There is unchanged right hemidiaphragmatic elevation with small pleural effusions and bibasilar opacities. Large hiatal hernia. Right shoulder arthroplasty with overlying skin kerrie. Cervical sp inal fusion hardware. IMPRESSION: 1. Cardiomegaly with unchanged interstitial pulmonary edema. 2. Right hemidiaphragmatic elevation redemonstrated along with small pleural effusions and bibasilar opacities favoring atelectasis. 3. Hiatal hernia. ACT 112: Negative or not required by law. The above report was generated using voice recognition software. It may contain grammatical, syntax o r spelling errors. Electronically signed by: Marko Taylor M.D. 06/22/2024 9:37 AM
[2024-06-22 11:11] LABS: Adenovirus PCR Not Detected (NotDetected); Bordetella parapertussis PCR Not Detected (NotDetected); Bordetella pertussis PCR Not Detected (NotDetected); Chlamydia pneumoniae PCR Not Detected (NotDetected); Coronavirus 229E PCR Not Detected (NotDetected); Coronavirus CoV-2 (COVID19)PCR Not Detected (NotDetected); Coronavirus HKU1 PCR Not Detected (NotDetected); Coronavirus NL63 PCR Not Detected (NotDetected); Coronavirus OC43PCR Not Detected (NotDetected); Human Metapneumovirus PCR Not Detected (NotDetected); Influenza A PCR Not Detected (NotDetected); Influenza B PCR Not Detected (NotDetected); Mycoplasma pneumoniae PCR Not Detected (NotDetected); Parainfluenza Virus 1 PCR Not Detected (NotDetected); Parainfluenza Virus 2 PCR Not Detected (NotDetected); Parainfluenza Virus 3 PCR Not Detected (NotDetected); Parainfluenza Virus 4 PCR Not Detected (NotDetected); Respiratory Syncytial VirusPCR Not Detected (NotDetected); Rhinovirus/Enterovirus PCR Not Detected (NotDetected)
[2024-06-22] MEDS: diphenhydrAMINE Capsule 25 MG CAP PO ONE (11:53)
--- NOTE | 2024-06-22 13:43 | Communication Note ---
Date of Service: June 22, 2024 Hamilton catheter placed this morning with 600cc of urine output. Will give an additional dose of IV Lasix 40mg this evening ~6PM.
[2024-06-22 16:19] LABS: Hematocrit (blood only) 26.3 % (37.0-47.0); Hemoglobin 8.9 g/dl (12.0-16.0); Mean Corpuscular Hemoglobin 32.8 pg (25.0-34.0); Mean Corpuscular Hgb Conc 33.8 g/dL (32.0-36.0); Mean Platelet Volume 10.4 fL (9.4-12.4); Nucleated RBC # (auto) 0.06 K/uL (0.00-0.12); Nucleated RBC % (auto) 0.5 %; Platelet Count 286 K/uL (130-400); RDW Coefficient of Variation 15.3 % (11.5-14.5); RDW Standard Deviation 52.7 fL (36.4-46.3); Red Blood Count 2.71 M/uL (4.20-5.40); White Blood Count 12.94 K/ul (4.8-10.8)
[2024-06-22 16:32] LABS: Appearance Urine Clear (Clear); Bacteria Urine Automated None Seen (None Seen); Bilirubin Urine Negative (Negative); Blood Urine 2+ (Negative); Cast Urine Automated 0-2 /lpf (0-2); Color Urine Yellow; Epithelial Cell Urine Auto 0-2 /hpf (0-2); Glucose Urine UA Negative (Negative); Ketones Urine Negative (Negative); Leukocyte Esterase Urine Trace (Negative); Nitrite Urine Negative (Negative); Protein Urine 2+ (Negative); Urobilinogen Urine Negative (Negative); pH Urine 5.5 (4.5-7.5)
[2024-06-22 16:56] LABS: Creatinine Urine Random 35.9 mg/dl; Urine Potassium 31.4 mmol/L
[2024-06-22] MEDS: FUROSEMIDE 40 MG/4 ML VIAL IV ONE (17:32)
--- NOTE | 2024-06-22 18:19 | XRay Report ---
EXAM: Radiograph of the Right Shoulder 1 View INDICATION: Postop replacement. TECHNIQUE: One view of the right shoulder. COMPARISON: No relevant prior studies available. FINDINGS: Bones/joints: Reverse shoulder arthroplasty components well-seated. No fracture, dislocation or subluxation. Visualized ribs intact. 4 level anterior cervical fusion hardware noted. Soft tissues: Expected postoperative gas and swelling at the operative bed. The drain is in place. Lungs and pleural spaces: There is mild atelectasis in the right lung base. IMPRESSION: Satisfactory appearance of reverse right shoulder arthroplasty. ACT 112: Negative or not required by law. Electronically signed by Inocencia Ferrer 06-22-2024 6:18 PM
[2024-06-23 06:49] LABS: Hematocrit (blood only) 25.3 % (37.0-47.0); Hemoglobin 8.3 g/dl (12.0-16.0); Mean Corpuscular Hemoglobin 32.3 pg (25.0-34.0); Mean Corpuscular Hgb Conc 32.8 g/dL (32.0-36.0); Mean Corpuscular Volume 98.4 fL (80.0-100.0); Mean Platelet Volume 10.1 fL (9.4-12.4); Nucleated RBC # (auto) 0.04 K/uL (0.00-0.12); Nucleated RBC % (auto) 0.4 %; Platelet Count 293 K/uL (130-400); RDW Coefficient of Variation 15.5 % (11.5-14.5); RDW Standard Deviation 54.6 fL (36.4-46.3); Red Blood Count 2.57 M/uL (4.20-5.40); White Blood Count 11.33 K/ul (4.8-10.8)
[2024-06-23 07:10] LABS: Albumin Globulin Ratio 1.4 (0.9-2); Albumin Level 3.3 gm/dl (3.4-5.0); BUN Creatinine Ratio 21.4 (10-20); Bilirubin,Total 0.3 mg/dl (0.2-1.0); Calcium 8.8 mg/dl (8.6-10.3); Creatinine Clr Calc Pharmacy 17.9 ml/min; Globulin 2.4 gm/dl (2.5-4.0); Magnesium 2.2 mg/dl (1.7-2.4); Potassium 3.8 mmol/L (3.5-5.1); Total Protein 5.7 gm/dl (6.0-8.3)
[2024-06-23 07:30] LABS: Folate (Folic Acid),Ser orPlas 5.71 ng/ml (>5.38)
--- NOTE | 2024-06-23 07:37 | Orthopedic Progress Note ---
Date of Service June 23, 2024 Assessment & Plan (1) Ugtwu-oh-rveinte kidney injury: Plan: Continued medical management for acute on chronic renal insufficiency postop (2) Status post reverse total arthroplasty of right shoulder: Plan: Postop day 2 status post reverse total shoulder replacement. Orthopedically stable. Drain can be DC'd. Limited OT PT with hand wrist elbow range of motion shoulder shrugs scapular retraction type exercises only and maintain in sling otherwise. Some of her shortness of breath may be related to the regional block right shoulder which should be resolved by tomorrow completely. Charted block has worn off as she can use her hand well at this time. Admission and Anticipated Discharge Date Admission Date: June 21, 2024 Subjective Patient able to take a deeper breath today. No chest pain. Has some pain in her shoulder but not as bad as preoperatively. Review of Systems Review of Systems: Shortness of breath improved still on oxygen Physical Exam Musculoskeletal: Distal circulation sensorimotor exam intact. Dressing dry and intact. Sling intact. Results & Data Vital Signs (Past 12 Hours) Vital Signs Temp Pulse Pulse Resp BP Pulse Ox O2 Del Method 06/23/24 07:23 58 L 06/23/24 03:06 36.2 C L 59 L 18 131/73 93 CPAP 06/23/24 00:00 68 06/22/24 22:04 37.1 C 76 18 119/70 95 Nasal Cannula 06/22/24 20:07 36.9 C 77 16 130/72 95 Nasal Cannula 06/22/24 20:00 Nasal Cannula O2 Flow Rate 06/23/24 07:23 06/23/24 03:06 1 06/23/24 00:00 06/22/24 22:04 1 06/22/24 20:07 1 06/22/24 20:00 2 Laboratory Results Hemoglobin 8.3, BUN 57, creatinine 2.66 (1) Xlila-ha-fyuitsd kidney injury Acute renal failure type: unspecified Chronic kidney disease stage: stage 3 (moderate) Chronic kidney disease stage 3 subtype: unspecified whether 3a or 3b Qualified Code(s): N17.9 - Acute kidney failure, unspecified; N18.30 - Chronic kidney disease, stage 3 unspecified
--- NOTE | 2024-06-23 09:23 | Hospitalist Progress Note ---
Date of Service June 23, 2024 Assessment & Plan (1) Rotator cuff tear arthropathy of right shoulder: (2) Status post reverse total arthroplasty of right shoulder: (3) Acute on chronic anemia: (4) Qexww-lf-gviwlxr kidney injury: Plan Adriana Pringle is a 74y/o F with PMHx significant for Hyperlipidemia, HTN, GAUTAM on CPAP, hiatal hernia, CKD stage III, fibrillary glomerulonephritis, GERD, osteopenia/osteoarthritis, restless leg syndrome, fibromyalgia, chronic pain syndrome, peripheral neuropathy, glaucoma, history of right breast cancer s/p lumpectomy and history of recurrent DVT [on Xarelto] who underwent elective right reverse total shoulder arthroplasty on 06/21/[address] Arroyo. Our service was consulted on this patient for routine postoperative medical management. Rotator Cuff Tear Arthropathy of Right Shoulder S/P Elective Surgery: POD #2 s/p right reverse total shoulder arthroplasty with Dr. Abimael Arroyo on 06/21/2024. Per ortho for pain control, wound care, anticoagulation and activities. Continue incentive spirometry, PT/OT. CM working on rehabilitation placement. She is currently a resident at [facility] in [place] - has been there since 07/2023. Acute on Chronic Anemia S/P Transfusion: Hgb downtrended to 7.2 yesterday. Baseline Hgb ~8-10 per chart review. Likely dilutional component contributory as well as intraoperative blood loss. S/p 1 unit of PRBCs. Hgb improved to 8.3 this morning. Continue iron supplementation. Recent o/p iron panel done last month revealed iron 167, TIBC 263, TSAT 63 and ferritin 3414. Vitamin B12 level 277, folate level 5.71 - starting B12 anguiano pplementation. CHRISTIANO on CKD Stage III History of Fibrillary Glomerulonephritis: Patient noted to have an CHRISTIANO with Cr of 2.39 yesterday. Baseline Cr ~2.0 per chart review. Suspect attributed to relative hypotension/acute on chronic anemia/urinary retention. Was producing minimal urine output s/p IV Lasix prior to Hamilton catheter placement yesterday. Her Cr has increased to 2.66 today. Nephrology consulted for further recs/input. Continue to avoid nephrotoxic medications when able. Monitor renal function closely with daily AM labs and renally dose medications when able. Patient follows w/ Dr. Saadia Garcia at [facility] in [place], [place]. Continue to hold home diuretics - torsemide/spironolactone/chlorthalidone. SOB, Possible Bronchitis Postoperative Pulmonary Edema S/P IV Diuresis: Patient reportedly had developed some SOB and increased respiratory rate on 06/21/2024 without becoming hypoxic. CXR had revealed mild pulmonary edema. She is now s/p 20mg of IV Lasix. She was still complaining of some SOB yesterday morning and repeat CXR at that time revealed unchanged interstitial pulmonary edema with small bilateral pleural effusions. RVP negative. Gave her an additional 40mg of IV Lasix. She is currently on 2L via nasal cannula and saturating well - plan to wean down as tolerated. Encouraged patient to continuing using her incentive spirometer/flutter valve. Holding off on any additional diuresis for now. She has had a mildly productive cough (whitish sputum/some blood-tinged) and is c/o some sinus drainage/congestion. Starting her on po Levaquin, Mucinex as well. More than likely bronchitis, but she is certainly at risk for developing a pneumonia in her postoperative state. Preliminary sputum culture with moderate normal cadence, final report still pending. HTN: Continue to hold home antihypertensives and diuretics given relative hypotension and CHRISTIANO. Monitor BP closely. History of Recurrent DVT: Home Xarelto restarted yesterday per primary orthopedic service. Other Chronic Medical Conditions: HLD/history of TIA, chronic pain syndrome/fibromyalgia, glaucoma --> Can continue home medications for these specific conditions. Continue CPAP for GAUTAM. DVT Prophylaxis: On Xarelto as per above, continue. Code Status: FULL CODE PCP: Eboni Mckeon DO [[facility]] Disposition: Admitting in Med/Surg + Telemetry. CM working on rehabilitation placement, anticipate 2-3 more days in the hospital depending on her clinical progression. We will continue to follow the patient with you during their hospital stay. You can reach a member of the [facility] Hospitalist Team 08/03 via [email or web address]. Patient seen in collaboration with Dr. Grigsby. Please see addendum. I spent a total of 50 minutes coordinating, documenting, and providing care for this patient excluding time spent in the performance of separately billed services. This included personally reviewing all current laboratories and imaging studies, medical reconciliation, outpatient chart review and discussion with specialists. This chart was completed in part utilizing Speech Voice Recognition Software. Grammatical errors, random word insertions, pronoun errors, and incomplete sentences are an occasional consequence of this system due to software limitations, ambient noise, and hardware issues. Any formal questions or concerns about the content, text, or information contained within the body of this dictation should be directly addressed to the provider for clarification. Admission and Anticipated Discharge Date Admission Date: June 21, 2024 Supervising Physician Co-Signing Physician Notes Patient seen and examined independently. Patient reports improvement in shortness of breath compared to yesterday. Reports cough with occasional sputum mixed with blood; started on Levaquin for possible pneumonia. Creatinine up trended to 2.66; nephrology consulted for comanagement. DC to rehab in next few days. I have reviewed the advanced practitioner's documentation, and I agree with, and take responsibility for the plan of care I spent a total of 20 minutes coordinating, documenting, and providing care for this patient excluding time spent in the performance of separately billed se rvices. All of the aforementioned completed while collaborating with the assigned advanced practitioner for a full treatment plan Subjective Patient reports improvement in her shortness of breath. She is still on 2L via NC but saturating well. Plan to wean down as tolerated. Patient was not on oxygen prior to arrival. Nursing staff had informed me that the patient had been coughing up some blood last night and again this morning. Patient reports that she has only had 2 incidents where she coughed up thin pink-tinged sputum; she was not coughing up bright red blood. Notes some mild sinus drainage/congestion She has been using her incentive spirometer and flutter valve regularly. Review of Systems Review of Systems: At least ten systems reviewed and negative, except as noted in the subjective section. Physical Exam Physical Exam: General: Vitals as above, NAD, sitting up in chair at bedside, pleasant, conversing appropriately, on 2L via NC. A+Ox3, euthymic affect. HEENT: Normocephalic, atraumatic. Conjunctivae normal, anicteric sclerae. External ear and nose normal, oropharynx normal. Respiratory: Normal respiratory effort, lungs clear to auscultation, no wheeze/rales/rhonchi. No accessory muscle use. Cardiovascular: Regular rate, rhythm, no murmur, normal peripheral pulses, trace BLE edema/TEDs in place. Vessels: No JVD. Abdomen/GI: Normal bowel sounds, soft, nontender, no hepatosplenomegaly. Extremities/Musculoskeletal: No cyanosis or clubbing, R shoulder bandaged, surgical drain intact, R arm in a sling. Neurologic: No focal deficits, CN's II-XI not formally tested but appear grossly intact bilaterally. Skin: No rashes, somewhat pale but not diaphoretic, warm/dry. Results & Data Results & Data Vital Signs (Past 12 Hours) Vital Signs Temp Pulse Pulse Pulse Resp BP Pulse Ox 06/23/24 07:23 58 L 06/23/24 07:00 36.6 C 65 16 139/76 98 06/23/24 03:06 36.2 C L 59 L 18 131/73 93 06/23/24 00:00 68 06/22/24 22:04 37.1 C 76 18 119/70 95 O2 Del Method O2 Flow Rate 06/23/24 07:23 06/23/24 07:00 Nasal Cannula 2 06/23/24 03:06 CPAP 1 06/23/24 00:00 06/22/24 22:04 Nasal Cannula 1 Laboratory Results Short CBC 06/22/24 06/23/24 Range/Units 15:43 06:28 WBC 12.94 H 11.33 H (4.8-10.8) K/ul Hgb 8.9 L 8.3 L (12.0-16.0) g/dl Hct 26.3 L 25.3 L (37.0-47.0) % Plt Count 286 293 (130-400) K/uL BMP 06/23/24 06:28 Sodium 141 Potassium 3.8 Chloride 108 H Carbon Dioxide 26 BUN 57 H Creatinine 2.66 H Glucose 90 Calcium 8.8 Liver Function 06/23/24 Range/Units 06:28 Total Bilirubin 0.3 (0.2-1.0) mg/dl AST 19 (13-39) U/L ALT 27 (7-52) U/L Alkaline Phosphatase 74 (34-104) U/L Albumin 3.3 L (3.4-5.0) gm/dl Urine 06/22/24 Range/Units Unknown Urine Color Yellow Urine Appearance Clear (Clear) Urine pH 5.5 (4.5-7.5) Ur Specific [place] 1.010 (1.000-1.030) Urine Protein 2+ H (Negative) Urine Glucose (UA) Negative (Negative) (4) Mscih-ws-paggoun kidney injury Acute renal failure type: unspecified Chronic kidney disease stage: stage 3 (moderate) Chronic kidney disease stage 3 subtype: unspecified whether 3a or 3b Qualified Code(s): N17.9 - Acute kidney failure, unspecified; N18.30 - Chronic kidney disease, stage 3 unspecified
--- NOTE | 2024-06-23 12:20 | Nephrology Consultation ---
Date of Consultation June 23, 2024 Assessment & Plan (1) Qplos-wv-rqirwlt kidney injury: Stage 1 nonoliguric CHRISTIANO on CKD4, likely c/b all the hemodynamic changes w/ surgery baseline creatinine low to mid 2s, or CKD 4; BP w/ acceptable control -cont to hold losartan, chlorthalidone, spironolactone, torsemide -will give lasix IV 30 mg tid to help address pulmonary edema -daily BMP -continue NSAID avoidance -no indication for discussion of dialysis at this time (2) Acute on chronic anemia: continue daily hgb s/p 1 unit pRBC (3) Stage 4 chronic kidney disease: See above History of Present Illness Reason for Consultation: CHRISTIANO on CKD3 Requesting Physician: Dr Espino Attending Physician: Abimael Arroyo MD History of Present Illness 74 y/o F whom I'm asked to see for CHRISTIANO on CKD is under observation after renal function worsened in the wake of R shoulder total arthroplasty. Her baseline renal function based on labs in [facility] EHR is creatinine low 2's for at least past 5 mos w/ EGFR mid 20s, so CKD 4. also w/ 4.2 gm proteinuria. her creatinine most recently as OP was 2.0. She follows w/ Dr Whiting for OP nephro care. Creatinine in this range particularly notable given her small stature > 4ft 11in. Other PMH includes DVT on xarelto, GAUTAM on CPAP, resistant HTN, breast CA s/p R lumpectomy, OA, spinal stenosis and chronic back pain, fibromyalgia, HL, stress incontinence, GERD. She is a facility resident at [facility] in [place]. She recieved spironolactone 25 mg and lasix 20 mg each x 1 on 06/21; on 06/22 she had her regular outpatient doses of torsemide, chlorthalidone, and losartan (spironolactone held); she also had an extra 40 mg dose of IV lasix on 06/22. No diuretics today. Blood pressure has been running generally 130s systolic. She was short of breath particularly on 06/21 pm and remains on 02 currently 2L; her surgical drain was removed today. appetite still touch and go but denies n/v, cough, dyspnea, worsening UOP or dysuria/gross hematuria. Allergies Allergy/AdvReac Type Severity Reaction Status Date / Time Penicillins Allergy Severe Elevated Verified 06/21/24 09:58 temperature, fever, hives (see comments) chlorhexidine Allergy Intermediate Skin Verified 06/21/24 09:58 irritation/rash hepatitis B virus vaccine Allergy Intermediate Reacted Verified 06/21/24 09:[address]" hydrochlorothiazide Allergy Intermediate Joint Pain Verified 06/21/24 09:58 iodine Allergy Intermediate itchy Verified 06/21/24 09:58 oxcarbazepine Allergy Intermediate Burning, Verified 06/21/24 09:58 feet pain simvastatin [From Zocor] Allergy Intermediate Joint Pain Verified 06/21/24 09:58 tramadol Allergy Intermediate Leg Verified 06/21/24 09:58 swelling adhesive Allergy Mild Rash Verified 06/21/24 09:58 Cephalosporins Allergy Mild Rash Verified 06/21/24 09:58 doxycycline Allergy Mild Rash Verified 06/21/24 09:58 lisinopril Allergy Mild Rash, hives Verified 06/21/24 09:58 ropinirole Allergy Mild Rash Verified 06/21/24 09:58 Sulfa (Sulfonamide Allergy Mild Rash Verified 06/21/24 09:58 Antibiotics) vancomycin Allergy Mild Rash Verified 06/21/24 09:58 choline fenofibrate Allergy Unknown Unknown Verified 06/21/24 09:58 methyl salicylate AdvReac Intermediate itchiness Verified 06/21/24 10:48 [From [employer]] Zymptnm-JKP-AqZ Reductase AdvReac Intermediate Joint Verified 06/21/24 09:58 Inhibitor pain, [Npjrkcr-Nok-Aim Reductase myalgias Inhibitor] NSAIDS (Non-Steroidal AdvReac Mild Avoids due Verified 06/21/24 09:58 Anti-Inflamma to kidney dysfunction menthol [From [employer]] AdvReac Verified 06/21/24 10:47 Home Medications Medication Instructions Recorded Confirmed Type chlorthalidone 25 mg tablet 25 mg PO QAM 06/13/19 06/21/24 History cholecalciferol (vitamin D3) 125 5,000 unit PO QAM 06/13/19 06/21/24 History mcg (5,000 unit) tablet (Vitamin D3) clindamycin HCl 300 mg capsule 600 mg PO UD PRN PRE DENTAL 06/13/19 06/21/24 History duloxetine 60 mg capsule,delayed 60 mg PO QAM 06/13/19 06/21/24 History release ferrous sulfate 325 mg (65 mg 325 mg PO BID 06/13/19 06/21/24 History iron) tablet latanoprost 0.005 % eye drops 1 drp ophthalmic (eye) HS 06/13/19 06/21/24 History magnesium oxide 800 mg PO QAM PRN supplement 06/13/19 06/21/24 History peg 400-propylene glycol (PF) 0.4 1 drp ophthalmic (eye) UD PRN Dry 06/13/19 06/21/24 History %-0.3 % eye drops in a dropperette Eyes (Systane (PF)) polyethylene glycol 3350 17 gram 17 g PO DAILY PRN Constipation 06/13/19 06/21/24 History oral powder packet (Miralax) pramipexole 1.5 mg tablet (Mirapex) 0.5 mg PO QPM 06/13/19 06/21/24 History spironolactone 25 mg tablet 25 mg PO BID 06/13/19 06/21/24 History timolol 0.5 % eye drops 1 drp ophthalmic (eye) BID 06/13/19 06/21/24 History topiramate 100 mg tablet 50 - 100 mg PO BID 06/13/19 06/21/24 History allopurinol 100 mg tablet 100 mg PO QAM 07/31/21 06/21/24 History aspirin 81 mg tablet 81 mg PO QPM 07/31/21 06/21/24 History fish oil-fat acid comb8-herb 1 cap PO QAM 07/31/21 06/21/24 History [id number] 1,200 mg (400 [id number]) cap losartan 100 mg tablet (Cozaar) 100 mg PO QAM 07/31/21 06/21/24 History oxycodone-acetaminophen 5 mg-325 1 tab PO BID PRN Severe Pain 07/31/21 06/21/24 History mg tablet (Percocet) (Scale Score 7-10) rivaroxaban 20 mg tablet (Xarelto) 20 mg PO QDB 07/31/21 06/21/24 History brimonidine 0.2 % eye drops 1 drp OPR QAM 06/07/23 06/21/24 History famotidine 40 mg tablet 40 mg PO BID 06/07/23 06/21/24 History acetaminophen 325 mg tablet 650 mg PO QID PRN pain/fever 05/23/24 06/21/24 History baclofen 5 mg tablet 5 mg PO HS 05/23/24 06/21/24 History flximevuikjon-rdzuvljbtrrmn-xckhezi 20 ml PO Q4H PRN cough/congestion 05/23/24 06/21/24 History 10 mg-650 mg-400 mg/20 mL oral liq torsemide 10 mg tablet 10 mg PO QAM 05/23/24 06/21/24 History Patient History Medical History (Updated 06/23/24 @ 18:31 by Gwendolyn Starr MD, PhD) Stage 4 chronic kidney disease History of anesthesia complications awareness during previous surgeries Chronic back pain [facility] Restless legs syndrome Myelopathy concurrent with and due to spinal stenosis of cervical region HLD (hyperlipidemia) H/O recurrent transient ischemic attacks Per records dating back to 2017 Depression Obesity History of COVID-19 (~2021) mild symptoms, resolved Glomerulonephritis GERD (gastroesophageal reflux disease) Stable per patient Hypertension controlled, stable per pt History of DVT (deep vein thrombosis) (~2018) Hx multiple DVT DVT LLE s/p right ankle surgery Taking Xarelto History of blood transfusion (~1997) s/p childbirth History of breast cancer Right (ductal) s/p right breast lumpectomy *RUE limb restriction* Stress incontinence Urinary Hiatal hernia Fibromyalgia Spinal stenosis Scoliosis Osteoarthritis Glaucoma Right eye Sleep apnea CPAP High cholesterol Surgical History S/P spinal surgery History of total bilateral knee replacement Nausea and vomiting after administration of anesthetic agent History of cervical discectomy C6-7 ACDF, C5 corpectomy (08/15/2021): Elective glidescope use with MILS due to limited ROM, ETT 7 at [facility] History of carpal tunnel surgery of right wrist S/P epidural steroid injection History of ankle surgery Right triple arthrodesis 07/07/2019: LMA#4, 1 attempt atraumatic History of vascular surgery Hypogastric artery ligation (2/2 childbirth complications) History of endoscopy History of colonoscopy History of hernia surgery Multiple (one with mesh) History of vascular surgery Left leg "venous ablation" History of hysteroscopy History of hysterectomy History of section History of lumpectomy Right History of cardiac cath "Many years ago"- no stents Family History Aunt History of colon cancer History of breast cancer Aunt History of breast cancer Aunt History of breast cancer Aunt History of breast cancer Aunt History of breast cancer Other History of prediabetes Social History Smoking Status: Never smoker Do You Dip or Chew Tobacco: No; Hx Alcohol Use: Yes Alcohol type: wine Hx Substance Use: No Preferred Language: Unknown Communication Ability: Effective Communication Ability Comment: unk Contact Lens Technician Required: No Beliefs That Will Affect Care: None marital status: Current Living Situation: Personal Care Facility Current Living Situation Comment: [facility] Other Information That Helps Us Care for You: No Feels Safe at Home: Yes Assistive Devices: CPAP and Walker Assistive Devices Comment: unk Review of Systems 2 Review of Systems: All systems reviewed & are unremarkable except as noted in HPI & below Physical Exam 2 Constitutional: well developed (sitting up in chair on02NC) and well nourished Eyes: EOM intact bilaterally ENMT: Mouth: + dry oral mucous membranes Respiratory: normal respiratory effort Auscultation: lungs clear to auscultation bilaterally and + diminished lung sounds (markedly) Cardiovascular: Rate/Rhythm: regular rate and regular rhythm Extremities: n o edema Gastrointestinal (Abdomen): Inspection/Auscultation: normal bowel sounds P ercussion/Palpation: abdomen soft; abdomen nontender Musculoskeletal: Extremities: strength 5/5 throughout (R arm in sling) Skin: no rashes, warm and dry Neurologic: angulo, fluent speech, no tremor Psychiatric: Orientation: alert and oriented x 3 Speech: normal rate/rhythm/volume of speech Results & Data Vital Signs (Past 12 Hours) Vital Signs Temp Pulse Pulse Pulse Resp BP Pulse Ox 06/23/24 12:02 36.7 C 68 16 132/53 L 99 06/23/24 08:00 06/23/24 07:23 58 L 06/23/24 07:00 36.6 C 65 16 139/76 98 06/23/24 03:06 36.2 C L 59 L 18 131/73 93 O2 Del Method O2 Flow Rate 06/23/24 12:02 Nasal Cannula 2 06/23/24 08:00 Nasal Cannula 2 06/23/24 07:23 06/23/24 07:00 Nasal Cannula 2 06/23/24 03:06 CPAP 1 Laboratory Results 06/23/24 06:28 06/23/24 06:28 UA w/ 2+ blood, protein Diagnostic Findings cxr (images reviewed) 06/22 1. Cardiomegaly with unchanged interstitial pulmonary edema. 2. Right hemidiaphragmatic elevation redemonstrated along with small pleural effusions and bibasilar opacities favoring atelectasis. 3. Hiatal hernia. (1) Bgxvo-za-ldplmqx kidney injury Acute renal failure type: unspecified Chronic kidney disease stage: stage 3 (moderate) Chronic kidney disease stage 3 subtype: unspecified whether 3a or 3b Qualified Code(s): N17.9 - Acute kidney failure, unspecified; N18.30 - Chronic kidney disease, stage 3 unspecified
[2024-06-23] MEDS: AZITHROMYCIN 250 MG TAB PO SCH (13:42)
[2024-06-23] MEDS: levoFLOXacin 750 MG TAB PO ONE (14:33)
[2024-06-23] MEDS: guaiFENesin 600 MG TABCR PO SCH (20:15)
[2024-06-23] MEDS: FUROSEMIDE INJ 20 MG/2 ML VIAL IV SCH (20:16)
--- NOTE | 2024-06-24 06:20 | Orthopedic Progress Note ---
Date of Service June 24, 2024 Assessment & Plan (1) Ilfep-fr-lahecsu kidney injury: Plan: Continued medical management for acute on chronic renal insufficiency postop (2) Status post reverse total arthroplasty of right shoulder: Plan: Postop day 3 status post reverse total shoulder replacement. Orthopedically stable. Limited OT PT with hand wrist elbow range of motion shoulder shrugs s capular retraction type exercises only and maintain in sling otherwise. stable from ortho standpoint, patient can be discharged once stable from medical perspective. discharge instructions placed for discharge when stable, will f/u with Dr Arroyo team in 2 weeks as scheduled. ortho will sign off at this time Admission and Anticipated Discharge Date Admission Date: June 21, 2024 Subjective POD #3 s/p Right Reverse Total Shoulder Arthroplasty, excision massive subacr omial bursal soft tissue mass Review of Systems Constitutional: no fever and no chills Respiratory: no cough and no dyspnea Cardiovascular: no chest pain, no dyspnea and no orthopnea Gastrointestinal: no abdominal pain, no nausea and no vomiting Physical Exam Physical Exam: Vital Signs Temp 36.9 C 06/24/24 03:46 Pulse 73 06/24/24 03:46 Resp 18 06/24/24 03:46 BP 155/85 H 06/24/24 03:46 Pulse Ox 96 06/24/24 03:46 O2 Del Method CPAP 06/24/24 03:46 O2 Flow Rate 2 06/24/24 03:46 Intake & Output 06/23/24 06/23/24 06/24/24 06:59 18:59 06:59 Intake Total 200 / 800 600 / 800 Output Total 1550 / 2150 500 / 2875 2375 / 2875 Balance -1550 / -1840 -300 / -2075 -1775 / -2075 Weight 88.133 kg 87.815 kg Intake: Oral 200 / 600 400 / 600 Tube Feeding 200 / 200 Output: Urine 800 / 1400 2375 / 2375 Urine Amount (Ca theter) 700 / 700 500 / 500 Hamilton/Indwelli ng 700 / 700 500 / 500 Drain Output 50 / 50 Right Shoulder Hemovac 50 / 50 Other: Weight Measureme nt Method Built in Bedscale Built in Bedscale Musculoskeletal: Right shoulder: arm resting in sling, dressing clean and dry. rad/med/ulnar nerves intact distally. rad +2. sensation intact to light touch. Results & Data Vital Signs (Past 12 Hours) Vital Signs Temp Pulse Pulse Resp BP Pulse Ox O2 Del Method 06/24/24 03:46 36.9 C 73 18 155/85 H 96 CPAP 06/23/24 22:54 36.7 C 72 18 146/80 H 98 Nasal Cannula 06/23/24 22:17 66 06/23/24 20:15 Room Air 06/23/24 19:44 36.7 C 76 18 129/74 98 Nasal Cannula O2 Flow Rate 06/24/24 03:46 2 06/23/24 22:54 2 06/23/24 22:17 06/23/24 20:15 06/23/24 19:44 2 Laboratory Results Laboratory Results WBC 11.33 K/ul (4.8-10.8) H 06/23/24 06:28 RBC 2.57 M/uL (4.20-5.40) L 06/23/24 06:28 Hgb 8.3 g/dl (12.0-16.0) L 06/23/24 06:28 Hct 25.3 % (37.0-47.0) L 06/23/24 06:28 MCV 98.4 fL (80.0-100.0) 06/23/24 06:28 MCH 32.3 pg (25.0-34.0) 06/23/24 06:28 MCHC 32.8 g/dL (32.0-36.0) 06/23/24 06:28 RDW Std Deviation 54.6 fL (36.4-46.3) H 06/23/24 06:28 RDW Coeff of Ramsey 15.5 % (11.5-14.5) H 06/23/24 06:28 Plt Count 293 K/uL (130-400) 06/23/24 06:28 MPV 10.1 fL (9.4-12.4) 06/23/24 06:28 Immature Gran % (Auto) 0.8 % 06/22/24 05:40 Neut % (Auto) 77.6 % 06/22/24 05:40 Lymph % (Auto) 10.4 % 06/22/24 05:40 [place] % (Auto) 10.4 % 06/22/24 05:40 Eos % (Auto) 0.2 % 06/22/24 05:40 Baso % (Auto) 0.6 % 06/22/24 05:40 Neut # (Auto) 9.35 K/uL (1.40-6.50) H 06/22/24 05:40 Lymph # (Auto) 1.25 K/uL (1.20-3.40) 06/22/24 05:40 [place] # (Auto) 1.26 K/uL (0.11-0.59) H 06/22/24 05:40 Eos # (Auto) 0.03 K/uL (0.00-0.50) 06/22/24 05:40 Baso # (Auto) 0.07 K/uL (0.00-0.20) 06/22/24 05:40 Immature Gran # (Auto) 0.10 K/uL (0.01-0.20) 06/22/24 05:40 Absolute Nucleated RBC 0.04 K/uL (0.00-0.12) 06/23/24 06:28 Nucleated RBC % (auto) 0.4 % 06/23/24 06:28 Polychromasia 1+ 06/22/24 05:40 Sodium 141 mmol/L (136-145) 06/23/24 06:28 Potassium 3.8 mmol/L (3.5-5.1) 06/23/24 06:28 Chloride 108 mmol/L (98-107) H 06/23/24 06:28 Carbon Dioxide 26 mmol/L (21-32) 06/23/24 06:28 Anion Gap 7 (3-11) 06/23/24 06:28 BUN 57 mg/dl (6-23) H 06/23/24 06:28 Creatinine 2.66 mg/dl (0.6-1.2) H 06/23/24 06:28 Est Cr Clr Drug Dosing 17.9 ml/min 06/23/24 06:28 eGFR 18.27 06/23/24 06:28 BUN/Creatinine Ratio 21.4 (10-20) H 06/23/24 06:28 Glucose 90 mg/dl (70-99(Fasting)) 06/23/24 06:28 Calcium 8.8 mg/dl (8.6-10.3) 06/23/24 06:28 Phosphorus 4.0 mg/dl (2.5-4.9) 06/23/24 06:28 Magnesium 2.2 mg/dl (1.7-2.4) 06/23/24 06:28 Total Bilirubin 0.3 mg/dl (0.2-1.0) 06/23/24 06:28 AST 19 U/L (13-39) 06/23/24 06:28 ALT 27 U/L (7-52) 06/23/24 06:28 Alkaline Phosphatase 74 U/L (34-104) 06/23/24 06:28 Total Protein 5.7 gm/dl (6.0-8.3) L 06/23/24 06:28 Albumin 3.3 gm/dl (3.4-5.0) L 06/23/24 06:28 Globulin 2.4 gm/dl (2.5-4.0) L 06/23/24 06:28 Albumin/Globulin Ratio 1.4 (0.9-2) 06/23/24 06:28 Vitamin B12 277 pg/ml (180-914) 06/23/24 06:28 Folate 5.71 ng/ml (>5.38) 06/23/24 06:28 Urine Color Yellow 06/22/24 Unknown Urine Appearance Clear (Clear) 06/22/24 Unknown Urine pH 5.5 (4.5-7.5) 06/22/24 Unknown Ur Specific [place] 1.010 (1.000-1.030) 06/22/24 Unknown Urine Protein 2+ (Negative) H 06/22/24 Unknown Urine Glucose (UA) Negative (Negative) 06/22/24 Unknown Urine Ketones Negative (Negative) 06/22/24 Unknown Urine Blood 2+ (Negative) H 06/22/24 Unknown Urine Nitrite Negative (Negative) 06/22/24 Unknown Urine Bilirubin Negative (Negative) 06/22/24 Unknown Urine Urobilinogen Negative (Negative) 06/22/24 Unknown Ur Leukocyte Esterase Trace (Negative) H 06/22/24 Unknown Urine WBC (Auto) 6-10 /hpf (0-5) H 06/22/24 Unknown Urine RBC (Auto) 11-20 /hpf (0-2) H 06/22/24 Unknown U Hyaline Cast (Auto) 0-2 /lpf (0-2) 06/22/24 Unknown U Epithel Cells (Auto) 0-2 /hpf (0-2) 06/22/24 Unknown Urine Bacteria (Auto) None Seen (None Seen) 06/22/24 Unknown Ur Random Creatinine 35.9 mg/dl 06/22/24 Unknown Urine Sodium 60 mmol/L 06/22/24 Unknown Urine Potassium 31.4 mmol/L 06/22/24 Unknown Urine Chloride 71 mmol/L 06/22/24 Unknown Adenovirus (PCR) Not Detected (NotDetected) 06/22/24 Unknown B. pertussis DNA (PCR) Not Detected (NotDetected) 06/22/24 Unknown B.parapertussis DNA PCR Not Detected (NotDetected) 06/22/24 Unknown C. pneumoniae DNA (PCR) Not Detected (NotDetected) 06/22/24 Unknown Coronavirus OC43 (PCR) Not Detected (NotDetected) 06/22/24 Unknown Coronavirus HKU1 (PCR) Not Detected (NotDetected) 06/22/24 Unknown Coronavirus 229E (PCR) Not Detected (NotDetected) 06/22/24 Unknown SARS-CoV-2 (PCR) Not Detected (NotDetected) 06/22/24 Unknown Coronavirus NL63 (PCR) Not Detected (NotDetected) 06/22/24 Unknown Human Metapneumovir PCR Not Detected (NotDetected) 06/22/24 Unknown Influenza Type A (PCR) Not Detected (NotDetected) 06/22/24 Unknown Influenza Type B (PCR) Not Detected (NotDetected) 06/22/24 Unknown M. pneumoniae (PCR) Not Detected (NotDetected) 06/22/24 Unknown Parainfluenza 1 (PCR) Not Detected (NotDetected) 06/22/24 Unknown Parainfluenza 2 (PCR) Not Detected (NotDetected) 06/22/24 Unknown Parainfluenza 3 (PCR) Not Detected (NotDetected) 06/22/24 Unknown Parainfluenza 4 (PCR) Not Detected (NotDetected) 06/22/24 Unknown RSV (PCR) Not Detected (NotDetected) 06/22/24 Unknown Entero/Rhino (PCR) Not Detected (NotDetected) 06/22/24 Unknown SARS-CoV-2, RNA, NAAT NEGATIVE (NEGATIVE) 06/21/24 Unknown Blood Type A Positive 06/21/24 09:46 Antibody Screen NEGATIVE 06/21/24 09:46 Crossmatch See Detail 06/21/24 09:46 Impressions Shoulder X-Ray 06/21/24 14:35 EXAM: Radiograph of the Right Shoulder 1 View INDICATION: Postop replacement. TECHNIQUE: One view of the right shoulder. COMPARISON: No relevant prior studies available. FINDINGS: Bones/joints: Reverse shoulder arthroplasty components well-seated. No fracture, dislocation or subluxation. Visualized ribs intact. 4 level anterior cervical fusion hardware noted. Soft tissues: Expected postoperative gas and swelling at the operative bed. The drain is in place. Lungs and pleural spaces: There is mild atelectasis in the right lung base. IMPRESSION: Satisfactory appearance of reverse right shoulder arthroplasty. ACT 112: Negative or not required by law. Electronically signed by Inocencia Ferrer 06-22-2024 6:18 PM Chest X-Ray 06/22/24 09:04 XR chest 1V portable HISTORY: 74 years-old Female SOB acute shortness of breath COMPARISON: 06/21/2024 TECHNIQUE: AP view chest FINDINGS: Cardiac silhouette is enlarged. Pulmonary vascular congestion with interstitial coarsening redemonstrated. There is unchanged right hemidiaphragmatic elevation with small pleural effusions and bibasilar opacities. Large hiatal hernia. Right shoulder arthroplasty with overlying skin kerrie. Cervical spinal fusion hardware. IMPRESSION: 1. Cardiomegaly with unchanged interstitial pulmonary edema. 2. Right hemidiaphragmatic elevation redemonstrated along with small pleural effusions and bibasilar opacities favoring atelectasis. 3. Hiatal hernia. ACT 112: Negative or not required by law. The above report was generated using voice recognition software. It may contain grammatical, syntax or spelling errors. Electronically signed by: Marko Taylor M.D. 06/22/2024 9:37 AM (1) Avmkm-xe-zaxlozd kidney injury Acute renal failure type: unspecified Chronic kidney disease stage: stage 3 (moderate) Chronic kidney disease stage 3 subtype: unspecified whether 3a or 3b Qualified Code(s): N17.9 - Acute kidney failure, unspecified; N18.30 - Chronic kidney disease, stage 3 unspecified
--- NOTE | 2024-06-24 07:23 | Hospitalist Progress Note ---
Date of Service June 24, 2024 Assessment & Plan (1) Rotator cuff tear arthropathy of right shoulder: (2) Status post reverse total arthroplasty of right shoulder: (3) Acute on chronic anemia: (4) Mwese-ld-cgkccna kidney injury: Plan Adriana Pringle is a 74y/o F with PMHx significant for Hyperlipidemia, HTN, GAUTAM on CPAP, hiatal hernia, CKD stage III, fibrillary glomerulonephritis, GERD, osteopenia/osteoarthritis, restless leg syndrome, fibromyalgia, chronic pain syndrome, peripheral neuropathy, glaucoma, history of right breast cancer s/p lumpectomy and history of recurrent DVT [on Xarelto] who underwent elective right reverse total shoulder arthroplasty on 06/21/[address] Arroyo. Our service was consulted on this patient for routine postoperative medical management. Rotator Cuff Tear Arthropathy of Right Shoulder S/P Elective Surgery: POD #4 s/p right reverse total shoulder arthroplasty with Dr. Abimael Arroyo on 06/21/2024. Per ortho for pain control, wound care, anticoagulation and activities. Continue incentive spirometry, PT/OT. CM working on rehabilitation placement at [facility] She is currently a resident at [facility] in [place] - has been there since 07/2023. Acute on Chronic Anemia S/P Transfusion: Hgb downtrended to 7.2 On 06/22 Baseline Hgb ~8-10 per chart review. Likely dilutional component contributory as well as intraoperative blood loss. S/p 1 unit of PRBCs. Hgb improved to 8.3--> now 8.4 on 06/24. Continue iron supplementation. Recent o/p iron panel done last month revealed iron 167, TIBC 263, TSAT 63 and ferritin 3414. Vitamin B12 level 277, folate level 5.71 - now taking B12 supplementation. CHRISTIANO on CKD Stage III History of Fibrillary Glomerulonephritis: Patient noted to have an CHRISTIANO with Cr of 2.39 06/22. Baseline Cr ~2.0 per chart review. Suspect attributed to relative hypotension/acute on chronic anemia/urinary retention. Hamilton catheter placement 06/22. Creatinine 2.66; today 2.68. Appreciate nephrology recommendations; continue to avoid nephrotoxic meds when able. Monitor renal function closely with daily AM labs and renally dose medications Patient follows w/ Dr. Saadia Garcia at [facility] in [facility] [place]. Continue to hold home diuretics - torsemide/spironolactone/chlorthalidone. SOB, Possible Bronchitis Postoperative Pulmonary Edema S/P IV Diuresis: Patient reportedly had developed some SOB and increased respiratory rate on 06/21/2024 without becoming hypoxic. CXR had revealed mild pulmonary edema. Repeat CXR at that time revealed unchanged interstitial pulmonary edema with small bilateral pleural effusions. On Lasix 30 mg TID; -3L over 24 hours. hold for now and reassess Appears euvolemic on examination On RA and compliant and performing incentive spirometry/flutter valve at bedside. Continues to have a mildly productive cough (whitish sputum/some blood-tinged) and is c/o some sinus drainage/congestion. Starting her on po Levaquin, Mucinex as well. More than likely bronchitis, but she is certainly at risk for developing a pneumonia in her postoperative state. Sputum culture with moderate normal cadence, final report negative; will continue for now given risk factor. HTN: Continue to hold home antihypertensives and diuretics given relative hypotension and CHRISTIANO. Monitor BP closely; normotensive. History of Recurrent DVT: Home Xarelto restarted yesterday per primary orthopedic service. Other Chronic Medical Conditions: HLD/history of TIA, chronic pain syndrome/fibromyalgia, glaucoma --> Can continue home medications for these specific conditions. Continue CPAP for GAUTAM. DVT Prophylaxis: On Xarelto as per above, continue. Code Status: FULL CODE PCP: Eboni Mckeon DO [[facility]] Disposition: Admitting in Med/Surg + Telemetry. Discussed with CM regarding Acute rehab at [facility]; would anticipate discharge on Tuesday 06/26 pending continued improvement. Pt Edwin appreciates updates: [phone] I spent a total of 48 minutes coordinating, documenting, and providing care for this patient excluding time spent in the performance of separately billed services. This included personally reviewing all current laboratories and imaging studies, medical reconciliation, outpatient chart review and discussion with specialists. This chart was completed in part utilizing Speech Voice Recognition Software. Grammatical errors, random word insertions, pronoun errors, and incomplete sentences are an occasional consequence of this system due to software limitations, ambient noise, and hardware issues. Any formal questions or concerns about the content, text, or information contained within the body of this dictation should be directly addressed to the provider for clarification. Admission and Anticipated Discharge Date Admission Date: June 21, 2024 Supervising Physician Co-Signing Physician Notes Chart reviewed; discussed with above provider Patient is responding well with the diuretics with urine output of nearly 4 L in last 24 hours. Creatinine up trended to 2.68 Continue Levaquin for possible pnuemonia; sputum culture negative I have reviewed the advanced practitioner's documentation, and I agree with, and take responsibility for the plan of care Subjective POD #4 s/p Right Reverse Total Shoulder Arthroplasty, excision massive subacromial bursal soft tissue mass Patient denies headache, dizziness, chest pain, shortness of breath, palpitations. Intermittent numbness and tingling in right fingers as anticipated postop. Patient with continued cough. Review of Systems Review of Systems: Neuro: (-) Falls, trauma, slurred speech HEENT: (-) [place], dizziness, dysphagia, visual or auditory changes CV: (-) CP, palpitations, swelling Resp: (-) SOB (+) cough GI: (-) appetite changes, N/V/D, bowel changes : (-) urinary changes Skin: (-) rashes Psych: (-) anxiety, depression Physical Exam Physical Exam: Neuro: AAOx4, PERRLA, no aphagia, memory changes, CNII-XII grossly intact HEENT: head normocephalic, moist mucus membranes CV: S1/S2, (-) M/G/R, (-) edema, cap refill < 3 seconds Resp: Lungs CTA in all polo. On RA GI: Abdomen S/NT/ND, Ax4 bowel sounds, (-) CVA tenderness Musculoskeletal: 5/5 B/L UE strength, 5/5 B/L LE strength. No gait disturbance Skin: (-) rashes , (-) erythema. Psych: euthymic mood Results & Data Results & Data Vital Signs (Past 12 Hours) Vital Signs Temp Pulse Pulse Resp BP Pulse Ox O2 Del Method 06/24/24 07:14 Nasal Cannula 06/24/24 03:46 36.9 C 73 18 155/85 H 96 CPAP 06/23/24 22:54 36.7 C 72 18 146/80 H 98 Nasal Cannula 06/23/24 22:17 66 06/23/24 20:15 Nasal Cannula, CPAP 06/23/24 19:44 36.7 C 76 18 129/74 98 Nasal Cannula O2 Flow Rate 06/24/24 07:14 2 06/24/24 03:46 2 06/23/24 22:54 2 06/23/24 22:17 06/23/24 20:15 2 06/23/24 19:44 2 Laboratory Results Short CBC 06/24/24 Range/Units 06:21 WBC 8.84 (4.8-10.8) K/ul Hgb 8.4 L (12.0-16.0) g/dl Hct 24.8 L (37.0-47.0) % Plt Count 307 (130-400) K/uL BMP 06/24/24 06:21 Sodium 140 Potassium 3.7 Chloride 105 Carbon Dioxide 26 BUN 60 H Creatinine 2.68 H Glucose 91 Calcium 9.1 (4) Typyh-xd-fecyrdx kidney injury Acute renal failure type: unspecified Chronic kidney disease stage: stage 3 (moderate) Chronic kidney disease stage 3 subtype: unspecified whether 3a or 3b Qualified Code(s): N17.9 - Acute kidney failure, unspecified; N18.30 - Chronic kidney disease, stage 3 unspecified
[2024-06-24 07:25] LABS: Hematocrit (blood only) 24.8 % (37.0-47.0); Hemoglobin 8.4 g/dl (12.0-16.0); Mean Corpuscular Hemoglobin 32.7 pg (25.0-34.0); Mean Corpuscular Hgb Conc 33.9 g/dL (32.0-36.0); Mean Corpuscular Volume 96.5 fL (80.0-100.0); Mean Platelet Volume 10.4 fL (9.4-12.4); Nucleated RBC # (auto) 0.04 K/uL (0.00-0.12); Nucleated RBC % (auto) 0.5 %; Platelet Count 307 K/uL (130-400); RDW Coefficient of Variation 15.7 % (11.5-14.5); RDW Standard Deviation 52.9 fL (36.4-46.3); Red Blood Count 2.57 M/uL (4.20-5.40); White Blood Count 8.84 K/ul (4.8-10.8)
[2024-06-24] MEDS: CYANOCOBALAMIN (B-12) 100 MCG TABLET PO SCH (07:36)
[2024-06-24 07:49] LABS: BUN Creatinine Ratio 22.4 (10-20); Calcium 9.1 mg/dl (8.6-10.3); Creatinine Clr Calc Pharmacy 17.7 ml/min; Magnesium 2.1 mg/dl (1.7-2.4); Potassium 3.7 mmol/L (3.5-5.1)
[2024-06-24] MEDS: diphenhydrAMINE Capsule 25 MG CAP PO PRN (21:17)
[2024-06-25 07:09] LABS: Hematocrit (blood only) 26.7 % (37.0-47.0); Hemoglobin 8.7 g/dl (12.0-16.0); Mean Corpuscular Hemoglobin 32.5 pg (25.0-34.0); Mean Corpuscular Hgb Conc 32.6 g/dL (32.0-36.0); Mean Corpuscular Volume 99.6 fL (80.0-100.0); Mean Platelet Volume 10.1 fL (9.4-12.4); Nucleated RBC # (auto) 0.02 K/uL (0.00-0.12); Nucleated RBC % (auto) 0.3 %; Platelet Count 309 K/uL (130-400); RDW Coefficient of Variation 16.7 % (11.5-14.5); RDW Standard Deviation 55.2 fL (36.4-46.3); Red Blood Count 2.68 M/uL (4.20-5.40); White Blood Count 7.33 K/ul (4.8-10.8)
[2024-06-25 07:40] LABS: BUN Creatinine Ratio 25.5 (10-20); Calcium 8.9 mg/dl (8.6-10.3); Creatinine Clr Calc Pharmacy 20.3 ml/min; Potassium 3.9 mmol/L (3.5-5.1)
--- NOTE | 2024-06-25 07:41 | Hospitalist Progress Note ---
Date of Service June 25, 2024 Assessment & Plan (1) Rotator cuff tear arthropathy of right shoulder: (2) Status post reverse total arthroplasty of right shoulder: (3) Acute on chronic anemia: (4) Ppqor-ml-snufnev kidney injury: Plan Adriana Pringle is a 74y/o F with PMHx significant for Hyperlipidemia, HTN, GAUTAM on CPAP, hiatal hernia, CKD stage III, fibrillary glomerulonephritis, GERD, osteopenia/osteoarthritis, restless leg syndrome, fibromyalgia, chronic pain syndrome, peripheral neuropathy, glaucoma, history of right breast cancer s/p lumpectomy and history of recurrent DVT [on Xarelto] who underwent elective right reverse total shoulder arthroplasty on 06/21/[address] Arroyo. Our service was consulted on this patient for routine postoperative medical management. Rotator Cuff Tear Arthropathy of Right Shoulder S/P Elective Surgery: POD #5 s/p right reverse total shoulder arthroplasty with Dr. Abimael Arroyo on 06/21/2024. Per ortho for pain control, wound care, anticoagulation and activities. Continue incentive spirometry, PT/OT. CM working on rehabilitation placement at [facility] She is currently a resident at [facility] in [place] - has been there since 07/2023. Acute on Chronic Anemia S/P Transfusion: Baseline Hgb ~8-10 per chart review 06/22: Hgb downtrended to 7.2 On 06/22. S/p 1 unit of PRBCs--> 8.9 06/23: Hgb 8.3 06/24: Hgb 8.4 06/25: 8.7 Continue iron supplementation. Recent o/p iron panel done last month revealed iron 167, TIBC 263, TSAT 63 and ferritin 3414. Vitamin B12 level 277, folate level 5.71 [id number] supplementation. CHRISTIANO on CKD Stage III History of Fibrillary Glomerulonephritis: CHRISTIANO improving each day. 06/22: 06/23: 2.66 06/24: 2.68 06/25: 2.31 Baseline Cr ~2.0 per chart review. Suspect attributed to relative hypotension/acute on chronic anemia/urinary retention. Hamilton catheter placement 06/22 which helped with urinary rentention Appreciate nephrology recommendations; continue to avoid nephrotoxic meds when able. Patient follows w/ Dr. Saadia Garcia at [facility] [place]. Restart Torsemide today; if Creatinine continues to hold/improves on 06/26; ok to restart Chlorthalidone Continue to hold Aldactone; if discharged and continues to improve, consider restarting. SOB, Possible Bronchitis Postoperative Pulmonary Edema S/P IV Diuresis: Patient reportedly had developed some SOB and increased respiratory rate on 06/21/2024 without becoming hypoxic. CXR had revealed mild pulmonary edema. Repeat CXR at that time revealed unchanged interstitial pulmonary edema with small bilateral pleural effusions. Received Lasix with adequate diuresis of nearly 4L; want to avoid overdiuresing; hold additional lasix for now. On RA and compliant and performing incentive spirometry/flutter valve at bedside. Continues to have a mildly productive cough (whitish sputum/some blood-tinged) and is c/o some sinus drainage/congestion. Starting her on po Levaquin; last dose 06/26, Mucinex as well. More than likely bronchitis, but she is certainly at risk for developing a pneumonia in her postoperative state. Sputum culture with moderate normal cadence, final report negative; will continue for now given risk factor. Appears euvolemic on examination HTN: Continue to hold home antihypertensives and diuretics given relative hypotension and CHRISTIANO. Monitor BP closely; normotensive. History of Recurrent DVT: Home Xarelto restarted yesterday per primary orthopedic service. Other Chronic Medical Conditions: HLD/history of TIA, chronic pain syndrome/fibromyalgia, glaucoma --> Can continue home medications for these specific conditions. Continue CPAP for GAUTAM. Disposition: DVT Prophylaxis: On Xarelto as per above, continue. Code Status: FULL CODE PCP: Eboni Mckeon DO [[facility]] Disposition: Admitting in Med/Surg + Telemetry. Discussed with CM regarding Acute rehab at [facility]; anticipate discharge on Tuesday 06/26 pending continued improvement. Pt Edwin appreciates updates: [phone]; updated at bedside on 06/25 I spent a total of 45 minutes coordinating, documenting, and providing care for this patient excluding time spent in the performance of separately billed services. This included personally reviewing all current laboratories and imaging studies, medical reconciliation, outpatient chart review and discussion with specialists. This chart was completed in part utilizing Speech Voice Recognition Software. Grammatical errors, random word insertions, pronoun errors, and incomplete sentences are an occasional consequence of this system due to software l imitations, ambient noise, and hardware issues. Any formal questions or concerns about the content, text, or information contained within the body of this dictation should be directly addressed to the provider for clarification. Admission and Anticipated Discharge Date Admission Date: June 24, 2024 Supervising Physician Co-Signing Physician Notes Chart reviewed; discussed with above provider Patient's creatinine downtrending near to baseline at 2.31 Home dose of torsemide restarted Possible discharge in next few days depending on placement I have reviewed the advanced practitioner's documentation, and I agree with, and take responsibility for the plan of care Subjective POD #5 s/p Right Reverse Total Shoulder Arthroplasty, excision massive subacromial bursal soft tissue mass Patient denies headache, dizziness, chest pain, shortness of breath, palpitations. Intermittent numbness and tingling in right fingers as anticipated postop. Patient with continued cough, but states it feels markedly improved today. Patient very pleasant today. Pt son, Edwin, at bedside and updated along side the patient. Spent considerable time going over her medications/labs. See A/P for further details. Review of Systems Review of Systems: Neuro: (-) Falls, trauma, slurred speech HEENT: (-) [place], dizziness, dysphagia, visual or auditory changes CV: (-) CP, palpitations, swelling Resp: (-) SOB (+) cough GI: (-) appetite changes, N/V/D, bowel changes : (-) urinary changes Skin: (-) rashes Psych: (-) anxiety, depression Physical Exam Physical Exam: Neuro: AAOx4, PERRLA, no aphagia, memory changes, CNII-XII grossly intact HEENT: head normocephalic, moist mucus membranes CV: S1/S2, (-) M/G/R, (-) edema, cap refill < 3 seconds Resp: Lungs CTA in all polo. On RA GI: Abdomen S/NT/ND, Ax4 bowel sounds, (-) CVA tenderness Musculoskeletal: 5/5 B/L UE strength, 5/5 B/L LE strength. No gait disturbance. Right arm in immobilization sling post op. Skin: (-) rashes , (-) erythema. Psych: euthymic mood Results & Data Results & Data Vital Signs (Past 12 Hours) Vital Signs Temp Pulse Pulse Resp BP Pulse Ox O2 Del Method 06/25/24 02:53 36.5 C 66 18 144/86 H 96 Room Air 06/24/24 23:00 36.8 C 69 18 112/61 95 Room Air 06/24/24 21:58 Room Air, CPAP 06/24/24 21:44 75 Laboratory Results Short CBC 06/25/24 Range/Units 06:29 WBC 7.33 (4.8-10.8) K/ul Hgb 8.7 L (12.0-16.0) g/dl Hct 26.7 L (37.0-47.0) % Plt Count 309 (130-400) K/uL BMP 06/25/24 06:29 Sodium 141 Potassium 3.9 Chloride 104 Carbon Dioxide 27 BUN 59 H Creatinine 2.31 H D Glucose 94 Calcium 8.9 (4) Stzgv-zo-pbwbnry kidney injury Acute renal failure type: unspecified Chronic kidney disease stage: stage 3 (moderate) Chronic kidney disease stage 3 subtype: unspecified whether 3a or 3b Qualified Code(s): N17.9 - Acute kidney failure, unspecified; N18.30 - Chronic kidney disease, stage 3 unspecified
[2024-06-25] MEDS: levoFLOXacin 500 MG TAB PO SCH (09:46)
[2024-06-25] MEDS: guaiFENesin/DEXTROM SYRUP 200MG/20MG 10ML UDC PO PRN (09:47)
[2024-06-26 06:30] LABS: Basophils # (auto) 0.04 K/uL (0.00-0.20); Basophils % (auto) 0.6 %; Eosinophils # (auto) 0.52 K/uL (0.00-0.50); Eosinophils % (auto) 7.4 %; Hematocrit (blood only) 26.8 % (37.0-47.0); Hemoglobin 8.5 g/dl (12.0-16.0); Immature Granulocytes # (auto) 0.12 K/uL (0.01-0.20); Immature Granulocytes % (auto) 1.7 %; Lymphocytes # (auto) 0.94 K/uL (1.20-3.40); Lymphocytes % (auto) 13.4 %; Mean Corpuscular Hemoglobin 31.7 pg (25.0-34.0); Mean Corpuscular Hgb Conc 31.7 g/dL (32.0-36.0); Mean Platelet Volume 9.9 fL (9.4-12.4); Monocytes # (auto) 0.83 K/uL (0.11-0.59); Monocytes % (auto) 11.9 %; Neutrophils # (auto) 4.54 K/uL (1.40-6.50); Platelet Count 289 K/uL (130-400); RDW Coefficient of Variation 16.6 % (11.5-14.5); RDW Standard Deviation 56.8 fL (36.4-46.3); Red Blood Count 2.68 M/uL (4.20-5.40); White Blood Count 6.99 K/ul (4.8-10.8)
[2024-06-26 06:41] LABS: BUN Creatinine Ratio 23.1 (10-20); Calcium 8.8 mg/dl (8.6-10.3); Creatinine Clr Calc Pharmacy 18.9 ml/min; Potassium 3.6 mmol/L (3.5-5.1)
[2024-06-26 07:54] VITALS: TEMP 97.9
--- NOTE | 2024-06-26 10:23 | Nephrology Progress Note ---
Date of Service June 26, 2024 Assessment & Plan Admission and Anticipated Discharge Date Admission Date: June 24, 2024 Subjective Assessment & Plan (1) Nupxd-oh-fueucrg kidney injury: Nonoliguric CHRISTIANO on CKD4, likelysec to the hemodynamic changes w/ surgery/Low BP baseline creatinine low to mid 2s, or CKD 4 already. was on losartan, chlorthalidone, spironolactone, torsemide--were held on admission and iv lasix given to help address pulmonary edema Plan for D/c to rehab today--this is reasonable. No need for triple diuretics as outpt. raise torsemide to 20 daily--she now has CKD 4 and went into Pulm edema so need a more aggressive Loop diuretics dose for outpt. No aldactone or Chlorthalidone. Restart losartan at 50 daily. remove combs now. make sure she urinates with less than <100 ml post void residual urine prior to discharge. 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 if she desires to change to [facility] locally she can be set up. (2) Acute on chronic anemia: continue daily hgb s/p 1 unit pRBC (3) Stage 4 chronic kidney disease: See above Above plan discussed with primary team and in Agreement. time spent 45 mins total. S---No new issues. has pain and weakness but no SOB. still has combs. urine 1325 ml yesterday Physical Exam Constitutional: well developed (sitting up in chair on02NC) and well nourished Eyes: EOM intact bilaterally ENMT: Mouth: + dry oral mucous membranes Respiratory: normal respiratory effort Auscultation: lungs clear to auscultation bilaterally and + diminished lung sounds (markedly) Cardiovascular: Rate/Rhythm: regular rate and regular rhythm Extremities: no edema Gastrointestinal (Abdomen): Inspection/Auscultation: normal bowel sounds Percussion/Palpation: abdomen soft; abdomen nontender Musculoskeletal: Extremities: strength 5/5 throughout (R arm in sling) Skin: no rashes, warm and dry Neurologic: angulo, fluent speech, no tremor Psychiatric: Orientation: alert and oriented x 3 Speech: normal rate/rhythm/volume of speech Results & Data Vital Signs (Past 12 Hours) Vital Signs Temp Pulse Pulse Resp BP Pulse Ox O2 Del Method 06/26/24 07:53 36.6 C 63 16 158/83 H 98 Room Air 06/26/24 07:30 60 06/26/24 03:55 84 06/26/24 03:08 35.7 C L 59 L 18 139/62 98 Room Air, CPAP 06/26/24 01:57 Room Air 06/25/24 23:36 35.9 C L 71 18 140/69 96 Room Air, CPAP
--- NOTE | 2024-06-26 10:26 | Hospitalist Progress Note ---
Date of Service June 26, 2024 Assessment & Plan (1) Rotator cuff tear arthropathy of right shoulder: (2) Status post reverse total arthroplasty of right shoulder: (3) Acute on chronic anemia: (4) Mrktf-gz-iinneqn kidney injury: Plan Adriana Pringle is a 74y/o F with PMHx significant for Hyperlipidemia, HTN, GAUTAM on CPAP, hiatal hernia, CKD stage III, fibrillary glomerulonephritis, GERD, osteopenia/osteoarthritis, restless leg syndrome, fibromyalgia, chronic pain syndrome, peripheral neuropathy, glaucoma, history of right breast cancer s/p lumpectomy and history of recurrent DVT [on Xarelto] who underwent elective right reverse total shoulder arthroplasty on 06/21/[address] Arroyo. Our service was consulted on this patient for routine postoperative medical management. Rotator Cuff Tear Arthropathy of Right Shoulder S/P Elective Surgery: POD #5 s/p right reverse total shoulder arthroplasty with Dr. Abimael Arroyo on 06/21/2024. Per ortho for pain control, wound care, anticoagulation and activities. Continue incentive spirometry, PT/OT. Patient has been accepted at [facility]. She is currently a resident at [facility] in [place] - has been there since 07/2023. Acute on Chronic Anemia S/P Transfusion: Hgb downtrended to 7.2 on 06/22. Baseline Hgb ~8-10 per chart review. Likely dilutional component contributory as well as intraoperative blood loss. S/p 1 unit of PRBCs on 06/22. Hgb has since remained stable, 8.5 today. Continue iron supplementation. Recent o/p iron panel done last month revealed iron 167, TIBC 263, TSAT 63 and ferritin 3414. Now on vitamin B12 supplementation. CHRISTIANO on CKD Stage III --> IV History of Fibrillary Glomerulonephritis: Patient noted to have an CHRISTIANO with Cr of 2.39 on 06/22. Baseline Cr ~2.0 per chart review. Suspect attributed to relative hypotension/acute on chronic anemia/urinary retention. Hamilton catheter was placed on 06/22 which helped relieve her urinary retention. Was receiving IV Lasix 2/2 pulmonary edema. Cr continues to fluctuate (2.39 -> 2.66 -> 2.68 -> 2.31 -> 2.47 today). Increase torsemide to 20mg daily as the patient now has CKD stage IV requiring more aggressive diuretic therapy. Discontinue Aldactone and chlorthalidone, no need for triple diuretics as an outpatient. Can restart losartan at 50mg daily. Order placed to remove Hamilton catheter. Will need to ensure she urinates s/p Hamilton catheter removal with <100mL postvoid residual prior to discharge. Nursing staff made aware via TT. Patient follows w/ Dr. Saadia Garcia at [facility] in [place], [place]. Will need outpatient nephrology f/u appointment within the next 1-2 weeks. SOB, Possible Bronchitis Postoperative Pulmonary Edema S/P IV Diuresis: Patient reportedly had developed some SOB and increased respiratory rate on 06/21/2024 without becoming hypoxic. Was found to have mild pulmonary edema on CXR. Received IV Lasix with adequate diuresis of nearly 4L; has been weaned off supplemental oxygen, saturating well on RA. Continues to have a mildly productive cough (whitish sputum/some blood-tinged). Was started on po Levaquin on 06/23, last dose will be on 06/29. Mucinex onboard as well. More than likely bronchitis, but she is certainly at risk for developing a pneumonia in her postoperative state. Sputum culture with moderate normal cadence, final report negative; will continue for now given risk factor. Appears euvolemic on examination. History of Recurrent DVT: On Xarelto - continue. HTN: Can restart home losartan (changed to 50mg daily from 100mg daily) as per above. Torsemide increased to 20mg daily. Aldactone/chlorthalidone discontinued per nephro. Other Chronic Medical Conditions: HLD/history of TIA, chronic pain syndrome/fibromyalgia, glaucoma --> Can continue home medications for these specific conditions. CPAP HS for GAUTAM. DVT Prophylaxis: On Xarelto as per above, continue. Code Status: FULL CODE PCP: Eboni Mckeon DO [[facility]] Disposition: Admitting in Med/Surg + Telemetry - classroom monitor discontinued this morning. Patient will likely be discharged to [facility] later on this afternoon if her postvoid residual is less than 100mL as per above. Updated her , Edwin, over the phone and he was agreeable with the plan moving forward. Will need close PCP/ortho/nephrology follow-up appointments. Patient seen in collaboration with Dr. Grigsby. Please see addendum. I spent a total of 40 minutes coordinating, documenting, and providing care for this patient excluding time spent in the performance of separately billed services. This included personally reviewing all current laboratories and imaging studies, medical reconciliation, outpatient chart review and discussion with specialists. This chart was completed in part utilizing Speech Voice Recognition Software. Grammatical errors, random word insertions, pronoun errors, and incomplete sentences are an occasional consequence of this system due to software limitations, ambient noise, and hardware issues. Any formal questions or concerns about the content, text, or information contained within the body of this dictation should be directly addressed to the provider for clarification. Admission and Anticipated Discharge Date Admission Date: June 24, 2024 Subjective Patient reports that she feels very well this morning, her shortness of breath and cough have greatly improved. Her right shoulder pain is well-controlled. She is still having some intermittent numbness/tingling in her right fingers as to be anticipated postoperatively. She does note some itchiness/erythema from the quality assurance monitor body stickers - instructed her that these can be removed, nursing staff made aware. She mentions that she is expected to go to [facility] for rehabilitation therapy prior to returning to [facility]. Review of Systems Review of Systems: At least ten systems reviewed and negative, except as noted in the subjective section. Physical Exam Physical Exam: General: Vitals as above, NAD, sitting up in chair at bedside, very pleasant, conversing appropriately on RA. A+Ox3, euthymic affect. HEENT: Normocephalic, atraumatic. Conjunctivae normal, anicteric sclerae. External ear and nose normal, oropharynx normal. Respiratory: Normal respiratory effort, lungs clear to auscultation, no wheeze/rales/rhonchi. No accessory muscle use. Cardiovascular: Regular rate, rhythm, no murmur, normal peripheral pulses, no BLE edema/TEDs in place. Vessels: No JVD. Abdomen/GI: Normal bowel sounds, soft, nontender, no hepatosplenomegaly. Extremities/Musculoskeletal: No cyanosis or clubbing, R shoulder bandaged, R arm in immobilization sling. Neurologic: No focal deficits, CN's II-XI not formally tested but appear grossly intact bilaterally. Skin: No rashes, normal color, warm/dry. Mild erythema noted around quality assurance monitor body sticker sites, no skin breakdown. Results & Data Results & Data Vital Signs (Past 12 Hours) Vital Signs Temp Pulse Pulse Resp BP Pulse Ox O2 Del Method 06/26/24 07:53 36.6 C 63 16 158/83 H 98 Room Air 06/26/24 07:30 60 06/26/24 03:55 84 06/26/24 03:08 35.7 C L 59 L 18 139/62 98 Room Air, CPAP 06/26/24 01:57 Room Air 06/25/24 23:36 35.9 C L 71 18 140/69 96 Room Air, CPAP Laboratory Results Short CBC 06/26/24 Range/Units 05:55 WBC 6.99 (4.8-10.8) K/ul Hgb 8.5 L (12.0-16.0) g/dl Hct 26.8 L (37.0-47.0) % Plt Count 289 (130-400) K/uL [facility] 06/26/24 05:55 Sodium 141 Potassium 3.6 Chloride 104 Carbon Dioxide 27 BUN 57 H Creatinine 2.47 H Glucose 97 Calcium 8.8 (4) Trqfu-cg-kbhrqrs kidney injury Acute renal failure type: unspecified Chronic kidney disease stage: stage 3 (moderate) Chronic kidney disease stage 3 subtype: unspecified whether 3a or 3b Qualified Code(s): N17.9 - Acute kidney failure, unspecified; N18.30 - Chronic kidney disease, stage 3 unspecified
[2024-06-26 11:28] VITALS: PULSE 71
--- NOTE | 2024-06-26 13:34 | Discharge Summary ---
Discharge Summary Date of Service June 26, 2024 Principal Dx & Hospital Course #1 = Principal Diagnosis (1) Rotator cuff tear arthropathy of right shoulder: (2) Status post reverse total arthroplasty of right shoulder: (3) Acute on chronic anemia: (4) Zxzes-px-kkpdsep kidney injury: Heidi Pringle is a 74y/o F with PMHx significant for Hyperlipidemia, HTN, GAUTAM on CPAP, hiatal hernia, CKD stage III, fibrillary glomerulonephritis, GERD, osteopenia/osteoarthritis, restless leg syndrome, fibromyalgia, chronic pain syndrome, peripheral neuropathy, glaucoma, history of right breast cancer s/p lumpectomy and history of recurrent DVT [on Xarelto] who underwent elective right reverse total shoulder arthroplasty on 06/21/[address] Arroyo. Our service was consulted on this patient for routine postoperative medical management. Rotator Cuff Tear Arthropathy of Right Shoulder S/P Elective Surgery: Patient underwent right reverse total shoulder arthroplasty with Dr. Abimael Arroyo on 06/21/2024. Orthopedically stable; to remain in immobilization sling until until her orthopedic follow-up appointment with Dr. Arroyo in approximately 2 weeks. Patient is being discharged to [facility] for rehabilitation services before returning back to [facility]. Acute on Chronic Anemia S/P Transfusion: S/p 1 unit of PRBCs as her Hgb had downtrended to 7.2 on 06/22 (baseline Hgb ~8- 10 per chart review). Likely dilutional component contributory as well as intraoperative blood loss. Recent o/p iron panel done last month revealed iron 167, TIBC 263, TSAT 63 and ferritin 3414. Vitamin B12 level 277, folate level 5.71 - started on B12 supplementation. Hgb continued to remain stable, 8.5 on discharge. Continue iron supplementation. Patient has previously seen Dr. Jarrod Montez at [facility] for Procrit injections. CHRISTIANO on CKD Stage III --> IV History of Fibrillary Glomerulonephritis: Patient noted to have an CHRISTIANO with Cr of 2.39 on 06/22 (baseline Cr ~2.0 per chart review). Suspect attributed to relative hypotension/acute on chronic anemia/urinary retention. Had a Hamilton catheter placed on 06/22 due to urinary retention. Cr continued to remain elevated (2.39 -> 2.66 -> 2.68 -> 2.31 -> 2.47 on 06/26); nephrology was consulted --> Patient progressed to CKD stage IV. Nephro made the following medication changes on 06/26: 1. Torsemide dose increased from 10mg to 20mg daily. 2. Losartan dose decreased from 100mg to 50mg daily. 3. Spironolactone and chlorthalidone discontinued - no need for triple diuretic therapy. Hamilton removed on 06/26; First postvoid residual of 0mL s/p Hamilton catheter removal. Patient follows with Dr. Saadia Garcia at [facility] in [place], [place] --> 1 to 2-week follow-up appointment to be arranged at [facility]. SOB, Bronchitis/Possible Pneumonia Postoperative Pulmonary Edema S/P IV Diuresis: Patient reportedly had developed some SOB and increased respiratory rate on 06/21 without becoming hypoxic. RVP was negative, CXR had revealed mild pulmonary edema. She received IV Lasix with adequate diuresis of nearly 4L. She previously was on 2L via nasal cannula but now has been weaned down to RA without issue. She was complaining of a mildly productive cough and some sinus drainage/congestion. She was started on po Levaquin on 06/23 - full course to be completed on 06/29. More than likely bronchitis, however she was certainly at risk for developing a pneumonia in her postoperative state. Sputum culture with moderate normal cadence, final report negative. Euvolemic on exam at time of discharge. 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 HTN: Home losartan decreased from 100mg daily to 50mg daily. Spironolactone/chlorthalidone both discontinued; torsemide dose increased to 20mg daily. Normotensive at time of discharge. Other Chronic Medical Conditions: HLD/history of TIA, chronic pain syndrome/fibromyalgia, glaucoma --> Can continue home medications for these specific conditions. Continue CPAP for GAUTAM. PCP: Eboni Mckeon DO [[facility]] Disposition: Patient is being discharged to [facility] in good condition for rehabilitation services. Patient's , Edwin, updated over the phone and will provide transportation for the patient over to [facility]. Patient seen in collaboration with Dr. Grigsby. Please see addendum. I spent a total of 65 minutes coordinating, documenting, and providing care for this patient excluding time spent in the performance of separately billed services. This included personally reviewing all current laboratories and i maging studies, medical reconciliation, outpatient chart review and discussion with specialists. This chart was completed in part utilizing Speech Voice Recognition Software. Grammatical errors, random word insertions, pronoun errors, and incomplete sentences are an occasional consequence of this system due to software limitations, ambient noise, and hardware issues. Any formal questions or bren rns about the content, text, or information contained within the body of this dictation should be directly addressed to the provider for clarification. Notes For Next Care Provider Patient will need close PCP (Dr. Eboni Mckeon), nephrology (Dr. Saadia Whiting) and orthopedic surgery (Dr. Arroyo) follow-up appointments. Patient was found to be retaining urine on 06/22/2024 and subsequently had a Hamilton catheter placed. Her Hamilton catheter was removed today, 06/26/2024. Will need to continue to monitor to her postvoid residual with routine bladder scans to ensure she is no longer retaining urine. She is being treated for bronchitis/possible pneumonia with a course of oral Levaquin, which is set to be completed on 06/29/2024. She is currently on 500mg Q48H, last dose was on 06/25/2024. Medication Changes From Visit 1.) Torsemide dose increased to 20mg daily. 2.) Losartan dose decreased to 50mg daily. 3.) Both spironolactone AND chlorthalidone were DISCONTINUED. Admission HPI Per Admitting Provider 74-year-old female with chronic ongoing right shoulder pain failed conservative management. She has been trying to proceed with reverse shoulder replacement and had this canceled previously due to health issues. Currently her health issues are recently stabilized and her chronic anemia has improved with Procrit and is felt to be optimized for surgery at this time. Patient denies headaches, sweats, fevers, chills, double vision, blurred vision, cough, sore throat, dysphagia, chest pain, sob, wheezing, n/v/d/c, fatigue. ROS positive for history of chronic anemia, hand numbness, depression, sleep apnea uses CPAP. Admission Exam Per Admitting Provider Constitutional: WD/WN, vitals as above, NAD, sitting up in bed, pleasant, conversing easily Head: Normocephalic, Atraumatic Eyes: PERRL, conjunctivae normal, anicteric sclerae ENMT: external ear and nose normal, oropharynx normal Neck: trachea midline, no thyromegaly normal visual inspection Respiratory: normal respiratory effort, lungs clear to auscultation, no wheeze, rales, rhonchi. Normal insp/exp effort, no accessory muscle use Cardiovascular: RRR, no murmur, no edema Vessels: no JVD or carotid bruit Chest: normal inspection of chest Abdomen: normal bowel sounds, soft, nontender, no hepatosplenomegaly Musculoskeletal: no cyanosis or clubbing, extremities motor strength 5/5, right shoulder surgical site in dressing, sling Skin: no rashes, warm and dry normal turgor Neurologic: PERRL, EOMI, accommodation nl, no face palsy, no dysarthria CN's II-XI intact bilaterally and moves all extremities Psychiatric: A+Ox3, euthymic affect Lymphatic: no cervical or axillary lymphadenopathy : deferred Discharge Exam General: Vitals as above, NAD, sitting up in chair at bedside, very pleasant, conversing appropriately on RA. A+Ox3, euthymic affect. HEENT: Normocephalic, atraumatic. Conjunctivae normal, anicteric sclerae. External ear and nose normal, oropharynx normal. Respiratory: Normal respiratory effort, lungs clear to auscultation, no wheeze/rales/rhonchi. No accessory muscle use. Cardiovascular: Regular rate, rhythm, no murmur, normal peripheral pulses, trace BLE edema improved. Vessels: No JVD. Abdomen/GI: Normal bowel sounds, soft, nontender, no hepatosplenomegaly. Extremities/Musculoskeletal: No cyanosis or clubbing, R shoulder bandaged, R arm in an immobilization sling. Neurologic: No focal deficits, CN's II-XI not formally tested but appear grossly intact bilaterally. Skin: No rashes, normal color, warm/dry. Updated Medication List Medication Instructions Recorded Confirmed Type cholecalciferol (vitamin D3) 125 5,000 unit PO QAM 06/13/19 06/21/24 History mcg (5,000 unit) tablet (Vitamin D3) clindamycin HCl 300 mg capsule 600 mg PO UD PRN PRE DENTAL 06/13/19 06/21/24 History duloxetine 60 mg capsule,delayed 60 mg PO QAM 06/13/19 06/21/24 History release ferrous sulfate 325 mg (65 mg 325 mg PO BID 06/13/19 06/21/24 History iron) tablet latanoprost 0.005 % eye drops 1 drp ophthalmic (eye) HS 06/13/19 06/21/24 History magnesium oxide 800 mg PO QAM PRN supplement 06/13/19 06/21/24 History peg 400-propylene glycol (PF) 0.4 1 drp ophthalmic (eye) UD PRN Dry 06/13/19 06/21/24 History %-0.3 % eye drops in a dropperette Eyes (Systane (PF)) polyethylene glycol 3350 17 gram 17 g PO DAILY PRN Constipation 06/13/19 06/21/24 History oral powder packet (Miralax) pramipexole 1.5 mg tablet (Mirapex) 0.5 mg PO QPM 06/13/19 06/21/24 History timolol 0.5 % eye drops 1 drp ophthalmic (eye) BID 06/13/19 06/21/24 History topiramate 100 mg tablet 50 - 100 mg PO BID 06/13/19 06/21/24 History allopurinol 100 mg tablet 100 mg PO QAM 07/31/21 06/21/24 History aspirin 81 mg tablet 81 mg PO QPM 07/31/21 06/21/24 History fish oil-fat acid comb8-herb 1 cap PO QAM 07/31/21 06/21/24 History [id number] 1,200 mg (400 [id number]) cap losartan 100 mg tablet (Cozaar) 100 mg PO QAM 07/31/21 06/21/24 History oxycodone-acetaminophen 5 mg-325 1 tab PO BID PRN Severe Pain 07/31/21 06/21/24 History mg tablet (Percocet) (Scale Score 7-10) rivaroxaban 20 mg tablet (Xarelto) 20 mg PO QDB 07/31/21 06/21/24 History brimonidine 0.2 % eye drops 1 drp OPR QAM 06/07/23 06/21/24 History famotidine 40 mg tablet 40 mg PO BID 06/07/23 06/21/24 History acetaminophen 325 mg tablet 650 mg PO QID PRN pain/fever 05/23/24 06/21/24 History baclofen 5 mg tablet 5 mg PO HS 05/23/24 06/21/24 History yhobdaxiomgzx-jmwuimnkgswhx-ucoyrzk 20 ml PO Q4H PRN cough/congestion 05/23/24 06/21/24 History 10 mg-650 mg-400 mg/20 mL oral liq L.acidop,casei,lactis,rham-B.lact,sara 1 cap PO DAILY #60 caps 06/26/24 Rx 625 mg (10 billion cell) capsule (Advanced Probiotic) cyanocobalamin (vitamin B-12) 100 100 mcg PO QAM #30 tabs 06/26/24 Rx mcg tablet (Vitamin B-12) levofloxacin 500 mg tablet 500 mg PO Q48H #2 tabs 06/26/24 Rx multivitamin with folic acid 400 1 tab PO QAM #30 tabs 06/26/24 Rx mcg tablet (Daily-Sharda (with folic acid)) torsemide 20 mg tablet 20 mg PO QAM #30 tabs 06/26/24 Rx Hospital Stay Data Consultations 06/21/24 16:32 Consult Hospitalist Routine 06/23/24 07:55 Consult Nephrology Routine Procedures Performed Operation Date: 06/21/24 11:15 Actual Procedures p Right Reverse Total Shoulder Arthroplasty(Right) - Abimael Arroyo MD Diagnostic Imagining Performed 06/21/24 05:00 US - OR guided needle placemen Routine Pending Results Patient Have Any Pending Studies at Discharge: No Discharge Instructions Given to Patient (Per Discharging Provider) ACTIVITY RECOMMENDATIONS: SELF CARE INSTRUCTIONS AFTER TOTAL SHOULDER ARTHROPLASTY REVERSE A. You may do daily exercises as taught in physical therapy while in hospital. No lifting with the operative arm. Physical therapy will not start until 4 weeks after surgery. B. You are to wear your sling/immobilizer at all times EXCEPT when performing your daily exercises and for hygiene purposes. C. You may perform dry, daily dressing changes. Please keep your incision covered. You may shower 48 hours after surgery. Do not apply soap or any ointment/lotions directly over incision. Do not soak incision in bath tub/swimming pool. D. You may use ice as needed to operative shoulder. E. You may resume previous diet. F. Silverlon: You have a Silverlon dressing on your surgical incision. It will remain in place for 7 days from the day of your surgery. After 7 days, you may remove the dressing, just as you would remove a bandaid. You may shower with the Silverlon dressing in place. However, if you notice any water within the dressing, the dressing should be removed. You may cover the incision with a dry dressing once the Silverlon is removed if there is any drainage. SPECIAL CARE INSTRUCTIONS: VERY IMPORTANT TO READ AND REVIEW A. There are a few signs you need to watch for after you are home. Call [facility] at [phone] if you experience any of the followin. Increased severe shoulder pain. Some pain is expected especially when you exercise. 2. Increased swelling in you shoulder or arm; pain or swelling in either upper extremity. 3. Any fluid drainage from the incision. 4. Shortness of breath or chest pain. B. Please call [facility] at [phone] if you have any questions or concerns about your operation or recovery. C. Call your physician if: 1. Temperature is greater than 101 degrees (F). 2. Pain is not relieved by prescribed pain medications. 3. Increase drainage or redness from incision. 4. Unanswered questions or concerns. FOLLOW UP VISIT: Please call [facility] at [phone] to schedule a follow up appointment with Dr. Arroyo or his PA in 12-14 days from your surgery date. Total Time Total Time Spent Total Time Spent (In Minutes): 65 Supervising Physician Co-Signing Physician Notes Late entry; patient was seen on 06/26/2024 Patient is seen and examined at bedside. Patient is pain-free. Creatinine is stable around 2.47. She is working well with physical therapy as well Trial of void successful Plan to discharge to [facility] I have reviewed the advanced practitioner's documentation, and I agree with, and take responsibility for the plan of care I spent a total of 20 minutes coordinating, documenting, and providing care for this patient excluding time spent in the performance of separately billed services. All of the aforementioned completed while collaborating with the assigned advanced practitioner for a full treatment plan
[2024-06-26] MEDS: ADVANCED PROBIOTIC 625 MG CAPSULE PO SCH (13:36)
--- NOTE | 2024-06-26 15:13 | Electrocardiogram Report ---
Test Reason : Blood Pressure : */* mmHG Vent. Rate : 64 BPM Atrial Rate : 64 BPM P-R Int : 140 ms QRS Dur : 88 ms QT Int : 404 ms P-R-T Axes : -9 21 28 degrees QTcB Int : 416 ms Normal sinus rhythm Normal ECG When compared with ECG of 31-May-2024 16:10, No significant change was found Confirmed by Deon Marie ([id number]) on 06/26/2024 3:13:12 PM Referred By: Abimael Arroyo Confirmed By: Deon Marie
--- NOTE | 2024-06-26 15:24 | Orthopedic Progress Note ---
Date of Service June 26, 2024 Assessment & Plan (1) Status post reverse total arthroplasty of right shoulder: Plan: Postop day 5 status post reverse total shoulder replacement. Orthopedically stable. Limited OT PT with hand wrist elbow range of motion shoulder shrugs scapular retraction type exercises only and maintain in sling otherwise. stable from ortho standpoint, patient can be discharged once stable from medical perspective. discharge instructions placed for discharge when stable, will f/u with Dr Arroyo team in 2 weeks as scheduled. Admission and Anticipated Discharge Date Admission Date: June 24, 2024 Subjective Patient is doing well 5 days post right reverse total shoulder arthroplasty. Pain is controlled in the arm. She has been wearing the sling without any issues. She is hoping to be discharged to [facility] later today. Review of Systems Review of Systems: Shortness of breath improved still on oxygen Constitutional: no fever and no chills Respiratory: no cough and no dyspnea Cardiovascular: no chest pain, no dyspnea and no orthopnea Gastrointestinal: no abdominal pain, no nausea and no vomiting Physical Exam Constitutional: WD/WN, vitals as above no acute distress Musculoskeletal: Shoulder: + surgical incision (Dressing C/D/I); no skin erythema, no ecchymosis and no surgical drain present Skin: no rashes, warm and dry Trauma: no evidence of skin trauma Neurologic: normal touch/pain/proprioception Psychiatric: A+Ox3, euthymic affect Speech: normal rate/rhythm/volume of speech Results & Data Vital Signs (Past 12 Hours) Vital Signs Temp Pulse Pulse Resp BP Pulse Ox O2 Del Method 06/26/24 11:27 36.6 C 71 18 121/67 96 Room Air 06/26/24 08:00 Room Air 06/26/24 07:53 36.6 C 63 16 158/83 H 98 Room Air 06/26/24 07:30 60 06/26/24 03:55 84 Laboratory Results Laboratory Tests 06/26/24 05:55 Hgb 8.5 L Hct 26.8 L Plt Count 289 BUN 57 H Creatinine 2.47 H
[2024-06-26 15:32] VITALS: BP 121/61; RESP 20; O2SAT 94
[2024-06-27] MEDS ORDERED: TORSEMIDE 20 MG TAB PO SCH (09:00)
[2024-06-27] MEDS ORDERED: LOSARTAN POTASSIUM 50 MG TAB PO SCH (09:00)
== END 2024-06-26 16:45 | DRG 483 ==
LOC: 3E 09:25 → ASU 09:25 → 2N 06-22 10:35
DX: I12.9 Hypertensive chronic kidney disease with stage 1 through stage 4 chronic kidney disease, or unspecified chronic kidney disease; M75.101 Unspecified rotator cuff tear or rupture of right shoulder, not specified as traumatic; D64.9 Anemia, unspecified; N17.9 Acute kidney failure, unspecified; J70.8 Respiratory conditions due to other specified external agents; R33.8 Other retention of urine; Y92.239 Unspecified place in hospital as the place of occurrence of the external cause; G47.33 Obstructive sleep apnea (adult) (pediatric); G89.4 Chronic pain syndrome; Z86.718 Personal history of other venous thrombosis and embolism; H40.9 Unspecified glaucoma; M25.311 Other instability, right shoulder; Z79.01 Long term (current) use of anticoagulants; J40 Bronchitis, not specified as acute or chronic; Y84.8 Other medical procedures as the cause of abnormal reaction of the patient, or of later complication, without mention of misadventure at the time of the procedure; M79.7 Fibromyalgia; Z88.1 Allergy status to other antibiotic agents; N18.4 Chronic kidney disease, stage 4 (severe); Z88.0 Allergy status to penicillin; Z85.3 Personal history of malignant neoplasm of breast; E78.5 Hyperlipidemia, unspecified